=== PATIENT | female | born 1940 | race Caucasian/White ===

== ENCOUNTER 2016-08-08 21:51 | Inpatient (IN) | payer MEDICARE ==
[~2016-08-08] VITALS: Ht 149.9 cm; Wt 80.2 kg
[2016-08-08 23:40] VITALS: BP 158/70
[2016-08-08 23:55] VITALS: BP 158/70
[2016-08-09] MEDS ORDERED: ONDANSETRON 4MG/2ML VIAL (J2405) IV PRN
[2016-08-09 00:30] VITALS: BP 158/70
[2016-08-09] MEDS: NS 1,000 ML IV SCH ×4 (00:30→21:09)
--- NOTE | 2016-08-09 00:49 | HPEPDOC ---
General Date of Admission Aug 08, 2016 at 23:05 Other Providers PCP: Ahmet Alicia Attending Physician: OMAR VENEGAS MD Chief Complaint The patient is a 75-year-old female admitted with a reason for visit of Acute Kidney Failure. Source: Patient Exam Limitations: No limitations History of Present Illness 74-year-old female with past medical history of hypertension, diabetes mellitus , iron deficiency anemia, and anxiety/depression was transferred from the [facility] ER after she was found to be in acute renal failure. The patient states that she began to feel unwell on Tuesday. This started after she went to her son's home for dinner and subsequently started to feel nauseous after eating. The patient states that she started to have episodes of nonbloody emesis and intractable nausea with dry heaving over the subsequent few days. During this time, patient states that she was unable to eat or drink much aside from crackers and some evelina nicole. During this time, the patient states that she continued to take all of her medications which include lisinopril 5 mg daily and metformin 1000 mg twice a day. In addition, the patient did state that she also developed very dry lips and a sharp pain in her tongue from all the retching/vomiting. The patient denies taking any [id number] pain medications, antibiotics, or any other new medications during this time. She denies any fevers, chills, shortness of breath, chest pain, palpitations, abdominal pain, or any diarrhea. In the [facility] ER, the patient was noted to have a BUN of 57 and a serum creatinine of 5.2. According to previous records there, the patient had a serum creatinine within normal limits up to one year ago. The patient has been transferred here and will be admitted under the service of Dr. Venegas for further evaluation and management of acute renal failure. Allergies Coded Allergies: Penicillins (Unverified Allergy, Severe, THROAT SWELLING, 11/18/15) Past Medical History Medical History As noted in the HPI. Surgical History Bilateral cataract surgery Family History Significant Family History: No pertinent family hx Social History * Smoker: Denies Alcohol: Denies Drugs: denies Lives by herself in the [facility]. Is functionally independent, and is able to ambulate without any assistive devices. Review of Symptoms Other systems 10 point review of systems negative unless otherwise specified in HPI. Physical Examination General Exam: Positive: Alert, Cooperative, No Acute Distress ENT Exam: Positive: Atraumatic, Mucous membr. moist/pink Neck Exam: Negative: JVD Chest Exam: Positive: Clear to auscultation, Normal air movement Heart Exam: Positive: Normal S1, Normal S2, Rate Normal Telemetry: Positive: Sinus Abdomen Exam: Positive: Soft, Negative: Tenderness Extremity Exam: Negative: Swelling, Tenderness Psych Exam: Positive: Oriented x 3 Vital Signs Vital Signs Date Time Temp Pulse Resp B/P Pulse Ox O2 Delivery O2 Flow Rate FiO2 08/08/16 23:55 97.9 18 158/70 100 Room Air Plan / VTE VTE Prophylaxis Ordered?: Yes Plan Plan Acute renal failure Likely secondary to intractable vomiting, dehydration, decreased by mouth intake , and compounded by the continuation of lisinopril, metformin The patient's serum potassium is noted to be within normal limits, and her ABG is notable for mild metabolic acidosis with a pH of 7.3 No emergent indication for dialysis at this time Patient states that she is continuing to make urine at her normal rate Lactic acid level within normal limits IV fluid hydration ordered CT scan of the abdomen done in [facility] with no evidence of hydronephrosis or other structural defects Renal ultrasound ordered for further delineation Urinalysis, urine lites ordered Immunologic workup also ordered to rule out other potential causes of acute renal failure Avoid nephrotoxins If the patient's renal status does not improve in the a.m., consider nephrology consultation Diabetes mellitus Will hold metformin secondary to above Insulin sliding scale for additional coverage Hypertension, stable We will hold the patient's lisinopril now secondary to above Iron deficiency anemia The patient was previously on ferrous sulfate, however discontinued this medication as it made her stomach upset We will continue to monitor hemoglobin leve Anxiety/depression Patient stable with no suicidal or homicidal ideations Continue Ativan when necessary DVT prophylaxis-heparin subcutaneously The patient will be admitted under the service of Dr. Venegas, who will begin to follow the patient on 08/09/16 at 7 AM. JOHN OLIVEROS MD Aug 09, 2016 00:49
[2016-08-09] MEDS ORDERED: GLUCAGON FOR INJ 1 MG VIAL (J1610) SC PRN (01:00)
[2016-08-09] MEDS ORDERED: GLUCOSE 4 GM CHEW TABLET PO PRN (01:00)
[2016-08-09] MEDS ORDERED: DEXTROSE 50% 50 ML SYRINGE IV PRN (01:00)
[2016-08-09] MEDS ORDERED: ONGL1TAB9 PO (01:08)
[2016-08-09] MEDS ORDERED: LISI-542 PO (01:08)
[2016-08-09] MEDS ORDERED: PARO10TA84 PO (01:08)
[2016-08-09] MEDS ORDERED: METF1000 PO (01:08)
[2016-08-09] MEDS ORDERED: VITMTA PO (01:08)
[2016-08-09] MEDS ORDERED: OMEP40CA2 PO (01:08)
[2016-08-09] MEDS ORDERED: LORA-376 PO (01:08)
[2016-08-09 02:22] LABS: COMPLEMENT C3 142 MG/DL (90-180); COMPLEMENT C4 34.3 MG/DL (10-40)
[2016-08-09 04:45] VITALS: BP 148/65
[2016-08-09 05:31] LABS: ALBUMIN 2.3 GM/DL (3.2-5.2); CALCIUM LEVEL 6.9 MG/DL (8.8-10.2); CREATININE FOR GFR 4.73 MG/DL (0.55-1.02); GLOMERULAR FILTRATION RATE 9.6 (>39); PHOSPHORUS LEVEL 3.8 MG/DL (2.5-4.9); POTASSIUM SERUM 3.8 MEQ/L (3.5-5.1)
[2016-08-09 05:41] LABS: MEAN CORPUSCULAR HEMOGLOBIN 23.1 pg (27.0-33.0); MEAN CORPUSCULAR HGB CONC 31.3 g/dl (32.0-36.5); MEAN CORPUSCULAR VOLUME 73.9 fl (80.0-96.0); RED CELL DISTRIBUTION WIDTH 17.6 % (11.5-14.5); WHITE BLOOD COUNT 12.9 K/mm3 (4.0-10.0)
[2016-08-09 05:44] LABS: MAGNESIUM LEVEL 0.9 MG/DL (1.8-2.4)
[2016-08-09] MEDS: HEPARIN SOD (PORCINE) 5000 UNITS/ML VIAL SC SCH ×3 (06:27→21:09)
[2016-08-09] MEDS: MAG SULF 1GM/100ML (MAG RUN) 1 GM in APPROPRIATE DILUENT 1 EA IV SCH ×4 (06:28→10:10)
[2016-08-09] MEDS ORDERED: CALCIUM GLUCONATE 1,000 MG in D5W MINI-BAG PLUS 100 ML IV ONE (06:45)
[2016-08-09 07:20] LABS: FERRITIN 70 NG/ML (8-252); PERCENT SATURATION 2.9 % (13.2-37.4); TOTAL IRON BINDING CAPACITY 276 UG/DL (250-450)
[2016-08-09] MEDS: HumaLOG INSULIN (NovoLOG) PER UNIT SC SCH ×4 (07:30→21:00)
[2016-08-09 08:00] VITALS: BP 151/67
--- NOTE | 2016-08-09 08:31 | REP ---
Renal ultrasound: The kidneys are normal size. Right kidney measures 2.6 x 6.3 x 6.5 cm. Left kidney measures 12.4 5.2 x 5.6 cm. Renal cortical echogenicity is normal bilaterally. There is no hydronephrosis on the right on the left. There are no renal calculi, masses or cysts on the right on the left. With color Doppler assessment there are bilateral ureteral jets into the urinary bladder. The bladder wall is not optimally demonstrated for further evaluation. Impression: No hydronephrosis. There are bilateral ureteral jets into the urinary bladder. Otherwise, negative renal ultrasound. Signed by Sandeep Catalan MD 08/09/2016 08:22 A
[2016-08-09] MEDS ORDERED: CYANOCOBALAMIN 1,000 MCG/ML VIAL (J3420) IM SCH (09:00)
[2016-08-09] MEDS: MULTIVITAMINS/MINERALS THERAP 1 TAB PO SCH (09:26)
[2016-08-09] MEDS: OMEPRAZOLE 20 MG CAP PO SCH (09:26)
[2016-08-09 10:53] LABS: FOLATE > 24.0 NG/ML (>5.4); VITAMIN B12 LEVEL 216 PG/ML (247-911)
--- NOTE | 2016-08-09 11:59 | IPNPDOC ---
Subjective Date Seen The patient was seen on 08/09/16. Subjective Chief Complaint/HPI The patient is a 75-year-old female admitted with a reason for visit of Acute Kidney Failure. Events since last encounter feeling better, making good amounts of urine. No fever or chills, no chest pain or SOB , no abdominal pain, no nausea or vomiting. Objective Physical Examination General Exam: Positive: Alert, Cooperative, No Acute Distress ENT Exam: Positive: Atraumatic, Mucous membr. moist/pink Neck Exam: Negative: JVD Chest Exam: Positive: Clear to auscultation, Normal air movement Heart Exam: Positive: Normal S1, Normal S2, Rate Normal Telemetry: Positive: Sinus Abdomen Exam: Positive: Soft, Negative: Tenderness Extremity Exam: Negative: Swelling, Tenderness Psych Exam: Positive: Oriented x 3 Assessment /Plan Problems (1) Anemia Status: Acute (2) Vitamin B 12 deficiency Status: Acute (3) Acute renal failure Status: Acute (4) Diabetes Status: Acute (5) Hypertension Status: Chronic (6) Anxiety and depression Status: Chronic Plan/VTE VTE Prophylaxis Ordered?: Yes VS, I&O, 24H, [facility] Vital Signs/I&O Vital Signs Date Time Temp Pulse Resp B/P Pulse Ox O2 Delivery O2 Flow Rate FiO2 08/09/16 08:00 99.8 110 20 151/67 96 Room Air I&O- Last 24 Hours up to 6 AM 08/09/16 06:00 Intake Total 750 ml Output Total 325 ml Balance 425 ml Laboratory Data 24H LABS Laboratory Tests 2 08/09/16 00:49: C-Reactive Protein, Quantitative 8.29H, Complement C3 142, Complement C4 34.3 08/09/16 03:59: Urine Amorphous Sediment , Urine Appearance CLOUDYH, Urine Color YELLOW, Urine pH 5.0, Urine Specific [place] 1.005, Urine Protein NEGATIVE, Urine Glucose (UA ) NEGATIVE, Urine Ketones TRACEH, Urine Urobilinogen 0.2, Urine Bilirubin NEGATIVE, Urine Leukocyte Esterase 3+H, Urine Bacteria (Auto) 1+H, Urine Blood 1 +H, Urine Calcium Carbonate Cryst(Auto) , Urine Calcium Oxalate Cryst (Auto) , Urine Calcium Phosphate Tammy (Auto) , Urine Cellular Casts , Urine Cystine Crystals , Urine Granular Casts (Auto) , Urine Hyaline Casts (Auto) 0, Urine Leucine Crystals , Urine Mucus (Auto) SMALL, Urine Nitrite NEGATIVE, Urine Oval Fat Bodies (Auto) , Urine RBC (Auto) 16H, Urine Renal Epithelial Cells , Urine Sperm (Auto) , Urine Squamous Epithelial Cells 0, Urine Transitional Epithelial Cells , Urine Trichomonas (Auto) , Urine Triple Phosphate Cryst (Auto) , Urine Tyrosine Crystals , Urine Uric Acid Crystals (Auto) , Urine WBC (Auto) TNTCH, Urine Waxy Casts (Auto) , Urine Yeast-Like Cells (Auto) 08/09/16 04:48: Albumin 2.3L, Blood Urea Nitrogen 49H, Creatinine 4.73H, Sodium Level 144, Potassium Level 3.8, Chloride Level 116H, Carbon Dioxide Level 19L, Anion Gap 9 , Calcium Level 6.9L, Glomerular Filtration Rate 9.6L, Magnesium Level 0.9*L, Phosphorus Level 3.8 08/09/16 06:32: Ferritin 70, Folate > 24.0, Iron Level 8L, Total Iron Binding Capacity 276, Transferrin % Saturation 2.9L, Vitamin B12 Level 216L CBC/BMP Laboratory Tests 08/09/16 04:48 Anion Gap 9, Red Blood Count 2.92 L, Mean Corpuscular Volume 73.9 L, Mean Corpuscular Hemoglobin 23.1 L, Mean Corpuscular Hemoglobin Concent 31.3 L, Red Cell Distribution Width 17.6 H OMAR LLANES MD Aug 09, 2016 11:59
[2016-08-09 12:57] LABS: HEPATITIS B SURFACE ANTIBODY NEGATIVE (POSITIVE)
[2016-08-09] MEDS: LORazepam 0.5 MG TAB PO PRN (15:22)
[2016-08-09 16:00] VITALS: BP 130/58
[2016-08-09 18:14] LABS: MEAN CORPUSCULAR VOLUME 74.1 fl (80.0-96.0); WHITE BLOOD COUNT 13.1 K/mm3 (4.0-10.0)
[2016-08-09 18:33] LABS: CALCIUM LEVEL 7.3 MG/DL (8.8-10.2); CREATININE FOR GFR 4.37 MG/DL (0.55-1.02); GLOMERULAR FILTRATION RATE 10.5 (>39)
[2016-08-09 20:22] VITALS: BP 142/61
[2016-08-09 23:50] VITALS: BP 129/58
[2016-08-10] VITALS (10 sets, daily range): BP systolic 143–180; BP diastolic 64–87; PULSE 87
[2016-08-10] MEDS: NS 1,000 ML IV SCH (05:02)
[2016-08-10] MEDS: HEPARIN SOD (PORCINE) 5000 UNITS/ML VIAL SC SCH ×3 (05:02→21:05)
[2016-08-10 05:45] LABS: MEAN CORPUSCULAR HEMOGLOBIN 23.9 pg (27.0-33.0); MEAN CORPUSCULAR HGB CONC 32.3 g/dl (32.0-36.5); MEAN CORPUSCULAR VOLUME 74.2 fl (80.0-96.0); RED CELL DISTRIBUTION WIDTH 17.2 % (11.5-14.5); WHITE BLOOD COUNT 12.2 K/mm3 (4.0-10.0)
[2016-08-10 06:04] LABS: ALBUMIN 2.3 GM/DL (3.2-5.2); CALCIUM LEVEL 7.3 MG/DL (8.8-10.2); CREATININE FOR GFR 4.28 MG/DL (0.55-1.02); GLOMERULAR FILTRATION RATE 10.8 (>39); MAGNESIUM LEVEL 2.1 MG/DL (1.8-2.4); PHOSPHORUS LEVEL 3.7 MG/DL (2.5-4.9); POTASSIUM SERUM 3.6 MEQ/L (3.5-5.1)
[2016-08-10] MEDS: HumaLOG INSULIN (NovoLOG) PER UNIT SC SCH ×4 (07:30→21:00)
[2016-08-10] MEDS: FAMOTIDINE 20 MG TAB PO SCH ×2 (09:00→21:04)
[2016-08-10] MEDS: OMEPRAZOLE 20 MG CAP PO SCH (09:15)
[2016-08-10] MEDS: LORazepam 0.5 MG TAB PO PRN (09:15)
[2016-08-10] MEDS: MULTIVITAMINS/MINERALS THERAP 1 TAB PO SCH (09:15)
[2016-08-10] MEDS ORDERED: IRON SUCROSE 25 MG in NS 50 ML IV ONE (13:00)
--- NOTE | 2016-08-10 13:12 | CR ---
DATE OF CONSULTATION: 08/10/2016 REQUESTING PHYSICIAN: Jose Perales MD REASON FOR CONSULTATION: Acute renal failure. HISTORY OF PRESENT ILLNESS: Mrs. Lynn is a 74-year-old female with known history of hypertension, type 2 diabetes, anxiety, depression and iron deficiency anemia. She has been sick since Tuesday with nausea, vomiting and diarrhea. She presented to emergency room at [facility] where she was found to have a BUN of 57 and creatinine 5.2. She was transferred to [facility]. She was admitted here on August 08 and has been hydrated with IV fluids since then. Her kidney function has not improved, due to which a nephrology consultation was requested. Her GI symptoms have resolved and she is now very well hydrated. A renal ultrasound was negative for any evidence of obstruction. PAST MEDICAL AND SURGICAL HISTORY: Significant for: 1. Type 2 diabetes. 2. Hypertension. 3. Anemia. 4. Anxiety and depression. HOME MEDICATIONS: Her home medications included lisinopril, metformin, omeprazole, lorazepam as needed, paroxetine 10 mg daily and Onglyza 5 mg daily. ALLERGIES: 1. The patient has an allergy to PENICILLIN. PERSONAL AND SOCIAL HISTORY: The patient denies any alcohol, drug or tobacco use. FAMILY HISTORY: Negative for kidney problems. REVIEW OF SYSTEMS: She denies any fever or chills. She had recurrent nausea, vomiting and diarrhea which has completely resolved. She is tolerating oral intake well. Ears, nose and throat are unremarkable. Cardiovascular system negative for dyspnea or chest pain. Respiratory system negative for cough or hemoptysis. GI system is as per history of present illness. She did not have any rectal bleeding or black colored stools. system is negative for dysuria or hematuria. Renal ultrasound did not show any evidence of hydronephrosis or mass. Endocrine system is negative for thyroid problems. She does have type 2 diabetes. Psychosocial system is significant for depression and anxiety. Neurological system is negative for seizures. Musculoskeletal system is negative for any arthritis. She denies using NSAIDs. Skin is negative for rash or ulcers. PHYSICAL EXAMINATION: Temperature 98.4 degrees Fahrenheit, heart rate 88 per minute and respiratory rate 2o per minutes. Blood pressure 152/70 mmHg and oxygen saturation 97% on room air. Head is atraumatic. Ears, nose and throat are unremarkable. Neck is supple and JVD is elevated at about 6 cm above sternal angle. She has no thyroid enlargement and trachea is midline. Heart sounds are regular and lungs clear to auscultation bilaterally. Abdomen is soft and nontender. Bowel sounds are normal and there is no palpable organomegaly. Extremities have no cyanosis or clubbing. Skin has no rash or ulcers. Neurologically she has no focal deficit. LABORATORY DATA: Her initial labs showed a WBC count 12.9, hemoglobin 6.8 and hematocrit 21.6. Platelets were 512. She has received 2 units of packed RBCs since admission. Today her WBC count is 12.2, hemoglobin 8.9 and hematocrit 27.6. Platelets of 562. Urinalysis showed 1+ blood and 3+ leukocyte esterase with too numerous to count WBCs and 16 RBCs. Initial chemistry showed a sodium 144 and potassium 3.8. BUN was 49 and creatinine 4.7. Yesterday her BUN was 49 and creatinine 4.37. Today her BUN is down to 43 and creatinine 4.28. Sodium is 144 and potassium is 3.6. Her CO2 is 16. Renal ultrasound done on August 08 showed both kidneys about 12.5 cm in size without any hydronephrosis. PROBLEMS: 1. Acute renal failure. The patient is known to have almost normal kidney function at baseline about a year ago. Her most recent baseline kidney function is not known. She did have GI problems for several days and was probably dehydrated at the time of admission. However, she seems to be very well hydrated now with elevated neck veins and is at risk for hypervolemia. Her vomiting and diarrhea has already completely resolved. I will stop her IV fluids and monitor her renal function for the next 24 hours. She was on metformin which has already been stopped. I will also stop her omeprazole. At this point, we will keep her off YUE inhibitors until her kidney function improves. There is no emergent indication for dialysis and I will recheck her renal profile tomorrow morning. 2. Metabolic acidosis. She seems to have mild metabolic acidosis probably related to acute renal failure and diarrhea. In addition, she was also taking metformin. We will stop the IV fluid and monitor her for the next 24 hours without any intervention. 3. Anemia with severe iron deficiency. The patient does have severe iron deficiency and is likely to require iron supplementation. She has received 2 units of packed RBCs. I will give her one dose of InFeD 1000 mg. She will probably need GI workup for blood loss. 4. Hypertension. Her blood pressure is reasonable right now. Will stop the IV fluid and keep her off YUE inhibitor for now. In case we need an antihypertensive we can use a calcium channel ignacio. 5. Diabetes. Her diabetes has been reasonably well controlled. I suggest to keep her off metformin. I thank you for involving me in the care of Mrs. Lynn. I will follow her along with you.
[2016-08-10] MEDS ORDERED: IRON SUCROSE 375 MG in NS 250 ML IV ONE (14:00)
--- NOTE | 2016-08-10 20:18 | IPNPDOC ---
Subjective Date Seen The patient was seen on 08/10/16. Subjective Chief Complaint/HPI The patient is a 75-year-old female admitted with a reason for visit of Acute Kidney Failure. Objective Physical Examination General Exam: Positive: Alert, Cooperative, No Acute Distress ENT Exam: Positive: Atraumatic, Mucous membr. moist/pink Neck Exam: Negative: JVD Chest Exam: Positive: Clear to auscultation, Normal air movement Heart Exam: Positive: Normal S1, Normal S2, Rate Normal Telemetry: Positive: Sinus Abdomen Exam: Positive: Soft, Negative: Tenderness Extremity Exam: Negative: Swelling, Tenderness Psych Exam: Positive: Oriented x 3 Assessment /Plan Problems (1) Anemia Status: Acute (2) Vitamin B 12 deficiency Status: Acute (3) Acute renal failure Status: Acute (4) Diabetes Status: Acute (5) Hypertension Status: Chronic (6) Anxiety and depression Status: Chronic Plan/VTE VTE Prophylaxis Ordered?: Yes VS, I&O, 24H, [facility] Vital Signs/I&O Vital Signs Date Time Temp Pulse Resp B/P Pulse Ox O2 Delivery O2 Flow Rate FiO2 08/10/16 19:52 99.8 89 20 148/69 96 Room Air I&O- Last 24 Hours up to 6 AM 08/10/16 05:59 Intake Total 2680 ml Output Total 3525 ml Balance -845 ml Laboratory Data 24H LABS Laboratory Tests 2 08/10/16 05:13: Albumin 2.3L, Blood Urea Nitrogen 43H, Creatinine 4.28H, Sodium Level 144, Potassium Level 3.6, Chloride Level 116H, Carbon Dioxide Level 16L, Anion Gap 12 , Calcium Level 7.3L, Glomerular Filtration Rate 10.8L, Magnesium Level 2.1, Phosphorus Level 3.7 CBC/BMP Laboratory Tests 08/10/16 05:13 Anion Gap 12, Red Blood Count 3.71 L, Mean Corpuscular Volume 74.2 L, Mean Corpuscular Hemoglobin 23.9 L, Mean Corpuscular Hemoglobin Concent 32.3, Red Cell Distribution Width 17.2 H Microbiology Microbiology 08/10/16 Urine Culture, Received Pending TIMOTHY SIDHU DO Aug 10, 2016 20:18
[2016-08-11] VITALS (8 sets, daily range): BP systolic 131–182; BP diastolic 61–83; PULSE 81
[2016-08-11 05:53] LABS: MEAN CORPUSCULAR HEMOGLOBIN 23.2 pg (27.0-33.0); MEAN CORPUSCULAR HGB CONC 30.9 g/dl (32.0-36.5); MEAN CORPUSCULAR VOLUME 75.1 fl (80.0-96.0); RED CELL DISTRIBUTION WIDTH 17.9 % (11.5-14.5); WHITE BLOOD COUNT 12.2 K/mm3 (4.0-10.0)
[2016-08-11] MEDS: HEPARIN SOD (PORCINE) 5000 UNITS/ML VIAL SC SCH ×3 (05:58→21:13)
[2016-08-11 06:09] LABS: ALBUMIN 2.2 GM/DL (3.2-5.2); CALCIUM LEVEL 7.9 MG/DL (8.8-10.2); CREATININE FOR GFR 3.87 MG/DL (0.55-1.02); GLOMERULAR FILTRATION RATE 12.1 (>39); MAGNESIUM LEVEL 1.8 MG/DL (1.8-2.4); PHOSPHORUS LEVEL 4.3 MG/DL (2.5-4.9); POTASSIUM SERUM 3.7 MEQ/L (3.5-5.1)
[2016-08-11] MEDS: HumaLOG INSULIN (NovoLOG) PER UNIT SC SCH ×5 (07:30→21:00)
[2016-08-11] MEDS: MULTIVITAMINS/MINERALS THERAP 1 TAB PO SCH (08:40)
[2016-08-11] MEDS: DOCUSATE SODIUM 100 MG CAP PO SCH ×2 (08:40→21:13)
[2016-08-11] MEDS: FAMOTIDINE 20 MG TAB PO SCH ×2 (08:40→21:13)
[2016-08-11] MEDS: LORazepam 0.5 MG TAB PO PRN (08:45)
[2016-08-11] MEDS ORDERED: DARBEPOETIN 100 MCG/0.5 ML *NON-DIALYSIS* SYRINGE (J0881) SC SCH (09:00)
[2016-08-11] MEDS ORDERED: SLF 3 ML SYR IV PRN (10:15)
--- NOTE | 2016-08-11 11:46 | IPN ---
DATE OF SERVICE: 08/11/2016 Mrs. Lynn is seen this morning on her bedside. She is feeling better and denies any dyspnea, chest pain, nausea, or vomiting. Her intravenous (IV) fluid was stopped yesterday. She received a dose of intravenous iron due to severe iron deficiency with anemia and tolerated it well. On physical examination, temperature 98.4 degrees Fahrenheit, heart rate 85 per minute, and respiratory rate 20 per minute. Blood pressure 153/63 mmHg and oxygen saturation 98% on room air. Intake and output records from yesterday showed total intake 2900 and output 3200. Head is atraumatic. Neck is supple with mild jugular venous distention (JVD) and no thyroid enlargement. Trachea is midline. Heart sounds are regular. Lungs clear to auscultation. Abdomen: Soft, nontender, and without palpable organomegaly. Extremities: Have no cyanosis or clubbing. Skin has no rash or ulcers. Neurologically, she is awake, alert, and oriented times three. Today's laboratories show WBC count 12.2, hemoglobin 8.4, and hematocrit 27.1. Platelets 556. Sodium 146 and potassium 3.7. BUN 39 and creatinine 3.87. PROBLEMS: 1. Acute kidney injury superimposed on chronic kidney disease. Improvement in kidney function is noticed over the last 24 hours. She is currently not on any nephrotoxic medication. I will start I have started her on Pepcid and has stopped her proton pump inhibitor (PPI). 2. Recurrent anemia. The patient received transfusions initially due to severe anemia. She has slight drop in her hematocrit once again. She is going to have stool checked for occult blood. She has not had a colonoscopy at least in several years. I will recommend upper and lower endoscopy, which could be done as an outpatient if it could not be done during this hospitalization. 3. Hypernatremia. This is mild and likely to resolve by itself. The patient has good oral intake. Will keep her off IV fluid.
[2016-08-11] MEDS: SLF 3 ML SYR IV SCH ×2 (14:58→21:13)
[2016-08-11] MEDS: MIRALAX *UNIT DOSE* 17GM PACKET PO PRN (15:13)
[2016-08-11] MEDS ORDERED: **hydrALAZINE** 10 MG TAB PO ONE (18:00)
--- NOTE | 2016-08-11 21:34 | IPNPDOC ---
Subjective Date Seen The patient was seen on 08/11/16. Subjective Chief Complaint/HPI The patient is a 75-year-old female admitted with a reason for visit of Acute Kidney Failure. Constitutional: Denies: Chills, Fever, Malaise, Night Sweats, Weakness, Fatigue , Weight Loss, Lethargy, Other Eyes: Denies: Pain, Vision change Objective Physical Examination General Exam: Positive: Alert, Cooperative, No Acute Distress ENT Exam: Positive: Atraumatic, Mucous membr. moist/pink Neck Exam: Negative: JVD Chest Exam: Positive: Clear to auscultation, Normal air movement Heart Exam: Positive: Rate Normal, Normal S1, Normal S2 Telemetry: Positive: Sinus Abdomen Exam: Positive: Soft, Negative: Tenderness Extremity Exam: Negative: Tenderness, Swelling Psych Exam: Positive: Oriented x 3 Assessment /Plan Problems (1) Anemia Status: Acute Problem Text: * s/p transfusion * s/p iron through the IV * pt has iron def anemia * occult blood pending (2) Vitamin B 12 deficiency Status: Acute (3) Acute renal failure Status: Acute Response to Treatment: Improving (4) Diabetes Status: Chronic Response to Treatment: Stable (5) Hypertension Status: Chronic (6) Anxiety and depression Status: Chronic Plan/VTE VTE Prophylaxis Ordered?: Yes VS, I&O, 24H, [facility] Vital Signs/I&O Vital Signs Date Time Temp Pulse Resp B/P (MAP) Pulse Ox O2 Delivery O2 Flow Rate FiO2 08/11/16 19:00 174/70 (104) 08/11/16 16:45 98.4 92 18 99 Room Air I&O- Last 24 Hours up to 6 AM 08/11/16 06:00 Intake Total 1999.25 ml Output Total 2800 ml Balance -800.75 ml Laboratory Data 24H LABS Laboratory Tests 2 08/11/16 05:29: Blood Urea Nitrogen 39H, Creatinine 3.87H, Sodium Level 146H, Potassium Level 3.7, Chloride Level 117H, Carbon Dioxide Level 19L, Anion Gap 10, Glomerular Filtration Rate 12.1L, Calcium Level 7.9L, Phosphorus Level 4.3, Magnesium Level 1.8, Albumin 2.2L CBC/BMP Laboratory Tests 08/11/16 05:29 Red Blood Count 3.61 L, Mean Corpuscular Volume 75.1 L, Mean Corpuscular Hemoglobin 23.2 L, Mean Corpuscular Hemoglobin Concent 30.9 L, Red Cell Distribution Width 17.9 H, Anion Gap 10 Microbiology Microbiology 08/10/16 Urine Culture - Final, Complete TIMOTHY SIDHU DO Aug 11, 2016 21:34
[2016-08-12 00:07] LABS: COMPLEMENT TOTAL (CH50) > 62 U/mL (42-60); MYELOPEROXIDASE ANTIBODY <9.0 U/mL (0.0-9.0)
[2016-08-12 02:00] VITALS: BP 170/78
[2016-08-12] MEDS: HEPARIN SOD (PORCINE) 5000 UNITS/ML VIAL SC SCH ×3 (05:37→21:18)
[2016-08-12] MEDS: SLF 3 ML SYR IV SCH ×3 (05:38→21:20)
[2016-08-12] MEDS: MIRALAX *UNIT DOSE* 17GM PACKET PO PRN (05:42)
[2016-08-12 05:59] LABS: MEAN CORPUSCULAR HEMOGLOBIN 23.1 pg (27.0-33.0); MEAN CORPUSCULAR HGB CONC 31.2 g/dl (32.0-36.5); MEAN CORPUSCULAR VOLUME 74.1 fl (80.0-96.0); WHITE BLOOD COUNT 13.2 K/mm3 (4.0-10.0)
[2016-08-12 06:00] VITALS: BP 158/70
[2016-08-12 06:21] LABS: ALBUMIN 2.6 GM/DL (3.2-5.2); CALCIUM LEVEL 8.1 MG/DL (8.8-10.2); CREATININE FOR GFR 3.62 MG/DL (0.55-1.02); GLOMERULAR FILTRATION RATE 13.1 (>39); MAGNESIUM LEVEL 1.6 MG/DL (1.8-2.4); PHOSPHORUS LEVEL 3.8 MG/DL (2.5-4.9); POTASSIUM SERUM 3.3 MEQ/L (3.5-5.1)
[2016-08-12] MEDS ORDERED: POTASSIUM CHLORIDE 10 MEQ SR TABLET PO ONE ×2 (07:30→08:15)
[2016-08-12] MEDS: HumaLOG INSULIN (NovoLOG) PER UNIT SC SCH ×4 (07:43→21:00)
[2016-08-12] MEDS ORDERED: MAG SULF 1GM/100ML (MAG RUN) 1 GM in APPROPRIATE DILUENT 1 EA IV ONE (08:15)
[2016-08-12] MEDS: **hydrALAZINE** 10 MG TAB PO SCH ×3 (08:40→21:19)
[2016-08-12] MEDS: FAMOTIDINE 20 MG TAB PO SCH ×2 (08:41→21:18)
[2016-08-12] MEDS: MULTIVITAMINS/MINERALS THERAP 1 TAB PO SCH (08:41)
[2016-08-12] MEDS: SENOKOT S TAB PO SCH ×2 (08:41→21:19)
[2016-08-12] MEDS: LORazepam 0.5 MG TAB PO PRN (08:48)
[2016-08-12] MEDS ORDERED: amLODIPine 5 MG TAB PO ONE (09:30)
[2016-08-12 14:00] VITALS: BP 148/68
--- NOTE | 2016-08-12 20:17 | IPN ---
DATE: 08/12/2016 Mrs. Lynn is seen this morning at her bedside. She reports that she took all of her pills. She felt sick to her stomach and vomited once. She is not sure if she vomited any of her pills. She denies any abdominal pain or nausea now. She has no dyspnea or chest pain. She has been up and ambulated for one hour in the hallway at this morning. On physical examination, temperature 97.1 degrees Fahrenheit, heart rate 88 per minute and respiratory rate 18 per minute. Blood pressure 173/77 mmHg and oxygen saturation 93% on room air. Head is atraumatic. Ears, nose and throat are unremarkable. Pupils are equal and reactive to light and sclera is anicteric. Neck is supple and without jugular venous distention (JVD) or thyroid enlargement. Heart sounds are regular and lungs clear to auscultation. Abdomen soft and nontender. There is no palpable organomegaly and bowel sounds are normal. Extremities have no cyanosis or clubbing. Skin has no rash or ulcers. Neurologically she is awake, alert and oriented times three. Today's laboratories show WBC count 13.2, hemoglobin 8.8 and hematocrit 28.4. Platelets 580. Sodium 146 and potassium 3.3. BUN 38 and creatinine 3.62. PROBLEMS: 1. Acute renal failure superimposed on chronic kidney disease. The patient has gradual improvement in her kidney function. I do not feel that she has any uremic symptoms at this point and we will continue to monitor her kidney function closely. 2. Hypertension. Blood pressure is somewhat high today. She has been off her angiotensin receptor ignacio (ARB) since admission due to acute renal failure. I will start amlodipine 5 mg daily with first dose today. She is also receiving hydralazine 10 mg three times a day, which is appropriate. We will continue to hold off on any diuretics. 3. Hypokalemia. This is most likely related to recovering kidney function. The patient will be given one dose of potassium chloride 40 mEq and electrolytes will be checked tomorrow morning. 4. Leukocytosis. Her leukocytosis has been persistent and etiology is uncertain. She has no febrile illness at this point and no other symptoms to suggest infection. 5. Anemia. Patient was given intravenous iron dose due to severe iron deficiency. Her anemia has started to improve. She was initially transfused; however, at this point there is no need for further transfusion.
--- NOTE | 2016-08-12 20:56 | IPNPDOC ---
Subjective Date Seen The patient was seen on 08/12/16. Subjective Chief Complaint/HPI The patient is a 75-year-old female admitted with a reason for visit of Acute Kidney Failure. Objective Physical Examination General Exam: Positive: Alert, Cooperative, No Acute Distress ENT Exam: Positive: Atraumatic, Mucous membr. moist/pink Neck Exam: Negative: JVD Chest Exam: Positive: Clear to auscultation, Normal air movement Heart Exam: Positive: Rate Normal, Normal S1, Normal S2 Telemetry: Positive: Sinus Abdomen Exam: Positive: Soft, Negative: Tenderness Extremity Exam: Negative: Tenderness, Swelling Psych Exam: Positive: Oriented x 3 Assessment /Plan Problems (1) Anemia Status: Acute Problem Text: * s/p transfusion * s/p iron through the IV * pt has iron def anemia * occult blood pending (2) Vitamin B 12 deficiency Status: Acute (3) Acute renal failure Status: Acute Response to Treatment: Improving (4) Diabetes Status: Chronic Response to Treatment: Stable (5) Hypertension Status: Chronic (6) Anxiety and depression Status: Chronic Plan/VTE VTE Prophylaxis Ordered?: Yes VS, I&O, 24H, [facility] Vital Signs/I&O Vital Signs Date Time Temp Pulse Resp B/P (MAP) Pulse Ox O2 Delivery O2 Flow Rate FiO2 08/12/16 14:22 148/68 08/12/16 14:00 97.6 89 18 99 Room Air I&O- Last 24 Hours up to 6 AM 08/12/16 06:00 Intake Total 1240 ml Output Total 2600 ml Balance -1360 ml Laboratory Data 24H LABS Laboratory Tests 2 08/12/16 05:32: Blood Urea Nitrogen 38H, Creatinine 3.62H, Sodium Level 146H, Potassium Level 3.3L, Chloride Level 113H, Carbon Dioxide Level 21, Anion Gap 12, Glomerular Filtration Rate 13.1L, Calcium Level 8.1L, Phosphorus Level 3.8, Magnesium Level 1.6L, Albumin 2.6L 08/12/16 11:24: Bedside Glucose (Misc Panel) 137H 08/12/16 16:50: Bedside Glucose (Misc Panel) 121H CBC/BMP Laboratory Tests 08/12/16 05:31 Red Blood Count 3.83 L, Mean Corpuscular Volume 74.1 L, Mean Corpuscular Hemoglobin 23.1 L, Mean Corpuscular Hemoglobin Concent 31.2 L, Red Cell Distribution Width 18.0 H 08/12/16 05:32 Anion Gap 12 Microbiology Microbiology 08/10/16 Urine Culture - Final, Complete TIMOTHY SIDHU DO Aug 12, 2016 20:56
[2016-08-12 22:00] VITALS: BP 151/73
[2016-08-13] MEDS: HEPARIN SOD (PORCINE) 5000 UNITS/ML VIAL SC SCH (05:38)
[2016-08-13] MEDS: SLF 3 ML SYR IV SCH (05:38)
[2016-08-13] MEDS: **hydrALAZINE** 10 MG TAB PO SCH (05:38)
[2016-08-13 05:59] LABS: MEAN CORPUSCULAR HEMOGLOBIN 23.9 pg (27.0-33.0); MEAN CORPUSCULAR HGB CONC 31.7 g/dl (32.0-36.5); MEAN CORPUSCULAR VOLUME 75.5 fl (80.0-96.0); RED CELL DISTRIBUTION WIDTH 18.4 % (11.5-14.5); WHITE BLOOD COUNT 12.8 K/mm3 (4.0-10.0)
[2016-08-13 06:00] VITALS: BP 147/63
[2016-08-13 06:10] LABS: ALBUMIN 2.6 GM/DL (3.2-5.2); CALCIUM LEVEL 8.5 MG/DL (8.8-10.2); CREATININE FOR GFR 3.63 MG/DL (0.55-1.02); GLOMERULAR FILTRATION RATE 13.1 (>39); MAGNESIUM LEVEL 1.9 MG/DL (1.8-2.4); PHOSPHORUS LEVEL 3.6 MG/DL (2.5-4.9); POTASSIUM SERUM 3.8 MEQ/L (3.5-5.1)
[2016-08-13] MEDS: HumaLOG INSULIN (NovoLOG) PER UNIT SC SCH ×2 (07:30→12:15)
[2016-08-13] MEDS ORDERED: amLODIPine 5 MG TAB PO SCH (09:00)
[2016-08-13] MEDS: SENOKOT S TAB PO SCH (09:10)
[2016-08-13] MEDS: FAMOTIDINE 20 MG TAB PO SCH (09:10)
[2016-08-13] MEDS: MULTIVITAMINS/MINERALS THERAP 1 TAB PO SCH (09:10)
[2016-08-13 09:13] VITALS: BP 143/73
[2016-08-13] MEDS ORDERED: AMLO5TAB2 PO (11:00)
[2016-08-13] MEDS ORDERED: HYDR10TAB PO (11:00)
--- NOTE | 2016-08-20 06:25 | DSES ---
DATE OF ADMISSION: 08/08/2016 DATE OF DISCHARGE: 08/13/2016 REASON FOR ADMISSION: Acute kidney injury. DISCHARGE DIAGNOSES: 1. Anemia. 2. Acute renal failure. 3. Diabetes. 4. Hypertension. 5. Anxiety and depression. 6. B12 deficiency. PRIMARY CARE PROVIDER: Dr. Ahmet Alicia. CONSULTATION DURING ADMISSION: Dr. Costello. HISTORY OF PRESENT ILLNESS: The patient is a 75-year-old female with past medical history significant for type 2 diabetes, hypertension, anxiety, depression, and iron-deficiency anemia who presented to [facility] and found to be in acute renal failure. The patient stated she has been feeling unwell since Tuesday. She said she went to her son's for dinner and subsequently started feeling nauseated after etaing. She had multiple episodes of non-bloody emesis, nausea and dry heaving for a few days. The patient stated she had not had much to drink since then, only crackers and evelina nicole until she presented to the emergency room. Medications included lisinopril 5 mg and metformin 1000 mg twice a day. The patient was found to be in renal failure with creatinine of 5.2 and BUN of 57. She was sent to [facility] for nephrology. Prior to that, the patient had creatinine and BUN within normal limits in the past year. HOSPITAL COURSE: The patient was resuscitated with fluids. Her kidney function only improved slightly. Dr. Costello was then consulted. He started to treat the patient with IV iron since she has a reaction to oral iron. He discontinued all nephrotoxic drugs. Her creatinine improved, but very slowly until it reached 3.6 and she was discharged home to follow up with Dr. Costello outpatient. DISCHARGE CONDITION: The patient was stable. She was to follow up with her primary care provider Dr. Ahmet Alicia. DIET: Renal diet. ACTIVITIES: As tolerated.
== END 2016-08-13 14:02 | disposition home or self-care (01) | DRG 683 ==
LOC: M PCU 23:05 → M MSPAV 08-11 16:49
PROVIDERS: ADMIT Internal Medicine; ATTEND Internal Medicine
PROC: 30233N1 Transfusion of Nonautologous Red Blood Cells into Peripheral Vein, Percutaneous Approach (ICD-10-PCS; principal; 2016-08-09)
DX: N17.9 Acute kidney failure, unspecified (principal); E87.0 Hyperosmolality and hypernatremia; E87.2 Acidosis; D50.9 Iron deficiency anemia, unspecified; E11.9 Type 2 diabetes mellitus without complications; I10 Essential (primary) hypertension; F41.9 Anxiety disorder, unspecified; F32.9 Major depressive disorder, single episode, unspecified; E53.8 Deficiency of other specified B group vitamins; Z88.0 Allergy status to penicillin; I12.9 Hypertensive chronic kidney disease with stage 1 through stage 4 chronic kidney disease, or unspecified chronic kidney disease; N18.9 Chronic kidney disease, unspecified; E87.6 Hypokalemia; D72.829 Elevated white blood cell count, unspecified

== ENCOUNTER 2016-08-19 20:46 | Inpatient (IN) | payer MEDICARE ==
[~2016-08-19] VITALS: Ht 149.9 cm; Wt 70.9 kg
[~2016-08-19 20:46] MED LIST: AMLO5TAB2 PO; HYDR10TAB PO; LISI-542 PO; LORA-376 PO; METF1000 PO; OMEP40CA2 PO; ONGL1TAB9 PO; PARO10TA84 PO; VITMTA PO
[2016-08-19 22:10] VITALS: BP 159/68
[2016-08-19 22:58] LABS: BASO % 0.3 % (0.0-1.0); EOS # 0.4 K/mm3 (0.0-0.50); EOS % 2.8 % (0.0-3.0); LARGE UNSTAINED CELL # 0.2 K/mm3 (0.0-0.4); LARGE UNSTAINED CELL % 1.2 % (0.0-4.0); LYMPH # 2.4 K/mm3 (1.5-4.5); LYMPH % 13.5 % (24.0-44.0); MEAN CORPUSCULAR HEMOGLOBIN 22.8 pg (27.0-33.0); MEAN CORPUSCULAR HGB CONC 29.9 g/dl (32.0-36.5); MEAN CORPUSCULAR VOLUME 76.2 fl (80.0-96.0); MONO # 0.9 K/mm3 (0.0-0.8); MONO % 5.2 % (0.0-5.0); NEUTROPHILS # 12.5 K/mm3 (1.8-7.7); PLATELET COUNT, AUTOMATED 521 k/mm3 (150-450); RED CELL DISTRIBUTION WIDTH 19.7 % (11.5-14.5); WHITE BLOOD COUNT 16.2 K/mm3 (4.0-10.0)
[2016-08-19] MEDS ORDERED: HYDR10TAB PO (23:07)
[2016-08-19] MEDS ORDERED: AMLO5TAB2 PO (23:07)
[2016-08-19 23:21] LABS: ALBUMIN 3.1 GM/DL (3.2-5.2); ALBUMIN/GLOBULIN RATIO 0.62 (1.00-1.93); BILIRUBIN,TOTAL 0.2 MG/DL (0.2-1.0); CALCIUM LEVEL 8.6 MG/DL (8.8-10.2); CREATININE FOR GFR 6.25 MG/DL (0.55-1.02); MAGNESIUM LEVEL 1.9 MG/DL (1.8-2.4); POTASSIUM SERUM 3.6 MEQ/L (3.5-5.1); TOTAL PROTEIN 8.1 GM/DL (6.4-8.2)
[2016-08-20] MEDS ORDERED: SLF 3 ML SYR IV PRN (04:00)
[2016-08-20 04:45] VITALS: BP 128/62
[2016-08-20] MEDS: SLF 3 ML SYR IV SCH ×3 (05:12→21:44)
[2016-08-20] MEDS ORDERED: LORazepam 0.5 MG TAB PO PRN (05:45)
--- NOTE | 2016-08-20 06:13 | HPE ---
DATE OF ADMISSION: 08/19/2016 REASON FOR ADMISSION: Renal failure. HISTORY OF PRESENT ILLNESS: The patient is a 75-year-old female who was recently discharged from [facility] due to acute renal failure secondary to vomiting. She was discharged last week after her kidney function had improved slightly and her symptoms of vomiting had resolved. The patient was to follow up with her primary care provider Dr. Alicia today in the office. When she saw him, she had blood work done. She was later called and was told to go to the hospital. The patient went to [facility] where she was found to have an elevated creatinine of 6. On discharge from [facility], her creatinine was 3.63 and she was to followup with Dr. Costello next week. The patient denies any symptoms of fatigue or decreased urination. She states she has actually been urinating more than normal. She had an abnormal urinalysis over at [facility] and was given one dose of Cipro. The patient stated that she has not been taking any of her medications that were discontinued during the last admission. No fevers or chills. No other findings. REVIEW OF SYSTEMS: 12-point review of systems obtained, all of which was negative, except for those mentioned above. PAST MEDICAL HISTORY (significant for): 1. Diabetes. 2. Hypertension. 3. Iron deficiency anemia. 4. Anxiety. 5. Depression. PAST SURGICAL HISTORY (significant for): Bilateral cataract surgery. FAMILY HISTORY: Noncontributory. SOCIAL HISTORY: The patient denies tobacco or alcohol use. ALLERGIES: - PENICILLIN (reaction severe throat swelling) HOME MEDICATIONS (include): - amlodipine 5 mg daily - hydralazine 10 mg by mouth three times a day - lorazepam 0.5 mg by mouth as needed anxiety twice a day - multivitamin 1 tablet daily - omeprazole 40 mg daily - paroxetine 10 mg as needed anxiety - Onglyza PHYSICAL FINDINGS: Vitals: On admission, temperature 97.8, pulse 102, respiratory rate 20, blood pressure is 159/68, and pulse oximetry 99% on room air. HEENT: Pupils equal round and reactive to light and accommodation. Neck: Supple. No jugular venous distention. Lungs: Clear to auscultation bilaterally. Abdomen: Soft, nontender, nondistended. Extremities: No clubbing, cyanosis or edema. LABORATORY FINDINGS: WBC 16.2, hemoglobin 9.9, hematocrit 33, platelet count 521. Sodium 138, potassium 3.6, chloride 106, BUN 68, creatinine 6.25, magnesium 1.9. Urinalysis is pending. ASSESSMENT/PLAN: 1. Acute kidney failure, unknown etiology at this time. Dr. Street is consulted. The patient during the last admission was discontinued all of her nephrotoxic drugs. She was initially thought it may be secondary to dehydration and it was possibly thought to be due to drug reaction. At this time acute kidney injury unknown etiology. 2. History of diabetes. We will continue the patient's sliding scale and consistent carbohydrate diet. 3. History of anxiety. Continue the patient's home medications as needed. 4. History of hypertension. Continue amlodipine and hydralazine 10 mg every 8 hours. 5. Deep vein thrombosis (DVT) prophylaxis. Thromboembolic deterrent stockings (TEDS) and sequentials while in bed. The patient will be seen by Dr. Marlon Horan in the morning.
[2016-08-20 07:03] LABS: MEAN CORPUSCULAR HGB CONC 31.7 g/dl (32.0-36.5); MEAN CORPUSCULAR VOLUME 75.9 fl (80.0-96.0); RED CELL DISTRIBUTION WIDTH 19.7 % (11.5-14.5); WHITE BLOOD COUNT 14.4 K/mm3 (4.0-10.0)
[2016-08-20 07:37] LABS: ALBUMIN 2.8 GM/DL (3.2-5.2); ALBUMIN/GLOBULIN RATIO 0.61 (1.00-1.93); BILIRUBIN,TOTAL 0.3 MG/DL (0.2-1.0); CALCIUM LEVEL 8.7 MG/DL (8.8-10.2); CREATININE FOR GFR 6.27 MG/DL (0.55-1.02); POTASSIUM SERUM 3.6 MEQ/L (3.5-5.1); TOTAL PROTEIN 7.4 GM/DL (6.4-8.2)
[2016-08-20 08:00] VITALS: BP 138/70
[2016-08-20] MEDS ORDERED: OMEPRAZOLE 20 MG CAP PO SCH (09:00)
--- NOTE | 2016-08-20 09:42 | IPN ---
DATE: 08/20/2016 ATTENDING PHYSICIAN: Dr. Ahmet Alicia Carolina was admitted to the hospitalist service. She is a nephrology case with acute on chronic renal failure. She had just been admitted to the hospital recently for renal failure, was discharged with a creatinine around 3.6 on 08/13. She saw Dr. Alicia yesterday, labs were drawn and creatinine was 6.2. She was directed to the emergency room. She is quite frustrated over this, particularly because yesterday she said "I felt the best I have in several months." She went for a walk, was able to go out to lunch with her family, and she was not having any chest pain, shortness of breath, edema or nausea. She has a history of hypertension. She had some anemia from severe iron deficiency. PHYSICAL EXAMINATION: 138/70, pulse 91, respirations 18, 99% oxygen saturation. She is alert and conversant, smiling, in no distress. Lungs clear. Heart regular rhythm. Abdomen soft, nontender. Trace peripheral edema. Normal strength in the arms and legs. LABORATORIES: White count 14.4, hemoglobin 9.4, platelets 474, sodium 141, potassium 3.6, BUN 65, creatinine 6.2, glucose 140. IMPRESSION/PLAN: 1. Acute on chronic renal failure. Nephrology has been consulted. They will be essentially directing the workup for this. 2. Hypertension. Good control on current regimen. 3. Adjustment disorder secondary to change in physical condition. Nursing staff was concerned that she had expressed what they thought might be suicidal ideation. I discussed this at length with the patient. She is simply frustrated over being readmitted and has no intention to harm herself and I do not think she requires any kind of psychiatric intervention. Support was offered.
[2016-08-20] MEDS: **hydrALAZINE** 10 MG TAB PO SCH ×3 (09:46→21:42)
[2016-08-20] MEDS: amLODIPine 5 MG TAB PO SCH (09:46)
[2016-08-20] MEDS: MULTIVITAMINS/MINERALS THERAP 1 TAB PO SCH (09:46)
[2016-08-20] MEDS: CIPROFLOXACIN 200 MG in APPROPRIATE DILUENT 1 EA IV SCH (11:47)
[2016-08-20 12:00] VITALS: BP 128/73
[2016-08-20] MEDS ORDERED: LORazepam 0.5 MG TAB As Ordered ONE (13:17)
[2016-08-20] MEDS ORDERED: HEPARIN 1,000 UNITS/ML 10ML VIAL (FOR RADIOLOGY& DIALYSIS ONLY) As Ordered ONE (13:28)
[2016-08-20] MEDS ORDERED: LIDOCAINE W/EPINEPHRINE 1% 20ML VIAL As Ordered ONE (13:28)
[2016-08-20] MEDS ORDERED: SODIUM BICARBONATE 8.4% INJ 50MEQ 50 ML VIAL As Ordered ONE (13:28)
[2016-08-20] MEDS ORDERED: LIDOCAINE 2% MDV 20 ML VIAL As Ordered ONE (13:28)
[2016-08-20 16:00] VITALS: BP 139/65
[2016-08-20] MEDS: SODIUM BICARBONATE 75 MEQ in NS 0.45% 1,000 ML IV SCH (16:06)
--- NOTE | 2016-08-20 16:12 | REPKIM ---
CLINICAL HISTORY: Renal failure. The referring nephrology service has requested a tunneled dialysis catheter placement for hemodialysis. PROCEDURE PERFORMED: Right IJ Tunneled Hemodialysis Catheter Placement INTERVENTIONALIST: Jered Cordero MD CONSENT: The risks, benefits and alternatives to the procedure were explained to the patient and informed written consent was obtained. MEDICATIONS: Local Lidocaine, Ativan 0.5 mg PO EBL: 10 mL DEVICES USED: 14.5-Brazilian 19-cm tip to cuff EvenMore Catheter Lot#[id number], 14.5- Brazilian 19-cm tip to cuff Palindrome Catheter Lot#[id number] FLUORO TIME: 2.9 minutes PROCEDURE/FINDINGS: The patient was brought to the interventional radiology suite where a timeout procedure was performed. The patient was placed in the supine position. The right neck and upper chest were prepped and draped in the usual sterile fashion. Real time ultrasound was used and permanent image stored. Using ultrasound guidance the internal jugular vein was punctured with a micropunture needle, after infiltration of the skin and deep tissues with local anesthetic. A 19-cm tip to cuff length, 14.5-Brazilian dual lumen EvenMore hemodialysis catheter was inserted. The catheter was placed through a subcutaneous tunnel requiring a second incision. The catheter was found to be positional. Decision was then made to place a different type of the catheter. Catheter exchange was performed and a 19-cm tip to cuff length, 14.5-Brazilian dual lumen Palindrome hemodialysis catheter was inserted. Free aspiration of blood from all ports of the catheter noted. The incision at the base of the neck was closed with 4-0 Vicryl suture and covered with steristrips. The catheter was secured at the skin exit site with 2-0 Prolene suture. The ports of the catheter were locked with heparin (1000 units/mL). A sterile dressing was then applied. Post procedure chest fluoroscopy showed the tip of the catheter at the right atrium. The patient tolerated the procedure well with no immediate complications. This procedure was performed using ultrasound and fluoroscopy. Dr. Cordero was present. IMPRESSION: 1. Ultrasound of the neck demonstrates patent right IJ vein and compressible. 2. Successful right IJ tunneled hemodialysis catheter placement as discussed above. There is free aspiration of blood from all ports of the catheter. The catheter is ready for immediate use. cc: Macey Street MD [facility]
[2016-08-20 20:00] VITALS: BP 135/63
--- NOTE | 2016-08-20 21:01 | CR ---
DATE OF CONSULTATION: 08/20/2016 REQUESTING PHYSICIAN: Dr. Jose Perales. REASON FOR CONSULTATION: Management of acute renal failure. CHIEF COMPLAINT: The patient was transferred from [facility] for acute renal failure. HISTORY OF PRESENT ILLNESS: Mr. Carolina Lynn is a 75-year-old female who was recently admitted at [facility] for acute renal failure secondary to dehydration, volume depletion, and vomiting. She was hydrated. Her creatinine was down to around 3.6, and she was discharged from the hospital last week, and she was supposed to followup with Dr. Costello as outpatient in the clinic. The patient was asymptomatic. She followed up at her primary care provider, Dr. Alicia, yesterday in the office, who repeated the labs and on the lab work it was shown that her creatinine had bumped up to 6. She was sent to the emergency room (ER) of [facility], and the ER physician consulted the nephrology service, and nephrology service had the patient transferred back to [facility] for further management of acute renal failure. The patient denies any nausea, vomiting, chest pain, shortness of breath, pain abdomen, constipation, diarrhea. She does report that she is making good amount of urine as well. She was given a dose of ciprofloxacin in the [facility] yesterday for presumed urinary tract infection (UTI), and nephrology service was called today for further management of acute kidney injury. Her creatinine is 6.2 today with a glomerular filtration rate (GFR) of 7. PAST MEDICAL HISTORY: The patient has a past medical history of hypertension, recent admission at [facility] for acute renal failure after nausea and vomiting. She denies any history of renal disease in the past. She also reports a history anxiety and depression. PAST SURGICAL HISTORY: Status post bilateral cataract surgery. ALLERGIES: The patient is allergic to PENICILLINS. FAMILY HISTORY: No significant family history of end-stage renal disease requiring hemodialysis. SOCIAL HISTORY: The patient denies any smoking, drug above, or alcohol abuse. REVIEW OF SYSTEMS: CONSTITUTIONAL: The patient denies any fever, chills, rigors. EYES: She denies any blurry vision or double vision. ENT: She denies any dysphagia, odynophagia or ear discharge. CARDIOVASCULAR: She denies any chest pain or palpitations. RESPIRATORY: She denies any shortness of breath or cough. GASTROINTESTINAL (GI): She denies any pain abdomen, constipation or diarrhea. GENITOURINARY: She denies any dysuria or hematuria. MUSCULOSKELETAL: She denies any muscle aches and pains. CENTRAL NERVOUS SYSTEM (JIG BORER): She denies any history of seizures, strokes or weakness. SKIN: No rashes or ulcers. PSYCHIATRIC: The patient reports depressed mood because of the current situation. All other review of systems is negative. HOME MEDICATIONS: The patient's home medications include: - hydralazine 10 mg by mouth three times a day - amlodipine 5 mg by mouth daily - Ativan 0.5 mg as needed for anxiety - multivitamin - omeprazole 40 mg by mouth daily - paroxetine 10 mg as needed - Onglyza PHYSICAL EXAMINATION: VITAL SIGNS: Temperature is 98 degrees Fahrenheit, blood pressure is 139/65, pulse is 107, respiratory rate of 18, saturating 96% on room air. INTAKE AND OUTPUT: Urine output recorded as 150 mL yesterday, 1500 mL so far today. Weight in the bed scale is 74.5 kg. HEAD/NECK: Extraocular muscles intact. Pupils equal, round, and reactive to light. Mucous membranes are moist. Neck is supple. There is no jugular venous distention (JVD). CARDIOVASCULAR: S1, S2. Regular rate. No murmur, rub, or gallop. RESPIRATORY: Chest is clear to auscultation bilaterally. Bilateral equal air entry. No rales or rhonchi. ABDOMEN: Soft. Positive bowel sounds. Nontender. No ascites. No organomegaly. EXTREMITIES: No clubbing or cyanosis. Pulses are 2+. CENTRAL NERVOUS SYSTEM (JIG BORER): No focal neurological deficit. Power is 5/5 in all extremities. There is no asterixis. SKIN: No rashes or ulcers. LYMPH NODES: No cervical, axillary or inguinal lymphadenopathy. LABORATORY DATA: CBC showed a WBC of 14.4, hemoglobin 9.4, platelets are 474. Urinalysis showed it was cloudy, protein is 1+, 2+ blood, 3+ leukocyte esterase, too numerous to count WBC. There were 59 RBC. 1+ bacteria. BMP shows sodium 141, potassium 3.6, chloride 109, bicarbonate 18, BUN 65, creatinine 6.2, GFR 7, calcium is 8.7, albumin 2.8. MICROBIOLOGY: Urine culture is pending. CURRENT MEDICATIONS: - the patient was started on ciprofloxacin 200 mg IV daily for urinary tract infection (UTI) - she was started on sodium bicarbonate drip at 60 mL an hour, amlodipine 5 mg by mouth daily - amlodipine 5 mg by mouth daily - hydralazine 10 mg by mouth three times a day - Ativan 0.5 mg by mouth twice a day as needed for anxiety - multivitamin - omeprazole 40 mg by mouth daily which I am stopping right now for possibility of interstitial nephritis ASSESSMENT: 75-year-old female with recent history of acute renal failure after nausea, vomiting and dehydration, who was recently discharged from the hospital about a week ago. She was admitted back because of worsening renal failure. PLAN: 1. Acute renal failure, unknown etiology at this time. Initially it was attributed secondary to volume depletion and dehydration after nausea and vomiting. Her creatinine continues to climb. I do not see any other etiology for her to have worsening renal function. Onglyza is a possibility. I am going to hold her Onglyza and omeprazole as well. The patient's glomerular filtration rate (GFR) is less than 10 at this time. I am going to get a PermaCath placement at this time, but patient is totally asymptomatic. I am going to start the patient on IV fluid hydration, half normal saline plus 75 mEq of bicarbonate at 75 mL an hour. I will wait for patient's renal function to improve. If renal function does not show improvement over the next 24-48 hours, then patient will be started on hemodialysis. 2. Metabolic acidosis is secondary to renal failure. Serum bicarbonate is 18 at this time. The patient has been started on IV bicarbonate fluids. Metabolic acidosis is expected to improve if patient's renal function improves. 3. Diabetes mellitus. Continue insulin sliding scale. Hold Onglyza for now. Avoid metformin as well. 4. Hypertension. Okay to continue amlodipine and hydralazine at this time. Avoid angiotension-converting enzyme (YUE) inhibitors at this time. 5. Anemia in end-stage renal disease. The patient's hemoglobin is 9.4 at this time, which is acceptable at this time. However, I am going to check the iron levels at this time, and if needed, the patient will be given iron as well. 6. Anxiety disorder. Okay to continue Ativan as needed for anxiety. 7. Urinary tract infection (UTI). The patient has large leukocyte esterase on the urinalysis. Urine culture is pending. The patient has been started on ciprofloxacin 200 mg IV daily according to patient's GFR. Thank you for involving us in the care of this patient. We shall be happy to follow the patient along with you tomorrow morning.
[2016-08-21] VITALS (7 sets, daily range): BP systolic 113–164; BP diastolic 60–74
[2016-08-21 05:52] LABS: MEAN CORPUSCULAR HEMOGLOBIN 23.6 pg (27.0-33.0); MEAN CORPUSCULAR HGB CONC 30.3 g/dl (32.0-36.5); MEAN CORPUSCULAR VOLUME 77.9 fl (80.0-96.0); RED CELL DISTRIBUTION WIDTH 19.7 % (11.5-14.5)
[2016-08-21] MEDS: SLF 3 ML SYR IV SCH ×3 (06:00→20:39)
[2016-08-21 06:14] LABS: ALBUMIN 2.5 GM/DL (3.2-5.2); CALCIUM LEVEL 8.3 MG/DL (8.8-10.2); CREATININE FOR GFR 5.83 MG/DL (0.55-1.02); GLOMERULAR FILTRATION RATE 7.6 (>39); MAGNESIUM LEVEL 1.8 MG/DL (1.8-2.4); PHOSPHORUS LEVEL 6.6 MG/DL (2.5-4.9); POTASSIUM SERUM 3.4 MEQ/L (3.5-5.1)
[2016-08-21 06:24] LABS: CHOLESTEROL LEVEL 145 MG/DL (<200); TRIGLYCERIDES LEVEL 159 MG/DL (<150)
[2016-08-21] MEDS: MULTIVITAMINS/MINERALS THERAP 1 TAB PO SCH (08:00)
[2016-08-21] MEDS: SODIUM BICARBONATE 75 MEQ in NS 0.45% 1,000 ML IV SCH (08:00)
[2016-08-21] MEDS: amLODIPine 5 MG TAB PO SCH (08:03)
[2016-08-21] MEDS: **hydrALAZINE** 10 MG TAB PO SCH ×3 (08:03→20:39)
[2016-08-21] MEDS: CIPROFLOXACIN 200 MG in APPROPRIATE DILUENT 1 EA IV SCH (11:59)
--- NOTE | 2016-08-21 12:06 | IPN ---
DATE: 08/21/2016 Carolina is seen in the progressive care unit (PCU), feeling well. She is frustrated about the recent progressing renal problems. No chest pain, shortness of breath. PHYSICAL EXAMINATION: Blood pressure 164/74, pulse 97, respiratory rate 18, 96% oxygen saturation. Resting comfortably, in no distress. No jugular venous distention (JVD). Lungs: Clear. Heart: Regular rhythm. Abdomen: Soft, nontender. No peripheral edema. LABORATORY: Hemoglobin A1c is 7.1, potassium 3.4, creatinine 5.8. White count 12, hemoglobin 8.4, platelets 401. IMPRESSION: 1. Acute renal failure progressing to need for dialysis. At this point, the case is essentially being managed by nephrology. Dr. Costello was in to see her today. I did discuss the possibility of kidney biopsy with the patient today briefly and she was adamantly against this, but I told her to keep an open mind in case nephrology wants to proceed in that direction. 2. Metabolic acidosis. IV bicarbonate per nephrology. 3. Diabetes. She was on Onglyza; it has been discontinued. I will defer to nephrology, but Onglyza is indicated for use in patients on dialysis at a dose of 2.5 mg daily. It is unlikely to have caused her renal problems and, indeed, is one of few oral medications we can use in patients on dialysis. 4. Question of urinary tract infection (UTI). Waiting for urine culture. Currently on Cipro. She apparently had a urine culture done at [facility]. I will ask the staff to get this for us. I would like to stop the antibiotics if she does not need them. 5. Anemia secondary to end-stage renal disease. Iron levels have been ordered. 6. Hypertension. Blood pressure well controlled in general during this hospitalization, systolic pressure averaging in the 140s.
[2016-08-21] MEDS: POTASSIUM CHLORIDE 10 MEQ SR TABLET PO SCH ×2 (15:58→20:39)
--- NOTE | 2016-08-21 18:13 | IPN ---
DATE: 08/21/2016 Mrs. Lynn is seen this morning on her bedside. She was admitted with acute renal failure superimposed on chronic kidney disease. She also had a urinary tract infection recently. The patient denies using any nephrotoxic medications, including [id number]-iffqzin nonsteroidal. She denies any dyspnea or chest pain. She has been receiving IV sodium bicarbonate drip since yesterday. She did vomit once this morning. A hemodialysis catheter was placed yesterday in anticipation for dialysis over the weekend. PHYSICAL EXAMINATION Temperature 98.6 degrees Fahrenheit, heart rate 99 per minute and respiratory rate 18 per minute. Blood pressure 164/74 mmHg and oxygen saturation 96% on room air. Head is atraumatic. Ears, nose and throat are unremarkable. Neck is supple and without any significant jugular venous distention (JVD) or thyroid enlargement. Pupils are equal and reactive to light and sclera is anicteric. Heart sounds are tachycardiac. Lungs sound clear to auscultation. Abdomen is soft and nontender and without a palpable organomegaly. Bowel sounds are normal. Extremities have no cyanosis or clubbing. Skin has no rash or ulcers. Neurologically, she is awake, alert and oriented times three. Today's labs show WBC count 12.0, hemoglobin 8.4 and hematocrit 27.9. Platelets 401. Sodium 141 and potassium 3.4. CO2 19, BUN 59 and creatinine 5.83. Glucose 146, calcium 8.3 and phosphorus 6.6. PROBLEMS: 1. Acute renal failure superimposed on chronic kidney disease. The patient is non oliguric at present and there is slight improvement in her kidney function. We will hold off on dialysis today and recheck her kidney function tomorrow. 2. Metabolic acidosis is essentially unchanged. The patient remains on IV sodium bicarbonate drip, which will be continued. 3. Hypokalemia, most likely related to sodium bicarbonate drip and poor oral intake. The patient was given potassium supplement. Electrolytes will be checked again tomorrow. We will start her on potassium chloride 20 mEq three times a day. 4. Urinary tract infection (UTI). The patient remains on intravenous Cipro. 5. Hypertension. Blood pressure is well-controlled at present and she is not on nxwzibrxwwa-dskuipzfdc-erobdb (YUE) inhibitor or ARB.
[2016-08-22 04:00] VITALS: BP 131/65
[2016-08-22 05:54] LABS: MEAN CORPUSCULAR HEMOGLOBIN 24.1 pg (27.0-33.0); MEAN CORPUSCULAR HGB CONC 31.4 g/dl (32.0-36.5); MEAN CORPUSCULAR VOLUME 76.7 fl (80.0-96.0); RED CELL DISTRIBUTION WIDTH 19.4 % (11.5-14.5); WHITE BLOOD COUNT 13.5 K/mm3 (4.0-10.0)
[2016-08-22] MEDS: SLF 3 ML SYR IV SCH ×3 (06:00→20:04)
[2016-08-22 06:22] LABS: ALBUMIN 2.6 GM/DL (3.2-5.2); CALCIUM LEVEL 8.7 MG/DL (8.8-10.2); CREATININE FOR GFR 5.52 MG/DL (0.55-1.02); GLOMERULAR FILTRATION RATE 8.1 (>39); MAGNESIUM LEVEL 1.7 MG/DL (1.8-2.4); PHOSPHORUS LEVEL 4.6 MG/DL (2.5-4.9); POTASSIUM SERUM 3.7 MEQ/L (3.5-5.1)
[2016-08-22 08:00] VITALS: BP 151/67
[2016-08-22] MEDS: MULTIVITAMINS/MINERALS THERAP 1 TAB PO SCH (08:28)
[2016-08-22] MEDS: POTASSIUM CHLORIDE 10 MEQ SR TABLET PO SCH ×3 (08:29→20:05)
[2016-08-22] MEDS: amLODIPine 5 MG TAB PO SCH (08:30)
[2016-08-22] MEDS: **hydrALAZINE** 10 MG TAB PO SCH ×3 (08:30→20:05)
--- NOTE | 2016-08-22 10:08 | IPN ---
DATE: 08/22/2016 Carolina is seen in the progressive care unit (PCU). I do not really have much to add to her case right now. She has acute on chronic renal failure, is being managed by the rackman who have placed a hemodialysis catheter and are monitoring her to see when she needs to start dialysis. She is on a bicarbonate drip for metabolic acidosis. She was also on Cipro for presumed urinary tract infection (UTI). She only grew out some Corynebacterium, which is a contaminant, so we are stopping her IV today. She gets lightheaded and dizzy when she stands up. I think it is from deconditioning. PHYSICAL EXAMINATION: Blood pressure 151/67, pulse 99, respiratory rate 18, 95% oxygen saturation. Alert, conversant, in no distress. Lungs are clear. Heart: Regular rhythm. Abdomen: Soft, nontender. No masses. No peripheral edema. LABORATORY: White count 13.5, hemoglobin 8.9, platelets 380. Sodium 143, potassium 3.7, BUN 59, creatinine 5.5, glucose 177. Hemoglobin A1c was 7.1 yesterday. IMPRESSION: 1. Acute on chronic kidney disease. Per nephrology. 2. Corynebacterium in urine is a contaminant. Will stop the Cipro. 3. Mild dizziness. Encouraged not to make sudden position changes. I think it is probably coming from the hydralazine causing some orthostasis. 4. Hypokalemia. Supplemental potassium is continuing.
[2016-08-22 12:00] VITALS: BP 160/70
[2016-08-22 16:00] VITALS: BP 142/66
[2016-08-22 19:19] VITALS: BP 146/64
[2016-08-23 00:09] VITALS: BP 151/68
--- NOTE | 2016-08-23 03:30 | IPN ---
DATE OF SERVICE: 08/22/2016 Mrs. Lynn is seen this afternoon on her bedside. Her son is visiting her. She is feeling better and denies any vomiting or nausea today. She has no dyspnea or chest pain. She reports that she has been ambulating in the hallway without any problem, but does feel dizzy at times. PHYSICAL EXAMINATION: Temperature 98.6 degrees Fahrenheit, heart rate 108 per minute and respiratory rate 18 per minute. Blood pressure 160/70 mmHg and oxygen saturation 96% on room air. Intake and output records from yesterday showed total intake 3000, output 2250 mL. Head is atraumatic. Neck is supple and without jugular venous distention (JVD) or thyroid enlargement. Heart sounds are somewhat tachycardiac. Lungs clear to auscultation bilaterally. Abdomen: Soft and nontender. Bowel sounds are normal. Extremities: Without any cyanosis or clubbing. Today's labs show WBC count 13.5, hemoglobin 8.9 and hematocrit 28.3. Platelets 381. Sodium 143 and potassium 3.7. BUN is 59 and creatinine is down to 5.52. PROBLEMS: 1. Acute renal failure superimposed on chronic kidney disease. Slight improvement in the kidney function is noted again today. She has no uremic symptoms and there is no emergent need for dialysis today. We will continue to monitor her kidney function at this point without dialysis. She did have a dialysis catheter placed on Tuesday due to potential need for dialysis. However, since then we have been monitoring her kidney function as it is improving now. 2. Hypokalemia. Potassium level is slightly better and we will continue with potassium supplement. 3. Anemia. Her anemia is unchanged and no intervention is indicated at this point. 4. Leukocytosis. The patient has no obvious infections. Her Cipro has been stopped. She is currently afebrile. I will discuss with the primary care team about possibility of continuation of antibiotics due to urinalysis consistent with a urinary tract infection (UTI) in the setting of renal failure. 5. Disposition. From a renal standpoint, the patient can be transferred to a regular medical floor.
[2016-08-23 05:12] VITALS: BP 135/63
[2016-08-23 05:35] LABS: MEAN CORPUSCULAR HEMOGLOBIN 23.6 pg (27.0-33.0); MEAN CORPUSCULAR VOLUME 78.8 fl (80.0-96.0); RED CELL DISTRIBUTION WIDTH 19.3 % (11.5-14.5); WHITE BLOOD COUNT 12.6 K/mm3 (4.0-10.0)
[2016-08-23 05:57] LABS: ALBUMIN 2.6 GM/DL (3.2-5.2); CALCIUM LEVEL 8.7 MG/DL (8.8-10.2); CREATININE FOR GFR 5.06 MG/DL (0.55-1.02); GLOMERULAR FILTRATION RATE 8.9 (>39); MAGNESIUM LEVEL 1.8 MG/DL (1.8-2.4); PHOSPHORUS LEVEL 4.5 MG/DL (2.5-4.9); POTASSIUM SERUM 4.3 MEQ/L (3.5-5.1)
[2016-08-23] MEDS: SLF 3 ML SYR IV SCH ×3 (06:00→21:12)
[2016-08-23 08:00] VITALS: BP 136/66
[2016-08-23] MEDS: MULTIVITAMINS/MINERALS THERAP 1 TAB PO SCH (08:30)
[2016-08-23] MEDS: amLODIPine 5 MG TAB PO SCH (08:30)
[2016-08-23] MEDS: POTASSIUM CHLORIDE 10 MEQ SR TABLET PO SCH ×3 (08:30→21:12)
[2016-08-23] MEDS: **hydrALAZINE** 10 MG TAB PO SCH ×3 (08:31→21:12)
[2016-08-23] MEDS: CIPROFLOXACIN 250 MG TAB PO SCH (10:07)
--- NOTE | 2016-08-23 10:27 | IPN ---
DATE OF SERVICE: 08/23/2016 Carolina is on progressive care unit (PCU). Dizziness has improved. She is ambulating without difficulty. No nausea or vomiting. Has been seen by nephrology. They are advising restarting her antibiotic. She just grew out Corynebacterium from her urine, which I presume is a contaminant, but we will follow their advice and restart her antibiotic. PHYSICAL EXAMINATION: 136/66, pulse 100, 98% oxygen (O2) saturation on room air, respiratory rate 18. General appearance: Elderly, frail, resting comfortably. Lungs clear. Heart: Regular rate and rhythm. Abdomen: Soft, nontender. No peripheral edema. LABORATORIES: White count is 12.6, hemoglobin 9.1, platelets 426. Sodium 143, potassium 4.3, BUN 52, creatinine 5.0, glucose 153. IMPRESSION: 1. Acute on chronic kidney disease. Creatinine is slowly and steadily improving. She has a temporary dialysis catheter in but has not required dialysis. 2. Question of urinary tract infection (UTI). Restart Cipro 250 mg daily. Dose adjusted for renal disease. 3. Chronic anemia. It is mild, and she is asymptomatic. DISPOSITION: Is per nephrology.
[2016-08-23 10:58] LABS: HEPATITIS B SURFACE ANTIBODY NEGATIVE (POSITIVE)
[2016-08-23] MEDS: DOXYCYCLINE HYCLATE 100 MG TAB PO SCH ×2 (11:52→21:12)
[2016-08-23 12:00] VITALS: BP 136/64
[2016-08-23 16:00] VITALS: BP 147/61
[2016-08-23 20:37] VITALS: BP 147/68
--- NOTE | 2016-08-23 21:01 | IPN ---
DATE: 08/23/2016 Mrs. Lynn is seen this morning on her bedside. She is feeling well and denies any nausea, vomiting, dyspnea or chest pain. She is eating well and has been ambulating in the hallway without any problem. PHYSICAL EXAMINATION: Temperature 97.1 degrees Fahrenheit, heart rate 100 per minute and respiratory rate 18 per minute. Blood pressure 136/66 mmHg and oxygen saturation 98% on room air. Head is atraumatic. Ears, nose and throat are unremarkable. Neck is supple and without jugular venous distention (JVD) or thyroid enlargement. Pupils are equal and reactive to light and sclerae is anicteric. Heart sounds are tachycardiac and lungs clear to auscultation. Abdomen soft and nontender without palpable organomegaly. Bowel sounds are normal. Extremities have no cyanosis or clubbing. Skin has no rash or ulcers. Neurologically she is awake, alert and oriented times three. Today's labs show WBC count 12.6, hemoglobin 9.1 and hematocrit 30.4. Platelets 426. Sodium 143 and potassium 4.3. BUN 52 and creatinine 5.0. Calcium level is 8.7 and phosphorus 4.5. PROBLEMS: 1. Acute renal failure superimposed on chronic kidney disease. Kidney function continues to improve slowly but surely. She has not required dialysis so far. At this point we will continue to monitor her kidney function on a daily basis and not consider dialysis. Once her creatinine goes below 4.0, then we can remove her dialysis catheter. 2. Leukocytosis and urinary tract infection (UTI). Her repeat urinalysis did show 97 white blood cells (WBCs) and 10 red blood cells (RBCs). Her urine culture from admission came back positive for Corynebacterium. In view of recurrent acute renal failure and pyuria, I am going to start her on doxycycline 100 mg twice a day. The patient has allergy to PENICILLIN so we cannot use ampicillin which could have been number one choice for this kind of infection. 3. Hypertension. At present her blood pressure is reasonably well-controlled and we will keep her off YUE inhibitor or ARBs. DISPOSITION: From renal standpoint, the patient can be transferred out of progressive care unit to the medical-surgical floor.
[2016-08-24 02:00] VITALS: BP 135/66
[2016-08-24] MEDS: SLF 3 ML SYR IV SCH ×4 (05:32→21:29)
[2016-08-24] MEDS: CIPROFLOXACIN 250 MG TAB PO SCH (05:33)
[2016-08-24 06:00] VITALS: BP 157/64
[2016-08-24 06:51] LABS: MEAN CORPUSCULAR HGB CONC 30.1 g/dl (32.0-36.5); MEAN CORPUSCULAR VOLUME 79.7 fl (80.0-96.0); RED CELL DISTRIBUTION WIDTH 19.3 % (11.5-14.5); WHITE BLOOD COUNT 10.6 K/mm3 (4.0-10.0)
[2016-08-24 07:14] LABS: ALBUMIN 2.8 GM/DL (3.2-5.2); CALCIUM LEVEL 9.1 MG/DL (8.8-10.2); CREATININE FOR GFR 4.67 MG/DL (0.55-1.02); GLOMERULAR FILTRATION RATE 9.8 (>39); MAGNESIUM LEVEL 1.7 MG/DL (1.8-2.4); PHOSPHORUS LEVEL 3.4 MG/DL (2.5-4.9); POTASSIUM SERUM 4.9 MEQ/L (3.5-5.1)
[2016-08-24] MEDS: **hydrALAZINE** 10 MG TAB PO SCH ×3 (09:06→20:18)
[2016-08-24] MEDS: amLODIPine 5 MG TAB PO SCH (09:06)
[2016-08-24] MEDS: HEPARIN SOD (PORCINE) 5000 UNITS/ML VIAL SQ SCH ×2 (09:06→20:18)
[2016-08-24] MEDS: MULTIVITAMINS/MINERALS THERAP 1 TAB PO SCH (09:06)
[2016-08-24] MEDS: DOXYCYCLINE HYCLATE 100 MG TAB PO SCH ×2 (09:06→20:18)
[2016-08-24] MEDS: POTASSIUM CHLORIDE 10 MEQ SR TABLET PO SCH (09:06)
[2016-08-24 10:00] VITALS: BP 146/71
[2016-08-24 14:00] VITALS: BP 135/66
[2016-08-24 17:56] VITALS: BP 133/63
--- NOTE | 2016-08-24 18:07 | IPN ---
DATE: 08/24/2016 Patient is seen and examined. No acute events overnight. Denies any chest pain, pressure, or discomfort. Denies any shortness of breath. Patient making good urine. Patient reported episode of nausea and vomiting after potassium was taken. VITAL SIGNS: Temperature 99.8, pulse 98, respirations 18, blood pressure 135/66, pulse oximetry 95% on room air. LABORATORY DATA: WBC 10.6, hemoglobin and hematocrit 9.8/32.5, platelets 424. Chemistry: Sodium 141, potassium 4.9, chloride 113, bicarbonate 20, BUN 54, creatinine 4.67, magnesium 1.7. PHYSICAL EXAMINATION: GENERAL: Patient alert and oriented times three, in no acute distress, frail. PULMONARY: Bilaterally clear to auscultation. CARDIAC: Regular rate and rhythm, normal S1, S2. ABDOMEN: Soft, nontender, nondistended. Positive bowel sounds. EXTREMITIES: No edema bilateral lower extremities. ASSESSMENT AND PLAN: This is a 75-year-old female patient with underlying medical history of type 2 diabetes, hypertension, iron deficiency anemia, anxiety, depression, and chronic kidney disease (CKD), admitted for acute on chronic renal failure. 1. Acute on chronic renal failure. Patient has a temporarily dialysis catheter placed but has not required dialysis. Waste Oil Pumper consulted. Followup BUN and creatinine. Kidney function has improved. Will continue to follow. 2. Questionable urinary tract infection (UTI). Patient is started on Cipro. Leukocytosis has improved. 3. Chronic anemia, likely secondary to underlying kidney disease. Will continue to follow hemoglobin and hematocrit. 4. Hypertension. Continue hydralazine. 5. Deep venous thrombosis (DVT) prophylaxis. Heparin subcutaneous. DISPOSITION PLANNING: Pending physical therapy, clinical improvement, improvement of kidney function.
--- NOTE | 2016-08-24 21:00 | IPN ---
DATE: 08/24/2016 Mrs. Lynn is seen this morning on her bedside. She is sitting at the edge of her bed and reports that she just vomited a few minutes ago after taking her pills. She feels that potassium chloride makes her nauseated. She is also on antibiotic for possible UTI. PHYSICAL EXAMINATION: Temperature 97.5 degrees Fahrenheit, heart rate 102 per minute and respiratory rate 18 per minute. Blood pressure 146/70 mmHg and oxygen saturation 98% on room air. Head: Is atraumatic. Ears, nose and throat are unremarkable. Neck is supple and without JVD or thyroid enlargement. Heart: Sounds are regular and lungs clear to auscultation. Abdomen: Soft and nontender and without a palpable organomegaly. Bowel sounds are normal. Extremities have no cyanosis or clubbing. Skin has no rash or ulcers. Neurologically she is awake, alert and oriented times three. LABORATORY DATA: Today's labs show WBC count 10.6, hemoglobin 9.8 and hematocrit 32.5. Sodium 141 and potassium 4.9. BUN 54 and creatinine 4.67. Calcium is 9.1 and phosphorus 3.4. PROBLEMS: 1. Acute renal failure superimposed on chronic kidney disease. Probably related to infection and kidney function is gradually improving. She did vomit however, this is probably not due to uremia. We will hold off on dialysis and continue to monitor renal function on a daily basis. Once her creatinine goes below 4.0, then we will remove her dialysis catheter. 2. Vomiting probably related to medications. We will stop her potassium chloride as her potassium level is now high normal. 3. Urinary tract infection. The patient remains on doxycycline and Cipro which will be continued until her leukocytosis resolved and kidney function continues to improve. 4. Anemia. Her anemia is stable and does not need any intervention at this point. 5. Hypertension. Blood pressure is reasonably well-controlled on current medications which will be continued.
[2016-08-24 22:00] VITALS: BP 144/67
[2016-08-25 02:00] VITALS: BP 125/59
[2016-08-25] MEDS: CIPROFLOXACIN 250 MG TAB PO SCH (05:22)
[2016-08-25 06:00] VITALS: BP 138/62
[2016-08-25 06:24] LABS: MEAN CORPUSCULAR HEMOGLOBIN 23.7 pg (27.0-33.0); RED CELL DISTRIBUTION WIDTH 19.1 % (11.5-14.5); WHITE BLOOD COUNT 11.2 K/mm3 (4.0-10.0)
[2016-08-25 06:40] LABS: ALBUMIN 2.9 GM/DL (3.2-5.2); CALCIUM LEVEL 8.8 MG/DL (8.8-10.2); CREATININE FOR GFR 4.39 MG/DL (0.55-1.02); GLOMERULAR FILTRATION RATE 10.5 (>39); MAGNESIUM LEVEL 1.5 MG/DL (1.8-2.4); PHOSPHORUS LEVEL 3.9 MG/DL (2.5-4.9); POTASSIUM SERUM 4.5 MEQ/L (3.5-5.1)
[2016-08-25] MEDS ORDERED: MAG SULF 1GM/100ML (MAG RUN) 1 GM in APPROPRIATE DILUENT 1 EA IV ONE (08:15)
[2016-08-25] MEDS: amLODIPine 5 MG TAB PO SCH (09:23)
[2016-08-25] MEDS: HEPARIN SOD (PORCINE) 5000 UNITS/ML VIAL SQ SCH ×2 (09:23→21:13)
[2016-08-25] MEDS: MULTIVITAMINS/MINERALS THERAP 1 TAB PO SCH (09:23)
[2016-08-25] MEDS: **hydrALAZINE** 10 MG TAB PO SCH ×3 (09:23→21:13)
[2016-08-25] MEDS: DOXYCYCLINE HYCLATE 100 MG TAB PO SCH ×2 (09:23→21:12)
[2016-08-25 10:00] VITALS: BP 147/65
[2016-08-25] MEDS: MAGNESIUM OXIDE 400 MG TAB (MAG-OX) PO SCH ×2 (12:07→21:12)
[2016-08-25] MEDS: SLF 3 ML SYR IV SCH ×2 (12:53→21:13)
[2016-08-25 14:00] VITALS: BP 126/63
[2016-08-25 18:00] VITALS: BP 142/64
[2016-08-25] MEDS: ONDANSETRON 4 MG ORAL DISINTEGRATING TAB (S0181) PO PRN (20:30)
[2016-08-25 21:55] VITALS: BP 128/65
--- NOTE | 2016-08-25 23:34 | IPN ---
DATE: 08/25/2016 Patient seen and examined. No acute events overnight. Denies any fevers, chills, chest pain, pressure or discomfort. Patient does report nausea and vomiting with medication but is tolerating oral liquids and food. VITAL SIGNS: Temperature 98.4, pulse 99, respirations 18, blood pressure 148/68, pulse oximetry 95% on room air. LABORATORY DATA: WBC 11.2, hemoglobin and hematocrit 10/33.3, platelets 395. Chemistry: Sodium 141, potassium 4.5, chloride 113, bicarbonate 18, BUN 54, creatinine 4.39, magnesium 1.5. PHYSICAL EXAMINATION: GENERAL: Patient alert and oriented times three, in no acute distress, frail. PULMONARY: Bilaterally clear to auscultation. CARDIAC: Regular rate and rhythm, normal S1, S2. ABDOMEN: Soft, nontender, nondistended. Positive bowel sounds. EXTREMITIES: No edema bilateral lower extremities. ASSESSMENT AND PLAN: This is a 75-year-old female patient with underlying medical history of type 2 diabetes, hypertension, iron deficiency anemia, anxiety, depression, chronic kidney disease (CKD), admitted for acute on chronic renal failure. 1. Acute on chronic renal failure. Patient has a temporary hemodialysis catheter placement but does not require dialysis. Nephrology consulted. BUN and creatinine appreciated. Kidney function has improved. Encourage oral hydration. 2. Questionable urinary tract infection (UTI). Patient was treated with Cipro. Leukocytosis has been improved. Patient currently treated with Cipro and doxycycline. 3. Chronic anemia, likely secondary to underlying kidney disease. Will continue to follow hemoglobin and hematocrit. 4. Hypertension. Continue current medication, patient on hydralazine. 5. Deep venous thrombosis (DVT) prophylaxis. Heparin subcutaneous. DISPOSITION PLANNING: Pending clinical improvement, physical therapy.
[2016-08-26 02:00] VITALS: BP 128/59
[2016-08-26 05:33] VITALS: BP 125/72
[2016-08-26] MEDS: CALCIUM CARBONATE 500 MG CHEW U/D PO PRN ×3 (05:34→23:20)
[2016-08-26] MEDS: CIPROFLOXACIN 250 MG TAB PO SCH (06:36)
[2016-08-26 06:51] LABS: MEAN CORPUSCULAR HEMOGLOBIN 24.2 pg (27.0-33.0); MEAN CORPUSCULAR HGB CONC 30.4 g/dl (32.0-36.5); MEAN CORPUSCULAR VOLUME 79.9 fl (80.0-96.0); RED CELL DISTRIBUTION WIDTH 18.9 % (11.5-14.5); WHITE BLOOD COUNT 11.9 K/mm3 (4.0-10.0)
[2016-08-26 07:13] LABS: ALBUMIN 2.9 GM/DL (3.2-5.2); CALCIUM LEVEL 9.3 MG/DL (8.8-10.2); CREATININE FOR GFR 4.21 MG/DL (0.55-1.02); MAGNESIUM LEVEL 1.6 MG/DL (1.8-2.4); PHOSPHORUS LEVEL 4.4 MG/DL (2.5-4.9); POTASSIUM SERUM 4.7 MEQ/L (3.5-5.1)
[2016-08-26] MEDS: ONDANSETRON 4 MG ORAL DISINTEGRATING TAB (S0181) PO PRN ×2 (07:35→19:52)
[2016-08-26] MEDS: DOXYCYCLINE HYCLATE 100 MG TAB PO SCH ×2 (08:20→20:42)
[2016-08-26] MEDS: HEPARIN SOD (PORCINE) 5000 UNITS/ML VIAL SQ SCH ×2 (08:20→20:43)
[2016-08-26] MEDS: MAGNESIUM OXIDE 400 MG TAB (MAG-OX) PO SCH ×2 (08:21→20:42)
[2016-08-26] MEDS: MULTIVITAMINS/MINERALS THERAP 1 TAB PO SCH (08:21)
[2016-08-26] MEDS: amLODIPine 5 MG TAB PO SCH (08:21)
[2016-08-26] MEDS: **hydrALAZINE** 10 MG TAB PO SCH (08:21)
[2016-08-26 10:00] VITALS: BP 146/76
--- NOTE | 2016-08-26 11:07 | IPN ---
DATE: 08/25/2016 Mrs. Lynn is seen this morning on her bedside. She reports vomiting once again today. She denies any dyspnea or chest pain. She has no fever or chills. On physical examination, temperature 98.6 degrees Fahrenheit, heart rate 98 per minute and respiratory rate 18 per minute. Blood pressure 138/62 mmHg and oxygen saturation 97% on room air. Head is atraumatic. Ears, nose and throat are unremarkable. Heart sounds are regular and lungs clear to auscultation. Abdomen soft and nontender and bowel sounds are normal. Extremities have no cyanosis or clubbing. Skin has no rash or ulcers. Neurologically, she has no focal deficit. She is awake, alert and oriented times three. Today's labs show WBC count 11.2, hemoglobin 10.0, hematocrit 33.3. Platelets 395. Sodium 141 and potassium 4.5. CO2 is 18 and chloride 113. BUN 54 and creatinine 4.39. Calcium 8.8 and phosphorus 3.9. Magnesium level is 1.5. PROBLEMS: 1. Acute renal failure superimposed on chronic kidney disease. The patient continues to have slow but steady improvement in her kidney function. Her creatinine is gradually coming down, though her GFR is improving only minimally. At this point, we have held off on dialysis even though we have a dialysis catheter in place. I will watch her as long as her kidney function is improving. 2. Metabolic acidosis, mild and probably related to vomiting. We will not give her any sodium bicarbonate and monitor without intervention. She does not have any diarrhea or any other reason for metabolic acidosis but kidney disease. 3. Recurrent vomiting. The patient felt that her vomiting was related to potassium supplement; however, that has been stopped. She will be treated symptomatically. 4. Urinary tract infection (UTI). The patient has been on ciprofloxacin and doxycycline. At this point, she is afebrile; however, her mild leukocytosis persists. 5. Hypertension. Blood pressure is very well controlled on current antihypertensive medications.
[2016-08-26] MEDS: CARVedilol 3.125 MG TAB PO SCH ×2 (12:47→20:43)
[2016-08-26 14:00] VITALS: BP 141/65
[2016-08-26 18:00] VITALS: BP 141/60
--- NOTE | 2016-08-26 18:20 | IPN ---
DATE: 08/26/2016 Patient seen and examined. No acute events overnight. Denies any chest pain, pressure or discomfort. Reported nausea much improved with Zofran. Denies any fever or chills. VITAL SIGNS: Temperature 98.1, pulse 86, respirations 18, blood pressure 141/65, pulse oximetry 96% on room air. LABORATORY DATA: WBC 11.9, hemoglobin and hematocrit 10.6/34.8, platelets 431. Chemistry: Sodium 142, potassium 4.7, chloride 111, bicarbonate 20, BUN 58, creatinine 4.2, magnesium 1.6. PHYSICAL EXAMINATION: GENERAL: Patient alert and oriented times three, in no acute distress, frail. PULMONARY: Bilaterally clear to auscultation. CARDIAC: Regular rate and rhythm, normal S1, S2. ABDOMEN: Soft, nontender, nondistended. Positive bowel sounds. EXTREMITIES: No edema bilateral lower extremities. ASSESSMENT AND PLAN: This is a 75-year-old female patient with underlying medical history of type 2 diabetes, hypertension, iron deficiency anemia, anxiety, depression, chronic kidney disease (CKD), admitted for acute on chronic renal failure. 1. Acute on chronic renal failure. Patient has a temporary hemodialysis catheter but does not require dialysis at this point. Nephrology has been consulted. BUN and creatinine appreciated. Kidney function has improved. Encourage oral intake. 2. Questionable urinary tract infection (UTI). Patient has been treated with Cipro. Leukocytosis has been improved. Continue Cipro and doxycycline as per nephrology. Patient will complete a course. 3. Chronic anemia, likely secondary to underlying kidney disease. Will continue to monitor. 4. Hypertension. Continue current medication. 5. Nausea and vomiting. Zofran has been given. Patient is tolerating oral food and liquid but just nauseous and vomiting with pills. Zofran prior to oral medication has helped the patient. DISPOSITION PLANNING: Pending clinical improvement, nephrology. Patient has completed evaluation by physical therapy, is safe to return home at this point based on physical therapy recommendations.
--- NOTE | 2016-08-26 20:37 | IPN ---
DATE: 08/26/2016 Mrs. Lynn is seen this morning on her bedside. She is sitting in the chair at the time of my visit. She reports that she did throw up once this morning and did take some Zofran. She denies any fever, chills, dysuria, flank pain or abdominal pain. She has no dyspnea or chest pain. PHYSICAL EXAMINATION: Temperature 98.8 degrees Fahrenheit, heart rate 100 per minute and respiratory rate 18 per minute. Blood pressure 125/72 mmHg and oxygen saturation 94% on room air. Intake and output records from yesterday showed total intake 960 and output 1250. Head is atraumatic. Ears, nose and throat are unremarkable. Pupils equal and reactive to light and sclerae is anicteric. Neck is supple and without jugular venous distention (JVD) or thyroid enlargement. Heart sounds are tachycardiac but regular. Lungs clear to auscultation bilaterally. Abdomen soft and nontender and without a palpable organomegaly. Bowel sounds are normal. Extremities have no cyanosis or clubbing. Skin has no rash or ulcers. Neurologically she is awake, alert and oriented times three. Today's labs show WBC count 11.9, hemoglobin 10.6 and hematocrit 34.8. Platelets 431. Sodium 142 and potassium 4.7. CO2 20, chloride 111, BUN 58 and creatinine 4.21. Glucose 144, calcium 9.3 and phosphorus 4.4. Magnesium level is 1.6 and albumin 2.9. PROBLEMS: 1. Acute renal failure superimposed on chronic kidney disease. Gradually improving kidney function noticed. She did have acute renal failure even prior to this admission. It was felt that she may have interstitial nephritis related to medication. I have asked her again in detail today about her medications and she denies taking any metformin or Onglyza between these two admissions. All her other medications are still the same. As her kidney function is improving we will continue to monitor without dialysis. 2. Metabolic acidosis. She had very mild metabolic acidosis and at this point does not need any sodium bicarbonate infusion. We will continue to monitor. 3. Hypertension and tachycardia. I am going to stop her hydralazine due to relative tachycardia. Blood pressure is well-controlled. We will continue with amlodipine 5 mg daily and add Coreg 3.125 mg twice a day. 4. Anemia. Anemia is stable and does not need any intervention at this point. 5. Leukocytosis. This is a chronic issue without any fever or any source of infection. I will check a C-reactive protein today. She remains on doxycycline for urinary tract infection (UTI). She did not have any symptoms of UTI, however had a positive urine culture for Corynebacterium.
[2016-08-26 22:00] VITALS: BP 134/61
[2016-08-27 02:00] VITALS: BP 128/60
[2016-08-27 06:00] VITALS: BP 154/67
[2016-08-27 06:30] LABS: MEAN CORPUSCULAR HEMOGLOBIN 24.1 pg (27.0-33.0); MEAN CORPUSCULAR HGB CONC 30.9 g/dl (32.0-36.5); MEAN CORPUSCULAR VOLUME 77.9 fl (80.0-96.0); WHITE BLOOD COUNT 12.1 K/mm3 (4.0-10.0)
[2016-08-27 06:47] LABS: ALBUMIN 2.9 GM/DL (3.2-5.2); CALCIUM LEVEL 9.5 MG/DL (8.8-10.2); CREATININE FOR GFR 3.96 MG/DL (0.55-1.02); GLOMERULAR FILTRATION RATE 11.8 (>39); MAGNESIUM LEVEL 1.8 MG/DL (1.8-2.4); PHOSPHORUS LEVEL 4.2 MG/DL (2.5-4.9); POTASSIUM SERUM 4.5 MEQ/L (3.5-5.1)
[2016-08-27] MEDS: ONDANSETRON 4 MG ORAL DISINTEGRATING TAB (S0181) PO PRN (08:27)
[2016-08-27] MEDS: MULTIVITAMINS/MINERALS THERAP 1 TAB PO SCH (09:00)
[2016-08-27] MEDS: MAGNESIUM OXIDE 400 MG TAB (MAG-OX) PO SCH (09:08)
[2016-08-27] MEDS: DOXYCYCLINE HYCLATE 100 MG TAB PO SCH (09:08)
[2016-08-27 09:09] VITALS: BP 154/67
[2016-08-27] MEDS: amLODIPine 5 MG TAB PO SCH (09:09)
[2016-08-27] MEDS: CARVedilol 3.125 MG TAB PO SCH (09:09)
[2016-08-27] MEDS: HEPARIN SOD (PORCINE) 5000 UNITS/ML VIAL SQ SCH (09:10)
[2016-08-27 10:00] VITALS: BP 130/67
[2016-08-27] MEDS ORDERED: ONDA4TAB6 PO (12:49)
[2016-08-27 14:00] VITALS: BP 138/64
--- NOTE | 2016-08-28 00:50 | DSES ---
DATE OF ADMISSION: 08/19/2016 DATE OF DISCHARGE: 08/27/2016 RUBBER TRIMMER: Dr. Costello and Dr. Street. FINAL DIAGNOSES: 1. Acute on chronic renal failure. 2. Questionable urinary tract infection (UTI). 3. Chronic anemia. 4. Hypertension. 5. Nausea, vomiting. 6. Possible interstitial nephritis due to diabetic medication. HISTORY OF PRESENT ILLNESS: This is a 75-year-old female patient with underlying medical history of diabetes, hypertension, iron deficiency anemia, chronic kidney disease (CKD), anxiety, depression, who was recently discharged from [facility] due to acute on chronic renal failure secondary to vomiting. Patient was discharged the week before after kidney function has improved slightly and her symptom of vomiting has resolved. Patient was to followup with her primary care provider, Dr. Alicia, but in the office patient saw him and blood work was done. Patient was called later and told to come to the hospital. Patient went to [facility] where she was found to have elevated creatinine of 6. On discharge from [facility], patient's creatinine was 3.6, and she was supposed to followup with Dr. Costello in 1 week. Denies any symptoms of fatigue, increased urination. Patient stated that she has usually been urinating more than normal and she stated that she had an abnormal urinalysis (UA) over at [facility] and was given Cipro. She stated that she has not been taking any of her medications that were discontinued during the last visit. Denies any fevers or chills, chest pain, pressure or discomfort. HOSPITAL COURSE: Patient was admitted to the hospital. PermCath tunneled hemodialysis catheter was placed. Environmental Services Manager was consulted. Patient's kidney function was monitored. Intravenous (IV) hydration was given. Patient's diabetic medication was discontinued and antibiotic Cipro and doxycycline was started as per fire apparatus engineer to treat for presumed urinary tract infection (UTI). Zofran was also given. Patient's condition progressively improved and physical therapy was done. Patient demanded to be discharged from the hospital. As per fire apparatus engineer, patient will followup with fire apparatus engineer on the outside. Recommend stopping diabetic medication given it could be the source of her interstitial nephritis and worsening renal function. Currently, creatinine is 3.9. Environmental Services Manager recommended keeping the PermCath temporary hemodialysis catheter and to be followed up with fire apparatus engineer in 7 days to determine whether to remove the catheter or start dialysis. Case discussed with Dr. Street. VITAL SIGNS blood pressure 138/64, pulse oximetry 96% on room air. LABORATORY: WBC 12.1, hemoglobin and hematocrit 10.2/33.1, platelets 385. Chemistry: Sodium 141, potassium 4.5, chloride 110, bicarbonate 22, BUN 60, creatinine 3.96. DISCHARGE MEDICATIONS: - Zofran 4 mg by mouth every 6 hours as needed - Norvasc 5 mg by mouth daily - hydralazine 10 mg by mouth three times a day - Ativan 0.5 mg by mouth twice a day as needed - multivitamin one tablet by mouth daily - omeprazole 40 mg by mouth daily DISCHARGE INSTRUCTIONS: Patient is to followup with fire apparatus engineer in 5 days to followup with kidney function. Dialysis catheter care as per directed. Followup with primary care provider in 7 days. Return to the hospital if symptoms worsen. MTDD
--- NOTE | 2016-08-28 15:42 | IPN ---
DATE: 08/27/2016 SUBJECTIVE: The patient was seen and examined at the bedside today in the morning. Her renal function continues to get better slightly day by day. She does not have any active complaints today. She wants to go home. The patient did not require any hemodialysis session during this admission. She is otherwise hemodynamically stable. REVIEW OF SYSTEMS: The patient denies any fevers, chills, rigors, headaches, nausea, vomiting, chest pain, shortness of breath, pain abdomen, constipation, or diarrhea. Rest of review of systems is negative. OBJECTIVE: VITAL SIGNS: Temperature is 97.9 degrees Fahrenheit, blood pressure is 130/67, pulse 78, respiratory rate of 18, saturating 96% on room air. INTAKE AND OUTPUT: Urine output recorded as 1.1 liter yesterday, 650 mL so far today since overnight. Weight in the bed scale is 70.9 kg. PHYSICAL EXAMINATION: GENERAL: The patient is alert, awake, oriented times three. Sitting on the sofa in no apparent distress. HEAD/NECK: Extraocular muscles intact. Pupils equal, round, reactive to light and accommodation. Mucous membranes are moist. Neck is supple. There is no jugular venous distention (JVD). The patient has a tunneled hemodialysis catheter in the right internal jugular (IJ). CARDIOVASCULAR: S1, S2, regular rate. No murmur, rub, or gallop. RESPIRATORY: Chest is clear to auscultation bilaterally, bilateral equal air entry. No rales or rhonchi. ABDOMEN: Soft. Positive bowel sounds. Nontender, no ascites, no organomegaly. EXTREMITIES: No clubbing or cyanosis. Pulses are 2+. CENTRAL NERVOUS SYSTEM (DIGESTER HAND): No focal neurological deficit. Power is 5/5 in all extremities. LABORATORY DATA: CBC showed a WBC of 12.1, hemoglobin is 10.2, platelets are 385. BMP showed sodium 141, potassium 4.5, chloride 110, bicarbonate 22, BUN 60, creatinine 3.9, GFR is 11.8, calcium 9.5, phosphorus 4.2, magnesium 1.8, albumin 2.9. CURRENT MEDICATIONS: The patient's medications were all reviewed by me. There is no change in the medications today as compared with yesterday. ASSESSMENT: A 75-year-old female with past medical history of hypertension and diabetes mellitus type 2, admitted this time because of acute renal failure. PLAN: 1. Acute renal failure. The patient got the tunneled hemodialysis catheter placed; however, her renal function continues to improve day by day. Renal function was most likely caused by Onglyza. The patient mentioned to me today that she was taking Onglyza after she was discharged from the hospital, and she was not aware that she was not supposed to take it, and after she took Onglyza after the initial admission, she went into renal failure and she got admitted again. The patient was instructed again not to take any anti-diabetic medications at this time, and she is to supposed to followup in the clinic with Dr. Costello within one week after discharge from the hospital. No urgent need of hemodialysis at this time; however, I will continue the dialysis catheter. 2. Hypertension. Blood pressure is acceptable at this time. Continue current dose of amlodipine 5 mg by mouth daily and Coreg 3.125 mg by mouth twice a day. 3. Urinary tract infection. Continue current dose of doxycycline. 4. Metabolic acidosis. The patient's bicarbonate is slowly improving with improving renal function. Serum bicarbonate is 22. No need of oral bicarbonate administration at this time. 5. Diabetes mellitus type 2. The patient is in renal failure at this time. Blood glucose levels are in 130s to 140s. The patient was advised again not to take metformin or Onglyza at home, and the patient follows up as outpatient if she needs any oral diabetic agents she will be started on as outpatient. DISCHARGE PLANNING: It is okay to discharge the patient from nephrology standpoint. She will closely followup as outpatient with Dr. Costello. The patient should keep dialysis catheter for now. The patient's catheter will be removed once her renal function improves to at least a chronic kidney disease (CKD) of stage IV. Plan of care was discussed with the hospitalist team.
== END 2016-08-27 15:23 | disposition home or self-care (01) | DRG 683 ==
LOC: M PCU 22:11 → M MSPAV 08-23 20:37
PROVIDERS: ADMIT Internal Medicine; ATTEND Hospitalist
PROC: 05HM33Z Insertion of Infusion Device into Right Internal Jugular Vein, Percutaneous Approach (ICD-10-PCS; principal; 2016-08-20)
DX: N17.9 Acute kidney failure, unspecified (principal); E87.2 Acidosis; N39.0 Urinary tract infection, site not specified; N18.9 Chronic kidney disease, unspecified; D63.1 Anemia in chronic kidney disease; I12.9 Hypertensive chronic kidney disease with stage 1 through stage 4 chronic kidney disease, or unspecified chronic kidney disease; N12 Tubulo-interstitial nephritis, not specified as acute or chronic; E11.9 Type 2 diabetes mellitus without complications; F41.9 Anxiety disorder, unspecified; F32.9 Major depressive disorder, single episode, unspecified; Z79.899 Other long term (current) drug therapy; R11.2 Nausea with vomiting, unspecified

== ENCOUNTER → 2016-09-07 | Outpatient (REF) | payer MEDICARE ==
[~2016-09-07] MED LIST changes: +ONDA4TAB6 PO
[2016-09-08 11:38] LABS: HEPATITIS B SURFACE ANTIBODY NEGATIVE (POSITIVE)
== END ==
LOC: M LAB REF 17:04
PROVIDERS: ATTEND Internal Medicine Nephrology
DX: N18.6 End stage renal disease (principal)

== ENCOUNTER → 2016-10-21 | Day surgery (SDC) | payer MEDICARE ==
[~2016-10-21] VITALS: Ht 149.9 cm; Wt 72.1 kg
[~2016-10-21] MED LIST changes: +ATOR1TAB21 PO; +CARV6.25 PO; +D5W/0.2% SODIUM CHLORIDE 250 ML IV ONE; +LIDOCAINE 2% INJ 100 MG/5 ML SDV (FOR ANES.) As Ordered ONE; -LORA-376 PO; +LORA0.5T11 PO; +LR 1,000 ML IV SCH; -METF1000 PO; +METF10004 PO; +MIDAZOLAM INJ 2 MG/2 ML VIAL (J2250) As Ordered ONE; +PARO10TA3 PO; -PARO10TA84 PO; +PROPOFOL 500 MG/50 ML VIAL As Ordered ONE; +RENATAB5 PO; +SERT-138 PO; +SERT-155 PO; +VITA1CAP40 PO; +ePHEDrine SULFATE 25 MG/5 ML(5MG/ML) SYRINGE As Ordered ONE; +fentaNYL 100 MCG/2 ML INJECTION (J3010) As Ordered ONE
[2016-10-21] MEDS: D5W/0.2% SODIUM CHLORIDE 1,000 ML ONE (12:31)
[2016-10-21] MEDS: HEPARIN SOD (PORCINE) 5000 UNITS/ML VIAL As Ordered ONE (17:15)
[2016-10-21] MEDS: BUPIVACAINE HCL 0.5% 30 ML VIAL As Ordered ONE (17:15)
[2016-10-21] MEDS: LIDOCAINE 1% SDV INJ 30 ML VIAL As Ordered ONE (17:15)
[2016-10-21 18:15] VITALS: BP 160/70
--- NOTE | 2016-10-22 15:27 | RO ---
DATE OF PROCEDURE: 10/21/2016 PREOPERATIVE DIAGNOSIS: End-stage renal disease. POSTOPERATIVE DIAGNOSES: End-stage renal disease. PROCEDURE: Left radiocephalic arteriovenous fistula formation. ATTENDING SURGEON: Lyle Voss MD STRUCTURAL MILL SUPERVISOR: ANESTHESIA: Local Monitored anesthesia care (MAC). ESTIMATED BLOOD LOSS: 20 mL IV FLUID: 400 mL HEPARIN: None. COMPLICATIONS: None. DRAINS: None. SPECIMENS: None. IMPLANTS: None. INDICATION: Patient is a 75-year-old female with end-stage renal disease who currently dialyzes through a right internal jugular vein PermCath who requires permanent access for hemodialysis. Patient was evaluated and felt to be a good candidate for a left radiocephalic arteriovenous fistula. Risks, benefits, and alternative treatment options were discussed with the patient. Alternative treatment options included, but were not limited to, no intervention. Risks included, but were not limited to, infection, bleeding, failure of arteriovenous fistula to maintain patency with thrombosis, failure of arteriovenous fistula to mature requiring secondary intervention, steal syndrome, possible need for open surgical intervention, cerebrovascular accident, myocardial infarction, pulmonary embolus, deep venous thrombosis (DVT), loss of limb, loss of life, and poor outcome. Patient understands, accepts these risks, and consents to proceed. DESCRIPTION OF PROCEDURE: Patient was taken to the operating room, placed supine on the operating room table, and the left upper extremity was prepped and draped in a standard surgical fashion. A single incision was made between the cephalic vein and the radial artery, both of which were dissected sharply and then encircled with Vesseloops. The cephalic vein was transected as far distal as possible with the remnant ligated with a #0 silk suture. The cephalic vein was then dilated with heparinized saline. Afterwards, it was anastomosed to the radial artery in an end-to-side fashion using #6-0 Prolene suture. There was good flow in the fistula at the completion of the anastomosis and good hemostasis noted. The skin was closed using #3-0 Monocryl suture in running subcuticular fashion. Steri-Strips and dressings were applied. Patient tolerated the procedure well. All instrument, sponge, and needle counts were correct at the end of the case. There were no complications. Dr. Voss was present for and directed the entire case. Patient was transferred to the recovery room and subsequently discharged in stable condition.
== END | disposition home or self-care (01) ==
LOC: M SDC 11:23
PROVIDERS: ATTEND Surgery Vascular Surgery
DX: N18.6 End stage renal disease (principal); I12.0 Hypertensive chronic kidney disease with stage 5 chronic kidney disease or end stage renal disease; E11.39 Type 2 diabetes mellitus with other diabetic ophthalmic complication; E11.22 Type 2 diabetes mellitus with diabetic chronic kidney disease; F41.9 Anxiety disorder, unspecified; F32.9 Major depressive disorder, single episode, unspecified; Z88.0 Allergy status to penicillin; Z79.899 Other long term (current) drug therapy; Z96.1 Presence of intraocular lens; Z87.891 Personal history of nicotine dependence; Z78.0 Asymptomatic menopausal state
CPT/HCPCS: 36415; 36821; 84132; J2250; J3010

== ENCOUNTER → 2016-11-12 | Outpatient (CLI) | payer MEDICARE ==
[~2016-11-12] MED LIST changes: -D5W/0.2% SODIUM CHLORIDE 250 ML IV ONE; +HEPARIN 1,000 UNITS/ML 10ML VIAL (FOR RADIOLOGY& DIALYSIS ONLY) As Ordered ONE; +ISOVUE-300 61% 50ML VIAL (Q9967) As Ordered ONE; -LIDOCAINE 2% INJ 100 MG/5 ML SDV (FOR ANES.) As Ordered ONE; -LR 1,000 ML IV SCH; -PROPOFOL 500 MG/50 ML VIAL As Ordered ONE; -ePHEDrine SULFATE 25 MG/5 ML(5MG/ML) SYRINGE As Ordered ONE
--- NOTE | 2016-11-23 19:53 | RO ---
DATE OF PROCEDURE: 11/12/2016 PREOPERATIVE DIAGNOSIS: End-stage renal disease. Right internal jugular PermCath. Thrombosed left radiocephalic arteriovenous fistula. POSTOPERATIVE DIAGNOSES: End-stage renal disease. Right internal jugular PermCath. Thrombosed left radiocephalic arteriovenous fistula. PROCEDURE: ATTENDING SURGEON: Lyle Voss MD ORTHOPEDIC PHYSICIAN: INDICATION: Patient presented for a fistulogram with a newly created left radiocephalic arteriovenous fistula, but the fistula was evaluated with both physical exam and ultrasound and noted to be thrombosed and no procedure was performed.
--- NOTE | 2016-11-26 11:05 | REPKIM ---
DATE OF PROCEDURE: 11/12/2016 PREOPERATIVE DIAGNOSIS: End-stage renal disease. Right internal jugular PermCath. Thrombosed left radiocephalic arteriovenous fistula. POSTOPERATIVE DIAGNOSES: End-stage renal disease. Right internal jugular PermCath. Thrombosed left radiocephalic arteriovenous fistula. PROCEDURE: ATTENDING SURGEON: Lyle Voss MD AUTOMOBILES SALESPERSON: INDICATION: Patient presented for a fistulogram with a newly created left radiocephalic arteriovenous fistula, but the fistula was evaluated with both physical exam and ultrasound and noted to be thrombosed and no procedure was performed.
== END | disposition home or self-care (01) ==
LOC: M IRPRO 10:31 → M RADPRO 10:31
PROVIDERS: ATTEND Surgery Vascular Surgery
DX: T82.868A Thrombosis due to vascular prosthetic devices, implants and grafts, initial encounter (principal); N18.6 End stage renal disease; X58.XXXA Exposure to other specified factors, initial encounter; Y92.9 Unspecified place or not applicable; Z53.8 Procedure and treatment not carried out for other reasons
CPT/HCPCS: 93990; Q9967

== ENCOUNTER → 2016-12-17 | Outpatient (CLI) | payer MEDICARE ==
[~2016-12-17] MED LIST changes: -HEPARIN 1,000 UNITS/ML 10ML VIAL (FOR RADIOLOGY& DIALYSIS ONLY) As Ordered ONE; -ISOVUE-300 61% 50ML VIAL (Q9967) As Ordered ONE; -MIDAZOLAM INJ 2 MG/2 ML VIAL (J2250) As Ordered ONE; -fentaNYL 100 MCG/2 ML INJECTION (J3010) As Ordered ONE
--- NOTE | 2016-12-17 18:00 | REP ---
Bilateral upper extremity arterial and venous Doppler evaluation. History: Vein mapping evaluate vasculature free AV fistula. End-stage renal disease. Findings: The internal jugular, subclavian, axillary, brachial, cephalic and basilic veins are anechoic and compressible in both upper extremities. There is no evidence of upper extremity venous thrombosis. The basilic and cephalic veins are quite small and the forearms bilaterally. The right basilic may be vein measures 2.1 mm in diameter at the level of the upper humerus, 2.2 mm in diameter at the antecubital fossa, and 1.3 mm in diameter at the lower forearm. The left basilic vein measures 3.1 mm at the upper humerus, 1.7 mm in the antecubital fossa, and 0.7 mm at the lower forearm. The right cephalic vein measures 3.2 mm at the upper humerus, 3.3 mm at the antecubital fossa, and 0.7 mm at the lower forearm. The left cephalic vein measures 3.2 mm at the upper humerus, 3.1 mm at the antecubital fossa and 1.3 mm at the lower forearm. On the arterial side, normal triphasic waveforms and normal flows are seen in the axillary, brachial, radial and ulnar arteries bilaterally. Peak systolic flow velocity in the right axillary artery is 62 cm/sec, brachial artery 71, radial 67 and ulnar 48. The left axillary artery PSV is 44 cm per second brachial 73, radial 25 and ulnar 43. The axillary arteries measure 3.9 mm on the right and 3.7 mm on the left. Brachials are 3.1 and 2.6 mm on the right and left respectively. The right radial artery measures 2.2 and the right ulnar 1.6 mm. The left radial measures 1.5 and the left ulnar 2.1 mm. Impression: No evidence of DVT. Normal triphasic arterial wave forms throughout both upper extremities. No ultrasound evidence of stenosis or occlusion. Signed by Johny Gonzalez MD 12/21/2016 08:10 A
== END ==
LOC: M RAD 08:59
PROVIDERS: ATTEND Surgery Vascular Surgery
DX: N18.6 End stage renal disease (principal)

== ENCOUNTER 2017-01-14 05:45 | Day surgery (SDC) | payer MEDICARE ==
[~2017-01-14] VITALS: Ht 149.9 cm; Wt 68.5 kg
[2017-01-14] MEDS ORDERED: D5W/0.2% SODIUM CHLORIDE 1,000 ML IV SCH (06:00)
[2017-01-14] MEDS ORDERED: HEPARIN SOD (PORCINE) 5000 UNITS/ML VIAL As Ordered ONE (07:21)
[2017-01-14] MEDS ORDERED: LIDOCAINE 1% SDV INJ 30 ML VIAL As Ordered ONE (07:21)
[2017-01-14] MEDS ORDERED: BUPIVACAINE HCL 0.5% 30 ML VIAL As Ordered ONE (07:22)
[2017-01-14] MEDS ORDERED: LIDOCAINE 2% INJ 100 MG/5 ML SDV (FOR ANES.) As Ordered ONE (07:49)
[2017-01-14] MEDS ORDERED: MIDAZOLAM INJ 2 MG/2 ML VIAL (J2250) As Ordered ONE (07:49)
[2017-01-14] MEDS ORDERED: fentaNYL 100 MCG/2 ML INJECTION (J3010) As Ordered ONE (07:49)
[2017-01-14] MEDS ORDERED: PHENYLephrine HCL 500 MCG/5 ML (100MCG/ML) SYRINGE (J2370) As Ordered ONE (08:10)
[2017-01-14 08:47] VITALS: BP 119/57
--- NOTE | 2017-01-26 12:55 | RO ---
DATE OF PROCEDURE: 01/14/2017 PREOPERATIVE DIAGNOSIS: End stage renal disease, right internal jugular vein PermaCath status post left radiocephalic arteriovenous fistula. POSTOPERATIVE DIAGNOSIS: End stage renal disease, right internal jugular vein PermaCath status post left radiocephalic arteriovenous fistula. PROCEDURE: Left brachiocephalic arteriovenous fistula formation. ATTENDING SURGEON: Lyle Voss MD BREWING TECHNICIAN: None. ANESTHESIA: Local monitored anesthesia care (MAC) with 20 mL of 1% lidocaine mixed with 0.5% Marcaine. INDICATION: Patient is a 76-year-old female with end stage renal disease who currently dialyzes through a right internal jugular vein PermaCath who underwent creation of a left radiocephalic arteriovenous fistula which thrombosed and now requires access for hemodialysis. Patient was evaluated and felt to be a good candidate for a left brachiocephalic arteriovenous fistula. The risks, benefits and alternative treatment options were discussed with the patient. IV FLUIDS: 100 mL. ESTIMATED BLOOD LOSS: 20 mL. HEPARIN: None. COMPLICATIONS: None. DRAINS: None. SPECIMENS: None. PROCEDURE: Patient was taken to the operating room and placed supine on the operating room table and then prepped and draped in the standard surgical fashion. The incision was made transversely at the antecubital fossa after anesthetizing the overlying skin with 1% lidocaine mixed with 0.5% Marcaine. The cephalic vein and brachial artery were identified and sharply dissected free. The cephalic vein was transected as far distal as possible, dilated with heparinized saline and then anastomosed to the brachial artery in an end to side fashion using #6-0 Prolene suture. There was good flow through the fistula at the completion of the anastomosis as well as in the brachial artery distal to the arteriovenous anastomosis with Doppler ultrasound evaluation. Hemostasis was obtained after which the incision was closed using #2-0 Vicryl to approximate the deeper layers and #3-0 Monocryl to approximate the skin. Steri-Strips and dressings were applied. Patient tolerated the procedure well. All instrument, sponge and needle counts were correct at the end of the case. There were no complications. Dr. Voss was present for and directed the entire case. The patient was transferred to the recovery room and subsequently discharged in stable condition.
== END 2017-01-14 09:19 | disposition home or self-care (01) ==
LOC: M SDC 05:45
PROVIDERS: ATTEND Surgery Vascular Surgery
DX: N18.6 End stage renal disease (principal); Z99.2 Dependence on renal dialysis; T82.868D Thrombosis due to vascular prosthetic devices, implants and grafts, subsequent encounter
CPT/HCPCS: 36415; 36821; 84132; J2250; J2370; J3010

== ENCOUNTER → 2017-02-11 | Outpatient (CLI) | payer MEDICARE ==
[~2017-02-11] MED LIST changes: +ISOVUE-300 61% 50ML VIAL (Q9967) As Ordered ONE; +LIDOCAINE 2% MDV 20 ML VIAL As Ordered ONE
--- NOTE | 2017-02-25 13:00 | RO ---
DATE OF PROCEDURE: 02/11/2017 PREPROCEDURE DIAGNOSES: End stage renal disease, dysfunctional left brachiocephalic arterial venous fistula. POSTPROCEDURE DIAGNOSES: End stage renal disease, dysfunctional left brachiocephalic arterial venous fistula. ATTENDING SURGEON: Lyle Voss MD GUARD SERGEANT: Cleopatra Pelletier PROCEDURE: Left brachiocephalic arteriovenous fistulogram. ANESTHESIA: Anesthesia was local with 1 mL of 2% lidocaine. FLUOROSCOPIC TIME: 2.222 minutes. CONTRAST: 2 mL HEPARIN: None. COMPLICATION: None. DRAINS: None. SPECIMENS: None. IMPLANTS: None. INDICATION: The patient is a 76-year-old female with end stage renal disease who dialyzes through a PermaCath and underwent creation of a left brachiocephalic arteriovenous fistula, which has been non-maturing and unable to use for hemodialysis. The patient will undergo a fistulogram with possible angioplasty and/or stent. Risks, benefits and alternative treatment options were discussed with the patient. Alternative treatment options included but were not limited to no intervention. DESCRIPTION OF PROCEDURE: The patient was taken to the angiography suite and placed supine on the angiography room table and the left upper extremity was then prepped and draped and draped in the standard surgical fashion. A time out was completed, confirming the correct patient, procedure, and laterality, after which the left brachiocephalic arterial venous fistula was cannulated with a micropuncture needle after anesthetizing the overlying skin with 1% lidocaine. A micropuncture wire was then advanced through the micropuncture needle, which was upsized to a micropuncture sheath. A fistulogram was performed showing no intervention was required. The sheath was removed and manual compression applied to the puncture site for hemostasis. Dressings were then applied. The patient tolerated the procedure well. All instruments, sponge, and needle counts were correct at the end of the case. There were no complications. Dr. Voss was present for and directed the entire case. Patient was transferred to the holding area and subsequently discharged in stable condition. RADIOLOGIC SUPERVISION INTERPRETATION: The left brachiocephalic arterial venous fistulogram showed the cephalic vein to be widely patent from the puncture site to the cephalic arch and with no stenosis noted.
== END | disposition home or self-care (01) ==
LOC: M IRPRO 09:48
PROVIDERS: ATTEND Surgery Vascular Surgery
DX: T82.590A Other mechanical complication of surgically created arteriovenous fistula, initial encounter (principal); N18.6 End stage renal disease; Z99.2 Dependence on renal dialysis
CPT/HCPCS: 36901; C1894; Q9967

== ENCOUNTER 2017-03-12 10:38 | Emergency (ER) | payer MEDICARE ==
[~2017-03-12] VITALS: Ht 149.9 cm; Wt 67.7 kg
[~2017-03-12 10:38] MED LIST changes: -ISOVUE-300 61% 50ML VIAL (Q9967) As Ordered ONE; -LIDOCAINE 2% MDV 20 ML VIAL As Ordered ONE
[2017-03-12 11:31] LABS: BASO % 0.2 % (0.0-1.0); EOS # 0.1 10^3/uL (0.0-0.50); EOS % 0.9 % (0.0-3.0); IMMATURE GRANULOCYTE % 0.5 % (0-0); LYMPH # 1.9 10^3/uL (1.5-4.5); LYMPH % 13.4 % (24.0-44.0); MEAN CORPUSCULAR HEMOGLOBIN 29.9 pg (27.0-33.0); MEAN CORPUSCULAR HGB CONC 32.3 g/dl (32.0-36.5); MEAN CORPUSCULAR VOLUME 92.5 fl (80.0-96.0); MONO # 0.8 10^3/uL (0.0-0.8); MONO % 5.8 % (0.0-5.0); NEUTROPHILS # 10.9 10^3/uL (1.8-7.7); NEUTROPHILS % 79.2 % (36.0-66.0); PLATELET COUNT, AUTOMATED 270 10^3/uL (150-450); RED CELL DISTRIBUTION WIDTH 15.6 % (11.5-14.5); WHITE BLOOD COUNT 13.8 10^3/uL (4.0-10.0)
--- NOTE | 2017-03-12 11:41 | REP ---
Clinical: Syncope . Comparison: None . Findings: The mediastinum and cardiac silhouette are stable and within normal limits for portable technique. Double-lumen dialysis catheter with tip in the SVC. The lung salazar are clear without acute consolidation, effusion, or pneumothorax. Skeletal structures are intact. Impression: No acute cardiopulmonary process appreciated. Signed by Edilberto Talamantes MD 03/12/2017 11:32 A
[2017-03-12 11:53] LABS: INR 1.05
[2017-03-12 12:54] LABS: CALCIUM LEVEL 8.9 MG/DL (8.8-10.2); CREATININE FOR GFR 1.26 MG/DL (0.55-1.02); GLOMERULAR FILTRATION RATE 44.2 (>39); POTASSIUM SERUM 3.4 MEQ/L (3.5-5.1)
[2017-03-12 13:08] LABS: MAGNESIUM LEVEL 1.8 MG/DL (1.8-2.4)
--- NOTE | 2017-03-12 13:42 | REP ---
Clinical: Left upper extremity pain and bruising status post dialysis. Technique: Real time ribeiro scale and color Doppler evaluation using linear high frequency transducer. Findings: Ultrasound examination demonstrates patent visualized jugular, subclavian, axillary, dual brachial, basilic, and cephalic veins without evidence for thrombosis. There is evidence for a patent dialysis graft from the cephalic vein to radial artery which demonstrates normal Doppler characteristics. Peak systolic flow through the graft along the proximal radial aspect measures 423 cm/sec while flow through the distal aspect adjacent to the cephalic vein measures 413 cm/sec and there is no evidence for graft stenosis. At the site of maximal tenderness is a small 7.0 x 3.4 mm hematoma. Impression: 1. No evidence for thrombosis. 2. Small 7 mm hematoma. 3. Dialysis graft appears patent with normal flow characteristics. Signed by Edilberto Talamantes MD 03/12/2017 01:34 P
[2017-03-12 17:15] VITALS: BP 120/58
--- NOTE | 2017-03-14 08:28 | ECGEPIP ---
Stationary ECG Study [facility] - ED Test Date: 2017-03-12 Pat Name: SAILAJA MATA Department: Room: - Gender: F Video Games Storywriter: sin : [id number] Requested By: Thelma Lennon Order Number: [id number] Reading MD: Alexsander Amaya Measurements Intervals [place] Rate: 104 P: 46 MD: 140 QRS: -16 QRSD: 81 T: 23 QT: 294 QTc: 388 Interpretive Statements SINUS TACHYCARDIA NONSPECIFIC ST & T-WAVE ABNORMALITY NO PRIORS FOR COMPARISON Electronically Signed On 03-14-2017 8:28:00 EST by Alexsander Amaya
== END 2017-03-12 18:15 | disposition home or self-care (01) ==
LOC: M ED 10:38
DX: R55 Syncope and collapse (principal); R00.0 Tachycardia, unspecified; E11.9 Type 2 diabetes mellitus without complications; I10 Essential (primary) hypertension; F41.9 Anxiety disorder, unspecified; F32.9 Major depressive disorder, single episode, unspecified; Z87.891 Personal history of nicotine dependence; Z95.9 Presence of cardiac and vascular implant and graft, unspecified

== ENCOUNTER → 2017-06-06 | Outpatient (CLI) | payer MEDICARE ==
[~2017-06-06] MED LIST changes: -AMLO5TAB2 PO; -ATOR1TAB21 PO; -CARV6.25 PO; -HYDR10TAB PO; +ISOVUE-300 61% 50ML VIAL (Q9967) As Ordered; +LIDOCAINE 2% MDV 20 ML VIAL As Ordered; -LISI-542 PO; -LORA0.5T11 PO; -METF10004 PO; +MIDAZOLAM INJ 2 MG/2 ML VIAL (J2250) As Ordered; -OMEP40CA2 PO; -ONDA4TAB6 PO; -ONGL1TAB9 PO; -PARO10TA3 PO; -RENATAB5 PO; -SERT-138 PO; -SERT-155 PO; -VITA1CAP40 PO; -VITMTA PO; +fentaNYL 100 MCG/2 ML INJECTION (J3010) As Ordered
== END | disposition home or self-care (01) ==
LOC: M IRPRO 06:05
DX: T82.858A Stenosis of other vascular prosthetic devices, implants and grafts, initial encounter (principal); N18.6 End stage renal disease; Z99.2 Dependence on renal dialysis
CPT/HCPCS: 36902

== ENCOUNTER → 2018-02-01 | Outpatient (CLI) | payer MEDICARE | LOC: M IRPRO 10:31 | DX: T82.858A Stenosis of other vascular prosthetic devices, implants and grafts, initial encounter (principal); N18.6 End stage renal disease; Z99.2 Dependence on renal dialysis | CPT/HCPCS: 36902 ==

== ENCOUNTER → 2018-05-08 | Outpatient (CLI) | payer MEDICARE ==
[~2018-05-08] MED LIST changes: +AMLO5TAB6 PO; +ATOR1TAB21 PO; +CARV6.25 PO; +HYDR10TAB PO; -ISOVUE-300 61% 50ML VIAL (Q9967) As Ordered; +ISOVUE-300 61% 50ML VIAL (Q9967) As Ordered ONE; -LIDOCAINE 2% MDV 20 ML VIAL As Ordered; +LIDOCAINE 2% MDV 20 ML VIAL As Ordered ONE; +LISI-542 PO; +LORA0.5T11 PO; +METF10004 PO; -MIDAZOLAM INJ 2 MG/2 ML VIAL (J2250) As Ordered; +MIDAZOLAM INJ 2 MG/2 ML VIAL (J2250) As Ordered ONE; +OMEP40CA2 PO; +ONDA4TAB6 PO; +ONGL1TAB9 PO; +PARO10TA3 PO; +RENATAB5 PO; +SERT-138 PO; +SERT-155 PO; +VITA50005 PO; +VITMTA PO; -fentaNYL 100 MCG/2 ML INJECTION (J3010) As Ordered; +fentaNYL 100 MCG/2 ML INJECTION (J3010) As Ordered ONE
--- NOTE | 2018-05-10 07:05 | REPIR ---
DATE OF PROCEDURE: 05/08/2018 ATTENDING SURGEON: Dr. Lyle Voss TAX PREPARER: Cleopatra Joseph and Hazel Magaña PREOPERATIVE DIAGNOSIS: End-stage renal disease, dysfunctional left brachiocephalic arteriovenous fistula. POSTOPERATIVE DIAGNOSIS: End-stage renal disease, dysfunctional left brachiocephalic arteriovenous fistula. PROCEDURE: Left brachiocephalic arteriovenous fistulogram. Retrograde left brachial artery angiogram. Left subclavian vein angioplasty with 6 x 200 and 8 x 200 mm balloons. Left cephalic vein angioplasty with 6 x 200 and 8 x 200 mm balloons. INDICATION: The patient is a 77-year-old female with end-stage renal disease who dialyzes through a left brachiocephalic arteriovenous fistula. The patient has had difficulty with cannulation and poor flow rates through the hemodialysis access and has a large collateral branch draining into the forearm through retrograde filling of the cephalic vein. The fistula is also pulsatile in the upper arm with compression of the collateral going into the forearm. The patient will undergo a fistulogram with possible angioplasty, stent and/or atherectomy. Risks, benefits and alternative options were discussed with the patient. The procedure was described and placed the patient in detail including drawing of pictures describing and explaining, and the pertinent anatomy. Alternative treatment options included but were not limited to no intervention. Risks included but were not limited to infection, bleeding, loss of arteriovenous access, Steal syndrome, possible need for open surgical intervention, cerebrovascular accident, myocardial infarction, pulmonary embolus, venous thrombosis, reaction to the prepping and draping materials, reaction to the contrast material, reaction to the sedation medication, loss of limb, loss of life, poor outcome and/or poor results. The patient's questions were answered. The patient accepts these risks, benefits and alternative treatment options and agrees to proceed. There were no guarantees made regarding the procedure or the outcome of the procedure to the patient. ANESTHESIA: Local with sedation with 2 mg Versed, 100 mcg of fentanyl, 2 mL of 2% lidocaine. FLUORO TIME: 2.0 minutes. CONTRAST: 5 mL. Sedation time was 9:23 a.m. to 9:59 a.m. for a total of 36 minutes. The sedation was administered by myself through the access in the arteriovenous fistula. The cardiopulmonary monitoring was performed by the registered nurse attending the case. The sedation and cardiopulmonary monitoring were performed under my direct supervision and I was present for and directed the entire case. The patient was returned to pre-sedation status with no complications secondary to administration of sedation. COMPLICATIONS: None. DRAINS: None. SPECIMENS: None. IMPLANTS: None. PROCEDURE: Patient was taken to the angiography suite, placed supine on the angiography room table and then prepped and draped in a standard surgical fashion. The left brachiocephalic arteriovenous fistula was cannulated with a micropuncture needle after anesthetizing the overlying skin with 2% lidocaine. The micropuncture wire was advanced through the micropuncture needle which was upsized to a micropuncture sheath. A fistulogram was performed through the micropuncture sheath showing the cephalic vein into the upper arm to be severely diseased and highly stenotic with areas along the entire length of the cephalic vein up to and including the junction of the subclavian vein on the order of 90-95%. The majority of the flow from the fistula was through the cephalic vein retrograde into the forearm which then coursed into the deeper venous system in the forearm and upper arm. A [employer] wire was then advanced through the micropuncture sheath which was upsized to a 6-Lao sheath. A 6 x 200 mm balloon was used to angioplasty the left cephalic subclavian vein and cephalic vein. A completion fistulogram showed residual stenosis in the cephalic vein and cephalic vein subclavian vein junction and an 8 x 200 mm balloon was used to angioplasty the subclavian vein. The 8 x 200 mm balloon was used to angioplasty the left cephalic vein. A retrograde left brachial artery angiogram was performed showing the remainder of cephalic vein to the brachial artery to be widely patent with good flow in the brachial artery proximal and distal to the arteriovenous anastomosis and no stenosis noted at the arteriovenous anastomosis. A completion fistulogram was performed after angioplasty of the cephalic vein and subclavian vein with the 8 x 200 mm balloon showing the cephalic vein to be widely patent with excellent flow through the cephalic vein into the upper arm and centrally with no central venous stenosis or occlusion noted. There was less filling of the collateral into the forearm and deeper venous system. Catheters and wires were removed. The sheath was removed and #2-0 Prolene suture was placed at the punch site for hemostasis. Dressings were then applied. The patient tolerated procedure well. All instrument, sponge and needle counts were correct at the end of the case. There were no complications. Dr. Voss was present for and directed the entire case. The patient was transferred to holding are and subsequently discharged in stable condition. The procedure was explained and described to the patient in the postoperative holding area and all of her questions were answered. RADIOLOGIC SUPERVISION INTERPRETATION: The initial fistulogram showed severe stenosis in the cephalic vein along its length in the upper arm into the subclavian vein. The central venous system was widely patent. There was retrograde filling of the cephalic vein into the forearm which coursed into the deeper venous system of the forearm and through the forearm into the upper arm deep venous system and centrally. The cephalic vein was then cannulated through the high-grade stenoses which were on the order of 90-95% along its course and the wire was advanced to the central venous system. The cephalic vein and subclavian vein were then angioplastied first with a 6 x 200 and then with an 8 x 200 mm balloon with a final fistulogram showing resolution of the stenosis and excellent flow through the cephalic vein into the upper arm and centrally with no residual stenosis remaining. The retrograde brachial artery angiogram showed no residual stenosis in the cephalic vein as well as the cephalic vein from the puncture site to the brachial artery to be widely patent with good filling of brachial artery proximally to distally and no stenosis at the arteriovenous anastomosis or in the brachial artery. The collateral filling into the forearm showed continued flow, but was less prominent than prior to angioplasty of the cephalic vein and subclavian veins. CONCLUSION: The patient underwent successful angioplasty of the cephalic vein and subclavian vein with jew of flow through the cephalic vein into the upper arm and decreased flow through the collateral into the forearm. The fistula is stable for use for continued use for hemodialysis. MTDD
== END | disposition home or self-care (01) ==
LOC: M IRPRO 07:52
PROVIDERS: ATTEND Surgery Vascular Surgery
DX: T82.858A Stenosis of other vascular prosthetic devices, implants and grafts, initial encounter (principal); N18.6 End stage renal disease; Z99.2 Dependence on renal dialysis
CPT/HCPCS: 36215; 36902; 36907; 75710; 99152; 99153; C1725; C1769; C1887; C1894; J2250; J3010; Q9967

== ENCOUNTER → 2018-07-24 | Outpatient (CLI) | payer MEDICARE ==
[~2018-07-24] MED LIST changes: +BUPIVACAINE HCL 0.5% 10 ML VIAL As Ordered ONE; +ISOVUE-300 61% 100ML VIAL (Q9967) As Ordered ONE; -ISOVUE-300 61% 50ML VIAL (Q9967) As Ordered ONE
--- NOTE | 2018-08-23 07:45 | REPIR ---
DATE OF SERVICE: 07/24/2018 PREOPERATIVE DIAGNOSES: End-stage renal disease, dysfunctional left brachiocephalic arteriovenous fistula, hypertension, diabetes mellitus, history of tobacco use. POSTOPERATIVE DIAGNOSES: End-stage renal disease, dysfunctional left brachiocephalic arteriovenous fistula, hypertension, diabetes mellitus, history of tobacco use. PROCEDURE: Left brachiocephalic arteriovenous fistulogram, retrograde left brachial artery angiogram, left cephalic vein angioplasty with 8 x 200 balloon. SURGEON: Dr. Lyle Voss UNDER PRESSER: Hazel Magaña and Cleopatra Joseph. INDICATION: The patient is a 77-year-old female who underwent creation of a left brachiocephalic arteriovenous fistula and now has difficulty using the fistula during dialysis. The patient will undergo a cystogram with possible angioplasty, stent and/or atherectomy. Risks, benefits and alternative options have been discussed with the patient. ANESTHESIA: Local with sedation with 2 mg Versed, 100 mcg of fentanyl and 2 mL of 2% lidocaine mixed and 0.5% Marcaine. FLUORO TIME: 1.8 minutes. CONTRAST: 3 mL of Isovue 300. SEDATION TIME: From 9:35 a.m. to 10:01 a.m. for a total of 26 minutes. COMPLICATIONS: None. DRAINS: None. SPECIMENS: None. IMPLANTS: None. PROCEDURE: The patient was taken to the angiography suite, placed supine on the angiography table and prepped and draped in a standard surgical fashion. The left brachiocephalic arteriovenous fistula was cannulated with a micropuncture needle after anesthetizing the overlying skin and subcutaneous tissue. A micropuncture wire was advanced to the micropuncture needle which was upsized to a micropuncture sheath. A fistulogram was performed showing occlusion of the cephalic vein in the upper arm. This was recannulized using a Bentson wire after which the cephalic vein with angioplastied with an 8 x 200 mm balloon with followup fistulogram showing good flow through the cephalic vein into the central venous system with no stenosis centrally noted. Catheters and wires removed. The sheath removed and a #2-0 Prolene suture placed at the puncture site for hemostasis. Dressings were then applied. The patient tolerated the procedure well. All instrument, sponge, and needle counts were correct at the end of the case. There were no complications. Dr. Voss was present for and directed the entire case. The patient was transferred to the [facility] and subsequently discharged in stable condition. The fistula is stable for use for access.
== END | disposition home or self-care (01) ==
LOC: M IRPRO 07:41
PROVIDERS: ATTEND Surgery Vascular Surgery
DX: T82.898A Other specified complication of vascular prosthetic devices, implants and grafts, initial encounter (principal); I12.0 Hypertensive chronic kidney disease with stage 5 chronic kidney disease or end stage renal disease; N18.6 End stage renal disease; E11.22 Type 2 diabetes mellitus with diabetic chronic kidney disease; Z99.2 Dependence on renal dialysis; Z87.891 Personal history of nicotine dependence
CPT/HCPCS: 36902; C1725; C1769; C1894; J2250; J3010; Q9967

== ENCOUNTER → 2018-08-01 | Outpatient (CLI) | payer MEDICARE ==
[~2018-08-01] MED LIST changes: -BUPIVACAINE HCL 0.5% 10 ML VIAL As Ordered ONE; -ISOVUE-300 61% 100ML VIAL (Q9967) As Ordered ONE; -LIDOCAINE 2% MDV 20 ML VIAL As Ordered ONE; -MIDAZOLAM INJ 2 MG/2 ML VIAL (J2250) As Ordered ONE; -fentaNYL 100 MCG/2 ML INJECTION (J3010) As Ordered ONE
--- NOTE | 2018-08-01 12:08 | REP ---
Chest two views HISTORY: Pneumonia Comparison: None The lungs are clear. The heart is normal in size. The pulmonary vasculature is normal in appearance. The bony structure is intact. IMPRESSION: No acute disease. Electronically Signed by Ashish Yen MD 08/01/2018 12:00 P
== END ==
LOC: M SMT 09:51
PROVIDERS: ATTEND Internal Medicine Nephrology
DX: J18.9 Pneumonia, unspecified organism (principal)

== ENCOUNTER → 2018-08-02 | Outpatient (CLI) | payer MEDICARE | LOC: M IRPRO 09:12 | PROVIDERS: ATTEND Surgery Vascular Surgery | DX: N18.6 End stage renal disease (principal); Z53.29 Procedure and treatment not carried out because of patient's decision for other reasons ==

== ENCOUNTER 2018-12-21 07:49 | Day surgery (SDC) | payer MEDICARE ==
[~2018-12-21] VITALS: Ht 149.9 cm; Wt 60.7 kg
[~2018-12-21 07:49] MED LIST changes: +NS 1,000 ML IV ONE
[2018-12-21] MEDS ORDERED: PROPOFOL 200 MG/20 ML VIAL As Ordered ONE (09:15)
[2018-12-21] MEDS ORDERED: LIDOCAINE 2% INJ 100 MG/5 ML SDV (FOR ANES.) As Ordered ONE (09:15)
--- NOTE | 2018-12-21 09:21 | ROOR ---
Patient Name: Carolina Lynn Procedure Date: 12/21/2018 9:04 AM Date of : 1940 Age: 78 Room: [facility] Gender: Female Note Status: Finalized Procedure: Upper GI endoscopy Indications: Generalized abdominal pain Providers: Linwood Amanda Jr, MD Referring MD: GABRIELLA HOOVER MD Requesting Provider: Medicines: Propofol per Anesthesia Complications: No immediate complications. Procedure: Pre-Anesthesia Assessment: - Prior to the procedure, a History and Physical was performed, and patient medications and allergies were reviewed. The patient is competent. The risks and benefits of the procedure and the sedation options and risks were discussed with the patient. All questions were answered and informed consent was obtained. Patient identification and proposed procedure were verified by the physician and the nurse in the pre-procedure area and in the procedure room. Mental Status Examination: alert and oriented. Airway Examination: normal oropharyngeal airway and neck mobility. Respiratory Examination: clear to auscultation. CV Examination: normal. ASA Grade Assessment: III - A patient with severe systemic disease. After reviewing the risks and benefits, the patient was deemed in satisfactory condition to undergo the procedure. The anesthesia plan was to use moderate sedation / analgesia (conscious sedation). Immediately prior to administration of medications, the patient was re-assessed for adequacy to receive sedatives. The heart rate, respiratory rate, oxygen saturations, blood pressure, adequacy of pulmonary ventilation, and response to care were monitored throughout the procedure. The physical status of the patient was re-assessed after the procedure. The Endoscope was introduced through the mouth, and advanced to the second part of duodenum. The upper GI endoscopy was accomplished without difficulty. The patient tolerated the procedure well. Findings: The upper third of the esophagus, middle third of the esophagus and lower third of the esophagus were normal. A small hiatal hernia was present. Non-severe esophagitis was found at the gastroesophageal junction. Biopsies were taken with a cold forceps for histology. Diffuse moderately congested mucosa was found in the cardia, in the gastric body, in the gastric antrum and in the prepyloric region of the stomach. Diffuse moderately erythematous mucosa without active bleeding and with no stigmata of bleeding was found in the duodenal bulb and in the first portion of the duodenum. The second portion of the duodenum was normal. Impression: - Normal upper third of esophagus, middle third of esophagus and lower third of esophagus. - Small hiatal hernia. - Non-severe reflux esophagitis. Biopsied. - Congestive gastropathy. - Erythematous duodenopathy. - Normal second portion of the duodenum. Recommendation: - Discharge patient to home (ambulatory). - Return to my office as previously scheduled. Linwood Amanda MD Linwood Amanda Jr, MD 12/21/2018 9:21:13 AM Electronically signed by Linwood Amanda Jr, MD Number of Addenda: 0 Note Initiated On: 12/21/2018 9:04 AM Estimated Blood Loss: Estimated blood loss: none.
[2018-12-21] MEDS ORDERED: PHENYLephrine HCL 500 MCG/5 ML (100MCG/ML) SYRINGE (J2370) As Ordered ONE (09:30)
[2018-12-21] MEDS ORDERED: ePHEDrine SULFATE 25 MG/5 ML(5MG/ML) SYRINGE As Ordered ONE (09:30)
--- NOTE | 2018-12-21 09:47 | ROOR ---
Patient Name: Carolina Lynn Procedure Date: 12/21/2018 9:06 AM Date of : 1940 Age: 78 Room: [facility] Gender: Female Note Status: Finalized Procedure: Colonoscopy Indications: Generalized abdominal pain, Abnormal CT of the GI tract Providers: Linwood Amanda Jr, MD Referring MD: GABRIELLA HOOVER MD Requesting Provider: Medicines: Propofol per Anesthesia Complications: No immediate complications. Procedure: Pre-Anesthesia Assessment: - Prior to the procedure, a History and Physical was performed, and patient medications and allergies were reviewed. The patient is competent. The risks and benefits of the procedure and the sedation options and risks were discussed with the patient. All questions were answered and informed consent was obtained. Patient identification and proposed procedure were verified by the physician and the nurse in the pre-procedure area and in the procedure room. Mental Status Examination: alert and oriented. Airway Examination: normal oropharyngeal airway and neck mobility. Respiratory Examination: clear to auscultation. CV Examination: normal. ASA Grade Assessment: III - A patient with severe systemic disease. After reviewing the risks and benefits, the patient was deemed in satisfactory condition to undergo the procedure. The anesthesia plan was to use moderate sedation / analgesia (conscious sedation). Immediately prior to administration of medications, the patient was re-assessed for adequacy to receive sedatives. The heart rate, respiratory rate, oxygen saturations, blood pressure, adequacy of pulmonary ventilation, and response to care were monitored throughout the procedure. The physical status of the patient was re-assessed after the procedure. The Colonoscope was introduced through the anus and advanced to the transverse colon.The colonoscopy was performed with moderate difficulty due to a partially obstructing mass. The patient tolerated the procedure well. The quality of the bowel preparation was fair. Findings: The rectum and recto-sigmoid colon appeared normal. Multiple small and large-mouthed diverticula were found in the sigmoid colon. Two polyps were found in the sigmoid colon. The polyps were medium in size. These polyps were removed with a hot snare. Resection was complete, but the polyp tissue was not retrieved. A fungating partially obstructing large mass was found in the transverse colon. The mass was partially circumferential. Oozing was present. Biopsies were taken with a cold forceps for histology. Area was tattooed with an injection of 2 mL of Spot (carbon black). Impression: - Preparation of the colon was fair. - The rectum and recto-sigmoid colon are normal. - Diverticulosis in the sigmoid colon. - Two medium polyps in the sigmoid colon, removed with a hot snare. Complete resection. Polyp tissue not retrieved. 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 Biopsied. Tattooed. Recommendation: - Discharge patient to home (ambulatory). - Return to my office in 1 week. Linwood Amanda MD Linwood Amanda Jr, MD 12/21/2018 9:47:16 AM Electronically signed by Linwood Amanda Jr, MD Number of Addenda: 0 Note Initiated On: 12/21/2018 9:06 AM Estimated Blood Loss: Estimated blood loss: none.
[2018-12-21 10:40] VITALS: BP 106/52
== END 2018-12-21 10:45 | disposition home or self-care (01) ==
LOC: M OPP 07:49
PROVIDERS: ATTEND Surgery
DX: R93.3 Abnormal findings on diagnostic imaging of other parts of digestive tract (principal); K57.30 Diverticulosis of large intestine without perforation or abscess without bleeding; D12.5 Benign neoplasm of sigmoid colon; D49.0 Neoplasm of unspecified behavior of digestive system; K56.690 Other partial intestinal obstruction; R10.84 Generalized abdominal pain; K44.9 Diaphragmatic hernia without obstruction or gangrene; K21.0 Gastro-esophageal reflux disease with esophagitis; K31.89 Other diseases of stomach and duodenum; Z79.899 Other long term (current) drug therapy; Z88.0 Allergy status to penicillin
CPT/HCPCS: 36415; 45380; 45381; 45385; 84132; 88305; J2370

== ENCOUNTER 2018-12-29 10:41 | Inpatient (IN) | payer MEDICARE ==
[~2018-12-29] VITALS: Ht 149.9 cm; Wt 60.5 kg
[~2018-12-29 10:41] MED LIST changes: -NS 1,000 ML IV ONE
[2018-12-29 12:20] LABS: BASO % 0.1 % (0.0-1.0); EOS # 0.1 10^3/uL (0.0-0.5); EOS % 0.3 % (0.0-3.0); HEMATOCRIT 37.5 % (36.0-47.0); HEMOGLOBIN 10.8 g/dl (12.0-15.5); LYMPH # 0.9 10^3/uL (1.5-5.0); LYMPH % 5.4 % (24.0-44.0); MEAN CORPUSCULAR HEMOGLOBIN 23.6 pg (27.0-33.0); MEAN CORPUSCULAR HGB CONC 28.8 g/dl (32.0-36.5); MEAN CORPUSCULAR VOLUME 82.1 fl (80.0-96.0); MONO # 0.7 10^3/uL (0.0-0.8); MONO % 4.4 % (0.0-5.0); NEUTROPHILS # 14.2 10^3/uL (1.5-8.5); NEUTROPHILS % 89.2 % (36.0-66.0); PLATELET COUNT, AUTOMATED 309 10^3/uL (150-450); RED BLOOD COUNT 4.57 10^6/uL (4.00-5.40); WHITE BLOOD COUNT 15.9 10^3/uL (4.0-10.0)
--- NOTE | 2018-12-29 12:22 | REP ---
ABDOMINAL SERIES: Three views. HISTORY: Abdomen pain. Comparison chest x-ray is from August 01, 2018. FINDINGS: AP chest radiograph is unremarkable. There is no evidence of infiltrate or free subdiaphragmatic air. Supine and cross-table lateral views of the abdomen show no evidence of free air. An IUD is noted in the central pelvis. There are three loops of air-filled mildly prominent small bowel in the central abdomen, which display air fluid levels on the cross-table lateral view. There is air and stool in a nondistended ascending colon and there is air in the rectosigmoid colon segments. IMPRESSION: Nonspecific mildly dilated central abdominal small bowel loops with air-fluid levels. Ileus versus obstruction. There is a metallic device consistent with an intrauterine device centrally located in the pelvis. Electronically Signed by Johny Gonzalez MD 12/29/2018 02:40 P
[2018-12-29 12:47] LABS: BILIRUBIN,DIRECT 0.2 MG/DL (0.0-0.2); BILIRUBIN,TOTAL 0.5 MG/DL (0.2-1.0); CALCIUM LEVEL 8.5 MG/DL (8.8-10.2); CREATININE FOR GFR 2.27 MG/DL (0.55-1.30); GLOMERULAR FILTRATION RATE 22.3 (>39); TOTAL PROTEIN 5.2 GM/DL (6.4-8.2)
[2018-12-29] MEDS ORDERED: POTASSIUM CHLORIDE 10 MEQ SR TABLET PO ONE (13:15)
[2018-12-29] MEDS ORDERED: ONDANSETRON 4MG/2ML VIAL (J2405) IV ONE (13:45)
[2018-12-29] MEDS ORDERED: LIDO2.5C15 TOP (14:08)
[2018-12-29] MEDS: GASTROGRAFIN SOLUTION 30ML PO SCH ×3 (14:20→14:33)
[2018-12-29] MEDS ORDERED: ACETAMINOPHEN TAB 650MG DOSE (2X325MG) PO ONE (15:45)
[2018-12-29] MEDS ORDERED: CEFEPIME HCL 2 GM in D5W MINI-BAG PLUS 50 ML IV ONE (16:00)
[2018-12-29] MEDS ORDERED: metroNIDAZOLE 500 MG in IV 1 EA IV ONE (16:00)
--- NOTE | 2018-12-29 16:15 | REP ---
CT abdomen and pelvis without IV but with oral contrast: History: Increased pain. Known transverse colon mass. No comparison CT studies. Comparison is made with today's radiographs. CT findings: Preliminary digital golf shoe spike assembler radiograph shows small bowel loops which are somewhat dilated in the right mid abdomen, question ileus. An IUD is noted. The lung bases are essentially clear. There is some mild upper abdominal ascites. No focal hepatic lesion is seen. There is mild to moderate splenomegaly with the spleen measuring up to 16.4 cm. No focal splenic lesion is seen. The pancreas shows no mass or cyst. There is a tiny pancreatic head calcification. The gallbladder is unremarkable. No adrenal lesion is seen. There is a large mass in the gastrocolic ligament extending upward from the transverse colon. There is air in the mass between the greater curvature of the stomach and the superior wall of the transverse colon. This suggests the possibility of a gastrocolic fistula. There are multiple bubbles of uncontained gas and inflammation or induration of the anterior abdominal wall along the anterior aspect of the mass and the anterior wall of the gastric antrum consistent with localized mass perforation. There are multiple small nodular pericolonic densities consistent with regional lymph nodes. No other intraperitoneal gas is seen. There is a small quantity of ascitic fluid in the pelvic reflections and between loops of small bowel in the lower abdomen. Pelvic CT images confirm the presence of an intrauterine metallic device consistent with a Lippes Loop IUD. No adnexal pathology is appreciated. Urinary bladder is unremarkable. 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 The transverse colon mass spans at least 9.3 cm of length along the transverse colon and possibly as much as 13.7 cm. The study also shows splenomegaly. There is mild ascites. An IUD is noted. Electronically Signed by Johny Gonzalez MD 12/29/2018 04:29 P
[2018-12-29] MEDS ORDERED: PROPOFOL 200 MG/20 ML VIAL As Ordered ONE (19:43)
[2018-12-29] MEDS ORDERED: fentaNYL 250 MCG/5 ML INJECTION (J3010) As Ordered ONE (19:43)
[2018-12-29] MEDS ORDERED: LIDOCAINE 2% INJ 100 MG/5 ML SDV (FOR ANES.) As Ordered ONE (19:43)
[2018-12-29] MEDS ORDERED: MIDAZOLAM INJ 2 MG/2 ML VIAL (J2250) As Ordered ONE (19:44)
--- NOTE | 2018-12-29 20:01 | HPEPDOC ---
General Surgery H&P Date of Admission Dec 29, 2018 Attending Physician: STANISLAW CAMPOS MD History and Physical CHIEF COMPLAINT: abdominal pain HISTORY OF PRESENT ILLNESS: Patient is a 78-year-old female with end-stage renal disease on dialysis who presents to the emergency room today with worsening of her abdominal pain. She has history of transverse colon malignancy was found roughly about 3 weeks ago when she presented to [facility] with abdominal pain. She had a CT scan of abdomen and pelvis done there showing a mass at the transverse colon. She was subsequently seen by Dr. Amanda in the clinic had an upper GI endoscopy and colonoscopy done on 12/19/2018 and is scheduled to undergo open right colectomy next Tuesday. According to the patient she has some baseline ache on her abdomen. She is able to tolerate foods. She has been having loose stools and were from 2-3 loose bowel movements a day. She denies any nausea. She woke up this morning with worsening of her pain centered at the midepigastric area which hurts when she moves. She denies any associated nausea, vomiting, fever, bloody diarrhea. She also reports some mild weight loss. Since the diagnosis of colon cancer. In the ER she was evaluated and was noted to have a leukocytosis of 16,000. She had a CT scan of the abdomen and pelvis that was performed showing presence of extraluminal air around the transverse colon mass suggestive of perforation. ALLERGIES: Please see below. HOME MEDICATIONS: Please see below. PAST MEDICAL HISTORY: 1. End-stage renal disease on dialysis. (Tuesday) last dialysis this past . 2. Diabetes though at this time not on any medications 3. Hypertension . PAST SURGICAL HISTORY: 1. AV fistula on the left arm. 2. Bilateral cataract surgery 3. Upper endoscopy and colonoscopy 12/19/2018. PERSONAL/SOCIAL HISTORY: Denies smoking or alcohol use REVIEW OF SYSTEMS: GENERAL: Patient reports ongoing weight loss and so she reports fair appetite. Denies nausea or vomiting. Abrupt onset of worsening of her normal epigastric discomfort HEENT: Patient has history of cataract surgery denies hoarseness of her voice or hearing problems.. CARDIOVASCULAR: Denies chest pain and palpitations. MUSCULOSKELETAL: Reports arthritis on her fingers, prior shoulder fracture SKIN: Denies rash. NEUROLOGIC: Denies headache, stroke and transient ischemic attack.. ENDOCRINE: Patient reports history of diabetes was previously on oral hypoglycemics with now no longer in any medications. HEMATOLOGY/ONCOLOGY: Denies any bleeding or clotting disorder. PULMONARY: Denies chronic cough, dyspnea and wheezing. GASTROINTESTINAL: See HPI. GENITOURINARY: Patient has end-stage renal disease on dialysis. Still reports making some urine. ENDOCRINE: Denies polydipsia, polyphagia, polyuria, heat or cold intolerance. INFECTIOUS: Denies any recent upper respiratory tract infection, UTI, need for use of antibiotics. NUTRITION: Reports fair appetite, acute weight loss. PHYSICAL EXAMINATION: VITAL SIGNS: Please see below. GENERAL APPEARANCE: Patient laying still in the bed, relatively comfortable when not moving but clearly having discomfort during examination and when moving. Awake, alert, oriented. HEENT: Mild pale palpebral conjunctiva, anicteric sclerae. Lips are dry. CHEST: With a 3 cm soft tissue nodularity at the anterior upper chest located subcutaneously. NECK: Supple. No thyromegaly. No lymphadenopathies. LUNGS: Lung sounds are clear to auscultation bilaterally. No wheezing appreciated. HEART: Heart rate and rhythm are regular with no murmurs. ABDOMEN: Patient appears moderately distended most prominent on the upper abdomen. She is tender in the epigastric area and sensation of a mass at the epigastric area. She has some rebound tenderness over the upper abdomen nontender in the lower abdomen bilaterally.. SKIN: Warm and dry. EXTREMITIES: Bilateral lower extremity edema with some erythema that is scattered on the anterior portion of both lower legs. NEUROLOGICAL: Awake, alert, oriented. ANCILLARIES: . LABORATORY DATA: Please see below. MICROBIOLOGY: Please see below. 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 The transverse colon mass spans at least 9.3 cm of length along the transverse colon and possibly as much as 13.7 cm. The study also shows splenomegaly. There is mild ascites. An IUD is noted. 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 There is reported some erythema at the distal body of the stomach which I suspect is related to the malignancy. She reports increased pain and tenderness and does have some localized peritonitis over the area. Have a copy of the previous CT that was done at [facility] so cannot compare the 2 imaging studies but this seems to be by her description of her symptoms on a daily occurrence to just happened today. I advised her need for surgery and made clear that the fullness at the surgery is to deal with the perforation and the ongoing infection to prevent overwhelming sepsis. I think this would require resection of the involved portion: Though I don't know if it is feasible to do a formal right colectomy with anastomosis given her acute presentation. There is also question of involvement of the posterior wall of the stomach which needs to be evaluated and certainly would not be a good prognostic factor if this is intimately adhered to the colon malignancy and not sure if he could deal with that eventuality during the surgery. Patient voices understanding of this. She has received cefepime and metronidazole in the emergency room. We are making plans to emergently bring her to the operating room as soon as the operating room is available. I'll give her some IV fluids to continue to hydrate her. I would think she'll need some dialysis whenever she could tolerate tomorrow depending on her general medical condition and I'll give a call to the corn chip maker on-call with regards to her admission and condition. Vital Signs Vital Signs Date Time Temp Pulse Resp B/P (MAP) Pulse Ox O2 Delivery O2 Flow Rate FiO2 12/29/18 19:02 98.1 91 17 117/79 (92) 96 Room Air Laboratory Data Labs 24H Laboratory Tests 2 12/29/18 12:04: Immature Granulocyte % (Auto) 0.6, White Blood Count 15.9H, Red Blood Count 4.57, Hemoglobin 10.8L, Hematocrit 37.5, Mean Corpuscular Volume 82.1, Mean Corpuscular Hemoglobin 23.6L, Mean Corpuscular Hemoglobin Concent 28.8L, Red Cell Distribution Width 21.2H, Platelet Count 309, Neutrophils (%) (Auto) 89.2H, Lymphocytes (%) (Auto) 5.4L, Monocytes (%) (Auto) 4.4, Eosinophils (%) (Auto) 0.3, Basophils (%) (Auto) 0.1, Neutrophils # (Auto) 14.2H, Lymphocytes # (Auto) 0.9L, Monocytes # (Auto) 0.7, Eosinophils # (Auto) 0.1, Basophils # (Auto) 0.0, Nucleated Red Blood Cells % (auto) 0.0, Anion Gap 9, Glomerular Filtration Rate 22.3L, Lactic Acid Level 1.3, Calcium Level 8.5L, Aspartate Amino Transf (AST/SGOT) 11, Alanine Aminotransferase (ALT/SGPT) 14, Alkaline Phosphatase 135H, Total Bilirubin 0.5, Direct Bilirubin 0.2, Total Protein 5.2L, Albumin 2.0L, Albumin/Globulin Ratio 0.63L, Lipase 53L CBC/BMP Laboratory Tests 12/29/18 12:04 Red Blood Count 4.57, Mean Corpuscular Volume 82.1, Mean Corpuscular Hemoglobin 23.6 L, Mean Corpuscular Hemoglobin Concent 28.8 L, Red Cell Distribution Width 21.2 H, Neutrophils (%) (Auto) 89.2 H, Lymphocytes (%) (Auto) 5.4 L, Monocytes (%) (Auto) 4.4, Eosinophils (%) (Auto) 0.3, Basophils (%) (Auto) 0.1, Neutrophils # (Auto) 14.2 H, Lymphocytes # (Auto) 0.9 L, Monocytes # (Auto) 0.7, Eosinophils # (Auto) 0.1, Basophils # (Auto) 0.0 Microbiology Microbiology 12/29/18 Blood Culture, Received Pending 12/29/18 Blood Culture, Received Pending Home Medications Scheduled Atorvastatin Calcium (Atorvastatin Calcium) 20 Mg Tab, 20 MG PO DAILY, (Reported) Carvedilol (Carvedilol) 6.25 Mg Tab, 6.25 MG PO BID, (Reported) DIALYSIS ON , THRS, SAT. HAD DIALYSIS 12/28 Ergocalciferol (Vitamin D2) (Vitamin D2) 50,000 Unit Cap, 50,000 UNIT PO 1XWK, (Reported) ON TUESDAY Folic Acid/Vit B Complex and C (Kellee-Leeanne Tablet) 1 Tab Tab, 1 TAB PO DAILY, (Reported) Lidocaine/Prilocaine (Lidocaine-Prilocaine Cream) 2.5%/2.5% Cream..g., 1 APLCT TOP ASDIRECTED, (Reported) APPLY TO PORT 30 MINUTES BEFORE DIALYSIS Lorazepam (Lorazepam) 0.5 Mg Tab, 0.5 MG PO DAILY, (Reported) Sertraline HCl (Sertraline HCl) 100 Mg Tab, 100 MG PO DAILY, (Reported) Allergies Coded Allergies: Penicillins (Verified Allergy, Severe, throat swelling , hives, 12/12/18) A-FIB/CHADSVASC A-FIB History Current/History of A-Fib/PAF?: No Current PO Anticoag Therapy: No STANISLAW CAMPOS MD Dec 29, 2018 20:01
[2018-12-29] MEDS ORDERED: METOCLOPRAMIDE INJ 10MG/2ML VIAL (J2765) As Ordered ONE (20:37)
[2018-12-29] MEDS ORDERED: ROCURONIUM BROMIDE 50 MG/5 ML VIAL As Ordered ONE (20:53)
[2018-12-29] MEDS ORDERED: ONDANSETRON 4MG/2ML VIAL (J2405) As Ordered ONE (20:56)
[2018-12-29] MEDS ORDERED: HYDROmorphone HCL 2 MG/ML 1ML VIAL (J1170) As Ordered ONE (20:57)
[2018-12-29] MEDS ORDERED: PHENYLephrine HCL 500 MCG/5 ML (100MCG/ML) SYRINGE (J2370) As Ordered ONE (21:10)
[2018-12-29] MEDS ORDERED: NEOSTIGMINE 10 MG/10 ML VIAL (J2710) As Ordered ONE (23:43)
[2018-12-29] MEDS ORDERED: GLYCOPYRROLATE INJ 0.2 MG/ML 2 ML VIAL As Ordered ONE (23:44)
[2018-12-29] MEDS ORDERED: ACETAMINOPHEN 1000MG 100ML IV BTL (OFIRMEV) (J0131 PER 10MG) As Ordered ONE (23:47)
[2018-12-29] MEDS ORDERED: BUPIVACAINE HCL 0.25% 30 ML VIAL As Ordered ONE (23:59)
[2018-12-29] MEDS ORDERED: BUPIVACAINE LIPOSOME/PF 1.3% 20ML VIAL (13.3MG/ML)(EXPAREL)(C9290 PER1MG) As Ordered ONE (23:59)
[2018-12-30] VITALS (56 sets, daily range): BP systolic 78–126; BP diastolic 24–58
[2018-12-30] MEDS ORDERED: LR 1,000 ML IV SCH (00:31)
[2018-12-30] MEDS ORDERED: KETOROLAC 30 MG/ML VIAL (J1885) IV PRN (00:45)
[2018-12-30] MEDS ORDERED: fentaNYL 100 MCG/2 ML INJECTION (J3010) IV PRN (01:00)
[2018-12-30] MEDS ORDERED: NS 1,000 ML IV SCH ×2 (01:00→14:45)
[2018-12-30] MEDS ORDERED: METOCLOPRAMIDE INJ 10MG/2ML VIAL (J2765) IV PRN (01:00)
[2018-12-30] MEDS ORDERED: PERCOCET 5MG/325MG TAB PO PRN (01:00)
[2018-12-30] MEDS ORDERED: ONDANSETRON 4MG/2ML VIAL (J2405) IV PRN (01:00)
[2018-12-30] MEDS: CARVedilol 6.25 MG TAB PO SCH ×2 (02:06→09:00)
[2018-12-30] MEDS: ONDANSETRON 4MG/2ML VIAL (J2405) IV PRN ×2 (02:07→15:10)
[2018-12-30] MEDS: ACETAMINOPHEN TAB 650MG DOSE (2X325MG) PO PRN ×2 (04:49→12:19)
[2018-12-30] MEDS: NS MINI IV SCH (07:04)
[2018-12-30] MEDS: ERTAPENEM SODIUM IV SCH (07:04)
[2018-12-30] MEDS ORDERED: ATORVASTATIN 20 MG TAB PO SCH (09:00)
[2018-12-30 10:14] LABS: HEMATOCRIT 36.5 % (36.0-47.0); HEMOGLOBIN 10.5 g/dl (12.0-15.5); MEAN CORPUSCULAR HGB CONC 28.8 g/dl (32.0-36.5); MEAN CORPUSCULAR VOLUME 83.5 fl (80.0-96.0); RED BLOOD COUNT 4.37 10^6/uL (4.00-5.40)
[2018-12-30 10:16] LABS: PLATELET COUNT, AUTOMATED 436 10^3/uL (150-450); WHITE BLOOD COUNT 35.3 10^3/uL (4.0-10.0)
[2018-12-30] MEDS: ENOXAPARIN 30 MG/0.3 ML SYR (J1650) SC SCH (10:22)
[2018-12-30] MEDS: PANTOPRAZOLE 40MG INJ (PROTONIX) (C9113) IV SCH (10:22)
[2018-12-30 10:40] LABS: BASO # 0.1 10^3/uL (0.0-0.2); BASO % 0.3 % (0.0-1.0); EOS % 0.1 % (0.0-3.0); LYMPH # 2.4 10^3/uL (1.5-5.0); MONO # 1.3 10^3/uL (0.0-0.8); MONO % 3.7 % (0.0-5.0); NEUTROPHILS % 87.5 % (36.0-66.0)
[2018-12-30] MEDS ORDERED: NS 1,000 ML IV ONE ×2 (10:45→16:00)
[2018-12-30 10:52] LABS: ALBUMIN 1.5 GM/DL (3.2-5.2); BILIRUBIN,TOTAL 0.4 MG/DL (0.2-1.0); CALCIUM LEVEL 7.6 MG/DL (8.8-10.2); CREATININE FOR GFR 2.87 MG/DL (0.55-1.30); MAGNESIUM LEVEL 1.6 MG/DL (1.8-2.4); POTASSIUM SERUM 4.1 MEQ/L (3.5-5.1); TOTAL PROTEIN 4.4 GM/DL (6.4-8.2)
[2018-12-30 11:03] LABS: NEUTROPHILS # 30.5 10^3/uL (1.5-8.5)
--- NOTE | 2018-12-30 11:06 | CR.PDOC ---
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 Splenomegaly and mild ascites also noted. She reported mild weight loss and was found to have leukocytosis 16,000. Pt underwent exploratory laparotomy, right colectomy, and en block gastroectomy. It was noted this morning around 5AM, pt started to have hypotension with MAP 63. Medical team as well as nephrology team was consulted. It was noted that the AV fistula site was difficult to access. Pt reported abdominal pain, but denies any fever, chills, nausea, vomiting, dyspnea, cough, or BM post-op. Her transverse colon malignancy [facility]. ALLERGIES: Please see below. HOME MEDICATIONS: Please see below. PAST MEDICAL HISTORY: 1. HTN 2. DM 3. ESRD PAST SURGICAL HISTORY: 1. AV fistula on the left arm. 2. Bilateral cataract surgery 3. Upper endoscopy and colonoscopy 12/19/2018. 4. Likely IUD insertion as IUD shown on CT abd/pelvis FAMILY HISTORY: Pt denies any pertinent family hx. SOCIAL HISTORY: Denies ETOH or tobacco use REVIEW OF SYSTEMS: CONSTITUTIONAL: Denies fever, chills, lightheadedness, or dizziness CARDIOVASCULAR: Denies chest pain or palpitation RESPIRATORY: Denies dyspnea or cough. GASTROINTESTINAL: Denies abd pain. No BM post-up SKIN: Mild erythema noted in left ankle region, noted to be present for a few days prior to admission. Lower extremity edema also present since admission NEUROLOGICAL:A&OX3 at baseline PHYSICAL EXAMINATION: VITAL SIGNS: Please see below. GENERAL APPEARANCE: pale looking, not in acute distress HEENT: NG tube in place, EOMI, Head normocephalic, atraumatic RESPIRATORY: CTA b/l, no rales, wheezing, or rhonchi CARDIOVASCULAR: RRR, no murmur, normal S1 and S2 ABDOMEN:Dressings noted in abdomen, 1 CHARLOTTE drain and [address] No guarding or distention. EXTREMITIES:B/l LE pitting edema 2 to 3+ noted, mild erythema noted in left ankle region w/o signs of infection NEUROLOGICAL: A&O to name and place. Pt thought it's 2017 PSYCHIATRIC: mood stable, no anxiety noted LABORATORY DATA: Please see below. ASSESSMENT/PLAN: 1. Hypotension -possibly 2/2 sepsis - 2/2 intra-abdominal source, possibly 2/2 hypovolemia - Dehydration may be a contributing factor as Hg only mildly decreased from pre- op -albumin 2.0. Albumin transfusion will be ordered -S/p 1L LR bolus; cont 100ml/hr LR. Central line access ordered. -Pt may require pressors -Nephro also on board. AV fistula site cannot be accessed at this time -no lactic acidosis. Leukocytosis has been noted post-operatively -Blood cx and abscess cx pending -Holding parameter placed for home med Coreg -Will get central lien for possible pressor support and CVP measurement - Pt currently on IV Ertapenem and Vancomycin for broad-spectrum coverage 2. 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 OCTAVIA on top of ESRD on hemodialysis Tues, Thur, and Sat -Hemodialysis attempted today but AV fistula site could not be accessed -Nephrology on board -Creat 2.87 compared to 2.27 yesterday 4. DM, not on DM med at home -Blood glucose roughly stable. Most recent POC 136 -at this time will do POC glucose Q6H with SS Q6h 5. Hypomagnesemia -Mg 800mg repleted. F/u with Mg level 6. PMH of hypertension -Pt currently hypotensive -Holding parameter for home med Coreg ordered DVT prophylaxis lovenox and SCD Diet NPO Vital Signs/I&O Vital Signs Date Time Temp Pulse Resp B/P (MAP) Pulse Ox O2 Delivery O2 Flow Rate FiO2 12/30/18 07:00 80 88/50 (63) 100 3.0 12/30/18 04:03 97.5 16 12/29/18 19:02 Room Air I&O- Last 24 Hours up to 6 AM 12/30/18 06:00 Intake Total 1710 ml Output Total 535 ml Balance 1175 ml Laboratory Data Labs 24H Laboratory Tests 2 12/29/18 12:04: Immature Granulocyte % (Auto) 0.6, White Blood Count 15.9H, Red Blood Count 4.57, Hemoglobin 10.8L, Hematocrit 37.5, Mean Corpuscular Volume 82.1, Mean Corpuscular Hemoglobin 23.6L, Mean Corpuscular Hemoglobin Concent 28.8L, Red Cell Distribution Width 21.2H, Platelet Count 309, Neutrophils (%) (Auto) 89.2H, Lymphocytes (%) (Auto) 5.4L, Monocytes (%) (Auto) 4.4, Eosinophils (%) (Auto) 0.3, Basophils (%) (Auto) 0.1, Neutrophils # (Auto) 14.2H, Lymphocytes # (Auto) 0.9L, Monocytes # (Auto) 0.7, Eosinophils # (Auto) 0.1, Basophils # (Auto) 0.0, Nucleated Red Blood Cells % (auto) 0.0, Anion Gap 9, Glomerular Filtration Rate 22.3L, Lactic Acid Level 1.3, Calcium Level 8.5L, Aspartate Amino Transf (AST/SGOT) 11, Alanine Aminotransferase (ALT/SGPT) 14, Alkaline Phosphatase 135H, Total Bilirubin 0.5, Direct Bilirubin 0.2, Total Protein 5.2L, Albumin 2.0L, Albumin/Globulin Ratio 0.63L, Lipase 53L 12/30/18 08:00: Bedside Glucose (Misc Panel) 136H 12/30/18 10:02: Nucleated Red Blood Cells % (auto) 0.0, Anion Gap 10, Glomerular Filtration Rate 17.0L, Calcium Level 7.6L, Aspartate Amino Transf (AST/SGOT) 82H, Alanine Aminotransferase (ALT/SGPT) 33, Alkaline Phosphatase 103, Total Bilirubin 0.4, Total Protein 4.4L, Albumin 1.5#L, Albumin/Globulin Ratio 0.52L, Blood Urea Nitrogen 28H, Creatinine 2.87H, Sodium Level 139, Potassium Level 4.1#, Chloride Level 107, Carbon Dioxide Level 22, Magnesium Level 1.6L CBC/BMP Laboratory Tests 12/29/18 12:04 Red Blood Count 4.57, Mean Corpuscular Volume 82.1, Mean Corpuscular Hemoglobin 23.6 L, Mean Corpuscular Hemoglobin Concent 28.8 L, Red Cell Distribution Width 21.2 H, Neutrophils (%) (Auto) 89.2 H, Lymphocytes (%) (Auto) 5.4 L, Monocytes ( %) (Auto) 4.4, Eosinophils (%) (Auto) 0.3, Basophils (%) (Auto) 0.1, Neutrophils # (Auto) 14.2 H, Lymphocytes # (Auto) 0.9 L, Monocytes # (Auto) 0.7, Eosinophils # (Auto) 0.1, Basophils # (Auto) 0.0 12/30/18 10:02 Red Blood Count 4.37, Mean Corpuscular Volume 83.5, Mean Corpuscular Hemoglobin 24.0 L, Mean Corpuscular Hemoglobin Concent 28.8 L, Red Cell Distribution Width 21.4 H, Calcium Level 7.6 L, Aspartate Amino Transf (AST/SGOT) 82 H, Alanine Aminotransferase (ALT/SGPT) 33, Alkaline Phosphatase 103, Total Bilirubin 0.4, Total Protein 4.4 L, Albumin 1.5 #L Microbiology Microbiology 12/29/18 Blood Culture, Received Pending 12/29/18 Blood Culture, Received Pending 12/29/18 Gram Stain, Received Pending 12/29/18 Body Fluid Culture, Received Pending 12/29/18 Anaerobic Culture, Received Pending 12/29/18 Gram Stain, Received Pending 12/29/18 Abscess Culture, Received Pending 12/29/18 Anaerobic Culture, Received Pending Allergies Coded Allergies: Penicillins (Verified Allergy, Severe, throat swelling , hives, 12/12/18) Home Medications Scheduled Atorvastatin Calcium (Atorvastatin Calcium) 20 Mg Tab, 20 MG PO DAILY, (Reported) Carvedilol (Carvedilol) 6.25 Mg Tab, 6.25 MG PO BID, (Reported) DIALYSIS ON , THRS, SAT. HAD DIALYSIS 12/28 Ergocalciferol (Vitamin D2) (Vitamin D2) 50,000 Unit Cap, 50,000 UNIT PO 1XWK, (Reported) ON TUESDAY Folic Acid/Vit B Complex and C (Kellee-Leeanne Tablet) 1 Tab Tab, 1 TAB PO DAILY, (Reported) Lidocaine/Prilocaine (Lidocaine-Prilocaine Cream) 2.5%/2.5% Cream..g., 1 APLCT TOP ASDIRECTED, (Reported) APPLY TO PORT 30 MINUTES BEFORE DIALYSIS Lorazepam (Lorazepam) 0.5 Mg Tab, 0.5 MG PO DAILY, (Reported) Sertraline HCl (Sertraline HCl) 100 Mg Tab, 100 MG PO DAILY, (Reported) GME ATTESTATION GME ATTESTATION My faculty preceptor for this patient encounter was physically present during the encounter and was fully available. All aspects of the patient interview, examination, medical decision making process, and medical care plan development were reviewed and approved by the faculty preceptor. The faculty preceptor is aware and concurs with the plan as stated in the body of this note and will attest to such by his/her cosignature. ATTENDING NOTE I, Marly Juarez, have independently examined this patient and performed my own physical exam, as well as reviewed the documentation and edited where necessary. I have discussed in detail with the resident / student the findings and plan of treatment as documented by the resident / student and edited their note. I agree with their findings and treatment plan and have edited their documentation. I will continue to follow the patient during this hospital stay. CLAUDIA DOWNEY DO Dec 30, 2018 11:06 MARLY JUAREZ MD Dec 30, 2018 14:39
[2018-12-30] MEDS ORDERED: MAGNESIUM OXIDE 400 MG TAB (MAG-OX) PO ONE (11:30)
[2018-12-30] MEDS ORDERED: VANCOMYCIN HCL 1,000 MG, VIAL MATE ADAPTER 1 EACH in D5W 250 ML IV SCH (11:30)
[2018-12-30] MEDS ORDERED: VANCOMYCIN HCL 1,000 MG, VIAL MATE ADAPTER 1 EACH in D5W 250 ML IV ONE (12:00)
[2018-12-30] MEDS ORDERED: fentaNYL 100 MCG/2 ML INJECTION (J3010) As Ordered ONE (13:29)
[2018-12-30] MEDS ORDERED: fentaNYL 100 MCG/2 ML INJECTION (J3010) IV ONE (13:45)
[2018-12-30] MEDS ORDERED: VANCOMYCIN INTERMITTENT/PULSE DOSING BY CLINICAL PHARMACIST PER DOSING PROTOCOL XX SCH (14:15)
--- NOTE | 2018-12-30 14:19 | REP ---
REASON: Status post central line placement. COMPARISON: Frontal view obtained as part of an abdominal series, 12/29/2018. The cardiomediastinal silhouette and lung salazar are unchanged and again seen to be within normal limits. The technique utilized in obtaining the radiograph has magnified the cardiac silhouette and accentuated the interstitial markings. Since the last examination, a left-sided subclavian central venous catheter has been placed, the tip of which is in the superior vena cava. Since the last examination, a nasogastric tube has been placed. Proximal port is at the level of the gastroesophageal junction or possibly just distal to it. IMPRESSION: No acute cardiopulmonary disease. NG tube and central venous catheter, as described above. Electronically Signed by Travis Gaspar DO 12/30/2018 03:20 P
[2018-12-30] MEDS: NS 1,000 ML IV SCH ×2 (14:58→22:33)
[2018-12-30] MEDS: LORazepam 2 MG/ML VIAL (J2060) IV PRN (15:10)
[2018-12-30] MEDS ORDERED: **VANCO AFTER HD** MISC XX SCH (16:00)
--- NOTE | 2018-12-30 17:23 | IPNPDOC ---
Subjective General Date/Time Seen The patient was seen on 12/30/18 at 17:17. 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 Patient underwent emergency abdominal exploration last night for suspicion of malignant perforation of her transverse colon malignancy. This turned out to involve the mid body of the stomach. She underwent right colectomy and hemigastrectomy. She is not requiring any pressors though her PEEP is soft. They try to have occurred to dialysis but her vein collapses. She is awake and fairly well comfortable. She seems to be with it. Current Medications Current Medications Current Medications Medications (Trade) Dose Ordered Sig/Mg Route PRN Reason Start Time Stop Time Status Last Admin Dose Admin Acetaminophen (Tylenol Tab) 650 mg Q4HP PRN PO MILD PAIN or TEMP > 101 12/30/18 00:45 12/30/18 12:19 Atorvastatin Calcium (Lipitor) 20 mg DAILY PO 12/30/18 09:00 12/30/18 13:29 DC Carvedilol (COReg) 6.25 mg BID PO 12/29/18 21:00 12/30/18 13:29 DC 12/30/18 02:06 Diatrizoate Meglum/ Diatrizoate Sod (Gastrografin) 10 ml Q30M PO 12/29/18 14:00 12/29/18 14:31 DC 12/29/18 14:33 Enoxaparin Sodium (Lovenox) 30 mg DAILY SC 12/30/18 09:00 12/30/18 10:22 Ertapenem 0.5 gm/ Sodium Chloride 50 ml @ 100 mls/hr Q24H IV 12/30/18 06:00 12/30/18 07:04 Fentanyl Citrate (Sublimaze) 25 mcg Q5MP PRN IV MODERATE PAIN (PS 4-7) 12/30/18 01:00 12/30/18 01:59 DC Home Med (Med Rec Complete!) ASDIRECTED XX 12/29/18 14:00 12/29/18 16:01 DC Ketorolac Tromethamine (ToRADol) 15 mg Q6HP PRN IV MILD/MODERATE PAIN (PS 1-7) 12/30/18 00:45 01/04/19 00:44 Lactated Ringer's 1,000 ml @ 100 mls/hr Q10H IV 12/30/18 00:31 12/30/18 13:59 DC 12/30/18 01:40 Lorazepam (Ativan) 0.5 mg Q6HP PRN IV ANXIETY 12/30/18 11:15 12/30/18 15:10 Metoclopramide HCl (REGLAN INJection) 10 mg Q6HP PRN IV NAUSEA OR VOMITING 12/30/18 01:00 12/30/18 01:59 DC Morphine Sulfate (Morphine Sulfate Inj) 4 mg Q2HP PRN IV SEVERE PAIN (PS 8-10) 12/30/18 00:45 Non-Formulary Medication ( See Comment Field Below ) CHECK TO SEE IF THE PATIENT... DAILY@1600 XX 12/30/18 16:00 12/30/18 16:00 DC Non-Formulary Medication ( See Comment Field Below ) VANCO INTERMIT. DOSING ASDIRECTED XX 12/30/18 14:15 Ondansetron HCl (ZOFRAN INJection) 4 mg Q4HP PRN IV NAUSEA OR VOMITING 12/30/18 01:00 12/30/18 01:59 DC Ondansetron HCl (ZOFRAN INJection) 4 mg Q6HP PRN IV NAUSEA OR VOMITING 12/30/18 00:45 12/30/18 15:10 Oxycodone/ Acetaminophen (Percocet 5mg/ 325mg Tablet) 1 tab ASDIRECTED PRN PO MILD/MODERATE PAIN (PS 1-7) 12/30/18 01:00 12/30/18 01:59 DC Pantoprazole Sodium (Protonix) 40 mg DAILY IV 12/30/18 09:00 12/30/18 10:22 Sodium Chloride 1,000 ml @ 75 mls/hr [id number] IV 12/30/18 01:00 12/30/18 01:59 DC Sodium Chloride 1,000 ml @ 100 mls/hr Q10H IV 12/30/18 14:00 12/30/18 14:58 Sodium Chloride 1,000 ml @ 100 mls/hr Q10H IV 12/30/18 14:45 UNV Vancomycin HCl 1000 mg/IV Miscellaneous Supplies 1 each/ Dextrose 270 ml @ 270 mls/hr HD IV 12/30/18 11:30 12/30/18 14:00 DC Allergies Coded Allergies: Penicillins (Verified Allergy, Severe, throat swelling , hives, 12/12/18) morphine (Verified Adverse Reaction, Mild, Confusion, 01/01/19) Objective Physical Examination Examination GENERAL APPEARANCE: Awake, falls asleep easily though seems to be oriented at least to circumstance of her admission, to place. SKIN: Warm and dry. HEENT: Mild pale palpebral conjunctiva. Lips and mucosa are dry. NG tube in place. NECK: No fistula and venous distention. LUNGS: Clear to auscultation bilaterally. No wheezing appreciated. HEART: No chest wall abnormalities. Regular rate and rhythm with no murmurs appreciated. ABDOMEN: Abdomen is mildly distended, soft, quiet. Post surgical dressings are clean, dry and intact. Chuy drain has thin serosanguineous fluid drainage.. EXTREMITIES: Moderate lower extremity edema that is present even before the surgery. Vital Signs Vital Signs Date Time Temp Pulse Resp B/P (MAP) Pulse Ox O2 Delivery O2 Flow Rate FiO2 12/30/18 12:31 87 86/42 (57) 98 12/30/18 12:00 98.4 15 1.0 12/29/18 19:02 Room Air I&Os I&O- Last 24 Hours up to 6 AM 12/30/18 06:00 Intake Total 1710 ml Output Total 535 ml Balance 1175 ml Laboratory Data Labs 24H Laboratory Tests 2 12/30/18 08:00: Bedside Glucose (Misc Panel) 136H 12/30/18 10:02: Immature Granulocyte % (Auto) 1.4, Neutrophils (%) (Auto) 87.5H, Lymphocytes (%) (Auto) 7.0L, Monocytes (%) (Auto) 3.7, Eosinophils (%) (Auto) 0.1, Basophils (%) (Auto) 0.3, Immature Granulocyte # (Auto) 0.5H, Neutrophils # (Auto) 30.5H, Lymphocytes # (Auto) 2.4, Monocytes # (Auto) 1.3H, Eosinophils # (Auto) 0.0, Basophils # (Auto) 0.1, Nucleated Red Blood Cells % (auto) 0.0, Platelet Estimate , Anion Gap 10, Glomerular Filtration Rate 17.0L, Blood Urea Nitrogen 28H, Creatinine 2.87H, Sodium Level 139, Potassium Level 4.1#, Chloride Level 107, Carbon Dioxide Level 22, Calcium Level 7.6L, Aspartate Amino Transf (AST/SGOT) 82H, Alanine Aminotransferase (ALT/SGPT) 33, Alkaline Phosphatase 10 3, Total Bilirubin 0.4, Total Protein 4.4L, Albumin 1.5#L, Magnesium Level 1.6L, Albumin/Globulin Ratio 0.52L 12/30/18 16:11: Lactic Acid Level 0.8 CBC/BMP Laboratory Tests 12/30/18 10:02 Red Blood Count 4.37, Mean Corpuscular Volume 83.5, Mean Corpuscular Hemoglobin 24.0 L, Mean Corpuscular Hemoglobin Concent 28.8 L, Red Cell Distribution Width 21.4 H, Calcium Level 7.6 L, Aspartate Amino Transf (AST/SGOT) 82 H, Alanine Aminotransferase (ALT/SGPT) 33, Alkaline Phosphatase 103, Total Bilirubin 0.4, Total Protein 4.4 L, Albumin 1.5 #L Microbiology Microbiology 12/29/18 Blood Culture - Preliminary, Resulted No growth after 24 hours . All specim... 12/29/18 Blood Culture - Preliminary, Resulted No growth after 24 hours . All specim... 12/29/18 Gram Stain - Final, Resulted 12/29/18 Body Fluid Culture, Resulted Pending 12/29/18 Anaerobic Culture, Resulted Pending 12/29/18 Gram Stain - Final, Resulted 12/29/18 Abscess Culture, Resulted Pending 12/29/18 Anaerobic Culture, Resulted Pending Impression POD1 extended right colectomy en block melody gastrectomy RNY gastrojejunostomy, ileo-transverse colon anastomosis, feeding jejunostomy Patient BP soft probably from sepsis, also probably deydration I placed a triple lumen catheter for central venous access also for critical care monitoring. will base hydration from CVP. So far she has gotten 1L NS, 5% albumin and placed on 100 mL/hr NS. She is on ertapenem, vancomycin has been added by Dr. Street. continue all support for now. Plan / VTE VTE Prophylaxis Ordered?: Yes STANISLAW CAMPOS MD Dec 30, 2018 17:23
--- NOTE | 2018-12-30 17:27 | ROOPDOC ---
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 PROCEDURE: Exploratory Laparotomy, extended right colectomy with en bloc hemigastrectomy, RNY gastrojejunostomy, ileo-transverse anastomosis, feeding jejunostomy. SURGEON: Douglas Gutierrez MD [employer] ANESTHESIA: General Anesthesia. ESTIMATED BLOOD LOSS: Approximately 400 mL. COMPLICATIONS: none, patient extubated. 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 PROCEDURE NOTE: bulky transverse colon malignancy that has grown through the wall of the colon with abscess contained by omentum in between the transverse colon and abdominal wall, broadly adhered to the midbody of the stomach with probably growth into the stomach wall.. DESCRIPTION OF PROCEDURE: Patient received a dose of Invanz 1 g IV preoperatively for suspicion of a perforated viscus. She was brought to the operating room, placed supine on the table. Monitoring these were placed. Compression boots were placed on both lower extremities for DVT prophylaxis. Gen. endotracheal anesthesia was started. A Michel catheter was placed for urine output monitoring. Her abdomen was widely prepped and draped in usual sterile fashion.We paused for a surgical timeout using both pre-incision safety checklist to verify correct patient, procedure site and additional clinical information prior to beginning the procedure An sloane the landmarks on the abdomen and possible placement of the colostomy/urostomy and both sides. A generous midline incision was started on the upper abdomen extending from just below the xiphisternum to just below the umbilicus. Later on this was extended further to allow for better exposure.. This was deepened through to the subcutaneous tissue to expose the external fascia. This was opened up under direct vision and the abdomen was entered. The omentum was stuck on the left side of the incision which was covering a hardened area of what I presume this to be the transverse colon malignancy. There was moderate amount of whitish non-foul smelling thin fluid which could be purulence or just reactive. No gross appearance of stool or enteric contents were visualized. The fascial incision was opened up through the whole off the skin incision. The edges of the fascia was grasped to elevate the left-sided fascia and worked on freeing up the adhered omentum from the abdominal wall. While dissecting this to her was some pocket of abscess that was liberated and drained. Cultures were obtained both from the peritoneal drainage as well as from the pocket of abscess. I was able to get my hand around the omental adhesion to the abdominal wall and this was broken apart and freed up. The remaining omental attachments were divided with cautery and LigaSure device. The Bookwalter retractor was set up. Abdominal exploration was then performed. I palpated around the liver and did not see any gross nodularities. The peritoneum likewise had no metastatic implants that I could palpate or see. Most of the omentum was adhered or free floating to the hard mass that was quite bulky at the mid transverse colon. This portion of colon was grossly adhered through to the mid body of the stomach which is also hardened. The stomach and transverse colon appears movable and not tethered to the underlying retroperitoneum. The rest of the small bowel appears free floating. The right colon is mildly distended but thin walled. The left colon appears normal in size and thin walled. I did not see any distinct perforation but the tumor appears to have grown through to the wall of the colon and this was an followed by the omentum probably containing the growth and the resulting perforation by the tumor growth. At this point, I started dissecting the right colon away from the abdominal wall starting at the hepatic flexure going down towards the cecum in the lateral to medial dissection. The cecum as well as the distal small bowel attachments to the lateral abdominal wall and retroperitoneum was freed up to deliver this at the midline. The right colon itself appears floppy and the lateral and posterior attachments to the retroperitoneum, Gerota's fascia was easily broken down with blunt finger dissection and cautery and LigaSure device. I then turned my attention to the distal portion of the transverse colon. The transverse colon was dissected with most of the omentum divided towards the diseased portion of the colon. The remaining attachments to the splenic flexure and lateral abdominal wall was freed up. Likewise the distal attachments of the gastrocolic ligament was freed up to allow me to enter the lesser sac distally and palpate behind the colon and stomach. This confirmed my earlier observation that the transverse colon and stomach were free from the retroperitoneal structures. At this point I determined that this to be a resectable but would require resection of both the stomach and the colon. I proceeded with the right colectomy. The ileocolic branch was further freed up towards its attachments to the superior mesenteric artery. A window was created above and below this and this was divided by placing large clips at the ileocolic artery and dividing this with the LigaSure device. Similarly the right colon was divided with the LigaSure. A full mesocolic dissection was performed to the base of the transverse mesocolon. The middle colic artery was circumferentially dissected and again divided with LigaSure device in between hemoclips. There was a lot of bulkiness within the mesentery above the mesocolon. I then proceeded dissecting the transverse colon to an area about 10 cm beyond the bulky mass in the transverse colon. There were tattoo garland at the area of the distal portion of the transverse colon. The transverse colon was divided with an echelon 60 mm stapler with a green load. Then proceeded by dissecting the stomach both at the lesser curvature and greater curvature high up when necessary the area of the involvement of the mid body of the stomach. This was then divided with a green load of echelon stapler. Distally I went just at the area of the pyloric antrum. This seems to be free enough and away from the involvement distally. Again the gastrocolic ligament was opened up and dissection made circumferentially around the lesser and greater curvature to previous portions, This was divided with the green load of the echelon stapler. The remaining attachments behind the stomach was divided with LigaSure freeing up the whole specimen that includes en bloc resection of the stomach and an extended right colectomy. The specimen was then passed off. The abdomen was then irrigated with about 5 L of warm saline. Hemostasis was ensured. Another aspiration was performed to look for other obvious sites of involvement. The small bowel was ran from the terminal ileum to the ligament of Treitz. The remaining colon was inspected. The rest of the stomach was likewise inspected. I then examined the remaining ends of the stomach and bowel to determine how to reconstruct the different ends of the stomach and colon and small bowel. I decided on performing a Sedrick-en-Y gastrojejunostomy. I chose an area 30 cm from the ligament of Treitz and the small bowel was divided. The distal end was brought up to the stomach. Stay sutures were placed at the stomach and side-to- side anastomosis was performed using a green load of the 75 mm stapler. The gastrojejunostomy was then closed with a running suture of 3-0 PDS. To protect the anastomosis a Lembert sutures were placed around the anastomotic closure. The jejunojejunostomy was then performed with a [id number] anastomosis echelon stapler. The enterotomy was closed with a TA stapler with a blue load. The distal bowel was further freed up to reach the left upper quadrant area. An isoperistaltic [id number] anastomosis was then performed. I used a second 5 mm stapler with a blue load with closure of the anastomosis using another load of the 75 mm stapler. A jejunostomy feeding tube was then placed distal to the jejunojejunostomy. A Chuy drain was then left through the right upper quadrant towards the stump of the distal stomach/antrum. I reinforced the suture over this area with a running stitch of 3-0 PDS. The abdomen was then closed with a running double loop 1 PDS. T subcutaneous thinks tissue was irrigated and the skin closed with hreson. Patient remained hemodynamically stable throughout the procedure. She was simply awakened And brought to recovery room in stable condition. DOUGLAS GUTIERREZ MD Dec 30, 2018 17:27
[2018-12-30] MEDS ORDERED: NS 500 ML IV ONE (20:15)
[2018-12-30] MEDS: MAALOX 30 ML SUSP *UDC PO PRN (20:31)
[2018-12-31] VITALS (50 sets, daily range): BP systolic 89–111; BP diastolic 43–56
[2018-12-31] MEDS: MORPHINE 4 MG/ML 1ML VIAL/SYRINGE (J2270) IV PRN ×2 (00:34→20:20)
[2018-12-31] MEDS: ACETAMINOPHEN TAB 650MG DOSE (2X325MG) PO PRN (02:42)
[2018-12-31] MEDS: NS MINI IV SCH (05:51)
[2018-12-31] MEDS: ERTAPENEM SODIUM IV SCH (05:51)
[2018-12-31 05:59] LABS: BASO # 0.1 10^3/uL (0.0-0.2); BASO % 0.2 % (0.0-1.0); EOS # 0.1 10^3/uL (0.0-0.5); EOS % 0.2 % (0.0-3.0); HEMATOCRIT 29.8 % (36.0-47.0); HEMOGLOBIN 8.6 g/dl (12.0-15.5); LYMPH # 2.7 10^3/uL (1.5-5.0); LYMPH % 9.6 % (24.0-44.0); MEAN CORPUSCULAR HEMOGLOBIN 24.4 pg (27.0-33.0); MEAN CORPUSCULAR HGB CONC 28.9 g/dl (32.0-36.5); MEAN CORPUSCULAR VOLUME 84.4 fl (80.0-96.0); MONO # 1.2 10^3/uL (0.0-0.8); MONO % 4.2 % (0.0-5.0); NEUTROPHILS # 23.7 10^3/uL (1.5-8.5); NEUTROPHILS % 84.4 % (36.0-66.0); PLATELET COUNT, AUTOMATED 402 10^3/uL (150-450); RED BLOOD COUNT 3.53 10^6/uL (4.00-5.40)
[2018-12-31 06:54] LABS: ALBUMIN 1.9 GM/DL (3.2-5.2); BILIRUBIN,TOTAL 0.3 MG/DL (0.2-1.0); CALCIUM LEVEL 6.4 MG/DL (8.8-10.2); CREATININE FOR GFR 2.95 MG/DL (0.55-1.30); GLOMERULAR FILTRATION RATE 16.5 (>39); POTASSIUM SERUM 3.9 MEQ/L (3.5-5.1); TOTAL PROTEIN 4.2 GM/DL (6.4-8.2)
[2018-12-31] MEDS: NS 1,000 ML IV SCH (07:25)
[2018-12-31] MEDS: ONDANSETRON 4MG/2ML VIAL (J2405) IV PRN (07:25)
[2018-12-31] MEDS: PANTOPRAZOLE 40MG INJ (PROTONIX) (C9113) IV SCH (09:23)
[2018-12-31] MEDS: ENOXAPARIN 30 MG/0.3 ML SYR (J1650) SC SCH (09:23)
[2018-12-31] MEDS: VANCOMYCIN HCL 1,000 MG, VIAL MATE ADAPTER 1 EACH in D5W 250 ML IV ONE ×2 (09:24→15:05)
[2018-12-31] MEDS: D10W/0.45% SODIUM CHLORIDE 1,000 ML IV SCH (09:25)
[2018-12-31] MEDS ORDERED: DARBEPOETIN 100 MCG/0.5 ML *DIALYSIS* SYRINGE (J0882) IV SCH (09:45)
--- NOTE | 2018-12-31 09:55 | IPNPDOC ---
Text Note Date of Service The patient was seen on 12/31/18. NOTE Subjective: 78-year-old female with past medical history of transverse colon malignancy found approximately 3 weeks prior, DM2, HTN, ESRD on HD (TTS), who presents to [facility] on 12/29/2018 because of abdominal pain. Patient was found to have perforation and was admitted to surgical service for emergent surgery. . Hospitalist services consultation for medical management. Patient was seen and examined at the bedside. Currently patient reports that she's feeling relatively better. She denies any chest pain, shortness of breath or palpitations. She does report some abdominal pain. Patient does have a Michel catheter placed. Objective: Vitals (See below) General: Lying in bed, no acute distress, comfortable, AAOx3 HEENT: NC, AT CVS: +S1S2 Lungs: Fair air entry b/l, no appreciable wheezing, rhonchi or rales Abdomen: Soft, diffuse tenderness, dressing in place, drains noted Extremities: 2+ pitting edema at bilateral feet, - Calf tenderness Assessment and plan: Hypotension - possibly 2/2 sepsis - 2/2 intra-abdominal source, possibly 2/2 hypovolemia - Patient's blood pressure appears to be improving - Leukocytosis is improving, no lactic acidosis - CVP noted to have improved over the last 24 hours - c/w Albumin as required - c/w Broad spectrum antibiotics; Vancomycin and Ertapenem Transverse colon malignancy with invasion into lesser curvature of stomach - s/p right colectomy and en bloc gastric resection 12/29/2018 - Surgery managing ESRD on HD (TTS) - Patient had missed hemodialysis on 12/30/2018 because of low blood pressure - Patient will be dialyzed today in ICU - Nephrology on consultation Normocytic anemia - Hemoglobin appears to trend down - likely 2/2 dilutional etiology - Will continue to follow / transfuse as needed - however not indicated at this time DM2 - Currently does not take any medications at home - Blood sugar livers appears to be normal range s/p Hypomagnesemia - Will repeat lab work this morning HTN - Patient with pressure appears to be lower limits of normal - c/w Carvedilol with holding parameters GI prophylaxis - c/w Protonix DVT prophylaxis - c/w Lovenox Code status: - DNR / DNI VS,Fishbone, I+O VS, Fishbone, I+O Laboratory Tests 12/30/18 10:02 Red Blood Count 4.37, Mean Corpuscular Volume 83.5, Mean Corpuscular Hemoglobin 24.0 L, Mean Corpuscular Hemoglobin Concent 28.8 L, Red Cell Distribution Width 21.4 H, Calcium Level 7.6 L, Aspartate Amino Transf (AST/SGOT) 82 H, Alanine Aminotransferase (ALT/SGPT) 33, Alkaline Phosphatase 103, Total Bilirubin 0.4, Total Protein 4.4 L, Albumin 1.5 #L 12/31/18 05:43 Red Blood Count 3.53 L, Mean Corpuscular Volume 84.4, Mean Corpuscular Hemoglobin 24.4 L, Mean Corpuscular Hemoglobin Concent 28.9 L, Red Cell Distribution Width 21.3 H, Calcium Level 6.4 #L, Aspartate Amino Transf (AST/SGOT) 107 H, Alanine Aminotransferase (ALT/SGPT) 53, Alkaline Phosphatase 88, Total Bilirubin 0.3, Total Protein 4.2 L, Albumin 1.9 #L, Neutrophils (%) (Auto) 84.4 H, Lymphocytes (%) (Auto) 9.6 L, Monocytes (%) (Auto) 4.2, Eosinophils (%) (Auto) 0.2, Basophils (%) (Auto) 0.2, Neutrophils # (Auto) 23.7 H, Lymphocytes # (Auto) 2.7, Monocytes # (Auto) 1.2 H, Eosinophils # (Auto) 0.1, Basophils # (Auto) 0.1 Vital Signs Date Time Temp Pulse Resp B/P (MAP) Pulse Ox O2 Delivery O2 Flow Rate FiO2 12/31/18 06:01 100 97/48 (64) 1.0 12/31/18 04:31 95 12/31/18 04:01 98.0 16 12/29/18 19:02 Room Air I&O- Last 24 Hours up to 6 AM 12/31/18 06:00 Intake Total 5298 ml Output Total 820 ml Balance 4478 ml MAMIE JAUREZ MD Dec 31, 2018 09:55
--- NOTE | 2018-12-31 09:59 | IPNPDOC ---
Subjective General Date/Time Seen The patient was seen on 12/31/18 at 09:52. 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 BP has improved with couple of fluid boluses and 5% albumin. Her CVP is gone up to 8. She is not needing any vasopressor support. They're starting to try dialysis early this morning and so far has been tolerating this. Current Medications Current Medications Current Medications Medications (Trade) Dose Ordered Sig/Mg Route PRN Reason Start Time Stop Time Status Last Admin Dose Admin Acetaminophen (Tylenol Tab) 650 mg Q4HP PRN PO MILD PAIN or TEMP > 101 12/30/18 00:45 12/31/18 02:42 Al Hydrox/Mg Hydrox/Simethicone (Mylanta) 30 ml Q6HP PRN PO HEARTBURN 12/30/18 20:15 12/30/18 20:31 Atorvastatin Calcium (Lipitor) 20 mg DAILY PO 12/30/18 09:00 12/30/18 13:29 DC Carvedilol (COReg) 6.25 mg BID PO 12/29/18 21:00 12/30/18 13:29 DC 12/30/18 02:06 Darbepoetin Mp (Aranesp (Dialysis Use)) 200 mcg HD IV 12/31/18 09:45 Dextrose/Sodium Chloride 1,000 ml @ 50 mls/hr Q20H IV 12/31/18 10:00 12/31/18 09:25 Diatrizoate Meglum/ Diatrizoate Sod (Gastrografin) 10 ml Q30M PO 12/29/18 14:00 12/29/18 14:31 DC 12/29/18 14:33 Enoxaparin Sodium (Lovenox) 30 mg DAILY SC 12/30/18 09:00 12/31/18 09:23 Ertapenem 0.5 gm/ Sodium Chloride 50 ml @ 100 mls/hr Q24H IV 12/30/18 06:00 12/31/18 05:51 Fentanyl Citrate (Sublimaze) 25 mcg Q5MP PRN IV MODERATE PAIN (PS 4-7) 12/30/18 01:00 12/30/18 01:59 DC Home Med (Med Rec Complete!) ASDIRECTED XX 12/29/18 14:00 12/29/18 16:01 DC Ketorolac Tromethamine (ToRADol) 15 mg Q6HP PRN IV MILD/MODERATE PAIN (PS 1-7) 12/30/18 00:45 01/04/19 00:44 Lactated Ringer's 1,000 ml @ 100 mls/hr Q10H IV 12/30/18 00:31 12/30/18 13:59 DC 12/30/18 01:40 Lorazepam (Ativan) 0.5 mg Q6HP PRN IV ANXIETY 12/30/18 11:15 12/30/18 15:10 Metoclopramide HCl (REGLAN INJection) 10 mg Q6HP PRN IV NAUSEA OR VOMITING 12/30/18 01:00 12/30/18 01:59 DC Morphine Sulfate (Morphine Sulfate Inj) 4 mg Q2HP PRN IV SEVERE PAIN (PS 8-10) 12/30/18 00:45 12/31/18 00:34 Non-Formulary Medication ( See Comment Field Below ) CHECK TO SEE IF THE PATIENT... DAILY@1600 XX 12/30/18 16:00 12/30/18 16:00 DC Non-Formulary Medication ( See Comment Field Below ) CHECK TO SEE IF THE PATIENT... DAILY@1600 XX 01/01/19 16:00 Non-Formulary Medication ( See Comment Field Below ) [facility]. DOSING ASDIRECTED XX 12/30/18 14:15 12/31/18 09:38 DC Ondansetron HCl (ZOFRAN INJection) 4 mg Q4HP PRN IV NAUSEA OR VOMITING 12/30/18 01:00 12/30/18 01:59 DC Ondansetron HCl (ZOFRAN INJection) 4 mg Q6HP PRN IV NAUSEA OR VOMITING 12/30/18 00:45 12/31/18 07:25 Oxycodone/ Acetaminophen (Percocet 5mg/ 325mg Tablet) 1 tab ASDIRECTED PRN PO MILD/MODERATE PAIN (PS 1-7) 12/30/18 01:00 12/30/18 01:59 DC Pantoprazole Sodium (Protonix) 40 mg DAILY IV 12/30/18 09:00 12/31/18 09:23 Sodium Chloride 1,000 ml @ 75 mls/hr [id number] IV 12/30/18 01:00 12/30/18 01:59 DC Sodium Chloride 1,000 ml @ 100 mls/hr Q10H IV 12/30/18 14:45 UNV Sodium Chloride 1,000 ml @ 125 mls/hr Q8H IV 12/30/18 14:00 12/31/18 08:23 DC 12/31/18 07:25 Vancomycin HCl 1000 mg/IV Miscellaneous Supplies 1 each/ Dextrose 270 ml @ 270 mls/hr HD IV 12/30/18 11:30 12/30/18 14:00 DC Vancomycin HCl 1000 mg/IV Miscellaneous Supplies 1 each/ Dextrose 270 ml @ 270 mls/hr HD IV 01/01/19 09:45 Allergies Coded Allergies: Penicillins (Verified Allergy, Severe, throat swelling , hives, 12/12/18) morphine (Verified Adverse Reaction, Mild, Confusion, 01/01/19) Objective Physical Examination Examination GENERAL APPEARANCE:Patient seen, laying in bed, awake, alert, and oriented. Relatively Comfortable. SKIN: Warm and dry. HEENT: Mild pale palpebral conjunctiva. NG tube remains in place and working. NECK: Supple, no thyromegaly. No obvious jugular venous distention. LUNGS: Clear to auscultation bilaterally. No wheezing appreciated. HEART: No chest wall abnormalities. Regular rate and rhythm with no murmurs appreciated. ABDOMEN: Abdomen is mildly distended, soft, quite abdomen. Postoperative dressings are clean, dry and intact. Chuy drain is light pink serosanguineous fluid. EXTREMITIES: Moderate lower extremity edema and beginning upper extremity anasarca. Vital Signs Vital Signs Date Time Temp Pulse Resp B/P (MAP) Pulse Ox O2 Delivery O2 Flow Rate FiO2 12/31/18 06:01 100 97/48 (64) 1.0 12/31/18 04:31 95 12/31/18 04:01 98.0 16 12/29/18 19:02 Room Air I&Os I&O- Last 24 Hours up to 6 AM 12/31/18 06:00 Intake Total 5298 ml Output Total 820 ml Balance 4478 ml Laboratory Data Labs 24H Laboratory Tests 2 12/30/18 10:02: Immature Granulocyte % (Auto) 1.4, Neutrophils (%) (Auto) 87.5H, Lymphocytes (%) (Auto) 7.0L, Monocytes (%) (Auto) 3.7, Eosinophils (%) (Auto) 0.1, Basophils (%) (Auto) 0.3, Immature Granulocyte # (Auto) 0.5H, Neutrophils # (Auto) 30.5H, Lymphocytes # (Auto) 2.4, Monocytes # (Auto) 1.3H, Eosinophils # (Auto) 0.0, Basophils # (Auto) 0.1, Nucleated Red Blood Cells % (auto) 0.0, Platelet Estimate , Anion Gap 10, Glomerular Filtration Rate 17.0L, Blood Urea Nitrogen 28H, Creatinine 2.87H, Sodium Level 139, Potassium Level 4.1#, Chloride Level 107, Carbon Dioxide Level 22, Calcium Level 7.6L, Aspartate Amino Transf (AST/SGOT) 82H, Alanine Aminotransferase (ALT/SGPT) 33, Alkaline Phosphatase 103, Total Bilirubin 0.4, Total Protein 4.4L, Albumin 1.5#L, Magnesium Level 1.6L, Albumin/Globulin Ratio 0.52L 12/30/18 16:11: Lactic Acid Level 0.8 12/31/18 05:43: Immature Granulocyte % (Auto) 1.4, Neutrophils (%) (Auto) 84.4H, Lymphocytes (%) (Auto) 9.6L, Monocytes (%) (Auto) 4.2, Eosinophils (%) (Auto) 0.2, Basophils (%) (Auto) 0.2, Neutrophils # (Auto) 23.7H, Lymphocytes # (Auto) 2.7, Monocytes # (Auto) 1.2H, Eosinophils # (Auto) 0.1, Basophils # (Auto) 0.1, Nucleated Red Blood Cells % (auto) 0.0, Anion Gap 13, Glomerular Filtration Rate 16.5L, Blood Urea Nitrogen 31H, Creatinine 2.95H, Sodium Level 143, Potassium Level 3.9, Chloride Level 112H, Carbon Dioxide Level 18L, Calcium Level 6.4#L, Aspartate Amino Transf (AST/SGOT) 107H, Alanine Aminotransferase (ALT/SGPT) 53, Alkaline Phosphatase 88, Total Bilirubin 0.3, Total Protein 4.2L, Albumin 1.9#L, Albumin/Globulin Ratio 0.83L, White Blood Count 28.0H, Red Blood Count 3.53L, Hemoglobin 8.6L, Hematocrit 29.8L, Mean Corpuscular Volume 84.4, Mean Corpuscular Hemoglobin 24.4L, Mean Corpuscular Hemoglobin Concent 28.9L, Red Cell Distribution Width 21.3H, Platelet Count 402, Random Vancomycin Level 12.0 CBC/BMP Laboratory Tests 12/30/18 10:02 Red Blood Count 4.37, Mean Corpuscular Volume 83.5, Mean Corpuscular Hemoglobin 24.0 L, Mean Corpuscular Hemoglobin Concent 28.8 L, Red Cell Distribution Width 21.4 H, Calcium Level 7.6 L, Aspartate Amino Transf (AST/SGOT) 82 H, Alanine Aminotransferase (ALT/SGPT) 33, Alkaline Phosphatase 103, Total Bilirubin 0.4, Total Protein 4.4 L, Albumin 1.5 #L 12/31/18 05:43 Red Blood Count 3.53 L, Mean Corpuscular Volume 84.4, Mean Corpuscular Hemoglobin 24.4 L, Mean Corpuscular Hemoglobin Concent 28.9 L, Red Cell Distribution Width 21.3 H, Calcium Level 6.4 #L, Aspartate Amino Transf (AST/SGOT) 107 H, Alanine Aminotransferase (ALT/SGPT) 53, Alkaline Phosphatase 88, Total Bilirubin 0.3, Total Protein 4.2 L, Albumin 1.9 #L, Neutrophils (%) (Auto) 84.4 H, Lymphocytes (%) (Auto) 9.6 L, Monocytes (%) (Auto) 4.2, Eosinophils (%) (Auto) 0.2, Basophils (%) (Auto) 0.2, Neutrophils # (Auto) 23.7 H, Lymphocytes # (Auto) 2.7, Monocytes # (Auto) 1.2 H, Eosinophils # (Auto) 0.1, Basophils # (Auto) 0.1 Microbiology Microbiology 12/29/18 Blood Culture - Preliminary, Resulted No growth after 24 hours . All specim... 12/29/18 Blood Culture - Preliminary, Resulted No growth after 24 hours . All specim... 12/29/18 Gram Stain - Final, Resulted 12/29/18 Body Fluid Culture, Resulted Pending 12/29/18 Anaerobic Culture, Resulted Pending 12/29/18 Gram Stain - Final, Resulted 12/29/18 Abscess Culture, Resulted Pending 12/29/18 Anaerobic Culture, Resulted Pending Impression Impression POD2 extended right colectomy en block melody gastrectomy RNY gastrojejunostomy, ileo-transverse colon anastomosis, feeding jejunostomy sepsis ESRD on dialysis Over all midly improved from yesterday, BP slightly better, not needing pressor support but soft. CVP up to 8 now. She is being readied for dialysis this morning and is being given 25% albumin for added oncotic support. I will start some trickle feeds on her via the jejunostomy feeding tube with half strength jevity. continue with IV abx (ertapenem, vancomycin) DVT prophylaxis - heparin subQ continue entereg pain control - morphine IV, reduced dose toradol IV, percocets PO protonix Plan / VTE VTE Prophylaxis Ordered?: Yes STANISLAW CAMPOS MD Dec 31, 2018 09:59
[2018-12-31] MEDS ORDERED: PERCOCET 5MG/325MG TAB PO PRN ×2 (10:00)
[2018-12-31 10:04] LABS: MAGNESIUM LEVEL 1.6 MG/DL (1.8-2.4)
[2018-12-31] MEDS ORDERED: MAG SULF 1GM/100ML (MAG RUN) 1 GM in IV 1 EA IV ONE (11:15)
--- NOTE | 2018-12-31 11:16 | CR ---
DATE OF CONSULTATION: 12/30/2018 REQUESTING PHYSICIAN: Dr. Douglas Gutierrez CONSULTING PHYSICIAN: Dr. Street REASON FOR CONSULTATION: Management of end-stage renal disease, hemodialysis, and fluid status. CHIEF COMPLAINT: The patient presented to the hospital yesterday with acute abdominal pain. 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 She was getting workup done as outpatient and medical clearance for colectomy; however, the patient presented to the emergency room yesterday with acute abdominal pain. Further workup done in the emergency room showed that the patient had a perforation, and she had a 9.3 cm transverse colon mass with perforation and invasion into the lesser curvature of the stomach. She underwent exploratory laparotomy last night and had an extensive surgery which included right colectomy, en bloc gastrectomy, and placement of a percutaneous endoscopic gastrostomy (PEG) tube. She was brought to the ICU. Nephrology service was called for further help in the management of end-stage renal disease because today is patient's regular day of dialysis. The patient needed my emergent attention. I saw and evaluated the patient today morning in the ICU. The patient is awake. She is not intubated at this time. However, she was hypotensive. She was getting the intravenous (IV) fluid bolus today morning. I had already arranged hemodialysis to be done today, but after the needle placement, there was no blood return, and because of the hypotension, the decision was made not to try dialysis today. PAST MEDICAL HISTORY: Past medical history of end-stage renal disease on hemodialysis every Tuesday, , Tuesday, hypertension, diabetes mellitus type 2, recently diagnosed CA colon. PAST SURGICAL HISTORY: History of arteriovenous (AV) fistula placement in the left upper arm, cataract surgeries, recent colonoscopy done this month, and the patient is status post right colectomy, partial gastrectomy and PEG tube placement last night. ALLERGIES: The patient is ALLERGIC to PENICILLIN. FAMILY HISTORY: No significant family history of end-stage renal disease requiring hemodialysis. SOCIAL HISTORY: She lives at home. Denies any illicit drug abuse or alcohol abuse. REVIEW OF SYSTEMS: Constitutional: She denies any fevers or chills. Eyes: She denies any blurry vision, double vision. Ears, nose, and throat (ENT): She denies any dysphagia, odynophagia. She is actually nothing by mouth at this time. Cardiovascular: She denies any chest pain or palpitation. Respiratory: She denies any shortness of breath. Gastrointestinal (GI): She reports abdominal pain at the surgical site. Musculoskeletal: She denies any muscle aches and pains. Skin: She denies any rashes or ulcers. Endocrine: She reports history of diabetes mellitus type 2. Psych: She denies any depression or anxiety. Hematological/oncological: She denies any recent easy bleeding or bruising. All other review of systems is negative. PHYSICAL EXAMINATION: General: The patient is awake, alert, oriented times three; however, she appears weak and feeble, laying in bed, no apparent distress. Vital signs: Temperature is 98.4 degrees Fahrenheit. Blood pressure today morning was 81/45, pulse was 89, respiratory rate of 15, saturating 100% on 1 liter nasal cannula. Intake and output: Urine output recorded is only 105 mL. Drainage from the abdominal wound is 175. Head and neck exam: Extraocular muscles intact. Pupils equally round and reactive to light. She has an nasogastric tube (NGT) which is a test to suctioning. Mucous membranes are moist. Neck is supple. There is no jugular venous distention (JVD). Cardiovascular: S1, S2, regular rate. 2+ edema of the bilateral lower extremities. Respiratory: Chest is clear to auscultation bilaterally. Bilateral equal air entry. No rales or rhonchi. Abdomen: Soft. She has a large midline abdominal dressing. There is a PEG tube in the epigastrium as well, and she has a Demetris-Preston (CHARLOTTE) drain in the right side. Genitourinary: She has an indwelling Michel catheter with a small amount of urine in the bag. Musculoskeletal: Chronic significant edema on the bilateral lower extremities. LAND DEVELOPER: No focal deficit. Power is 5/5 in bilateral upper extremities. Skin: No rashes or ulcers. Chronic venous stasis changes of the bilateral lower extremities. LAB REVIEW: CBC showed WBC of 35.3, hemoglobin 10.5, platelets of 436. BMP showed sodium 139, potassium 4.1, chloride 107, bicarbonate 22, BUN 28, creatinine is 2.8. Lactic acid was 1.3 last night. Magnesium is 1.6. Calcium 7.6, albumin is 1.5. MICROBIOLOGY: Blood cultures prelim sent from yesterday are negative so far. 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 CURRENT INPATIENT MEDICATIONS: The patient's medications include cefepime 2 grams IV, one dose was given yesterday. She is on Invanz 0.5 grams IV every 24. She is getting Ringer's lactate at 100 mL per hour. She was also given normal saline 1 liter bolus. I also ordered one dose of vancomycin 1 gram IV. She is on Lipitor 20 mg by mouth daily. I am going to hold it at this time. She is also on Coreg 6.25 mg by mouth twice a day. I am going to hold it for now. Lovenox 30 mg subcu daily, Ativan as needed for anxiety, Zofran as needed for nausea, and Protonix 40 mg IV daily. ASSESSMENT: 78-year-old female with end-stage renal disease on hemodialysis every Tuesday, , Tuesday, history of hypertension, diabetes mellitus type 2, admitted at this time with perforation of her large colonic mass, status post right colectomy, partial gastric resection, and J tube placement, currently hypotensive. PLAN: 1. End-stage renal disease on hemodialysis. The patient's regular dialysis days are Tuesday, , Tuesday; however, she is hypotensive and we actually attempted the cannulation. Dialysis was unsuccessful. Given her unstable clinical status today, dialysis would not be done. She will get the dialysis tomorrow morning, if needed, otherwise on Tuesday. 2. Hypotension, most likely secondary to volume depletion, use of Coreg last night, and blood loss with the surgery. The patient got IV 1 liter normal saline bolus and she responded to that and blood pressures have come up to low 90s. She is also going to get the central line placement. I would check the central venous pressure (CVP), and if needed, she would get more fluid. She is also on Ringer's lactate at 100 mL an hour. Rate can be decreased once her blood pressures get better. Blood cultures are pending, and she is empirically covered with vancomycin and ertapenem. 3. Acute blood loss anemia. The patient has end-stage renal disease as well. She got 2 units of packed red blood cell (PRBC) ordered; however, her hemoglobin is 10.5, which is optimal. No need of blood transfusion at this time. 3. Hypomagnesemia. No need of oral magnesium replacement. If needed, the patient will be given IV magnesium. 4. Postop day #1 status post right colectomy, partial gastric resection, and J tube placement. The patient is nothing by mouth. She has nasogastric tube (NGT) attached to suctioning. She is getting Ringer's lactate. If feeding is started, she will need Nepro tube feeds. Total critical care time spent in the management of this patient today morning in the ICU is 1 hour, that does not include any procedures. Thank you for involving me in the care of this patient. I shall be happy to follow the patient along with you tomorrow morning.
[2018-12-31] MEDS ORDERED: guaiFENesin DM LIQ 10ML UD PO PRN (17:45)
[2018-12-31] MEDS: CHLORASEPTIC SPRAY MT PRN (18:45)
[2019-01-01] VITALS (16 sets, daily range): BP systolic 89–135; BP diastolic 51–94
[2019-01-01] MEDS: LORazepam 2 MG/ML VIAL (J2060) IV PRN ×2 (02:17→11:02)
[2019-01-01] MEDS: D10W/0.45% SODIUM CHLORIDE 1,000 ML IV SCH (05:00)
[2019-01-01 05:08] LABS: ALBUMIN 1.9 GM/DL (3.2-5.2); BILIRUBIN,TOTAL 0.3 MG/DL (0.2-1.0); CALCIUM LEVEL 7.6 MG/DL (8.8-10.2); CREATININE FOR GFR 2.29 MG/DL (0.55-1.30); GLOMERULAR FILTRATION RATE 22.1 (>39); POTASSIUM SERUM 3.5 MEQ/L (3.5-5.1); TOTAL PROTEIN 4.5 GM/DL (6.4-8.2)
[2019-01-01] MEDS: ERTAPENEM SODIUM IV SCH (05:09)
[2019-01-01] MEDS: NS MINI IV SCH (05:09)
[2019-01-01 05:15] LABS: BASO % 0.2 % (0.0-1.0); EOS # 0.2 10^3/uL (0.0-0.5); EOS % 0.9 % (0.0-3.0); HEMATOCRIT 27.7 % (36.0-47.0); HEMOGLOBIN 8.1 g/dl (12.0-15.5); LYMPH # 1.8 10^3/uL (1.5-5.0); MEAN CORPUSCULAR HEMOGLOBIN 23.5 pg (27.0-33.0); MEAN CORPUSCULAR HGB CONC 29.2 g/dl (32.0-36.5); MEAN CORPUSCULAR VOLUME 80.5 fl (80.0-96.0); MONO # 0.9 10^3/uL (0.0-0.8); MONO % 4.9 % (0.0-5.0); NEUTROPHILS # 14.9 10^3/uL (1.5-8.5); NEUTROPHILS % 82.9 % (36.0-66.0); PLATELET COUNT, AUTOMATED 352 10^3/uL (150-450); RED BLOOD COUNT 3.44 10^6/uL (4.00-5.40)
--- NOTE | 2019-01-01 07:10 | IPNPDOC ---
Text Note Date of Service The patient was seen on 01/01/19. NOTE HPI: Patient is examined at bedside. She reported no abdominal pain or any other complaints. She initially thought she is at [place] but after re-orientation she is able to answer the name, place, year correctly. She denies any chest pain, dyspnea, fever, chills, lightheadedness, dizziness, nausea, vomiting, or diarrhea. Pt reported having 1 small BM ROS: General: Denies fever, chills, lightheadedness, dizziness Heart: denies chest pain, palpitation Lung: Denies dyspnea GI: Denies nausea, vomiting, diarrhea, or hematochezia Objective: General: Lying in bed, no acute distress, comfortable, A&Ox3 HEENT: head normocephalic, atraumatic, no scleral icterus noted CVS: Tachycardia, regular rhythm, normal S1 and S2. Lungs: Good air entry. CTA b/l, no wheezing, rhonchi or rales Abdomen: Soft, diffuse tenderness, dressing in place, drains noted, GJ tube Extremities: 2+ pitting edema at bilateral feet. Denies calf tenderness b/l Assessment and plan: 1.Hypotension -possibly 2/2 hypovolemia with low intravascular volume vs infection - Patient's blood pressure roughly stable; CVP 8 this morning - Cont IVF at 50ml/hr - Leukocytosis is improving, no lactic acidosis -blood cx neg X2; peritoneal fluid gram stain no organism seen. Abscess cx pending. - Cont with Albumin as required - cont with Broad spectrum antibiotics; Vancomycin and Ertapenem 2. 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 ESRD on HD (TTS) - Patient had missed hemodialysis on 12/30/2018 because of low blood pressure - Pt received dialysis 01/01/19 inpt - Creatinine improving - Nephrology on consultation 4. Normocytic anemia - Hemoglobin appears to trend down - likely 2/2 dilutional etiology - Hg 8.1; f/u with CBC this afternoon -Will continue to follow/transfuse as needed. Blood product consent form on file 5. DM2 -Blood glucose roughly stable; ranging 136-158 POC -POC glucose Q6H with SS Q6h 6. Hypomagnesemia, resolved -Mg this morning wnl 7. HTN - Patient with pressure appears to be lower limits of normal -cont with Carvedilol with holding parameters GI prophylaxis - Cont Protonix DVT prophylaxis - Cont Lovenox Code status: - DNR / DNI VS,Fishbone, I+O VS, Fishbone, I+O Laboratory Tests 01/01/19 04:33 Calcium Level 7.6 #L, Aspartate Amino Transf (AST/SGOT) 37, Alanine Aminotransferase (ALT/SGPT) 43, Alkaline Phosphatase 98, Total Bilirubin 0.3, Total Protein 4.5 L, Albumin 1.9 L 01/01/19 04:59 Red Blood Count 3.44 L, Mean Corpuscular Volume 80.5, Mean Corpuscular Hemoglobin 23.5 L, Mean Corpuscular Hemoglobin Concent 29.2 L, Red Cell Distr ibution Width 21.2 H, Neutrophils (%) (Auto) 82.9 H, Lymphocytes (%) (Auto) 10.0 L, Monocytes (%) (Auto) 4.9, Eosinophils (%) (Auto) 0.9, Basophils (%) (Auto) 0.2, Neutrophils # (Auto) 14.9 H, Lymphocytes # (Auto) 1.8, Monocytes # (Auto) 0.9 H, Eosinophils # (Auto) 0.2, Basophils # (Auto) 0.0 Vital Signs Date Time Temp Pulse Resp B/P (MAP) Pulse Ox O2 Delivery O2 Flow Rate FiO2 01/01/19 06:00 108 118/54 (75) 95 01/01/19 04:00 98.9 16 12/31/18 09:31 1.0 12/29/18 19:02 Room Air I&O- Last 24 Hours up to 6 AM 01/01/19 06:00 Intake Total 2247 ml Output Total 740 ml Balance 1507 ml GME ATTESTATION GME ATTESTATION My faculty preceptor for this patient encounter was physically present during the encounter and was fully available. All aspects of the patient interview, examination, medical decision making process, and medical care plan development were reviewed and approved by the faculty preceptor. The faculty preceptor is aware and concurs with the plan as stated in the body of this note and will attest to such by his/her cosignature. ATTENDING NOTE I, Marly Juarez, have independently examined this patient and performed my own physical exam, as well as reviewed the documentation and edited where necessary. I have discussed in detail with the resident / student the findings and plan of treatment as documented by the resident / student and edited their note. I agree with their findings and treatment plan and have edited their documentation. I will continue to follow the patient during this hospital stay. Patient has been more confused / agitated this afternoon - c/w Ativan and Haldol CLAUDIA JOE DO Jan 01, 2019 07:10 MARLY JUAREZ MD Jan 01, 2019 15:18
[2019-01-01 07:46] LABS: MAGNESIUM LEVEL 1.8 MG/DL (1.8-2.4)
[2019-01-01 08:47] LABS: VANCOMYCIN RANDOM 21.8 UG/ML
[2019-01-01] MEDS: PANTOPRAZOLE 40MG INJ (PROTONIX) (C9113) IV SCH (08:49)
[2019-01-01] MEDS: ENOXAPARIN 30 MG/0.3 ML SYR (J1650) SC SCH (08:49)
--- NOTE | 2019-01-01 09:15 | IPNPDOC ---
Subjective General Date/Time Seen The patient was seen on 01/01/19 at 09:13. 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 Patient remains hemodynamically stable. There were able to do hemodialysis yesterday. Her CVP ranges from 4-8. She seems to be tolerating the trickle feedings. Current Medications Current Medications Current Medications Medications (Trade) Dose Ordered Sig/Mg Route PRN Reason Start Time Stop Time Status Last Admin Dose Admin Acetaminophen (Tylenol Tab) 650 mg Q4HP PRN PO MILD PAIN or TEMP > 101 12/30/18 00:45 12/31/18 02:42 Al Hydrox/Mg Hydrox/Simethicone (Mylanta) 30 ml Q6HP PRN PO HEARTBURN 12/30/18 20:15 12/30/18 20:31 Atorvastatin Calcium (Lipitor) 20 mg DAILY PO 12/30/18 09:00 12/30/18 13:29 DC Carvedilol (COReg) 6.25 mg BID PO 12/29/18 21:00 12/30/18 13:29 DC 12/30/18 02:06 Darbepoetin Mp (Aranesp (Dialysis Use)) 200 mcg HD IV 12/31/18 09:45 Dextrose/Sodium Chloride 1,000 ml @ 50 mls/hr Q20H IV 12/31/18 10:00 01/01/19 05:00 Diatrizoate Meglum/ Diatrizoate Sod (Gastrografin) 10 ml Q30M PO 12/29/18 14:00 12/29/18 14:31 DC 12/29/18 14:33 Enoxaparin Sodium (Lovenox) 30 mg DAILY SC 12/30/18 09:00 01/01/19 08:49 Ertapenem 0.5 gm/ Sodium Chloride 50 ml @ 100 mls/hr Q24H IV 12/30/18 06:00 01/01/19 05:09 Fentanyl Citrate (Sublimaze) 25 mcg Q5MP PRN IV MODERATE PAIN (PS 4-7) 12/30/18 01:00 12/30/18 01:59 DC Guaifenesin/ Dextromethorphan (Robitussin Dm) 10 ml Q6HP PRN PO sore throat 12/31/18 17:45 12/31/18 17:55 DC Home Med (Med Rec Complete!) ASDIRECTED XX 12/29/18 14:00 12/29/18 16:01 DC Ketorolac Tromethamine (ToRADol) 15 mg Q6HP PRN IV MILD/MODERATE PAIN (PS 1-7) 12/30/18 00:45 01/04/19 00:44 Lactated Ringer's 1,000 ml @ 100 mls/hr Q10H IV 12/30/18 00:31 12/30/18 13:59 DC 12/30/18 01:40 Lorazepam (Ativan) 0.5 mg Q6HP PRN IV ANXIETY 12/30/18 11:15 01/01/19 02:17 Metoclopramide HCl (REGLAN INJection) 10 mg Q6HP PRN IV NAUSEA OR VOMITING 12/30/18 01:00 12/30/18 01:59 DC Morphine Sulfate (Morphine Sulfate Inj) 4 mg Q2HP PRN IV SEVERE PAIN (PS 8-10) 12/30/18 00:45 12/31/18 20:20 Non-Formulary Medication ( See Comment Field Below ) CHECK TO SEE IF THE PATIENT... DAILY@1600 XX 12/30/18 16:00 12/30/18 16:00 DC Non-Formulary Medication ( See Comment Field Below ) CHECK TO SEE IF THE PATIENT... DAILY@1600 XX 01/01/19 16:00 Non-Formulary Medication ( See Comment Field Below ) VANCO INTERMIT. DOSING ASDIRECTED XX 12/30/18 14:15 12/31/18 09:38 DC Ondansetron HCl (ZOFRAN INJection) 4 mg Q4HP PRN IV NAUSEA OR VOMITING 12/30/18 01:00 12/30/18 01:59 DC Ondansetron HCl (ZOFRAN INJection) 4 mg Q6HP PRN IV NAUSEA OR VOMITING 12/30/18 00:45 12/31/18 07:25 Oxycodone/ Acetaminophen (Percocet 5mg/ 325mg Tablet) 1 tab ASDIRECTED PRN PO MILD/MODERATE PAIN (PS 1-7) 12/30/18 01:00 12/30/18 01:59 DC Oxycodone/ Acetaminophen (Percocet 5mg/ 325mg Tablet) 1 tab Q4HP PRN PO MILD/MODERATE PAIN (PS 1-7) 12/31/18 10:00 Oxycodone/ Acetaminophen (Percocet 5mg/ 325mg Tablet) 2 tab Q4HP PRN PO SEVERE PAIN (PS 8-10) 12/31/18 10:00 Pantoprazole Sodium (Protonix) 40 mg DAILY IV 12/30/18 09:00 01/01/19 08:49 Phenol (Chloraseptic [place]) 5 spray Q2HP PRN MT SORE THROAT 12/31/18 18:00 12/31/18 18:45 Sodium Chloride 1,000 ml @ 75 mls/hr [id number] IV 12/30/18 01:00 12/30/18 01:59 DC Sodium Chloride 1,000 ml @ 100 mls/hr Q10H IV 12/30/18 14:45 UNV Sodium Chloride 1,000 ml @ 125 mls/hr Q8H IV 12/30/18 14:00 12/31/18 08:23 DC 12/31/18 07:25 Vancomycin HCl 1000 mg/IV Miscellaneous Supplies 1 each/ Dextrose 270 ml @ 270 mls/hr HD IV 12/30/18 11:30 12/30/18 14:00 DC Vancomycin HCl 1000 mg/IV Miscellaneous Supplies 1 each/ Dextrose 270 ml @ 270 mls/hr HD IV 01/01/19 09:45 Allergies Coded Allergies: Penicillins (Verified Allergy, Severe, throat swelling , hives, 12/12/18) morphine (Verified Adverse Reaction, Mild, Confusion, 01/01/19) Objective Physical Examination Examination GENERAL APPEARANCE: Slightly confused today. Otherwise relatively comfortable in appearance SKIN: Warm and dry. HEENT: Mild pale palpebral conjunctiva. The NG tube remains in place. NECK: Supple, no thyromegaly. No obvious jugular venous distention. LUNGS: Clear to auscultation bilaterally. No wheezing appreciated. HEART: No chest wall abnormalities. Regular rate and rhythm with no murmurs appreciated. ABDOMEN: Abdomen is mildly distended, soft, hypoactive bowel sounds. Postoperative dressings were removed. Incisions are clean dry and intact. The Telfa thu were removed. Chuy drain is light pink serosanguineous fluid. Jejunostomy tube working. EXTREMITIES: Moderate lower extremity edema, mild upper extremity edema. Vital Signs Vital Signs Date Time Temp Pulse Resp B/P (MAP) Pulse Ox O2 Delivery O2 Flow Rate FiO2 01/01/19 06:00 108 118/54 (75) 95 01/01/19 04:00 98.9 16 12/31/18 09:31 1.0 12/29/18 19:02 Room Air I&Os I&O- Last 24 Hours up to 6 AM 01/01/19 05:59 Intake Total 1927 ml Output Total 770 ml Balance 1157 ml Laboratory Data Labs 24H Laboratory Tests 2 12/31/18 18:02: Bedside Glucose (Misc Panel) 158H 01/01/19 00:46: Bedside Glucose (Misc Panel) 152H 01/01/19 04:33: Anion Gap 8, Glomerular Filtration Rate 22.1L, Blood Urea Nitrogen 21H, Creatinine 2.29H, Sodium Level 141, Potassium Level 3.5, Chloride Level 108H, Carbon Dioxide Level 25, Calcium Level 7.6#L, Aspartate Amino Transf (AST/SGOT) 37, Alanine Aminotransferase (ALT/SGPT) 43, Alkaline Phosphatase 98, Total Bilirubin 0.3, Total Protein 4.5L, Albumin 1.9L, Magnesium Level 1.8, Albumin/Globulin Ratio 0.73L, Random Vancomycin Level 21.8 01/01/19 04:59: Immature Granulocyte % (Auto) 1.1, White Blood Count 18.0H, Red Blood Count 3.44L, Hemoglobin 8.1L, Hematocrit 27.7L, Mean Corpuscular Volume 80.5, Mean Corpuscular Hemoglobin 23.5L, Mean Corpuscular Hemoglobin Concent 29.2L, Red Cell Distribution Width 21.2H, Platelet Count 352, Neutrophils (%) (Auto) 82.9H, Lymphocytes (%) (Auto) 10.0L, Monocytes (%) (Auto) 4.9, Eosinophils (%) (Auto) 0.9, Basophils (%) (Auto) 0.2, Neutrophils # (Auto) 14.9H, Lymphocytes # (Auto) 1.8, Monocytes # (Auto) 0.9H, Eosinophils # (Auto) 0.2, Basophils # (Auto) 0.0, Nucleated Red Blood Cells % (auto) 0.0 CBC/BMP Laboratory Tests 01/01/19 04:33 Calcium Level 7.6 #L, Aspartate Amino Transf (AST/SGOT) 37, Alanine Aminotransferase (ALT/SGPT) 43, Alkaline Phosphatase 98, Total Bilirubin 0.3, Total Protein 4.5 L, Albumin 1.9 L 01/01/19 04:59 Red Blood Count 3.44 L, Mean Corpuscular Volume 80.5, Mean Corpuscular H emoglobin 23.5 L, Mean Corpuscular Hemoglobin Concent 29.2 L, Red Cell Distribution Width 21.2 H, Neutrophils (%) (Auto) 82.9 H, Lymphocytes (%) (Auto) 10.0 L, Monocytes (%) (Auto) 4.9, Eosinophils (%) (Auto) 0.9, Basophils (%) (Auto) 0.2, Neutrophils # (Auto) 14.9 H, Lymphocytes # (Auto) 1.8, Monocytes # (Auto) 0.9 H, Eosinophils # (Auto) 0.2, Basophils # (Auto) 0.0 Microbiology Microbiology 12/29/18 Blood Culture - Preliminary, Resulted No Growth after 48 hours. All Specime... 12/29/18 Blood Culture - Preliminary, Resulted No Growth after 48 hours. All Specime... 12/29/18 Gram Stain - Final, Resulted 12/29/18 Body Fluid Culture, Resulted Pending 12/29/18 Anaerobic Culture, Resulted Pending 12/29/18 Gram Stain - Final, Resulted 12/29/18 Abscess Culture, Resulted Pending 12/29/18 Anaerobic Culture, Resulted Pending Impression POD3 extended right colectomy en block melody gastrectomy RNY gastrojejunostomy, ileo-transverse colon anastomosis, feeding jejunostomy sepsis ESRD on dialysis will switch tube feedings to nepro at full strength physical therapy continue abx (ertapenem, vancomycin) at some point, maybe tuesday will get ugis before removing ngt and start oral feeding. dvt prophylaxis protonix Plan / VTE VTE Prophylaxis Ordered?: Yes Plan / Urinary Catheter Urinary Catheter: D/C STANISLAW Nowak MD Jan 01, 2019 09:15
[2019-01-01] MEDS ORDERED: VANCOMYCIN HCL 1,000 MG, VIAL MATE ADAPTER 1 EACH in D5W 250 ML IV SCH (09:45)
--- NOTE | 2019-01-01 11:05 | IPN ---
DATE OF SERVICE: 12/31/2018 SUBJECTIVE: Patient was seen and examined at the bedside today morning in the ICU. Patient is awake and alert. She is able to follow commands. She continues to be on IV fluid. She is getting normal saline at 125 mL an hour. Dialysis was not done yesterday because of hypotension. Her leukocytosis is getting better today as compared with yesterday. The patient still has NGT attached to suctioning. She is not being fed at this time the patient got the left-sided triple lumen catheter placed. Her CVP is running around 5-6. She was also given of 5% albumin since yesterday. OBJECTIVE: VITAL SIGNS: Temperature is 98 degrees Fahrenheit. Blood pressure 97/48, pulse is 100, respiratory rate of 16, saturating 97% on 1 liter via nasal cannula. INTAKE AND OUTPUT: Urine output recorded is only 40 mL. Gastric drainage since overnight is about 100 mL. Weight on the bed scale is 65 kg. PHYSICAL EXAMINATION: GENERAL: Patient is awake, alert, oriented times three, laying in bed in no apparent distress. HEAD AND NECK EXAM: Extraocular muscles intact. Pupils equally round and reactive to light. Mucous membranes are moist. Neck is supple. She has a triple lumen catheter in the left IJ. CARDIOVASCULAR: S1, S2. 3+ edema of the bilateral lower extremities. RESPIRATORY: Chest is clear to auscultation bilaterally. Bilateral equal air entry. No rales or rhonchi. ABDOMEN: Has a large midline dressing and a CHARLOTTE drain on the right side and a jejunostomy tube in the epigastrium. Decreased bowel sounds. GENITOURINARY: She has an indwelling Michel catheter. MUSCULOSKELETAL: Normal range of movement of bilateral lower extremities but she has 3+ edema of the lower extremities which is chronic. ECHO TECHNICIAN: No focal deficit. She is moving bilateral upper extremities. AV ACCESS: The patient has a left upper arm AV fistula with thrill and bruit. LABORATORY REVIEW: CBC showed a WBC of 28, hemoglobin 8.6, platelets are 402. BMP showed sodium 143, potassium 3.9, chloride 112, bicarb 18, BUN 31, creatinine 2.9, calcium 6.4, albumin is 1.9. Random vancomycin was 12 today morning. Microbiology: Blood cultures and wound cultures are pending. CURRENT INPATIENT MEDICATIONS: The patient's medications were all reviewed by me. I see the patient was given 5% albumin yesterday. She is getting normal saline at 125 mL an hour, which I have stopped. I have started the patient on D10 half-normal saline at 50 mL an hour. Coreg and Lipitor were stopped yesterday. No other change in the medications today as compared with yesterday. ASSESSMENT/PLAN: 1. End-stage renal disease on hemodialysis. The patient's hemodialysis could not be done yesterday because of low blood pressures. I will try to do the dialysis at the bedside today for about 3 hours without any fluid removal and I will give her a dose of albumin at 12.5 grams 25% one dose. 2. Metabolic acidosis. It is secondary to renal failure. The patient will be dialyzed today and acidosis is expected to improve after that. 3. Acute blood loss anemia. Hemoglobin has dropped to 8.6. Some of that is dilutional however, there is no urgent need of blood transfusion. The patient will be given a dose of Aranesp 200 mcg with dialysis today. 4. Hypocalcemia. Some of that is because of the low albumin. However, calcium level will correct during dialysis. No need of IV calcium administration. 5. Sepsis. The patient's leukocytosis is improving. Cultures are still pending. Most likely source is intra-abdominal. He is adequately covered for abdominal pathogen with IV vancomycin and IV ertapenem, dose is adequate for renal failure. 6. Nutrition. The patient is n.p.o. and she is getting NGT suctioning. For now, I have started her on D10 half-normal saline at 50 mL an hour and decision to start the TPN is as per general surgery and I can help with the TPN administration if he decides to start the parenteral nutrition. 7. History of CA colon status post right colectomy, partial gastrectomy, and J tube placement. The patient is postop day 2. She is still getting NGT suctioning. Pain is optimized. Rest of them management is as per surgical team. 8. Diabetes mellitus type 2. The patient's glucose levels are within the acceptable range. I am actually starting on D10 because she is n.p.o. at this time. If needed we can start her on insulin sliding scale, but I would allow her glucose to go even up to 200 without any coverage The patient was seen and examined again while she was getting her hemodialysis and she was tolerating the hemodialysis procedure well. Total critical care time spent in the management of this patient today morning in the ICU was 1 hour excluding all the procedures.
[2019-01-01] MEDS ORDERED: EMLA CREAM 5GM (LIDOCAINE/PRILOCAINE) TOP SCH (11:30)
[2019-01-01] MEDS ORDERED: LORazepam 2 MG/ML VIAL (J2060) IV ONE (12:00)
[2019-01-01] MEDS: HALOPERIDOL 5 MG/ML VIAL (J1630) IV PRN ×2 (14:13→20:54)
[2019-01-01] MEDS ORDERED: LORazepam 2 MG/ML VIAL (J2060) IV PRN (15:00)
[2019-01-01] MEDS ORDERED: **VANCO AFTER HD** MISC XX SCH (16:00)
[2019-01-01 16:12] LABS: HEMATOCRIT 33.1 % (36.0-47.0); MEAN CORPUSCULAR HEMOGLOBIN 25.2 pg (27.0-33.0); MEAN CORPUSCULAR HGB CONC 30.5 g/dl (32.0-36.5); MEAN CORPUSCULAR VOLUME 82.5 fl (80.0-96.0); PLATELET COUNT, AUTOMATED 312 10^3/uL (150-450); RED BLOOD COUNT 4.01 10^6/uL (4.00-5.40); WHITE BLOOD COUNT 18.8 10^3/uL (4.0-10.0)
[2019-01-01 16:18] LABS: HEMOGLOBIN 10.1 g/dl (12.0-15.5)
--- NOTE | 2019-01-01 21:53 | IPN ---
DATE: 01/01/2019 SUBJECTIVE: The patient was seen and examined at the bedside today morning. The patient is awake, slightly groggy because of the pain medications. Blood pressures are better. All the antihypertensives are on hold. She continues to be on gentle IV fluid hydration. I see that she has been started on tube feeds as well. She is getting Jevity at 10 mL an hour through the J-tube. She continues to be on intermittent suctioning of the NG tube. Leukocytosis is gradually improving now. However, hemoglobin level was also dropping. She was dialyzed yesterday. She tolerated the hemodialysis procedure well. 500 mL of fluid was removed. OBJECTIVE: Vital signs: Temperature is 98.5 degrees Fahrenheit, blood pressure 116/58, pulse is 107, respiratory rate of 20, saturating 96% on room air. Intake and output: Gastric drainage is only 100 mL since overnight. CHARLOTTE drain is around 150 mL. Ultrafiltration with hemodialysis was 500 mL yesterday. Weight in the bed scale is 63.6 kg. PHYSICAL EXAMINATION: General: The patient is awake, alert, oriented times x2, laying in bed, in no apparent distress. Head and neck exam: Extraocular muscles intact. Pupils equally round and reactive to light. She has an nasogastric tube (NGT), which is attached to suctioning and bilious fluid is coming out. mucous membranes are dry. Neck is supple. She has a left IJ triple-lumen catheter. Cardiovascular: S1, S2. Chronic 3+ pitting edema of the bilateral lower extremities. Respiratory: Chest is clear to auscultation bilaterally. Bilateral equal air entry. No rales or rhonchi. Abdomen has a large the midline incision with herson. She has a CHARLOTTE drain on the right side and she has an J tube which is attached to Jevity tube feeds. Genitourinary: She has an indwelling Michel catheter. Musculoskeletal: 3+ edema of the bilateral lower extremities. Otherwise no clubbing or cyanosis. FEATURES EDITOR: The patient follows commands and moves extremities. LABORATORY REVIEW: Complete blood count (CBC) showed a WBC of 18, hemoglobin is 8.1, platelets are 352. Basic metabolic panel (BMP) showed sodium 141, potassium 3.5, chloride 108, bicarbonate 25, BUN 21, creatinine is 2.2, calcium 7.6, magnesium 1.8, albumin is 1.9. Random vancomycin level is 21.8 today. Microbiology: Peritoneal abscess cultures are growing Escherichia coli, Proteus and Streptococcus agalactiae group B. CURRENT INPATIENT MEDICATIONS: The patient's medications were all reviewed by me. She continues to be on D10-W half-normal saline. She was getting it at 50 mL an hour; but since the tube feeds have started, I have decreased the fluid to 40 mL an hour. She continues to be on ertapenem and intermittent dose of vancomycin. No other change in the medications today as compared with yesterday. ASSESSMENT/PLAN: 1. End-stage renal disease on hemodialysis. The patient was dialyzed yesterday at the bedside in the ICU 500 mL of fluid was removed. Next hemodialysis session will be done tomorrow morning at the bedside. 2. Anemia secondary to end-stage renal disease and recent blood loss. The patient's hemoglobin is 8.1. I have ordered one unit of packed red blood cells transfusion to be given during dialysis. She was also started on Aranesp with dialysis yesterday. 3. Metabolic acidosis. It was secondary to renal failure. She was dialyzed yesterday, Bicarb level is improved to 25 today. 4. Sepsis secondary to intra-abdominal infection and perforation of the viscus. The patient is status post laparotomy and right colectomy with partial gastric resection. She is growing multiple bacteria including Escherichia coli, Proteus and Streptococcus agalactiae. She is currently adequately covered with vancomycin and ertapenem. Leukocytosis is improving. 5. Nutrition. The patient was getting Jevity tube feeds through the J-tube; however, it is being change to Nepro because of renal failure. Once she is able to tolerate the feeds, the IV fluids will be stopped. 6. Status post emergent laparotomy with right colectomy, partial gastrectomy and J tube placement. The patient is postop day three. Nasogastric tube (NGT) is still attached to suctioning; however, tube feeds have been started. Tube feeds will be advanced as per surgical service recommendations. 7. Diabetes mellitus type 2. The patient's glucose levels are optimal. No need of insulin coverage at this time. She is getting D10 IV and she is being switched to Nepro tube feeds through the J-tube. Total critical care time spent in the management of this patient today morning in the ICU is 45 minutes that does not include any procedures
[2019-01-01] MEDS ORDERED: FUROSEMIDE 100 MG/10 ML VIAL (J1940) IV ONE (22:30)
[2019-01-02] VITALS (48 sets, daily range): BP systolic 71–125; BP diastolic 32–62
--- NOTE | 2019-01-02 00:30 | REPVR ---
EXAM: XR Chest, 1 View EXAM DATE/TIME: 01/01/2019 10:42 PM CLINICAL HISTORY: 78 years old, female; Other: Check fluid status TECHNIQUE: Imaging protocol: XR of the chest Views: 1 view. COMPARISON: CR PORTABLE CHEST X-RAY 12/30/2018 1:54 PM FINDINGS: Tubes, catheters and devices: Skin herson are noted in the abdomen and there is right upper quadrant drain or tube. NG tube is unchanged and a left subclavian central line is unchanged. Lungs: Low inflation of the lungs persist. The lungs are unchanged. No interval infiltrates. Pleural space: Unremarkable. No pleural effusion. No pneumothorax. Heart/Mediastinum: The heart and mediastinum are unchanged. Bones/joints: Unremarkable. IMPRESSION: Stable chest since 12/30/2018. No interval infiltrates or effusions. Electronically signed by: Herbert Alicia On 01/02/2019 00:29:59 AM
[2019-01-02] MEDS: HALOPERIDOL 5 MG/ML VIAL (J1630) IV PRN (02:53)
[2019-01-02] MEDS: ERTAPENEM SODIUM IV SCH (05:26)
[2019-01-02] MEDS: NS MINI IV SCH (05:26)
[2019-01-02 05:41] LABS: BASO # 0.1 10^3/uL (0.0-0.2); BASO % 0.3 % (0.0-1.0); EOS # 0.2 10^3/uL (0.0-0.5); EOS % 0.5 % (0.0-3.0); HEMATOCRIT 32.6 % (36.0-47.0); LYMPH # 1.6 10^3/uL (1.5-5.0); MEAN CORPUSCULAR HEMOGLOBIN 24.6 pg (27.0-33.0); MEAN CORPUSCULAR HGB CONC 30.7 g/dl (32.0-36.5); MEAN CORPUSCULAR VOLUME 80.3 fl (80.0-96.0); MONO # 0.9 10^3/uL (0.0-0.8); MONO % 2.7 % (0.0-5.0); NEUTROPHILS % 90.4 % (36.0-66.0); PLATELET COUNT, AUTOMATED 389 10^3/uL (150-450); RED BLOOD COUNT 4.06 10^6/uL (4.00-5.40)
[2019-01-02 05:57] LABS: NEUTROPHILS # 29.7 10^3/uL (1.5-8.5)
[2019-01-02 05:59] LABS: WHITE BLOOD COUNT 32.8 10^3/uL (4.0-10.0)
[2019-01-02 06:09] LABS: CALCIUM LEVEL 7.4 MG/DL (8.8-10.2); CREATININE FOR GFR 2.58 MG/DL (0.55-1.30); GLOMERULAR FILTRATION RATE 19.2 (>39); POTASSIUM SERUM 3.4 MEQ/L (3.5-5.1)
[2019-01-02 06:15] LABS: BILIRUBIN,TOTAL 0.5 MG/DL (0.2-1.0); CALCIUM LEVEL 7.4 MG/DL (8.8-10.2); CREATININE FOR GFR 2.52 MG/DL (0.55-1.30); GLOMERULAR FILTRATION RATE 19.8 (>39); POTASSIUM SERUM 3.5 MEQ/L (3.5-5.1); TOTAL PROTEIN 4.4 GM/DL (6.4-8.2); VANCOMYCIN RANDOM 17.2 UG/ML
[2019-01-02] MEDS ORDERED: POTASSIUM CHLORIDE 10 MEQ SR TABLET PO ONE (07:15)
[2019-01-02 07:44] LABS: BILIRUBIN,DIRECT 0.2 MG/DL (0.0-0.2); BILIRUBIN,TOTAL 0.5 MG/DL (0.2-1.0); TOTAL PROTEIN 4.4 GM/DL (6.4-8.2)
--- NOTE | 2019-01-02 08:31 | ECGEPIP ---
[facility] Test Date: 2018-12-29 Pat Name: SAILAJA MATA Department: Room: [place] [address] Gender: Female Lawn Maintenance Worker: JOELLE : 1940 Requested By: Edwin Keller Order Number: [id number] Reading MD: Jesus Hankins Measurements Intervals Mico Rate: 89 P: 56 DE: 130 QRS: -11 QRSD: 86 T: 28 QT: 378 QTc: 462 Interpretive Statements SINUS RHYTHM Low QRS complex voltage in the limb leads Nonspecific ST-T wave abnormalities Electronically Signed on 01-02-2019 8:30:41 EDT by Jesus Hankins
[2019-01-02] MEDS: PANTOPRAZOLE 40MG INJ (PROTONIX) (C9113) IV SCH (08:54)
[2019-01-02] MEDS: ENOXAPARIN 30 MG/0.3 ML SYR (J1650) SC SCH (08:54)
--- NOTE | 2019-01-02 09:31 | IPNPDOC ---
Text Note Date of Service The patient was seen on 01/02/19. NOTE HPI: Patient is examined at bedside. She appears lethargic but was able to answer questions. is oriented to name and place but thought it is 1989. It is noted she was confused yesterday evening, and that Ativan and haloperidol was ordered. She reported there's no pain upon asking and noted no complaint upon asking. Upon revisit later in the morning patient's mental status improved ROS: Limited ROS was able to be obtained due to pt's mental status. Objective: General: Lying in bed, A&O to name and place; lethargic/obtunded but answers questions upon asking. Upon re-visit A&OX3. HEENT: head normocephalic, atraumatic, no scleral icterus noted. NG tube in place. Mucous membrane appears to be dry CVS: Tachycardia, regular rhythm, normal S1 and S2. Lungs: Good air entry. CTA b/l, no wheezing, rhonchi or rales Abdomen: Soft, diffuse tenderness, dressing in place, drains noted, GJ tube Extremities: 1-2+ pitting edema at bilateral feet. Erythema in left anterior leg noted. Assessment and plan: 1. Sepsis-possibly 2/2 intra-abdominal infection and perforation of the viscus; hypovolemia with low intravascular volume likely contributed - Patient's blood pressure roughly stable; CVP 8 last night -Confusion/agitation noted yesterday evening and overnight; mental status imp roved upon re-visit: A&OX3. - IVF d/c. Pt received a dose of Lasix yesterday evening. -blood cx neg X2; peritoneal fluid gram stain no organism seen. Re-ordered lactic acid pending -Abscess cx pos for Escherichia coli, Proteus, and Streptococcus agalactiae; currently adequately covered with vancomycin and ertapenem -Cont with Albumin as required - S/p laparotomy and right colectomy with partial gastric resection 2. Metabolic acidosis - 2/2 renal failure -bicarb level improved after dialysis -Nephrology following 3. 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 3. ESRD on HD (TTS) - Patient had missed hemodialysis on 12/30/2018 because of low blood pressure. - Pt received dialysis 01/01/19 inpt, and ICU 500 mL of fluid was removed. Pt receiving hemodialysis at bedside this morning. - Creatinine improving and stabilized - Nephrology on consultation 4. Normocytic anemia; improving - Hg 8.1 improving to 10.1 - s/p 1 unit PRBC transfused during dialysis; also received on Aranesp with dialysis. Blood product consent form on file 5. DM2 -Blood glucose roughly stable -Cont to f/u glucose level 6. Hyopkalemia -K 3.2; 40meq KCl ordered -Mg level pending 7. HTN - Patient with pressure appears to be lower limits of normal -cont with Carvedilol with holding parameters GI prophylaxis - Cont Protonix DVT prophylaxis - Cont Lovenox Code status: - DNR / DNI I saw and evaluated the patient. I agree with the findings and plan of care as documented in the above note VS,Fishbone, I+O VS, Fishbone, I+O Laboratory Tests 01/01/19 15:50 Red Blood Count 4.01, Mean Corpuscular Volume 82.5, Mean Corpuscular Hemoglobin 25.2 L, Mean Corpuscular Hemoglobin Concent 30.5 L, Red Cell Distribution Width 19.8 H 01/02/19 05:23 Red Blood Count 4.06, Mean Corpuscular Volume 80.3, Mean Corpuscular Hemoglobin 24.6 L, Mean Corpuscular Hemoglobin Concent 30.7 L, Red Cell Distribution Width 20.0 H, Neutrophils (%) (Auto) 90.4 H, Lymphocytes (%) (Auto) 5.0 L, Monocytes (%) (Auto) 2.7, Eosinophils (%) (Auto) 0.5, Basophils (%) (Auto) 0.3, Neutrophils # (Auto) 29.7 H, Lymphocytes # (Auto) 1.6, Monocytes # (Auto) 0.9 H, Eosinophils # (Auto) 0.2, Basophils # (Auto) 0.1, Calcium Level 7.4 L, Aspartate Amino Transf (AST/SGOT) 21, Alanine Aminotransferase (ALT/SGPT) 31, Alkaline Phosphatase 111, Total Bilirubin 0.5 #, Total Protein 4.4 L, Albumin 2.0 L Vital Signs Date Time Temp Pulse Resp B/P (MAP) Pulse Ox O2 Delivery O2 Flow Rate FiO2 9/17/19 08:15 96 98/54 (69) 100 01/02/19 08:00 98.4 16 2.0 12/29/18 19:02 Room Air I&O- Last 24 Hours up to 6 AM 01/02/19 05:59 Intake Total 1598 ml Output Total 680 ml Balance 918 ml CLAUDIA DOWNEY DO Jan 02, 2019 09:31 BENTON ALTAMIRANO MD Jan 02, 2019 12:13
[2019-01-02] MEDS ORDERED: SODIUM CHLORIDE 0.9% 1000ML IV ONE (11:45)
[2019-01-02] MEDS ORDERED: MAGNESIUM OXIDE 400 MG TAB (MAG-OX) PO ONE (12:00)
[2019-01-02 12:07] LABS: HEMOGLOBIN 9.3 g/dl (12.0-15.5); MEAN CORPUSCULAR HEMOGLOBIN 25.5 pg (27.0-33.0); MEAN CORPUSCULAR VOLUME 82.2 fl (80.0-96.0); PLATELET COUNT, AUTOMATED 283 10^3/uL (150-450); RED BLOOD COUNT 3.65 10^6/uL (4.00-5.40)
[2019-01-02 12:49] LABS: ALBUMIN 1.8 GM/DL (3.2-5.2); BILIRUBIN,TOTAL 0.5 MG/DL (0.2-1.0); CREATININE FOR GFR 1.53 MG/DL (0.55-1.30); GLOMERULAR FILTRATION RATE 35.1 (>39); POTASSIUM SERUM 3.5 MEQ/L (3.5-5.1)
--- NOTE | 2019-01-02 13:15 | IPNPDOC ---
Subjective General Date/Time Seen The patient was seen on 01/02/19 at 09:06. 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 Patient was apparently having delirium yesterday afternoon through the night, received Haldol and Ativan. This morning she looks to be slightly lethargic, seems slightly labored breathing but denies any overt chest pain, shortness of breath, abdominal discomfort. She is getting her hemodialysis and seems to be tolerating it. She's been afebrile. Nurse reports small mucoid stools that are nonbloody. She remains and nasogastric tube suction splaying of bilious fluid. Drains are putting out serosanguineous fluid. Current Medications Current Medications Current Medications Medications (Trade) Dose Ordered Sig/Mg Route PRN Reason Start Time Stop Time Status Last Admin Dose Admin Acetaminophen (Tylenol Tab) 650 mg Q4HP PRN PO MILD PAIN or TEMP > 101 12/30/18 00:45 12/31/18 02:42 Al Hydrox/Mg Hydrox/Simethicone (Mylanta) 30 ml Q6HP PRN PO HEARTBURN 12/30/18 20:15 12/30/18 20:31 Atorvastatin Calcium (Lipitor) 20 mg DAILY PO 12/30/18 09:00 12/30/18 13:29 DC Carvedilol (COReg) 6.25 mg BID PO 12/29/18 21:00 12/30/18 13:29 DC 12/30/18 02:06 Darbepoetin Mp (Aranesp (Dialysis Use)) 200 mcg HD IV 12/31/18 09:45 Dextrose/Sodium Chloride 1,000 ml @ 40 mls/hr Q24H IV 12/31/18 10:00 01/01/19 22:24 DC 01/01/19 05:00 Diatrizoate Meglum/ Diatrizoate Sod (Gastrografin) 10 ml Q30M PO 12/29/18 14:00 12/29/18 14:31 DC 12/29/18 14:33 Enoxaparin Sodium (Lovenox) 30 mg DAILY SC 12/30/18 09:00 01/02/19 08:54 Ertapenem 0.5 gm/ Sodium Chloride 50 ml @ 100 mls/hr Q24H IV 12/30/18 06:00 01/02/19 05:26 Fentanyl Citrate (Sublimaze) 25 mcg Q5MP PRN IV MODERATE PAIN (PS 4-7) 12/30/18 01:00 12/30/18 01:59 DC Guaifenesin/ Dextromethorphan (Robitussin Dm) 10 ml Q6HP PRN PO sore throat 12/31/18 17:45 12/31/18 17:55 DC Haloperidol (Haldol) 0.5 mg Q6HP PRN IV AGITATION 01/01/19 14:00 01/02/19 02:53 Home Med (Med Rec Complete!) ASDIRECTED XX 12/29/18 14:00 12/29/18 16:01 DC Ketorolac Tromethamine (ToRADol) 15 mg Q6HP PRN IV MILD/MODERATE PAIN (PS 1-7) 12/30/18 00:45 01/04/19 00:44 01/01/19 11:02 Lactated Ringer's 1,000 ml @ 100 mls/hr Q10H IV 12/30/18 00:31 12/30/18 13:59 DC 12/30/18 01:40 Lidocaine/ Prilocaine (Emla) 1 dose ASDIRECTED TOP 01/01/19 11:30 01/02/19 06:36 Lorazepam (Ativan) 0.5 mg Q6HP PRN IV ANXIETY 12/30/18 11:15 01/01/19 11:44 DC 01/01/19 11:02 Lorazepam (Ativan) 1 mg Q4HP PRN IV ANXIETY 01/01/19 15:00 01/01/19 22:24 DC 01/01/19 19:09 Metoclopramide HCl (REGLAN INJection) 10 mg Q6HP PRN IV NAUSEA OR VOMITING 12/30/18 01:00 12/30/18 01:59 DC Morphine Sulfate (Morphine Sulfate Inj) 4 mg Q2HP PRN IV SEVERE PAIN (PS 8-10) 12/30/18 00:45 01/01/19 13:19 DC 12/31/18 20:20 Non-Formulary Medication ( See Comment Field Below ) CHECK TO SEE IF THE PATIENT... DAILY@1600 XX 12/30/18 16:00 12/30/18 16:00 DC Non-Formulary Medication ( See Comment Field Below ) CHECK TO SEE IF THE PATIENT... DAILY@1600 XX 01/01/19 16:00 Non-Formulary Medication ( See Comment Field Below ) MEGHAN DICKERSON. DOSING ASDIRECTED XX 12/30/18 14:15 12/31/18 09:38 DC Ondansetron HCl (ZOFRAN INJection) 4 mg Q4HP PRN IV NAUSEA OR VOMITING 12/30/18 01:00 12/30/18 01:59 DC Ondansetron HCl (ZOFRAN INJection) 4 mg Q6HP PRN IV NAUSEA OR VOMITING 12/30/18 00:45 01/01/19 13:59 DC 12/31/18 07:25 Oxycodone/ Acetaminophen (Percocet 5mg/ 325mg Tablet) 1 tab ASDIRECTED PRN PO MILD/MODERATE PAIN (PS 1-7) 12/30/18 01:00 12/30/18 01:59 DC Oxycodone/ Acetaminophen (Percocet 5mg/ 325mg Tablet) 1 tab Q4HP PRN PO MILD/MODERATE PAIN (PS 1-7) 12/31/18 10:00 Oxycodone/ Acetaminophen (Percocet 5mg/ 325mg Tablet) 2 tab Q4HP PRN PO SEVERE PAIN (PS 8-10) 12/31/18 10:00 Pantoprazole Sodium (Protonix) 40 mg DAILY IV 12/30/18 09:00 01/02/19 08:54 Phenol (Chloraseptic Haslett) 5 spray Q2HP PRN MT SORE THROAT 12/31/18 18:00 12/31/18 18:45 Sodium Chloride 1,000 ml @ 75 mls/hr [id number] IV 12/30/18 01:00 12/30/18 01:59 DC Sodium Chloride 1,000 ml @ 100 mls/hr Q10H IV 12/30/18 14:45 UNV Sodium Chloride 1,000 ml @ 125 mls/hr Q8H IV 12/30/18 14:00 12/31/18 08:23 DC 12/31/18 07:25 Vancomycin HCl 1000 mg/IV Miscellaneous Supplies 1 each/ Dextrose 270 ml @ 270 mls/hr HD IV 12/30/18 11:30 12/30/18 14:00 DC Vancomycin HCl 1000 mg/IV Miscellaneous Supplies 1 each/ Dextrose 270 ml @ 270 mls/hr HD IV 01/01/19 09:45 Allergies Coded Allergies: Penicillins (Verified Allergy, Severe, throat swelling , hives, 12/12/18) morphine (Verified Adverse Reaction, Mild, Confusion, 01/01/19) Objective Physical Examination Examination GENERAL APPEARANCE: Patient is awake. Answers questions appropriately. Patient could recognize me as the surgeon. Appears slightly more ill than she was yesterday. SKIN: Warm and dry. HEENT: Mild pale palpebral conjunctiva, anicteric sclerae. NECK: Supple, no thyromegaly. No obvious jugular venous distention. LUNGS: Slight posterior basal crackles, diminished breath sounds mostly from decreased effort. Seems to be using extra resp, muscles for her breathing. HEART: Regular heart rate and rhythm. Slightly tachycardic earlier but while on dialysis as gone back to 90s. ABDOMEN: Abdomen is minimally distended, soft, hypoactive bowel sounds. Midline incision with herson intact no gross drainage. Chuy drain looks serosa nguineous with no signs of bilious staining. She has a jejunostomy feeding tube is being used. Nasogastric tube is putting out roughly about 300 and pulse of bilious fluid. EXTREMITIES: Moderate bilateral lower extremity edema that is present preoperatively. Vital Signs Vital Signs Date Time Temp Pulse Resp B/P (MAP) Pulse Ox O2 Delivery O2 Flow Rate FiO2 01/02/19 08:15 96 98/54 (69) 100 01/02/19 08:00 98.4 16 2.0 12/29/18 19:02 Room Air I&Os I&O- Last 24 Hours up to 6 AM 01/02/19 06:00 Intake Total 1368 ml Output Total 620 ml Balance 748 ml Laboratory Data Labs 24H Laboratory Tests 2 01/01/19 13:40: Bedside Glucose (Misc Panel) 120H 01/01/19 15:50: Nucleated Red Blood Cells % (auto) 0.0 01/01/19 18:03: Bedside Glucose (Misc Panel) 115H 01/01/19 23:20: Bedside Glucose (Misc Panel) 113H 01/02/19 05:23: Immature Granulocyte % (Auto) 1.1, White Blood Count 32.8*H, Red Blood Count 4.06, Hemoglobin 10.0L, Hematocrit 32.6L, Mean Corpuscular Volume 80.3, Mean Corpuscular Hemoglobin 24.6L, Mean Corpuscular Hemoglobin Concent 30.7L, Red Cell Distribution Width 20.0H, Platelet Count 389, Neutrophils (%) (Auto) 90.4H, Lymphocytes (%) (Auto) 5.0L, Monocytes (%) (Auto) 2.7, Eosinophils (%) (Auto) 0.5, Basophils (%) (Auto) 0.3, Neutrophils # (Auto) 29.7H, Lymphocytes # (Auto) 1.6, Monocytes # (Auto) 0.9H, Eosinophils # (Auto) 0.2, Basophils # (Auto) 0.1, Nucleated Red Blood Cells % (auto) 0.0, Anion Gap 9, Glomerular Filtration Rate 19.2L, Blood Urea Nitrogen 24H, Creatinine 2.52H, Sodium Level 141, Potassium Level 3.5, Chloride Level 109H, Carbon Dioxide Level 22, Calcium Level 7.4L, Aspartate Amino Transf (AST/SGOT) 21, Alanine Aminotransferase (ALT/SGPT) 31, Alkaline Phosphatase 111, Total Bilirubin 0.5#, Total Protein 4.4L, Albumin 2.0L, Direct Bilirubin 0.2, Albumin/Globulin Ratio 0.83L, Random Vancomycin Level 17.2 CBC/BMP Laboratory Tests 01/01/19 15:50 Red Blood Count 4.01, Mean Corpuscular Volume 82.5, Mean Corpuscular Hemoglobin 25.2 L, Mean Corpuscular Hemoglobin Concent 30.5 L, Red Cell Distribution Width 19.8 H 01/02/19 05:23 Red Blood Count 4.06, Mean Corpuscular Volume 80.3, Mean Corpuscular Hemoglobin 24.6 L, Mean Corpuscular Hemoglobin Concent 30.7 L, Red Cell Distribution Width 20.0 H, Neutrophils (%) (Auto) 90.4 H, Lymphocytes (%) (Auto) 5.0 L, Monocytes (%) (Auto) 2.7, Eosinophils (%) (Auto) 0.5, Basophils (%) (Auto) 0.3, Neutrophils # (Auto) 29.7 H, Lymphocytes # (Auto) 1.6, Monocytes # (Auto) 0.9 H, Eosinophils # (Auto) 0.2, Basophils # (Auto) 0.1, Calcium Level 7.4 L, Aspartate Amino Transf (AST/SGOT) 21, Alanine Aminotransferase (ALT/SGPT) 31, Alkaline Phosphatase 111, Total Bilirubin 0.5 #, Total Protein 4.4 L, Albumin 2.0 L Microbiology Microbiology 12/29/18 Blood Culture - Preliminary, Resulted No Growth after 72 hours. All specime... 12/29/18 Blood Culture - Preliminary, Resulted No Growth after 72 hours. All specime... 12/29/18 Gram Stain - Final, Complete 12/29/18 Body Fluid Culture - Final, Complete 12/29/18 Anaerobic Culture - Final, Complete 12/29/18 Gram Stain - Final, Resulted 12/29/18 Abscess Culture - Final, Resulted Escherichia Coli Proteus Mirabilis Strep Agalactiae Group B 12/29/18 Anaerobic Culture, Resulted Pending Impression POD4 extended right colectomy en block melody gastrectomy RNY gastrojejunostomy, ileo-transverse colon anastomosis, feeding jejunostomy sepsis ESRD on dialysis She has a recent delirium episode not clear on the etiology. Concerns this morning includes increasing her leukocytosis. No evidence of leakage via the int ra-abdominal drains. She does have 3 anastomosis it needs to be watched. I will continue the tube feedings at the same rate for now. The cord bowel movements probably related to the tube feedings. Dr. yarbrough has removed his IV fluids and she's getting dialyzed today. Her so signs of acidosis on her labs and electrolytes are within acceptable limits. I was planning to do an upper GI series to check on the gastrojejunostomy and even the jejunojejunostomy of her Sedrick-en-Y reconstruction. If stable enough we'll do today or tomorrow. I'll recheck her labs drawn today. will switch tube feedings to nepro at full strength physical therapy continue abx (ertapenem, vancomycin). Her cultures from the surgery shows growth of Escherichia coli, Proteus and Streptococcus. He should be adequately covered by the her tapping them. at some point, maybe tuesday will get ugis before removing ngt and start oral feeding. dvt prophylaxis protonix Plan / VTE VTE Prophylaxis Ordered?: Yes Plan / Urinary Catheter Urinary Catheter: D/C STANISLAW Nowak MD Jan 02, 2019 09:08
[2019-01-02] MEDS ORDERED: GASTROGRAFIN SOLUTION 30ML (Q9963) As Ordered ONE (15:11)
--- NOTE | 2019-01-02 16:53 | REP ---
Limited upper gastrointestinal series through NG tube with gastrographin in a patient with recent Sedrick-en-Y anastomosis as well as other abdominal surgery: The studies performed to evaluate for anastomotic leak at the gastrojejunostomy. Gastrographin is infused through the nasogastric tube and can be seen filling the gastric remnant. The gastric remnant is completely distended after installation of approximate 150 ml gastrographin. No reflux is observed during gastric remnant filling. There is flow across the anastomosis into the small bowel loop. The flow across the anastomosis is somewhat slow which may be secondary to edema at the anastomosis. There is no leak at the gastrojejunostomy anastomosis. There is no distension of the small bowel loop. The mucosal folds of a small bowel loop are normal. The tip of the jejunostomy tube is visualized, however, the small bowel gastrographin never reaches the jejunostomy tube tip. Further installation gastrographin into the distended gastric stump and is not performed because of the risk of aspiration. At the completion of the procedure gastrographin is removed from the gastric stump through the nasogastric tube via syringe suction is a precaution against reflux and aspiration. A small volume of gastrographin remains in the gastric stump at the completion of the procedure. Impression: No evidence of anastomotic leak at the gastrojejunostomy. Fluoroscopic exposure time is 5.0 minutes. Electronically Signed by Sandeep Catalan MD 01/02/2019 04:43 P
--- NOTE | 2019-01-02 18:26 | IPN ---
DATE: 01/02/2019 SUBJECTIVE: The patient was seen and examined at the bedside today morning in the intensive care unit (ICU). I was also called about the patient last night because of her metabolic encephalopathy and tachycardia. Intravenous (IV) fluids were stopped yesterday. Chest x-ray was done, which did not show any pleural effusion. The patient is still slightly obtunded. She is unable to provide any reliable review of systems. Her leukocytosis is worse today as compared with yesterday. She continues to be on tube feeds. She is getting Nepro at 20 mL an hour. She is otherwise hemodynamically stable and not requiring any pressors. OBJECTIVE: Vital signs: Temperature is 98.4 degrees Fahrenheit, blood pressure is 102/58, pulse is 95, respiratory rate of 16, saturating 100% on 2 liters via nasal cannula. Intake and output: Urine output is not recorded. Total gastric drainage so far is 100 mL. Weight in the bed scale is 67.8 kg. PHYSICAL EXAMINATION: GENERAL: The patient is sleepy, obtunded, arousable with loud commands. Answers few questions. Lying in bed. HEAD AND NECK: Pupils are equally round and reactive to light. Mucous membranes are dry. Neck is supple. She has a left internal jugular (IJ) triple-lumen catheter. CARDIOVASCULAR: S1, S2, regular rate. Chronic 2+ lower extremity edema. RESPIRATORY: Chest is clear to auscultation bilaterally. Bilateral equal air entry. No rales or rhonchi. ABDOMEN: Soft, mildly tender due to recent surgery. He has midline herson. Demetris-Preston (CHARLOTTE) drain on the right side and a jejunostomy (J) tube in the epigastrium. MUSCULOSKELETAL: She has chronic lower extremity edema. Otherwise no clubbing or cyanosis. CENTRAL NERVOUS SYSTEM: Patient is obtunded. Wakes up on loud commands. Follows few instructions but unable to communicate and speak in full sentences. LABORATORY REVIEW: CBC showed WBC of 32.8, hemoglobin is 10, platelets are 389. BMP showed sodium 139, potassium 3.4, chloride 107, bicarbonate 23, BUN 26, creatinine is 2.5. Lactic acid is 0.8. Magnesium 1.6. Albumin is 2. Random vancomycin level is 17.2 today. Microbiology: Peritoneal culture: Anaerobic culture is still pending. Aerobic culture is still Escherichia (E) coli, Proteus, and Streptococcus agalactiae. CURRENT INPATIENT MEDICATIONS: The patient's medications were all reviewed by me. She continues to be on IV ertapenem. IV vancomycin has been stopped now. She was given a dose of Lasix 60 mg IV last night. Ativan was stopped yesterday. Morphine is also stopped. She continues to be on as-needed oxycodone. ASSESSMENT AND PLAN: 1. End-stage renal disease, on hemodialysis. The patient is being dialyzed right now at the bedside. She is tolerating the hemodialysis procedure. Ultrafiltration goal will be up to a maximum of 1 liter as tolerated by her blood pressure. I do not see any signs of fluid overload in the patient. She actually clinically looks dry to me, because of dry mucous membranes. 2. Anemia secondary to end-stage renal disease. Hemoglobin is 10, which is optimal. She has already been started on Aranesp with dialysis, and she got 1 unit of PRBC transfusion yesterday. 3. Hypokalemia. It is secondary to potassium-free fluids. The patient will be dialyzed with a 4K bath, which will help improve the potassium levels. No need of oral potassium or IV potassium administration. 4. Sepsis secondary to intra-abdominal infection and recent perforation of the viscus, requiring emergent laparotomy. The patient continues to be on meropenem according to the cultures. Vancomycin level has been stopped. Central venous pressure (CVP) was checked last night. It was around 8. Minimal fluid removal during dialysis. Lactic acid level today morning was negative. Anaerobic cultures are pending. 5. Status post right colectomy, partial gastrectomy, and J tube placement. The patient is getting tube feeds, Nepro at 20 mL an hour. Her rate will be increased as per surgical recommendations. IV fluids have been stopped. Further management is as per surgical service. 6. Metabolic encephalopathy, most likely secondary to a combination of sepsis. Polypharmacy, including Ativan, Haldol, and morphine. Ativan and morphine were stopped yesterday. Haldol to be used only as needed for agitation. Most of the medications have active metabolites, and they tend to stay longer in the system because of renal failure. The patient was seen and examined during dialysis, and she was tolerating the hemodialysis procedure well with minimal ultrafiltration Total critical care time spent in the management of this patient today morning in the ICU was 50 minutes, excluding all the procedures.
[2019-01-02 18:45] LABS: VENOUS HCO3 27.1 MEQ/L (23.0-27.0); VENOUS O2 SATURATION 82.6 % (60.0-80.0); VENOUS PARTIAL PRESSURE CO2 39.1 mmHg (38.0-50.0); VENOUS PARTIAL PRESSURE O2 44.5 mmHg (30.0-50.0); VENOUS PH 7.458 UNITS (7.330-7.430); VENOUS STANDARD HCO3 26.9 MEQ/L; VENOUS TOTAL CO2 28.3 MEQ/L (24.0-28.0)
[2019-01-03] VITALS (13 sets, daily range): BP systolic 81–115; BP diastolic 45–58
[2019-01-03] MEDS: VANCOMYCIN ORAL SOL 250MG/5ML ORAL SYRINGE NG SCH ×4 (00:35→17:35)
[2019-01-03] MEDS: CHLORASEPTIC SPRAY MT PRN (00:39)
[2019-01-03] MEDS: ERTAPENEM SODIUM IV SCH (04:57)
[2019-01-03] MEDS: NS MINI IV SCH (04:57)
[2019-01-03 05:19] LABS: HEMATOCRIT 29.6 % (36.0-47.0); HEMOGLOBIN 8.9 g/dl (12.0-15.5); MEAN CORPUSCULAR HEMOGLOBIN 25.1 pg (27.0-33.0); MEAN CORPUSCULAR HGB CONC 30.1 g/dl (32.0-36.5); MEAN CORPUSCULAR VOLUME 83.6 fl (80.0-96.0); PLATELET COUNT, AUTOMATED 296 10^3/uL (150-450); RED BLOOD COUNT 3.54 10^6/uL (4.00-5.40); WHITE BLOOD COUNT 25.5 10^3/uL (4.0-10.0)
[2019-01-03 05:34] LABS: CALCIUM LEVEL 7.3 MG/DL (8.8-10.2); CREATININE FOR GFR 1.96 MG/DL (0.55-1.30); GLOMERULAR FILTRATION RATE 26.4 (>39); POTASSIUM SERUM 3.3 MEQ/L (3.5-5.1)
--- NOTE | 2019-01-03 07:02 | IPNPDOC ---
Text Note Date of Service The patient was seen on 01/03/19. NOTE HPI: Patient is examined at bedside. It was noted that she had 5 bowel movements during day time yesterday with 2 additional BM in the evening. It was noted that pt's son reported yesterday that she has been having frequent diarrhea prior to hospital admission without being on recent any antibiotics. GI panel was ordered pos for C.diff and Vanco was switched to from feeding tube. Pt reported no complaints including any abdominal pain, N/V, fever, or chills. ROS: General:Denies fever, chills Heart: Denies any chest pain or palpitation Lung: Denies any dyspnea GI: Denies any N/V or abd pain Objective: General: A&OX3. HEENT: head normocephalic, atraumatic, no scleral icterus noted. NG tube in place. Mucous membrane appears to be dry CVS: Tachycardia, regular rhythm, normal S1 and S2. Lungs: Good air entry. CTA b/l, no wheezing, rhonchi or rales Abdomen: Soft, dressing in place, drains noted, GJ tube Extremities: 1+ pitting edema at bilateral feet. Erythema in left anterior leg noted improving compared to yesterday. Assessment and plan: 1. Sepsis-possibly 2/2 intra-abdominal infection and perforation of the viscus; hypovolemia with low intravascular volume likely contributed - Patient's blood pressure roughly stable; CVP 8 last night - A&OX3. - 1L NS bolus given yesterday. On IVF -blood cx neg X2; peritoneal fluid gram stain no organism seen. No lactic acido sis noted -Abscess cx pos for Escherichia coli, Proteus, and Streptococcus agalactiae; Ertapenem had been switched to Levofloxacin due to sensitivity; Vanco switched to through NG tube as pt's GI panel showed C. diff -Cont with Albumin as required - S/p laparotomy and right colectomy with partial gastric resection 2. Metabolic acidosis - 2/2 renal failure -bicarb level improved after dialysis -Nephrology following 3. 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 3. ESRD on HD (TTS) - Patient had missed hemodialysis on 12/30/2018 because of low blood pressure. - Pt received dialysis 01/01/19 inpt, and ICU 500 mL of fluid was removed. Pt receiving hemodialysis at bedside 01/03/19. - Creatinine improving and stabilized - Nephrology on consultation 4. Normocytic anemia - 8.9 down from 9.3 yesterday; may be 2/2 hemodilution vs blood loss vs anemia of CKD - s/p 1 unit PRBC transfused during dialysis; also received on Aranesp with dialysis. Blood product consent form on file - F/u with H&H this afternoon; pt receives Arsenap with dialysis 5. C. diff colitis -diarrhea prior to hospital admission reported. Malignancy, colectomy, and bile suctioning may contribute to the diarrhea as well -GI panel PCR pos for C. diff. IV Vanco was switched to Vanco through feeding tube 5. DM2 -Blood glucose roughly stable -Cont to f/u glucose level 6. Hyopkalemia -K 3.3 with hemodialysis with 4K bed and nephrology recommended to K repletion needed. We appreciate nephrology team Dr. Street's input. -Mg level ordered -Pt also on IV 1/2NS with 20meq K 7. HTN - Patient with pressure appears to be lower limits of normal -cont with Carvedilol with holding parameters GI prophylaxis - Cont Protonix DVT prophylaxis - Cont Lovenox Code status: - DNR / DNI I saw and evaluated the patient. I agree with the findings and plan of care as documented in the above note VS,Russ, I+O VS, Russ, I+O Laboratory Tests 01/02/19 11:46 Red Blood Count 3.65 L, Mean Corpuscular Volume 82.2, Mean Corpuscular Hemoglobin 25.5 L, Mean Corpuscular Hemoglobin Concent 31.0 L, Red Cell Distribution Width 19.7 H, Calcium Level 8.0 L, Aspartate Amino Transf (AST/SGOT) 13, Alanine Aminotransferase (ALT/SGPT) 25, Alkaline Phosphatase 96, Total Bilirubin 0.5, Total Protein 4.0 L, Albumin 1.8 L 01/03/19 04:55 Red Blood Count 3.54 L, Mean Corpuscular Volume 83.6, Mean Corpuscular Hemoglobin 25.1 L, Mean Corpuscular Hemoglobin Concent 30.1 L, Red Cell Distribution Width 20.0 H, Calcium Level 7.3 L Vital Signs Date Time Temp Pulse Resp B/P (MAP) Pulse Ox O2 Delivery O2 Flow Rate FiO2 01/03/19 06:00 95 18 95/51 (66) 94 1.0 01/03/19 04:00 98.0 12/29/18 19:02 Room Air I&O- Last 24 Hours up to 6 AM 01/03/19 06:00 Intake Total 1830 ml Output Total 2020 ml Balance -190 ml CLAUDIA DOWNEY DO Jan 03, 2019 07:02 BENTON ALTMAIRANO MD Jan 04, 2019 11:31
--- NOTE | 2019-01-03 08:05 | IPNPDOC ---
Subjective General Date/Time Seen The patient was seen on 01/03/19 at 07:55. 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 Current Medications Current Medications Current Medications Medications (Trade) Dose Ordered Sig/Mg Route PRN Reason Start Time Stop Time Status Last Admin Dose Admin Acetaminophen (Tylenol Tab) 650 mg Q4HP PRN PO MILD PAIN or TEMP > 101 12/30/18 00:45 12/31/18 02:42 Al Hydrox/Mg Hydrox/Simethicone (Mylanta) 30 ml Q6HP PRN PO HEARTBURN 12/30/18 20:15 12/30/18 20:31 Atorvastatin Calcium (Lipitor) 20 mg DAILY PO 12/30/18 09:00 12/30/18 13:29 DC Carvedilol (COReg) 6.25 mg BID PO 12/29/18 21:00 12/30/18 13:29 DC 12/30/18 02:06 Darbepoetin Mp (Aranesp (Dialysis Use)) 200 mcg HD IV 12/31/18 09:45 Dextrose/Sodium Chloride 1,000 ml @ 40 mls/hr Q24H IV 12/31/18 10:00 01/01/19 22:24 DC 01/01/19 05:00 Diatrizoate Meglum/ Diatrizoate Sod (Gastrografin) 10 ml Q30M PO 12/29/18 14:00 12/29/18 14:31 DC 12/29/18 14:33 Enoxaparin Sodium (Lovenox) 30 mg DAILY SC 12/30/18 09:00 01/02/19 08:54 Ertapenem 0.5 gm/ Sodium Chloride 50 ml @ 100 mls/hr Q24H IV 12/30/18 06:00 01/03/19 04:57 Fentanyl Citrate (Sublimaze) 25 mcg Q5MP PRN IV MODERATE PAIN (PS 4-7) 12/30/18 01:00 12/30/18 01:59 DC Guaifenesin/ Dextromethorphan (Robitussin Dm) 10 ml Q6HP PRN PO sore throat 12/31/18 17:45 12/31/18 17:55 DC Haloperidol (Haldol) 0.5 mg Q6HP PRN IV AGITATION 01/01/19 14:00 01/02/19 02:53 Home Med (Med Rec Complete!) ASDIRECTED XX 12/29/18 14:00 12/29/18 16:01 DC Ketorolac Tromethamine (ToRADol) 15 mg Q6HP PRN IV MILD/MODERATE PAIN (PS 1-7) 12/30/18 00:45 01/04/19 00:44 01/01/19 11:02 Lactated Ringer's 1,000 ml @ 100 mls/hr Q10H IV 12/30/18 00:31 12/30/18 13:59 DC 12/30/18 01:40 Lactobacillus Acidophilus (Bacid) 1 ea DAILY PO 01/03/19 09:00 Lidocaine/ Prilocaine (Emla) 1 dose ASDIRECTED TOP 01/01/19 11:30 01/02/19 06:36 Lorazepam (Ativan) 0.5 mg Q6HP PRN IV ANXIETY 12/30/18 11:15 01/01/19 11:44 DC 01/01/19 11:02 Lorazepam (Ativan) 1 mg Q4HP PRN IV ANXIETY 01/01/19 15:00 01/01/19 22:24 DC 01/01/19 19:09 Metoclopramide HCl (REGLAN INJection) 10 mg Q6HP PRN IV NAUSEA OR VOMITING 12/30/18 01:00 12/30/18 01:59 DC Morphine Sulfate (Morphine Sulfate Inj) 4 mg Q2HP PRN IV SEVERE PAIN (PS 8-10) 12/30/18 00:45 01/01/19 13:19 DC 12/31/18 20:20 Non-Formulary Medication ( See Comment Field Below ) CHECK TO SEE IF THE PATIENT... DAILY@1600 XX 12/30/18 16:00 12/30/18 16:00 DC Non-Formulary Medication ( See Comment Field Below ) CHECK TO SEE IF THE PATIENT... DAILY@1600 XX 01/01/19 16:00 01/02/19 10:37 DC Non-Formulary Medication ( See Comment Field Below ) VANCO INTERMIT. DOSING ASDIRECTED XX 12/30/18 14:15 12/31/18 09:38 DC Ondansetron HCl (ZOFRAN INJection) 4 mg Q4HP PRN IV NAUSEA OR VOMITING 12/30/18 01:00 12/30/18 01:59 DC Ondansetron HCl (ZOFRAN INJection) 4 mg Q6HP PRN IV NAUSEA OR VOMITING 12/30/18 00:45 01/01/19 13:59 DC 12/31/18 07:25 Oxycodone/ Acetaminophen (Percocet 5mg/ 325mg Tablet) 1 tab ASDIRECTED PRN PO MILD/MODERATE PAIN (PS 1-7) 12/30/18 01:00 12/30/18 01:59 DC Oxycodone/ Acetaminophen (Percocet 5mg/ 325mg Tablet) 1 tab Q4HP PRN PO MILD/MODERATE PAIN (PS 1-7) 12/31/18 10:00 Oxycodone/ Acetaminophen (Percocet 5mg/ 325mg Tablet) 2 tab Q4HP PRN PO SEVERE PAIN (PS 8-10) 12/31/18 10:00 Pantoprazole Sodium (Protonix) 40 mg DAILY IV 12/30/18 09:00 01/02/19 08:54 Phenol (Chloraseptic [place]) 5 spray Q2HP PRN MT SORE THROAT 12/31/18 18:00 01/03/19 00:39 Sodium Chloride 1,000 ml @ 75 mls/hr [id number] IV 12/30/18 01:00 12/30/18 01:59 DC Sodium Chloride 1,000 ml @ 100 mls/hr Q10H IV 12/30/18 14:45 UNV Sodium Chloride 1,000 ml @ 125 mls/hr Q8H IV 12/30/18 14:00 12/31/18 08:23 DC 12/31/18 07:25 Vancomycin HCl (First-Vancomycin 50(Firvanq)- 250mg/5ml) 125 mg Q6H NG 01/03/19 00:00 01/03/19 04:58 Vancomycin HCl 1000 mg/IV Miscellaneous Supplies 1 each/ Dextrose 270 ml @ 270 mls/hr HD IV 12/30/18 11:30 12/30/18 14:00 DC Vancomycin HCl 1000 mg/IV Miscellaneous Supplies 1 each/ Dextrose 270 ml @ 270 mls/hr HD IV 01/01/19 09:45 01/02/19 10:37 DC Allergies Coded Allergies: Penicillins (Verified Allergy, Severe, throat swelling , hives, 12/12/18) morphine (Verified Adverse Reaction, Mild, Confusion, 01/01/19) Objective Physical Examination Examination GENERAL APPEARANCE:[Patient seen, laying in bed, awake, alert, and oriented. Comfortable, in no acute distress]. SKIN: [Warm and moist]. HEENT: [Normocephalic, atraumatic. [place] palpebral conjunctiva, anicteric scler ae. Lips and mucosa appear moist]. NECK: [Supple, no thyromegaly. No obvious jugular venous distention]. LUNGS: [Clear to auscultation bilaterally. No wheezing appreciated]. HEART: [No chest wall abnormalities. Regular rate and rhythm with no murmurs appreciated]. ABDOMEN: Abdomen is , soft, . [No hepatosplenomegaly. No umbilical or groin herniations, nondistended. No noticeable rebound or guarding. No grimacing with palpation. No rebound tenderness. No masses appreciated]. EXTREMITIES: [Extremities have no deformities. No edema identified]. Vital Signs Vital Signs Date Time Temp Pulse Resp B/P (MAP) Pulse Ox O2 Delivery O2 Flow Rate FiO2 01/03/19 06:00 95 18 95/51 (66) 94 1.0 01/03/19 04:00 98.0 12/29/18 19:02 Room Air I&Os I&O- Last 24 Hours up to 6 AM 01/03/19 06:00 Intake Total 1830 ml Output Total 2020 ml Balance -190 ml Laboratory Data Labs 24H Laboratory Tests 2 01/02/19 09:21: Lactic Acid Level 0.8, Magnesium Level 1.6L 01/02/19 11:46: Nucleated Red Blood Cells % (auto) 0.0, Anion Gap 7L, Glomerular Filtration Rate 35.1L, Blood Urea Nitrogen 13, Creatinine 1.53H, Sodium Level 142, Potassium Level 3.5, Chloride Level 107, Carbon Dioxide Level 28, Calcium Level 8.0L, Aspartate Amino Transf (AST/SGOT) 13, Alanine Aminotransferase (ALT/SGPT) 25, Alkaline Phosphatase 96, Total Bilirubin 0.5, Total Protein 4.0L, Albumin 1.8L, Albumin/Globulin Ratio 0.82L 01/02/19 18:14: Bedside Glucose (Misc Panel) 116H 9/17/19 18:30: Blood Gas Bicarbonate Standard 26.9, Venous Blood pH 7.458H, Venous Blood Partial Pressure CO2 39.1, Venous Blood Partial Pressure O2 44.5, Venous Blood Total Carbon Dioxide 28.3H, Venous Blood HCO3 27.1H, Venous Blood Oxygen Saturation 82.6H, Venous Blood Base Excess 3.0H 01/03/19 00:27: Bedside Glucose (Misc Panel) 127H 01/03/19 04:55: Nucleated Red Blood Cells % (auto) 0.0, Anion Gap 8, Glomerular Filtration Rate 26.4L, Blood Urea Nitrogen 17, Creatinine 1.96H, Sodium Level 144, Potassium Level 3.3L, Chloride Level 110H, Carbon Dioxide Level 26, Calcium Level 7.3L CBC/BMP Laboratory Tests 01/02/19 11:46 Red Blood Count 3.65 L, Mean Corpuscular Volume 82.2, Mean Corpuscular Hemoglobin 25.5 L, Mean Corpuscular Hemoglobin Concent 31.0 L, Red Cell Distribution Width 19.7 H, Calcium Level 8.0 L, Aspartate Amino Transf (AST/SGOT) 13, Alanine Aminotransferase (ALT/SGPT) 25, Alkaline Phosphatase 96, Total Bilirubin 0.5, Total Protein 4.0 L, Albumin 1.8 L 01/03/19 04:55 Red Blood Count 3.54 L, Mean Corpuscular Volume 83.6, Mean Corpuscular Hemoglobin 25.1 L, Mean Corpuscular Hemoglobin Concent 30.1 L, Red Cell Distribution Width 20.0 H, Calcium Level 7.3 L Microbiology Microbiology 01/02/19 Blood Culture, Received Pending 12/29/18 Blood Culture - Preliminary, Resulted No Growth after 72 hours. All specime... 12/29/18 Blood Culture - Preliminary, Resulted No Growth after 72 hours. All specime... 12/29/18 Gram Stain - Final, Complete 12/29/18 Body Fluid Culture - Final, Complete 12/29/18 Anaerobic Culture - Final, Complete 01/02/19 Gastrointestinal Tract Panel (PCR) - Final, Complete Clostridium Difficile A/B 12/29/18 Gram Stain - Final, Resulted 12/29/18 Abscess Culture - Final, Resulted Escherichia Coli Proteus Mirabilis Strep Agalactiae Group B 12/29/18 Anaerobic Culture, Resulted Pending Impression POD5 extended right colectomy en block melody gastrectomy RNY gastrojejunostomy, ileo-transverse colon anastomosis, feeding jejunostomy sepsis ESRD on dialysis C. difficile colitis? I checked the g-j anastomosis yesterday for leak and none showed radiographically. I felt that if any of the 3 anastomoses will fail and exhibit significant systemic inflammatory reaction, that the g-j anastomoses will be the cause. This did not show any leak. She is tolerating the nepro tube feeds at 20 mL/hr. I am not sure if the diarrhea is mainly from C. diff or the tube feeds is contributing to it. Will go up slightly today and see how this affects the bms. I would like to d/c the ngt but for the past two days I am getting more from the ngt which could be a function of the edema at the j-j anastomosis or just the suctioning from the ng. I will have them clamp the tube and observe if there is any significant gastric distention/pooling. During the ugis yesterday the radiologist notes that the anastomosis is swollen and there is distending of the gastric remnant. So the worsening leukocytosis maybe from the Cdifficile infection. Her abdomen does not look overly distended. Her pj drain is light serosanguenous without bile tinge. I will hold off on the CT today. I dont think there is any clear utility for it now if we believe the leukocytosis if from the C. difficile infection and not from any surgical problem. continue to monitor closely. Will switch ertapenem to levaquin (covers all 3 organisms in the abscess culture). Continue PO vancomycin. PT/OT DVT Prophylaxis\ Plan / VTE VTE Prophylaxis Ordered?: Yes Plan / Urinary Catheter Urinary Catheter: D/C STANISLAW Nowak MD Jan 03, 2019 08:05
[2019-01-03] MEDS ORDERED: LevoFLOXacin IV 250 MG in IV 1 EA IV SCH (08:15)
[2019-01-03] MEDS: ENOXAPARIN 30 MG/0.3 ML SYR (J1650) SC SCH (09:13)
[2019-01-03] MEDS: PANTOPRAZOLE 40MG INJ (PROTONIX) (C9113) IV SCH (09:13)
[2019-01-03] MEDS: LACTOBACILLUS ACIDOPHILUS CAP (BACID) PO SCH (09:13)
[2019-01-03] MEDS: ACETAMINOPHEN TAB 650MG DOSE (2X325MG) PO PRN ×2 (11:34→20:14)
[2019-01-03] MEDS ORDERED: KCL 20MEQ IN 100ML SWI (KRUN) 20 MEQ in IV 1 EA IV ONE ×2 (12:45)
[2019-01-03] MEDS: KCL 20MEQ IN 0.45NS 1000ML 1,000 ML IV SCH (13:09)
[2019-01-03 14:02] LABS: MAGNESIUM LEVEL 1.8 MG/DL (1.8-2.4)
[2019-01-03] MEDS ORDERED: LevoFLOXacin IV 750 MG in IV 1 EA IV ONE (16:00)
--- NOTE | 2019-01-03 18:33 | IPN ---
DATE: 01/03/2019 SUBJECTIVE: The patient was seen and examined at the bedside today morning in the intensive care unit (ICU). The patient was dialyzed yesterday. Last 24-hour events were noted. The patient was hypotensive after dialysis. She needed to be given one liter of normal saline bolus. Blood pressures are optimal now. She is not requiring any pressors. The patient is more awake and alert today as compared with yesterday. She was also found to have Clostridium (C) difficile colitis yesterday and she was started on oral vancomycin. She got the barium study to make sure there was no anastomosis leak which ruled out the possibility of anastomosis leak. She continues to be on tube feeds at 20 mL an hour only. She is not getting any IV fluid hydration. Nasogastric (NG) tube suctioning has been stopped now but she still has an NG tube at this time. The patient is complaining of her diarrhea. She denies any other active complaints. IV antibiotics were changed to Levaquin. OBJECTIVE: VITAL SIGNS: Temperature is 98.4 degrees Fahrenheit, blood pressure 115/54, pulse is 90, respiratory rate of 16, saturating 94% on room air. INTAKE AND OUTPUT: Gastric drainage is only mL. She has had 10 bowel movements yesterday and four bowel movements so far today since overnight. One liter of fluid was removed with hemodialysis but it had to be given back because of hypotension. Weight in the bed scale is 66.4 kg. PHYSICAL EXAMINATION: GENERAL: The patient is awake, alert, oriented times two, laying in the bed, in no apparent distress. HEAD AND NECK: The patient has an nasogastric (NG) tube in place. Mucous membranes are very dry. Neck is supple. She has a left subclavian triple-lumen catheter. CARDIOVASCULAR: S1, S2, 2+ edema of the bilateral lower extremities. RESPIRATORY: Chest is clear to auscultation bilaterally. No active rales or rhonchi. ABDOMEN: She has a large midline surgical incision site with a lot of herson, right-sided Demetris-Preston ([place]) drain and she has a jejunostomy (J) tube in the epigastrium which is being used for tube feeds right now. MUSCULOSKELETAL: No clubbing or cyanosis. She has 2+ chronic lower extremity edema. CENTRAL NERVOUS SYSTEM (CLINICAL RESEARCH NURSE): No focal deficit. She is able to move extremities and she follows commands. LABORATORY REVIEW: CBC showed a WBC 25.5, hemoglobin 8.9, platelets are 296. BMP showed sodium 144, potassium 3.3, chloride 110, bicarbonate 26, BUN 17, creatinine is 1.9, it was 1.5 yesterday, calcium is 7.3. MICROBIOLOGY: GI panel was done yesterday which is positive for C. difficile. IMAGING STUDIES: Upper GI barium swallow was done yesterday which showed no evidence of anastomotic leak at the gastrojejunostomy. CURRENT INPATIENT MEDICATIONS: The patient's medications were all reviewed by me. Her IV ertapenem was stopped yesterday. She was started on Levaquin 250 mg IV daily. She was also started on oral vancomycin 125 mg via the jejunostomy (J) tube every six hours. I have started the patient on KCl 20 mEq and half-normal saline at 40 mL an hour. ASSESSMENT AND PLAN: 1. End-stage renal disease, on hemodialysis. The patient was dialyzed yesterday and one liter of fluid was removed. However, she could not tolerate it and she was hypotensive and she had to get one liter of normal saline bolus after dialysis. Next hemodialysis will be done tomorrow at the bedside. 2. Hypokalemia. Potassium level is 3.3 today. I have started the patient on potassium-containing fluids. I am also going to give her a dose of potassium chloride through the jejunostomy (J) tube. 3. Sepsis secondary to intra-abdominal infection and Clostridium (C) difficile colitis. The patient's IV antibiotic have been changed to IV Levaquin which adequately covers infection with Escherichia (C) coli, Proteus and Streptococcus agalactiae. White cell count is improving. 4. C. difficile colitis diarrhea. The patient does need to continue the antibiotics because of intra-abdominal infection and for C. difficile, oral vancomycin has been started. 5. Metabolic encephalopathy. The patient is significantly better today after dialysis. 6. Protein-calorie malnutrition. The patient is currently getting Nepro tube feeds at 20 mL an hour only. Feeds to be advanced as per recommendations from surgical service. While she is on low-dose of the tube feeds, I have restarted the patient on IV fluid KCl 20 mEq and half-normal saline at 40 mL an hour. 7. Anemia and end-stage renal disease. The patient's hemoglobin is 8.9 which is suboptimal. She continues to get Aranesp with dialysis. If needed, I would give her another unit of packed red blood cells (PRBC) transfusion tomorrow morning with dialysis. 8. Postoperative day number five, status post right colectomy, partial gastrectomy, gastrojejunostomy and feeding jejunostomy tube placement. The patient is tolerating the diet so far. She is having diarrhea because of C. difficile. Abdominal wound is healing. Rest of the management is as per surgical service. Total critical care time spent in the management of this patient today morning in the intensive care unit (ICU) is 45 minutes and that does not include any procedures.
[2019-01-03] MEDS ORDERED: ONDANSETRON 4MG/2ML VIAL (J2405) As Ordered ONE (20:09)
[2019-01-03] MEDS: ONDANSETRON 4MG/2ML VIAL (J2405) IV PRN (21:05)
[2019-01-04] VITALS (16 sets, daily range): BP systolic 104–126; BP diastolic 52–66
[2019-01-04] MEDS: VANCOMYCIN ORAL SOL 250MG/5ML ORAL SYRINGE NG SCH ×4 (00:21→19:29)
[2019-01-04 05:50] LABS: HEMATOCRIT 29.7 % (36.0-47.0); MEAN CORPUSCULAR HEMOGLOBIN 25.2 pg (27.0-33.0); MEAN CORPUSCULAR HGB CONC 30.3 g/dl (32.0-36.5); MEAN CORPUSCULAR VOLUME 83.2 fl (80.0-96.0); PLATELET COUNT, AUTOMATED 299 10^3/uL (150-450); RED BLOOD COUNT 3.57 10^6/uL (4.00-5.40); WHITE BLOOD COUNT 20.1 10^3/uL (4.0-10.0)
[2019-01-04 06:05] LABS: CALCIUM LEVEL 7.5 MG/DL (8.8-10.2); CREATININE FOR GFR 2.11 MG/DL (0.55-1.30); GLOMERULAR FILTRATION RATE 24.2 (>39); POTASSIUM SERUM 3.3 MEQ/L (3.5-5.1)
[2019-01-04] MEDS: ONDANSETRON 4MG/2ML VIAL (J2405) IV PRN ×3 (06:09→21:55)
[2019-01-04] MEDS: ENOXAPARIN 30 MG/0.3 ML SYR (J1650) SC SCH (07:52)
[2019-01-04] MEDS: LACTOBACILLUS ACIDOPHILUS CAP (BACID) PO SCH (07:52)
[2019-01-04] MEDS: PANTOPRAZOLE 40MG INJ (PROTONIX) (C9113) IV SCH (07:52)
[2019-01-04] MEDS: ACETAMINOPHEN TAB 650MG DOSE (2X325MG) PO PRN (07:53)
--- NOTE | 2019-01-04 11:52 | IPNPDOC ---
Subjective Date Seen The patient was seen on 01/04/19. Subjective Chief Complaint/HPI Pt examined at bedside today. She reported no symptoms except for several loose stools throughout the day yesterday; denies any other symptoms including lightheadedness, dizziness, fever, chills, abdominal pain, chest pain, palpitation, or dyspnea General: Denies: Chills Constitutional: Denies: Chills, Fever Pulmonary: Denies: Dyspnea Cardiovascular: Denies: Chest Pain, Palpitations Gastrointestinal: Reports: Diarrhea; Denies: Nausea, Vomiting, Abdominal Pain, Constipation, Hematochezia Objective Physical Examination General Exam: Positive: Alert, Cooperative, No Acute Distress Eye Exam: Negative: Sclera icteric ENT Exam: Positive: Atraumatic, Mucous membr. moist/pink, Other ENT (NG tube in place) Chest Exam: Positive: Normal air movement; Negative: Clear to auscultation, Rales, Rhonchi, Wheezing Heart Exam: Positive: Tachycardic, Regular Rhythm, Normal S1, Normal S2; Negative: Murmurs Abdomen Exam: Positive: Normal bowel sounds, Soft, Other (Soft, dressing in place, drains noted, GJ tube ); Negative: Tenderness Extremity Exam: Positive: Edema (no to minimal edema); Negative: Swelling Psych Exam: Positive: Mood NL, Memory Intact Assessment /Plan Assessment 1. Sepsis-possibly 2/2 intra-abdominal infection and perforation of the viscus; hypovolemia with low intravascular volume likely contributed - Patient's blood pressure roughly stable; CVP 4 this morning. - A&OX3. - On IVF. CVP value discussed with nephrology and no bolus required in addition as pt's MAP roughly stable - blood cx neg X2; peritoneal fluid gram stain no organism seen. No lactic acidosis noted -Abscess cx pos for Escherichia coli, Proteus, and Streptococcus agalactiae; Ertapenem had been switched to Levofloxacin due to sensitivity; Vanco switched to through NG tube as pt's GI panel showed C. diff -Cont with Albumin as required - S/p laparotomy and right colectomy with partial gastric resection 2. Metabolic acidosis - 2/2 renal failure -bicarb level improved after dialysis -Nephrology following 3. 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 3. ESRD on HD (TTS) - Patient had missed hemodialysis on 12/30/2018 because of low blood pressure. - Pt received dialysis 01/01/19 inpt, and ICU 500 mL of fluid was removed. Pt receiving hemodialysis at bedside 01/03/19. Plan for dialysis today - Creatinine improving and stabilized - Nephrology on consultation 4. Normocytic anemia -Hg roughly stablized. may be 2/2 hemodilution vs blood loss vs anemia of CKD - s/p 1 unit PRBC transfused during dialysis; also received on Aranesp with dialysis. Blood product consent form on file - pt receives Arsenap with dialysis 5. C. diff colitis -diarrhea prior to hospital admission reported. Malignancy, colectomy, and bile suctioning may contribute to the diarrhea as well -GI panel PCR pos for C. diff. IV Vanco was switched to Vanco through feeding tube 5. DM2 -Blood glucose roughly stable -Cont to f/u glucose level 6. Hyopkalemia -K 3.3 with hemodialysis with 4K bed and nephrology recommended to K repletion needed. We appreciate nephrology team Dr. Street's input. -Mg leve wnl -Pt also on IV 1/2NS with 20meq K 7. HTN - Patient with pressure appears to be lower limits of normal -cont with Carvedilol with holding parameters I saw and evaluated the patient. I agree with the findings and plan of care as documented in the above note Plan/VTE VTE Prophylaxis Ordered?: Yes Plan/Urinary Catheter Urinary Catheter: D/C Michel VS, I&O, 24H, Fishbone Vital Signs/I&O Vital Signs Date Time Temp Pulse Resp B/P (MAP) Pulse Ox O2 Delivery O2 Flow Rate FiO2 01/04/19 08:00 98.4 97 17 113/65 (81) 96 01/03/19 06:00 1.0 12/29/18 19:02 Room Air I&O- Last 24 Hours up to 6 AM 01/04/19 06:00 Intake Total 1080 ml Output Total 620 ml Balance 460 ml Laboratory Data 24H LABS Laboratory Tests 2 01/03/19 13:30: Bedside Glucose (Misc Panel) 117H 01/03/19 17:37: Bedside Glucose (Misc Panel) 113H 01/04/19 00:24: Bedside Glucose (Misc Panel) 105 01/04/19 05:25: Nucleated Red Blood Cells % (auto) 0.0, Anion Gap 7L, Glomerular Filtration Rate 24.2L, Blood Urea Nitrogen 22H, Creatinine 2.11H, Sodium Level 143, Potassium Level 3.3L, Chloride Level 110H, Carbon Dioxide Level 26, Calcium Level 7.5L CBC/BMP Laboratory Tests 01/04/19 05:25 Red Blood Count 3.57 L, Mean Corpuscular Volume 83.2, Mean Corpuscular Hemoglobin 25.2 L, Mean Corpuscular Hemoglobin Concent 30.3 L, Red Cell Distribution Width 20.5 H, Calcium Level 7.5 L Microbiology Microbiology 01/02/19 Blood Culture - Preliminary, Resulted No growth after 24 hours . All specim... 12/29/18 Blood Culture - Final, Complete NO GROWTH AFTER 5 DAYS 12/29/18 Blood Culture - Final, Complete NO GROWTH AFTER 5 DAYS 12/29/18 Gram Stain - Final, Complete 12/29/18 Body Fluid Culture - Final, Complete 12/29/18 Anaerobic Culture - Final, Complete 01/02/19 Gastrointestinal Tract Panel (PCR) - Final, Complete Clostridium Difficile A/B 12/29/18 Gram Stain - Final, Resulted 12/29/18 Abscess Culture - Final, Resulted Escherichia Coli Proteus Mirabilis Strep Agalactiae Group B 12/29/18 Anaerobic Culture, Resulted Pending CLAUDIA DOWNEY DO Jan 04, 2019 11:52 BENTON ALTAMIRANO MD Jan 05, 2019 09:47
[2019-01-04] MEDS: KCL 20MEQ IN 0.45NS 1000ML 1,000 ML IV SCH (16:02)
[2019-01-04] MEDS: MAALOX 30 ML SUSP *UDC PO PRN (21:50)
[2019-01-04] MEDS ORDERED: PROMETHAZINE INJ 25 MG/ML VIAL (J2550) IM ONE (23:30)
[2019-01-05] VITALS: BP 100/61
--- NOTE | 2019-01-05 00:08 | IPN ---
DATE: 01/04/2019 SUBJECTIVE: Patient was seen and examined at the bedside today morning in the intensive care unit (ICU). Patient is awake and alert today. Today is the patient's regular day of dialysis. While I was examining her, her nasogastric tube (NGT) was removed by the nurse. She is no longer requiring NGT suctioning now. Her white cell count is improving with the addition of oral vancomycin for Clostridium (C) difficile. She is hemodynamically stable. Central venous pressure (CVP) as reported by nurse is still around 4. She continues to be on tube feeds and currently at 30 mL an hour and continues on gentle IV fluid hydration as well. OBJECTIVE: Vital signs: Temperature is 98.4 degrees Fahrenheit. Blood pressure 113/65, pulse is 97, respiratory rate of 17, saturating 96% on room air. Intake and output: The gastric drainage is 395 mL so far. There is no urine output recorded. Weight in the bed scale is 67 kg. PHYSICAL EXAMINATION: General: Patient is awake, alert, oriented times three, laying in bed, in no apparent distress. NGT has been removed. Mucous membranes are moist today. Neck is supple. She has a left subclavian triple-lumen catheter. Cardiovascular: S1, S2, regular rate. Chronic 2+ lower extremity edema. Respiratory: Chest is clear to auscultation bilaterally. Bilateral equal air entry. No rales or rhonchi. Abdomen: Soft. Midline surgical herson are noted. J-tube in the epigastrium, which is being used for tube feeds, and she has a Demetris-Preston (CHARLOTTE) drain in the right lower quadrant. Musculoskeletal: Chronic lower extremity edema. Otherwise, no clubbing or cyanosis. CENTRAL NERVOUS SYSTEM (BIOCHEMISTRY TEACHER): No focal deficit. Power is 5/5 in bilateral upper extremities. LAB REVIEW: CBC showed WBC of 20.1, hemoglobin is 9, platelets are 299. BMP showed sodium 143, potassium 3.3, chloride 110, bicarbonate 26, BUN 22, creatinine is 2.1, calcium is 7.5. CURRENT INPATIENT MEDICATIONS: Patient's medications were all reviewed by me. She continues to be on KCl 20 mEq and half normal saline at 40 mL an hour. She continues to be on tube feeds. Levaquin dose was changed to 500 mg IV every 48 hourly. She continues to be on vancomycin 125 mg by the J-tube every 6 hourly. No other change in the medications today. ASSESSMENT/PLAN: 1. End-stage renal disease. Today is the patient's regular day of dialysis. She will be dialyzed at the bedside. Ultrafiltration will be maximum 500 mL as tolerated by the blood pressure. 2. Hypokalemia. Patient is getting potassium chloride (KCl) in the IV fluids as well, and she will be dialyzed with a 4K bath that will help improve the hypokalemia. 3. Sepsis secondary to intra-abdominal infection and C. difficile colitis. Patient is on IV Levaquin for intra-abdominal abscess and oral vancomycin for C. difficile colitis. White cell count is improving. Her CVP was low. However, patient has renal failure and she third spaces most of the fluid. Blood pressures are optimal. No need of IV fluid apart from the gentle fluid hydration that she is receiving. 4. Protein-calorie malnutrition. Patient continues to be on Nepro tube feeds. Tube feed rate has been increased to 30 mL an hour by the surgical team. 5. Anemia and end-stage renal disease. Hemoglobin level is 9, which is optimal. Transfuse as needed (p.r.n.) for hemoglobin below 8. Continue Aranesp 200 mcg with dialysis. 6. Postoperative day #6 status post right colectomy, partial gastrectomy, and gastrojejunostomy with feeding jejunostomy tube placement. Patient is tolerating the Nepro tube feeds. NG tube has been removed today. Patient is clinically improving. 7. Disposition. Patient is okay to be downgraded to progressive care unit if okay by medical team and surgical team.
--- NOTE | 2019-01-05 01:06 | REPVR ---
PROCEDURE INFORMATION: Exam: XR Abdomen, 1 View Exam date and time: 01/04/2019 12:14 AM Clinical history: 78 years old, female; Abdominal pain; Other: Persistent nausea; Additional info: Persistent nausea S/P abd surgery TECHNIQUE: Imaging protocol: XR of the abdomen. Views: Frontal supine view of the abdomen. 1 View. COMPARISON: CR Abdomen,Flat Upright,PA CHEST 12/29/2018 11:36 AM FINDINGS: Tubes, catheters and devices: Subhepatic drain in position. Left internal tube entering the abdomen which may reflect an enterostomy or possibly drain. Gastrointestinal tract: Minimal bowel gas without abnormal dilatation. Intraperitoneal space: Multiple radiopaque sutures are noted about the abdomen. Organs: There is a Lippes Loop IUD in the central pelvis. Bones/joints: Unremarkable for age. Soft tissues: Vertical skin herson in the lower abdomen which are new since the prior study. IMPRESSION: 1. Interval surgery since 12/29/2018 with multiple tubes, drains and suture lines and skin herson. 2. Minimal bowel gas which is within normal limits and the decreased slightly since the prior study. 3. Lippes Loop IUD in the central pelvis. Electronically signed by: Herbert Alicia On 01/05/2019 01:05:40 AM
[2019-01-05 04:00] VITALS: BP 103/51
[2019-01-05] MEDS: VANCOMYCIN ORAL SOL 250MG/5ML ORAL SYRINGE NG SCH ×5 (05:44→23:17)
[2019-01-05] MEDS: KCL 20MEQ IN 0.45NS 1000ML 1,000 ML IV SCH (05:46)
[2019-01-05 06:08] LABS: HEMATOCRIT 33.9 % (36.0-47.0); HEMOGLOBIN 10.2 g/dl (12.0-15.5); MEAN CORPUSCULAR HEMOGLOBIN 25.1 pg (27.0-33.0); MEAN CORPUSCULAR HGB CONC 30.1 g/dl (32.0-36.5); MEAN CORPUSCULAR VOLUME 83.5 fl (80.0-96.0); PLATELET COUNT, AUTOMATED 362 10^3/uL (150-450); RED BLOOD COUNT 4.06 10^6/uL (4.00-5.40); WHITE BLOOD COUNT 18.6 10^3/uL (4.0-10.0)
[2019-01-05 06:33] LABS: CALCIUM LEVEL 7.7 MG/DL (8.8-10.2); CREATININE FOR GFR 1.56 MG/DL (0.55-1.30); GLOMERULAR FILTRATION RATE 34.4 (>39); MAGNESIUM LEVEL 1.7 MG/DL (1.8-2.4); POTASSIUM SERUM 3.5 MEQ/L (3.5-5.1)
--- NOTE | 2019-01-05 07:28 | IPNPDOC ---
Subjective Date Seen The patient was seen on 01/05/19. Subjective Chief Complaint/HPI It was noted that pt had nausea and vomiting overnight; Pt reported improvement of symptoms after the promethazine was given. She had multiple bowel movements recorded with a rectal tube in place; she reported rectal region pain which she had prior due to hemorroids but reported it is worse than it has been prior. It was noted there was some twisting of the rectal tube, and after adjustment pt reported improvement of the rectal pain. Otherwise pt denies any chest pain, palpitation, dyspnea, or abdominal pain General: Denies: Chills Constitutional: Denies: Chills, Fever Pulmonary: Denies: Dyspnea Cardiovascular: Denies: Chest Pain, Palpitations Gastrointestinal: Reports: Nausea, Vomiting, Other Symptoms (rectal pain; hemorrhoid); Denies: Abdominal Pain Objective Physical Examination General Exam: Positive: Alert, Cooperative, No Acute Distress Eye Exam: Negative: Sclera icteric ENT Exam: Positive: Atraumatic, Mucous membr. moist/pink Chest Exam: Positive: Normal air movement; Negative: Clear to auscultation, Rales, Rhonchi, Wheezing Heart Exam: Positive: Tachycardic, Regular Rhythm, Normal S1, Normal S2; Negative: Murmurs Abdomen Exam: Positive: Normal bowel sounds, Soft, Other (Soft, dressing in place, drains noted, GJ tube ); Negative: Tenderness Extremity Exam: Negative: Edema, Swelling Psych Exam: Positive: Mood NL, Memory Intact Assessment /Plan Assessment 1. Sepsis-resolved; possibly 2/2 intra-abdominal infection and perforation of the viscus; hypovolemia with low intravascular volume likely contributed - Patient's blood pressure roughly stable. - A&OX3. - On IVF. - blood cx neg X2; peritoneal fluid gram stain no organism seen. No lactic acidosis noted -Abscess cx pos for Escherichia coli, Proteus, and Streptococcus agalactiae; Ertapenem had been switched to Levofloxacin due to sensitivity; Vanco switched to through NG tube as pt's GI panel showed C. diff -Cont with Albumin as required - S/p laparotomy and right colectomy with partial gastric resection 3. 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 3. ESRD on HD (TTS) - Patient had missed hemodialysis on 12/30/2018 because of low blood pressure. - Pt received dialysis 01/01/19 inpt, and ICU 500 mL of fluid was removed. Pt re ceiving hemodialysis at bedside 01/03/19 and 01/05 - Creatinine improving and stabilized - Nephrology on consultation 4. Normocytic anemia -Hg roughly stablized. may be 2/2 hemodilution vs blood loss vs anemia of CKD - s/p 1 unit PRBC transfused during dialysis; also received on Aranesp with dialysis. Blood product consent form on file - pt receives Arsenap with dialysis 5. C. diff colitis -diarrhea prior to hospital admission reported. Malignancy, colectomy, and bile suctioning may contribute to the diarrhea as well -GI panel PCR pos for C. diff. IV Vanco was switched to Vanco through feeding tube -rectal tube in place 5. DM2 -Blood glucose roughly stable -Cont to f/u glucose level 6. Hyopkalemia -K 3.3 with hemodialysis with 4K bed and nephrology recommended to K repletion needed. We appreciate nephrology team Dr. Street's input. -Mg low 1.7; repleted -Pt also on IV 1/2NS with 20meq K 7. HTN - Patient with pressure appears to be lower limits of normal -cont with Carvedilol with holding parameters DISPO: pending clinical improvement and PT/OT clearance. Transfer to med/surg I saw and evaluated the patient. I agree with the findings and plan of care as documented in the above note Plan/VTE VTE Prophylaxis Ordered?: Yes VS, I&O, 24H, Fishbone Vital Signs/I&O Vital Signs Date Time Temp Pulse Resp B/P (MAP) Pulse Ox O2 Delivery O2 Flow Rate FiO2 01/05/19 04:00 98.0 90 18 103/51 (68) 97 01/03/19 06:00 1.0 I&O- Last 24 Hours up to 6 AM 01/05/19 06:00 Intake Total 1390 ml Output Total 1725 ml Balance -335 ml Laboratory Data 24H LABS Laboratory Tests 2 01/04/19 18:44: Bedside Glucose (Misc Panel) 101 01/05/19 00:37: Bedside Glucose (Misc Panel) 124H 01/05/19 05:45: Nucleated Red Blood Cells % (auto) 0.0, Anion Gap 6L, Glomerular Filtration Rate 34.4L, Blood Urea Nitrogen 14, Creatinine 1.56H, Sodium Level 141, Potassium Level 3.5, Chloride Level 108H, Carbon Dioxide Level 27, Calcium Level 7.7L, Magnesium Level 1.7L CBC/BMP Laboratory Tests 01/05/19 05:45 Red Blood Count 4.06, Mean Corpuscular Volume 83.5, Mean Corpuscular Hemoglobin 25.1 L, Mean Corpuscular Hemoglobin Concent 30.1 L, Red Cell Distribution Width 21.0 H, Calcium Level 7.7 L Microbiology Microbiology 01/02/19 Blood Culture - Preliminary, Resulted No Growth after 48 hours. All Specime... 12/29/18 Blood Culture - Final, Complete NO GROWTH AFTER 5 DAYS 12/29/18 Blood Culture - Final, Complete NO GROWTH AFTER 5 DAYS 12/29/18 Gram Stain - Final, Complete 12/29/18 Body Fluid Culture - Final, Complete 12/29/18 Anaerobic Culture - Final, Complete 01/02/19 Gastrointestinal Tract Panel (PCR) - Final, Complete Clostridium Difficile A/B 12/29/18 Gram Stain - Final, Resulted 12/29/18 Abscess Culture - Final, Resulted Escherichia Coli Proteus Mirabilis Strep Agalactiae Group B 12/29/18 Anaerobic Culture, Resulted Pending CLAUDIA DOWNEY DO Jan 05, 2019 07:28 BENTON ALTAMIRANO MD Jan 06, 2019 13:05
[2019-01-05 08:00] VITALS: BP 133/63
[2019-01-05] MEDS ORDERED: MAGNESIUM OXIDE 400 MG TAB (MAG-OX) PO ONE (08:00)
[2019-01-05] MEDS: LACTOBACILLUS ACIDOPHILUS CAP (BACID) PO SCH (08:25)
[2019-01-05] MEDS: PANTOPRAZOLE 40MG INJ (PROTONIX) (C9113) IV SCH (08:25)
[2019-01-05] MEDS: ENOXAPARIN 30 MG/0.3 ML SYR (J1650) SC SCH (08:26)
[2019-01-05] MEDS ORDERED: PREPARATION H OINTMENT (HEMORRHOID) PR PRN (09:30)
--- NOTE | 2019-01-05 10:12 | IPNPDOC ---
Text Note Date of Service The patient was seen on 01/05/19. NOTE She is now POD7 from her surgery. She remains hemodynamically stable and has tolerated her dialysis well. Main issue at this point is the amount of her diarrhea, C. diff colitis, deconditioning as well as the occasional nausea. she threw up a small amount of bilious fluid last night. She reports no abdominal pain, chest pain or shortness of breath this morning. On exam she looks comfortable at the bedside. she is awake, very much alert and oriented now. Breath sounds are faily clear though respiratory efforts slightly shallow. Regular heart rate and rhythm Abdomen is soft, minimally distended. Her midline incision is clean with intact herson. Her CHARLOTTE drain is mostly serous now, no bile tinge. Mild tenderness at the upper abdomen. She has anasarca but looks better marifer the lower extremities. POD7 extended right colectomy en block melody gastrectomy RNY gastrojejunostomy, ileo-transverse colon anastomosis, feeding jejunostomy sepsis ESRD on dialysis C. difficile colitis She now has a rectal tube and nurse is reporting that she filled up her bag overnight. I feel this may impact us getting her out of bed and increasing her activity. I suspect the diarrhea is multifactorial, from C. diff, her tube feeds, as well as recently losing a good amount of her colon including the terminal ileum. We cant put her on lomotil d/t the c.diff. I will try some questran to see if this will slow down some. transfer to pcu There is a question by ID people on the levaquin as it is reported to predispose to cdiff infection. Her abscess has been drained, the source of it has bee removed and the drain just shows serous stuff. I will opt to stop any other antibiotics for now and just keep her on the vancomycin for the cdiff and monitor her. PT/OT DVT Prophylaxis\ VS,Fishbone, I+O VS, Fishbone, I+O Laboratory Tests 01/05/19 05:45 Red Blood Count 4.06, Mean Corpuscular Volume 83.5, Mean Corpuscular Hemoglobin 25.1 L, Mean Corpuscular Hemoglobin Concent 30.1 L, Red Cell Distribution Width 21.0 H, Calcium Level 7.7 L Vital Signs Date Time Temp Pulse Resp B/P (MAP) Pulse Ox O2 Delivery O2 Flow Rate FiO2 01/05/19 04:00 98.0 90 18 103/51 (68) 97 01/03/19 06:00 1.0 I&O- Last 24 Hours up to 6 AM 01/05/19 06:00 Intake Total 1390 ml Output Total 1725 ml Balance -335 ml STANISLAW CAMPOS MD Jan 05, 2019 10:12
[2019-01-05] MEDS: CHOLESTYRAMINE 4 GM PWD PKT PO SCH ×2 (11:16→20:29)
[2019-01-05] MEDS: METOCLOPRAMIDE HCL LIQUID 10 MG/10 ML UDC PEG SCH ×3 (13:44→23:17)
[2019-01-05] MEDS ORDERED: LevoFLOXacin IV 500 MG in IV 1 EA IV SCH (16:00)
[2019-01-05 16:16] VITALS: BP 129/61
[2019-01-05] MEDS ORDERED: NS 500 ML IV ONE (20:15)
[2019-01-05 20:25] VITALS: BP 131/63
[2019-01-05] MEDS: ONDANSETRON 4MG/2ML VIAL (J2405) IV PRN (20:28)
[2019-01-06] MEDS: KCL 20MEQ IN 0.45NS 1000ML 1,000 ML IV SCH ×2 (03:58→15:04)
[2019-01-06 04:03] VITALS: BP 133/67
[2019-01-06] MEDS: VANCOMYCIN ORAL SOL 250MG/5ML ORAL SYRINGE NG SCH ×3 (05:15→18:06)
[2019-01-06] MEDS: METOCLOPRAMIDE HCL LIQUID 10 MG/10 ML UDC PEG SCH ×3 (05:15→18:06)
[2019-01-06 05:34] LABS: HEMOGLOBIN 9.4 g/dl (12.0-15.5); MEAN CORPUSCULAR HEMOGLOBIN 25.3 pg (27.0-33.0); MEAN CORPUSCULAR HGB CONC 29.4 g/dl (32.0-36.5); MEAN CORPUSCULAR VOLUME 86.3 fl (80.0-96.0); PLATELET COUNT, AUTOMATED 320 10^3/uL (150-450); RED BLOOD COUNT 3.71 10^6/uL (4.00-5.40); WHITE BLOOD COUNT 12.3 10^3/uL (4.0-10.0)
[2019-01-06 05:59] LABS: CALCIUM LEVEL 7.6 MG/DL (8.8-10.2); CREATININE FOR GFR 1.95 MG/DL (0.55-1.30); GLOMERULAR FILTRATION RATE 26.6 (>39); POTASSIUM SERUM 3.6 MEQ/L (3.5-5.1)
[2019-01-06 06:06] VITALS: BP 136/67
[2019-01-06] MEDS: LACTOBACILLUS ACIDOPHILUS CAP (BACID) PO SCH (06:17)
[2019-01-06] MEDS: CHOLESTYRAMINE 4 GM PWD PKT PO SCH ×5 (06:17→21:06)
[2019-01-06] MEDS: ENOXAPARIN 30 MG/0.3 ML SYR (J1650) SC SCH (06:17)
[2019-01-06] MEDS: PANTOPRAZOLE 40MG INJ (PROTONIX) (C9113) IV SCH (06:21)
--- NOTE | 2019-01-06 11:55 | IPNPDOC ---
Subjective Date Seen The patient was seen on 01/06/19. Subjective Chief Complaint/HPI Pt examined at bedside. She reported no symptoms including nausea, vomiting, lightheadedness, dizziness, abdominal pain, leg pain. She reported no diarrhea however she still had about 1500ml outpt stool output from rectal tube yesterday. She reported she thinks the mylanta made her nauseous but no actual vomiting. General: Denies: Chills Constitutional: Denies: Chills, Fever Pulmonary: Denies: Dyspnea Cardiovascular: Denies: Chest Pain, Palpitations Gastrointestinal: Denies: Nausea, Vomiting, Abdominal Pain Objective Physical Examination General Exam: Positive: Alert, Cooperative, No Acute Distress Eye Exam: Negative: Sclera icteric ENT Exam: Positive: Atraumatic, Mucous membr. moist/pink Chest Exam: Positive: Normal air movement; Negative: Clear to auscultation, Rales, Rhonchi, Wheezing Heart Exam: Positive: Tachycardic, Regular Rhythm, Normal S1, Normal S2; Negative: Murmurs Abdomen Exam: Positive: Normal bowel sounds, Soft, Other (Soft, dressing in place, drains noted, GJ tube ); Negative: Tenderness Extremity Exam: Positive: Edema (mild in b/l lower extremity), Tenderness (in b/l calves), Other Psych Exam: Positive: Mental status NL, Anxiety, Memory Intact Assessment /Plan Assessment 1. Sepsis-resolved; possibly 2/2 intra-abdominal infection and perforation of the viscus; hypovolemia with low intravascular volume likely contributed - On IVF. BP stable - blood cx neg X2; peritoneal fluid gram stain no organism seen. No lactic acidosis noted -Abscess cx pos for Escherichia coli, Proteus, and Streptococcus agalactiae; s/p Ertapenem and Levofloxacin; Vanco switched to through NG tube as pt's GI panel showed C. diff -Cont with Albumin as required - S/p laparotomy and right colectomy with partial gastric resection 3. 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 - mylanta d/c due to reported adverse reaction as nausea 3. ESRD on HD (TTS) - Patient had missed hemodialysis on 12/30/2018 because of low blood pressure. - Pt received dialysis 01/01/19 inpt, and ICU 500 mL of fluid was removed. Pt receiving hemodialysis at bedside 01/03/19, 01/05, and 01/06 - Creatinine improving and stabilized - Nephrology on consultation 4. Normocytic anemia -Hg roughly stablized. may be 2/2 hemodilution vs blood loss vs anemia of CKD - s/p 1 unit PRBC transfused during dialysis; Blood product consent form on file - pt receives Arsenap with dialysis 5. C. diff colitis -diarrhea prior to hospital admission reported. Malignancy, colectomy, and bile suctioning may contribute to the diarrhea as well -GI panel PCR pos for C. diff. IV Vanco was switched to Vanco through feeding tube -rectal tube in place; rectal tube output >1000ml yesterday -Increase Bacid to 2 tab daily 5. DM2 -Blood glucose roughly stable -Cont to f/u glucose level 6. Hyopkalemia -On hemodialysis with 4K bath and nephrology recommended to K repletion needed. We appreciate nephrology team Dr. Street's input. -F/u Mg level tmrw -Pt also on IV 1/2NS with 20meq K 7. HTN - Patient with pressure appears to be lower limits of normal -cont with Carvedilol with holding parameters DISPO: Pt in med/surg. C. diff pending clinical improvement; rectal tube in place cont to monitor. Hemodynamically stable I saw and evaluated the patient. I agree with the findings and plan of care as documented in the above note Plan/VTE VTE Prophylaxis Ordered?: Yes VS, I&O, [facility] Vital Signs/I&O Vital Signs Date Time Temp Pulse Resp B/P (MAP) Pulse Ox O2 Delivery O2 Flow Rate FiO2 01/06/19 06:06 97.7 102 20 136/67 (90) 96 01/03/19 06:00 1.0 I&O- Last 24 Hours up to 6 AM 01/06/19 06:00 Intake Total 1700 ml Output Total 2840 ml Balance -1140 ml Laboratory Data 24H LABS Laboratory Tests 2 01/05/19 18:51: Bedside Glucose (Misc Panel) 123H 01/06/19 01:01: Bedside Glucose (Misc Panel) 150H 01/06/19 05:21: Nucleated Red Blood Cells % (auto) 0.0, Anion Gap 6L, Glomerular Filtration Rate 26.6L, Blood Urea Nitrogen 18, Creatinine 1.95H, Sodium Level 142, Potassium Level 3.6, Chloride Level 111H, Carbon Dioxide Level 25, Calcium Level 7.6L CBC/BMP Laboratory Tests 01/06/19 05:21 Red Blood Count 3.71 L, Mean Corpuscular Volume 86.3, Mean Corpuscular Hemoglobin 25.3 L, Mean Corpuscular Hemoglobin Concent 29.4 L, Red Cell Distribution Width 21.0 H, Calcium Level 7.6 L Microbiology Microbiology 01/02/19 Blood Culture - Preliminary, Resulted No Growth after 72 hours. All specime... 12/29/18 Blood Culture - Final, Complete NO GROWTH AFTER 5 DAYS 12/29/18 Blood Culture - Final, Complete NO GROWTH AFTER 5 DAYS 12/29/18 Gram Stain - Final, Complete 12/29/18 Body Fluid Culture - Final, Complete 12/29/18 Anaerobic Culture - Final, Complete 01/02/19 Gastrointestinal Tract Panel (PCR) - Final, Complete Clostridium Difficile A/B 12/29/18 Gram Stain - Final, Complete 12/29/18 Abscess Culture - Final, Complete Escherichia Coli Proteus Mirabilis Strep Agalactiae Group B 12/29/18 Anaerobic Culture - Final, Complete Bacteroides Fragilis Eubacterium CLAUDIA Gurrola DO Jan 06, 2019 11:55 BENTON ALTAMIRANO MD Jan 06, 2019 13:06
[2019-01-06 12:00] VITALS: BP 136/64
[2019-01-06] MEDS ORDERED: PERCOCET 5MG/325MG TAB PO PRN ×2 (12:45)
[2019-01-06] MEDS ORDERED: LIDOCAINE 1% SDV 5 ML VIAL SQ ONE ×2 (13:00→18:30)
--- NOTE | 2019-01-06 13:01 | IPN ---
DATE OF SERVICE: 01/05/2019 SUBJECTIVE: The patient was seen and examined at the bedside today morning. At the bedside in the intensive care unit (ICU), she is afebrile, hemodynamically stable. She was dialyzed yesterday; 500 mL of fluid was removed. She has tolerated the hemodialysis procedure well. Nasogastric (NG) tube was also removed yesterday. She is getting the tube feeds through the jejunostomy (J) tube. She is also on gentle intravenous (IV) fluid hydration. OBJECTIVE: Vital signs: Temperature is 98.5 degrees Fahrenheit, blood pressure is 133/63, pulse is 101, respiratory rate of 80, saturating 97% on room air. Intake and output: Stool output so far is 1000 mL. Demetris-Preston (J-P) drain output is about 620 mL. Weight in the bed scale is 65.2 kg. PHYSICAL EXAMINATION: General: The patient is awake, alert, oriented times three, laying in bed, in no apparent distress. Head and neck exam: Extraocular muscles intact. Pupils equally round and reactive to light. Mucous membranes are moist. Neck is supple. There is no jugular venous distention (JVD). Cardiovascular: S1, S2, regular rate. Only 1+ edema of the bilateral lower extremities. Respiratory: Chest is clear to auscultation bilaterally. Bilateral equal air entry. No rales or rhonchi. Abdomen: Soft. Midline surgical herson. J-tube in the epigastrium and J-P drain in the right lower quadrant. The patient has a rectal tube as well. Musculoskeletal: 1+ edema of the bilateral lower extremities. Central nervous system (INSTALLATION SPECIALIST): No focal deficit. Power is 5/5 in bilateral upper extremities. LAB REVIEW: CBC showed WBC 18.6, hemoglobin 10.2, platelets of 362. BMP showed sodium 141, potassium 3.5, chloride 108, bicarbonate 27, BUN 14, creatinine is 1.5, calcium 7.7, magnesium 1.7. CURRENT INPATIENT MEDICATIONS: The patient's medications were all reviewed by me. IV Levaquin has been stopped. The patient continues to be on IV fluid at 40 mL/h. ASSESSMENT/PLAN: 1. End-stage renal disease. The patient was dialyzed yesterday; 500 mL of fluid was removed. However, the patient is having a lot of diarrhea and more J-P drainage, so no further fluid removal will be done with next hemodialysis. 2. Hypokalemia. The patient is getting potassium in the IV fluids. Potassium level today is acceptable. 3. Sepsis secondary to Clostridium (C) difficile colitis and recent intra-abdominal infection, because of the C diff colitis and diarrhea, IV Levaquin has been stopped by the surgical service. She continues to be on oral vancomycin. 4. Protein calorie malnutrition. Continue current tube feeds with Nepro at 30 mL/h. 5. Anemia in end-stage renal disease. Hemoglobin level is optimal at 10.2. 6. Postop day #7 status post right colectomy, partial gastrectomy, gastrojejunostomy and feeding jejunostomy placement. The patient is tolerating the Nepro feeds. NG tube has been removed. She is having a lot of diarrhea, which is secondary to C diff. Management is per surgical service.
[2019-01-06 14:00] VITALS: BP 135/62
[2019-01-06 22:00] VITALS: BP 133/61
[2019-01-07] MEDS: METOCLOPRAMIDE HCL LIQUID 10 MG/10 ML UDC PEG SCH ×4 (00:18→17:01)
[2019-01-07] MEDS: VANCOMYCIN ORAL SOL 250MG/5ML ORAL SYRINGE NG SCH ×4 (00:18→17:01)
[2019-01-07 06:00] VITALS: BP 126/53
[2019-01-07 07:14] LABS: HEMATOCRIT 34.2 % (36.0-47.0); HEMOGLOBIN 9.6 g/dl (12.0-15.5); MEAN CORPUSCULAR HEMOGLOBIN 25.3 pg (27.0-33.0); MEAN CORPUSCULAR HGB CONC 28.1 g/dl (32.0-36.5); PLATELET COUNT, AUTOMATED 287 10^3/uL (150-450); WHITE BLOOD COUNT 11.3 10^3/uL (4.0-10.0)
[2019-01-07 07:17] LABS: CALCIUM LEVEL 7.9 MG/DL (8.8-10.2); CREATININE FOR GFR 1.55 MG/DL (0.55-1.30); GLOMERULAR FILTRATION RATE 34.6 (>39); POTASSIUM SERUM 3.7 MEQ/L (3.5-5.1)
--- NOTE | 2019-01-07 07:22 | IPN ---
DATE OF VISIT: 01/06/2019 Mrs. Lynn is seen this morning during hemodialysis. She is feeling better now and denies any complaints. She had colon resection and partial gastric resection due to adenocarcinoma. She is currently receiving tube feeding through a gastrostomy (G) tube and also receiving IV fluid and 75 mL/h. Patient denies any dyspnea or chest pain. She has a rectal tube in place. On physical exam, temperature 97.7 degrees Fahrenheit, heart rate 100 per minute and respiratory rate 20 per minute. Blood pressure 136/67 mmHg and oxygen saturation 96% on room air. Head is atraumatic. Neck is supple and jugular venous distention (JVD) is mildly elevated. There is no oral thrush or ulcers and mucous membranes are somewhat dry. Heart sounds are tachycardiac and lungs sound clear to auscultation. Abdomen is soft and surgical herson are intact with a clean incision sites. G-tube is in place and also a drain is in place in right lower abdomen. Extremities have no cyanosis or clubbing. Neurologically she is awake, alert and oriented. Today's labs show WBC count 12.3, hemoglobin 9.4 and hematocrit 32.0. Platelets 320. Sodium 142, potassium 3.6, CO2 25, BUN 18 and creatinine 1.95. Glucose 152 and calcium 7.6. PROBLEMS: 1. End-stage renal disease. Patient is being dialyzed and she is tolerating her dialysis treatment well. 2. Hypokalemia. Potassium level is still borderline and we are dialyzing her with 4.0 mEq potassium bath. She is receiving tube feeding at 30 mL/h, which is likely to help with her electrolytes. 3. Anemia. Her anemia is stable at this point and we will continue to monitor and also give her Aranesp once a week during dialysis. 4. Leukocytosis and fever. She is currently afebrile and remains on oral vancomycin 125 mg every 6 hours for Clostridium (C) difficile colitis. Her levofloxacin has been stopped. 5. Nutrition. The patient is receiving tube feeding at 30 mL/h. I am going to cut down her IV fluid to 40 mL/h due to some hypervolemia.
[2019-01-07] MEDS: LACTOBACILLUS ACIDOPHILUS CAP (BACID) PO SCH (08:34)
[2019-01-07] MEDS: PANTOPRAZOLE 40MG INJ (PROTONIX) (C9113) IV SCH (08:34)
[2019-01-07] MEDS: ENOXAPARIN 30 MG/0.3 ML SYR (J1650) SC SCH (08:34)
[2019-01-07] MEDS: CHOLESTYRAMINE 4 GM PWD PKT PO SCH ×4 (08:36→21:48)
[2019-01-07] MEDS: KCL 20MEQ IN 0.45NS 1000ML 1,000 ML IV SCH (13:14)
--- NOTE | 2019-01-07 13:54 | IPNPDOC ---
Date Seen The patient was seen on 01/07/19. Progress Note SUBJECTIVE: Patient reports that she is feeling better she tells me she only had a little bit of diarrhea that she is aware of tells me that she is developing somewhat of an appetite and that her herson are itchy. Otherwise she denies chest pressure shortness of breath fevers chills lightheadedness dizziness nausea or vomiting OBJECTIVE PHYSICAL EXAMINATION: VITAL SIGNS: Please see below. GENERAL: Very frail elderly female sitting up in bed awake alert oriented 3 conversant no acute distress HEENT: Cranial nerves II through XII appear grossly intact CARDIOVASCULAR: Is 1 S2 she is not tachycardic at the time of my exam. RESPIRATORY: Clear to auscultation bilaterally. ABDOMINAL: Incision is clean dry and intact herson in place, draining in place J-tube with ongoing tube feeds present. She has a rectal tube as well EXTREMITIES: No clubbing cyanosis or edema NEUROLOGICAL: Nonfocal PSYCHOLOGICAL: Appropriate LABORATORY DATA, IMAGING STUDIES, MICROBIOLOGY: Please see below. DVT prophylaxis ordered?: Dwight ASSESSMENT AND PLAN: This is a 78-year-old lady postop perforation of viscus Hospital course complicated by C. difficile. 1. Sepsis-resolved; possibly 2/2 intra-abdominal infection and perforation of the viscus; hemoglobin and crit stable at this time she has completed a course of antibiotics . Leukocytosis continues to down trend general surgical greatly appreciated. I will consider this date to be effective treatment for C. difficile I'm optimistic that her diarrhea will improve in the coming days if related to C. difficile, it certainly could be related to her recent intestinal resection and the tube feeds. We'll see if we are able to discontinue her rectal tube with the next 24-48 hours. Patient has been started on cholestyramine as well as Reglan. 2. 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 General surgery is also greatly appreciated her NG tube was removed she is on feeding tubes will defer to Gen. surgery when she would be able to tolerate a diet appears to be improving every day 3. ESRD on HD (TTS): Nephrology of greatly appreciated she is on her regular hemodialysis schedule 4. Normocytic anemia: Related to end-stage renal disease continue with [facility] nephrology greatly appreciated 5. C. diff colitis: As outlined above she's had recent antibiotic courses continues to have significant rectal tube output now that her antibiotics were discontinued otherwise we'll monitor closely to see if this reduces the point that he could be removed, continue with Bacid. She is continued on by mouth van comycin 6. DM2:Blood glucose stable 7. Hyopkalemia: Resolved with hemodialysis with 4K bath a 8. HTN : Controlled cont with Carvedilol with holding parameters DISPO: Pending clinical improvement in diarrhea and functional status, PTOT ordered VS, I&O, 24H, Fishbone Vital Signs/I&O Vital Signs Date Time Temp Pulse Resp B/P (MAP) Pulse Ox O2 Delivery O2 Flow Rate FiO2 01/07/19 06:00 97.7 96 18 126/53 (77) 95 01/03/19 06:00 1.0 I&O- Last 24 Hours up to 6 AM 01/07/19 06:00 Intake Total 840 ml Output Total 3347 ml Balance -2507 ml Laboratory Data 24H LABS Laboratory Tests 2 01/06/19 17:17: Bedside Glucose (Misc Panel) 134H 01/07/19 00:06: Bedside Glucose (Misc Panel) 141H 01/07/19 06:28: Bedside Glucose (Misc Panel) 136H 01/07/19 06:36: Nucleated Red Blood Cells % (auto) 0.0, Anion Gap 7L, Glomerular Filtration Rate 34.6L, Blood Urea Nitrogen 12, Creatinine 1.55H, Sodium Level 142, Potassium Level 3.7, Chloride Level 111H, Carbon Dioxide Level 24, Calcium Level 7.9L 01/07/19 11:54: Bedside Glucose (Misc Panel) 149H CBC/BMP Laboratory Tests 01/07/19 06:36 Red Blood Count 3.80 L, Mean Corpuscular Volume 90.0, Mean Corpuscular Hemoglobin 25.3 L, Mean Corpuscular Hemoglobin Concent 28.1 L, Red Cell Distribution Width 21.4 H, Calcium Level 7.9 L Microbiology Microbiology 01/02/19 Blood Culture - Preliminary, Resulted No Growth after 72 hours. All specime... 12/29/18 Blood Culture - Final, Complete NO GROWTH AFTER 5 DAYS 12/29/18 Blood Culture - Final, Complete NO GROWTH AFTER 5 DAYS 12/29/18 Gram Stain - Final, Complete 12/29/18 Body Fluid Culture - Final, Complete 12/29/18 Anaerobic Culture - Final, Complete 01/02/19 Gastrointestinal Tract Panel (PCR) - Final, Complete Clostridium Difficile A/B 12/29/18 Gram Stain - Final, Complete 12/29/18 Abscess Culture - Final, Complete Escherichia Coli Proteus Mirabilis Strep Agalactiae Group B 12/29/18 Anaerobic Culture - Final, Complete Bacteroides Fragilis Eubacterium BENTON Saravia MD Jan 07, 2019 13:54
[2019-01-07 14:00] VITALS: BP 117/86
--- NOTE | 2019-01-07 21:34 | IPN ---
DATE: 01/07/2019 The patient's white count did drop last night and overall still seems to have a significant amount of diarrheal stool with tube feeds in it. Otherwise she seems to be doing well. She is hungry at this time. She has had no fevers or chills. Unfortunately, when we look at her input and output, she has had 1500 mL of stool yesterday and still having ongoing drainage today. Will up her Lomotil and we will see how she does over the next 24 hours. Continue with her current medications as is and possibly will need to decrease her tube feeds or decrease the osmotic load if she is having ongoing diarrhea as well.
--- NOTE | 2019-01-07 21:57 | IPN ---
DATE: 01/07/2019 The patient is status post partial gastrectomy with Sedrick-en-Y anastomosis and has been tolerating some clear liquids <<0:16>> at that time. Her stool output is significant. The amount of stool recorded was quite and; but when I look at her rectal tube at this time, it is much less than it was previously. Overall, she is doing well and not having any other complaints at this time. She is feeling hungry, that is her whole issue. On her physical exam, abdomen is soft, nontender, nondistended, no guarding, no rebound. No peritoneal signs are appreciated. IMPRESSION AND PLAN: The patient is this status post partial gastrectomy, transverse colectomy and GI function seems to be working well. My recommendation at this time is to have her progress her diet as tolerated and will get her on nephrology diet/renal diet; and in addition, her stool output has drop, her white count is decreasing, thus I think that her C difficile infection has gotten well under control. Will continue with supportive care at this time.
[2019-01-07 22:00] VITALS: BP 136/67
[2019-01-08] MEDS: VANCOMYCIN ORAL SOL 250MG/5ML ORAL SYRINGE NG SCH ×4 (00:50→17:19)
[2019-01-08] MEDS: ACETAMINOPHEN TAB 650MG DOSE (2X325MG) PO PRN (00:50)
[2019-01-08] MEDS: METOCLOPRAMIDE HCL LIQUID 10 MG/10 ML UDC PEG SCH ×4 (00:50→17:19)
[2019-01-08 06:17] LABS: HEMATOCRIT 33.6 % (36.0-47.0); HEMOGLOBIN 10.1 g/dl (12.0-15.5); MEAN CORPUSCULAR HEMOGLOBIN 26.1 pg (27.0-33.0); MEAN CORPUSCULAR HGB CONC 30.1 g/dl (32.0-36.5); MEAN CORPUSCULAR VOLUME 86.8 fl (80.0-96.0); PLATELET COUNT, AUTOMATED 286 10^3/uL (150-450); RED BLOOD COUNT 3.87 10^6/uL (4.00-5.40); WHITE BLOOD COUNT 14.6 10^3/uL (4.0-10.0)
[2019-01-08 06:38] LABS: CALCIUM LEVEL 7.7 MG/DL (8.8-10.2); CREATININE FOR GFR 1.96 MG/DL (0.55-1.30); GLOMERULAR FILTRATION RATE 26.4 (>39); POTASSIUM SERUM 3.7 MEQ/L (3.5-5.1)
--- NOTE | 2019-01-08 09:05 | IPNPDOC ---
Subjective General Date/Time Seen The patient was seen on 01/08/19 at 09:04. 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 She looks to have made some headway over the weekend. She reports she is comfortable. She denies any abdominal discomfort. She has tried some solid foods. She reports early fullness but denies any severe bloating, nausea nor any further vomiting. She still has mostly liquid stools and she still has the rectal tube. The output from this is still quite watery but this has slowed down. She's been afebrile. Current Medications Current Medications Current Medications Medications (Trade) Dose Ordered Sig/Mg Route PRN Reason Start Time Stop Time Status Last Admin Dose Admin Acetaminophen (Tylenol Tab) 650 mg Q4HP PRN PO MILD PAIN or TEMP > 101 12/30/18 00:45 01/08/19 00:50 Al Hydrox/Mg Hydrox/Simethicone (Mylanta) 30 ml Q6HP PRN PO HEARTBURN 12/30/18 20:15 01/06/19 11:43 DC 01/04/19 21:50 Atorvastatin Calcium (Lipitor) 20 mg DAILY PO 12/30/18 09:00 12/30/18 13:29 DC Carvedilol (COReg) 6.25 mg BID PO 12/29/18 21:00 12/30/18 13:29 DC 12/30/18 02:06 Cholestyramine Resin (Questran) 2 gm BID@1000,2000 PO 01/05/19 10:00 01/06/19 10:37 DC 01/06/19 06:17 Cholestyramine Resin (Questran) 2 gm QID PO 01/06/19 13:00 01/07/19 21:48 Darbepoetin Mp (Aranesp (Dialysis Use)) 200 mcg HD IV 12/31/18 09:45 Dextrose/Sodium Chloride 1,000 ml @ 40 mls/hr Q24H IV 12/31/18 10:00 01/01/19 22:24 DC 01/01/19 05:00 Diatrizoate Meglum/ Diatrizoate Sod (Gastrografin) 10 ml Q30M PO 12/29/18 14:00 12/29/18 14:31 DC 12/29/18 14:33 Enoxaparin Sodium (Lovenox) 30 mg DAILY SC 12/30/18 09:00 01/07/19 08:34 Ertapenem 0.5 gm/ Sodium Chloride 50 ml @ 100 mls/hr Q24H IV 12/30/18 06:00 01/03/19 08:05 DC 01/03/19 04:57 Fentanyl Citrate (Sublimaze) 25 mcg Q5MP PRN IV MODERATE PAIN (PS 4-7) 12/30/18 01:00 12/30/18 01:59 DC Guaifenesin/ Dextromethorphan (Robitussin Dm) 10 ml Q6HP PRN PO sore throat 12/31/18 17:45 12/31/18 17:55 DC Haloperidol (Haldol) 0.5 mg Q6HP PRN IV AGITATION 01/01/19 14:00 01/05/19 10:05 DC 01/02/19 02:53 Home Med (Med Rec Complete!) ASDIRECTED XX 12/29/18 14:00 12/29/18 16:01 DC Ketorolac Tromethamine (ToRADol) 15 mg Q6HP PRN IV MILD/MODERATE PAIN (PS 1-7) 12/30/18 00:45 01/04/19 00:44 DC 01/01/19 11:02 Lactated Ringer's 1,000 ml @ 100 mls/hr Q10H IV 12/30/18 00:31 12/30/18 13:59 DC 12/30/18 01:40 Lactobacillus Acidophilus (Bacid) 1 ea DAILY PO 01/03/19 09:00 01/06/19 12:16 DC 01/06/19 06:17 Lactobacillus Acidophilus (Bacid) 2 ea DAILY PO 01/07/19 09:00 01/07/19 08:34 Levofloxacin 250 mg/IV Miscellaneous Supplies 50 ml @ 50 mls/hr Q24H IV 01/03/19 08:15 UNV Levofloxacin 500 mg/IV Miscellaneous Supplies 100 ml @ 100 mls/hr Q48H IV 01/05/19 16:00 01/05/19 16:00 DC Lidocaine/ Prilocaine (Emla) 1 dose ASDIRECTED TOP 01/01/19 11:30 01/02/19 06:36 Lorazepam (Ativan) 0.5 mg Q6HP PRN IV ANXIETY 12/30/18 11:15 01/01/19 11:44 DC 01/01/19 11:02 Lorazepam (Ativan) 1 mg Q4HP PRN IV ANXIETY 01/01/19 15:00 01/01/19 22:24 DC 01/01/19 19:09 Metoclopramide HCl (REGLAN INJection) 10 mg Q6HP PRN IV NAUSEA OR VOMITING 12/30/18 01:00 12/30/18 01:59 DC Metoclopramide HCl (Reglan Liquid) 10 mg Q6H PEG 01/05/19 12:00 01/08/19 05:39 Miscellaneous (Unresolved Clarification Entry) SEE LABEL COMMENTS DAILY XX 01/03/19 09:00 01/03/19 14:05 DC Miscellaneous (Unresolved Clarification Entry) SEE LABEL COMMENTS DAILY XX 01/05/19 09:00 01/05/19 10:05 DC Miscellaneous (Unresolved Clarification Entry) SEE LABEL COMMENTS DAILY XX 01/06/19 09:00 01/06/19 12:31 DC 01/06/19 12:13 Morphine Sulfate (Morphine Sulfate Inj) 4 mg Q2HP PRN IV SEVERE PAIN (PS 8-10) 12/30/18 00:45 01/01/19 13:19 DC 12/31/18 20:20 Non-Formulary Medication ( See Comment Field Below ) CHECK TO SEE IF THE PATIENT... DAILY@1600 XX 12/30/18 16:00 12/30/18 16:00 DC Non-Formulary Medication ( See Comment Field Below ) CHECK TO SEE IF THE PATIENT... DAILY@1600 XX 01/01/19 16:00 01/02/19 10:37 DC Non-Formulary Medication ( See Comment Field Below ) [facility] ASD[facility] XX 12/30/18 14:15 12/31/18 09:38 DC Ondansetron HCl (ZOFRAN INJection) 4 mg Q4HP PRN IV NAUSEA OR VOMITING 12/30/18 01:00 12/30/18 01:59 DC Ondansetron HCl (ZOFRAN INJection) 4 mg Q4HP PRN IV NAUSEA OR VOMITING 01/03/19 20:15 01/05/19 20:28 Ondansetron HCl (ZOFRAN INJection) 4 mg Q6HP PRN IV NAUSEA OR VOMITING 12/30/18 00:45 01/01/19 13:59 DC 12/31/18 07:25 Oxycodone/ Acetaminophen (Percocet 5mg/ 325mg Tablet) 1 tab ASDIRECTED PRN PO MILD/MODERATE PAIN (PS 1-7) 12/30/18 01:00 12/30/18 01:59 DC Oxycodone/ Acetaminophen (Percocet 5mg/ 325mg Tablet) 1 tab Q4HP PRN PO MILD/MODERATE PAIN (PS 1-7) 12/31/18 10:00 01/06/19 11:41 DC Oxycodone/ Acetaminophen (Percocet 5mg/ 325mg Tablet) 1 tab Q4HP PRN PO MILD/MODERATE PAIN (PS 1-7) 01/06/19 12:45 Oxycodone/ Acetaminophen (Percocet 5mg/ 325mg Tablet) 2 tab Q4HP PRN PO SEVERE PAIN (PS 8-10) 12/31/18 10:00 01/06/19 11:41 DC Oxycodone/ Acetaminophen (Percocet 5mg/ 325mg Tablet) 2 tab Q4HP PRN PO SEVERE PAIN (PS 8-10) 01/06/19 12:45 Pantoprazole Sodium (Protonix) 40 mg DAILY IV 12/30/18 09:00 01/07/19 08:34 Phenol (Chloraseptic Chauvin) 5 spray Q2HP PRN MT SORE THROAT 12/31/18 18:00 01/05/19 10:05 DC 01/03/19 00:39 Phenyleph/Shark Oil/Min Oil/Petrol (Preparation H Ointment) apply to hemorroids QIDP PRN SD ITCHING 01/05/19 09:30 Potassium Chloride/Sodium Chloride 1,000 ml @ 40 mls/hr Q24H IV 01/03/19 12:00 01/07/19 13:14 Sodium Chloride 1,000 ml @ 75 mls/hr [id number] IV 12/30/18 01:00 12/30/18 01:59 DC Sodium Chloride 1,000 ml @ 100 mls/hr Q10H IV 12/30/18 14:45 UNV Sodium Chloride 1,000 ml @ 125 mls/hr Q8H IV 12/30/18 14:00 12/31/18 08:23 DC 12/31/18 07:25 Vancomycin HCl (First-Vancomycin 50(Firvanq)- 250mg/5ml) 125 mg Q6H NG 01/03/19 00:00 01/08/19 05:39 Vancomycin HCl 1000 mg/IV Miscellaneous Supplies 1 each/ Dextrose 270 ml @ 270 mls/hr HD IV 12/30/18 11:30 12/30/18 14:00 DC Vancomycin HCl 1000 mg/IV Miscellaneous Supplies 1 each/ Dextrose 270 ml @ 270 mls/hr HD IV 01/01/19 09:45 01/02/19 10:37 DC Allergies Coded Allergies: Penicillins (Verified Allergy, Severe, throat swelling , hives, 12/12/18) morphine (Verified Adverse Reaction, Mild, Confusion, 01/01/19) Objective Physical Examination Examination GENERAL APPEARANCE: Awake, alert, oriented, very comfortable in appearance. SKIN: Warm and moist. HEENT: Mild pale palpebral conjunctiva.. NECK: Supple, no thyromegaly. No obvious jugular venous distention. LUNGS: Clear to auscultation bilaterally. No wheezing appreciated. HEART: No chest wall abnormalities. Regular rate and rhythm with no murmurs appreciated. ABDOMEN: Abdomen is nondistended, soft, midline incision with herson intact, no erythema, no drainage. CHARLOTTE drained with mostly serous fluid feeding jejunostomy and the underside. EXTREMITIES: Mild for extremity anasarca that appears improved. Vital Signs Vital Signs Date Time Temp Pulse Resp B/P (MAP) Pulse Ox O2 Delivery O2 Flow Rate FiO2 01/07/19 22:00 97.5 96 18 136/67 (90) 96 01/03/19 06:00 1.0 I&Os I&O- Last 24 Hours up to 6 AM 01/08/19 06:00 Intake Total 970 ml Output Total 355 ml Balance 615 ml Laboratory Data Labs 24H Laboratory Tests 2 01/07/19 11:54: Bedside Glucose (Misc Panel) 149H 01/07/19 17:37: Bedside Glucose (Misc Panel) 158H 01/08/19 00:50: Bedside Glucose (Misc Panel) 135H 01/08/19 06:03: Nucleated Red Blood Cells % (auto) 0.0, Anion Gap 8, Glomerular Filtration Rate 26.4L, Blood Urea Nitrogen 17, Creatinine 1.96H, Sodium Level 140, Potassium Level 3.7, Chloride Level 111H, Carbon Dioxide Level 21, Calcium Level 7.7L CBC/BMP Laboratory Tests 01/08/19 06:03 Red Blood Count 3.87 L, Mean Corpuscular Volume 86.8, Mean Corpuscular Hemoglobin 26.1 L, Mean Corpuscular Hemoglobin Concent 30.1 L, Red Cell Distribution Width 21.4 H, Calcium Level 7.7 L Microbiology Microbiology 01/02/19 Blood Culture - Final, Complete NO GROWTH AFTER 5 DAYS 12/29/18 Blood Culture - Final, Complete NO GROWTH AFTER 5 DAYS 12/29/18 Blood Culture - Final, Complete NO GROWTH AFTER 5 DAYS 12/29/18 Gram Stain - Final, Complete 12/29/18 Body Fluid Culture - Final, Complete 12/29/18 Anaerobic Culture - Final, Complete 01/02/19 Gastrointestinal Tract Panel (PCR) - Final, Complete Clostridium Difficile A/B 12/29/18 Gram Stain - Final, Complete 12/29/18 Abscess Culture - Final, Complete Escherichia Coli Proteus Mirabilis Strep Agalactiae Group B 12/29/18 Anaerobic Culture - Final, Complete Bacteroides Fragilis Eubacterium Lentum Impression POD10 extended right colectomy en block melody gastrectomy RNY gastrojejunostomy, ileo-transverse colon anastomosis, feeding jejunostomy sepsis ESRD on dialysis C. difficile colitis Clinically improved over the weekend. Decreased diarrhea. We are trying to attempt oral feeding and see how she does. If she does okay, would probably got to just bolus fever for supplementation for the meantime go down to 20 mL's and our on the tube feedings. I'll add some Metamucil to congealed the stool output. I will convert the Protonix to by mouth. Maybe we can stop the IV fluids and supplement her potassium orally. Then we can remove the central line. She does have some mild elevation of her WBC today. Clinically she continues to look better. She still putting out a lot from the Demetris-Preston drain which is serous and mostly aching from third spacing. I think we can discontinue this at this point. The main issue at this point is trying to decrease her stool output and increase her level of activity tolerance. PT/OT DVT Prophylaxis\ Plan / VTE VTE Prophylaxis Ordered?: Yes STANISLAW CAMPOS MD Jan 08, 2019 09:05
[2019-01-08] MEDS: LACTOBACILLUS ACIDOPHILUS CAP (BACID) PO SCH (09:09)
[2019-01-08] MEDS: CHOLESTYRAMINE 4 GM PWD PKT PO SCH ×4 (09:09→20:14)
[2019-01-08] MEDS: PANTOPRAZOLE 40MG INJ (PROTONIX) (C9113) IV SCH (09:10)
[2019-01-08] MEDS: ENOXAPARIN 30 MG/0.3 ML SYR (J1650) SC SCH (09:10)
--- NOTE | 2019-01-08 12:33 | IPNPDOC ---
Text Note Date of Service The patient was seen on 01/08/19. NOTE HPI: Ms. Lynn was seen at bedside today and reported no new changes to her condition. She denies any current nausea, vomiting, abdominal pain. She states she no longer eats as much as she used to prior to her surgeries. She still has her rectal tube in place and denies any current discomfort at the insertion site. Per nursing, patient had large volume output through her rectal tube. ROS: Constitutional: Negative for fever, chills, weight loss Pulmonary: Negative for SOB, cough Cardiovascular: Negative for chest pain, palpitations. Abdomen: Eats less than she used to or will become nauseous. Denies abdominal pain. MSK: Denies new onset muscle weakness Neurological: Denies paresthesia or muscle weakness Most Current Vitals: See below Physical exam: Pt is a pleasant, thin female who is cooperative to exam. Pt was using pillows inbetween her legs and behind her back for support and asked me to remove them to change her position. Pulmonary: Clear to auscultation B/L Cardiovascular: Regular rhythm, no murmurs, knocks, rubs noted GI: Normal bowel sounds in all 4 quadrants. Demetris-Preston drain, and J tube in place with no drainage or inflammation noted. Extremities: B/L non-pitting edema noted in her LE. No pain on palpation or asymmetrical calves noted. Psych: Well mannered and cooperative to exam. Alert and aware X3 Assessment and Plan: #Leukocytosis: WBC count increased from 11.3 to 14.6 overnight. Due to patients history of viscus perforation with subsequent C. Diff infection and sepsis will need to monitor closely for signs of growing infection. Patient is already receiving vancomycin 125 mg and had previously received both Ertapenem and Levofloxacin as well. #Transverse Colon malignancy with invasion into lesser curvature of stomach; s/p emergent laparotomy with right colectomy, partial gastrectomy and J tube placement: Pt continues to have large volume output through her rectal tube. Per surgery recommendation will decrease tube feedings and monitor for stool thickening with potential removal of her rectal tube following improvement in stool consistency. Pt is beginning to eat solid foods already and admits to early satiety but no N/V. PT consult tomorrow morning to evaluate patient for ambulatory capacity. Continue with Cholestyramine, lactobacillus acidophilus, and metamucil. #ESRD: Continue hemodialysis on regular schedule (Tuesdays, , and Saturdays). Pt states her most current dialysis treatment reduced the edema in her legs. Both legs were noted to have non-pitting edema currently. Na and K have been stable and within normal ranges since 01/05 with only a slight hypokalemia of 3.3 on 01/04/2019. #Normocytic anemia: Pts Hb has stabilized in the 9-10 range. Continue to monitor and replace RBCs as needed during dialysis. Patient received 1 unit of pRBCs and Arsenap during dialysis. #C. Diff colitis: Continue vancomycin 125 mg Q 6H through her NG tube. #DM type 2: Blood glucose stable around 150 without medications. Continue to monitor QD. #DVT prophylaxis: Continue with enoxaparin sodium 30 mg QD Disposition: Discharge pending stabilization of WBC count, food intake and defecation, and continued stabilization of Hb. I saw and evaluated the patient. I agree with the findings and plan of care as documented in the above note VS,Russ, I+O VS, Russ, I+O Laboratory Tests 01/08/19 06:03 Red Blood Count 3.87 L, Mean Corpuscular Volume 86.8, Mean Corpuscular Hemoglobin 26.1 L, Mean Corpuscular Hemoglobin Concent 30.1 L, Red Cell Distribution Width 21.4 H, Calcium Level 7.7 L Vital Signs Date Time Temp Pulse Resp B/P (MAP) Pulse Ox O2 Delivery O2 Flow Rate FiO2 01/07/19 22:00 97.5 96 18 136/67 (90) 96 01/03/19 06:00 1.0 I&O- Last 24 Hours up to 6 AM 01/08/19 06:00 Intake Total 970 ml Output Total 355 ml Balance 615 ml JUSTIN ESPINOZA OMS-3 Jan 08, 2019 12:33 BENTON ALTAMIRANO MD Jan 16, 2019 14:28
[2019-01-08 14:00] VITALS: BP 136/62
--- NOTE | 2019-01-08 18:54 | IPN ---
DATE: 01/07/2019 Mrs. Lynn is seen this morning on her bedside. She is feeling well and denies any fever, chills, abdominal pain, dyspnea or chest pain. She does have loose stools and still has a rectal tube in place. She is being treated for Clostridium (C) difficile colitis. She continues to receive tube feeding through her gastrostomy (G) tube but has also started clear liquids by mouth. She was dialyzed yesterday and she tolerated her dialysis treatment well. PHYSICAL EXAMINATION: Temperature 97.7 degrees Fahrenheit, heart rate 96 per minute and respiratory rate 18 per minute. Blood pressure 126/54 mmHg and oxygen saturation 95% on room air. Head is atraumatic. Neck is supple and without jugular venous distention (JVD) or thyroid enlargement. Heart sounds are somewhat tachycardiac. Lungs sound clear to auscultation. Abdomen is soft and surgical incision is clean with herson intact. She had a Demetris-Preston (CHARLOTTE) drain in right lower quadrant and a G-tube in place. She is currently receiving tube feeding. Extremities have no cyanosis or clubbing. Lower extremity edema is only mild. Neurologically she is awake, alert and oriented times three. Today's labs show WBC count 11.3, hemoglobin 9.6 and hematocrit 34.2. Platelets 287. Sodium 142, potassium 3.7, CO2 24, BUN 12 and creatinine 1.55. Glucose 146 and calcium 7.9. PROBLEMS: 1. End-stage renal disease. Patient was dialyzed yesterday and her next dialysis will be scheduled for Tuesday. Her electrolytes are within normal range and volume status is reasonably well-compensated. 2. Clostridium (C) difficile colitis. Patient continues to have loose stools. She remains on oral vancomycin. In addition, she is also receiving cholestyramine for diarrhea. 3. Anemia. Anemia is stable at present and she will continue to receive Aranesp once a week with dialysis. 4. Nutrition. Patient is currently receiving tube feeding at 30 mL per hour. She is also receiving intravenous (IV) fluid at 40 mL per hour. She did have some leg edema due to which her IV fluid has been cut down. We will continue it in view of her diarrhea. Surgery will determine about oral diet.
[2019-01-08 22:00] VITALS: BP 129/59
[2019-01-09] MEDS: VANCOMYCIN ORAL SOL 250MG/5ML ORAL SYRINGE NG SCH ×3 (00:14→13:45)
[2019-01-09] MEDS: METOCLOPRAMIDE HCL LIQUID 10 MG/10 ML UDC PEG SCH ×3 (00:14→13:46)
[2019-01-09] MEDS: ENOXAPARIN 30 MG/0.3 ML SYR (J1650) SC SCH (05:26)
[2019-01-09] MEDS: LACTOBACILLUS ACIDOPHILUS CAP (BACID) PO SCH (05:27)
[2019-01-09 06:00] VITALS: BP 143/68
[2019-01-09 06:56] LABS: HEMATOCRIT 35.4 % (36.0-47.0); HEMOGLOBIN 10.7 g/dl (12.0-15.5); MEAN CORPUSCULAR HEMOGLOBIN 25.6 pg (27.0-33.0); MEAN CORPUSCULAR HGB CONC 30.2 g/dl (32.0-36.5); MEAN CORPUSCULAR VOLUME 84.7 fl (80.0-96.0); PLATELET COUNT, AUTOMATED 334 10^3/uL (150-450); RED BLOOD COUNT 4.18 10^6/uL (4.00-5.40); WHITE BLOOD COUNT 15.3 10^3/uL (4.0-10.0)
[2019-01-09 07:26] LABS: CALCIUM LEVEL 7.8 MG/DL (8.8-10.2); CREATININE FOR GFR 1.97 MG/DL (0.55-1.30); GLOMERULAR FILTRATION RATE 26.2 (>39); POTASSIUM SERUM 3.7 MEQ/L (3.5-5.1)
[2019-01-09] MEDS: CHOLESTYRAMINE 4 GM PWD PKT PO SCH ×4 (09:00→21:51)
[2019-01-09] MEDS: KCL 20MEQ IN 0.45NS 1000ML 1,000 ML IV SCH (09:00)
[2019-01-09] MEDS: METAMUCIL (PSYLLIUM) PACKET PO SCH (09:00)
--- NOTE | 2019-01-09 09:09 | IPN ---
DATE OF VISIT: 01/08/2019 Ms. Lynn is seen this afternoon on her bedside. She is feeling better and has started to eat solid food by mouth. She is also receiving her G tube feeding at present. She continues to have loose stools and still has a rectal tube in place. She denies any nausea, vomiting, dyspnea, chest pain, fever or chills. On physical examination, temperature 97.5 degrees Fahrenheit, heart rate 90 per minute and respiratory rate 18 per minute. Blood pressure 136/62 mmHg and oxygen saturation 96% on room air. Her head is atraumatic. Neck is supple and jugular venous distention (JVD) is not abnormally elevated. Heart sounds are regular and somewhat tachycardiac. Lungs: Sound clear to auscultation. Abdomen: Soft. G-tube is in place. Surgical herson are intact. Extremities have no cyanosis or clubbing. Today's labs show WBC count 14.6, hemoglobin 10.1 and hematocrit 33.6. Platelets 286. Sodium 140, potassium 3.7, CO2 of 21, BUN 17 and creatinine 1.96. PROBLEMS: 1. End-stage renal disease. The patient is dialyzed on Tuesday, and Tuesday schedule. She was dialyzed Tuesday and will be scheduled for next dialysis tomorrow. At present, there is no emergent indication for dialysis today. 2. Clostridium difficile colitis with diarrhea. She continues to have liquid stool via her rectal tube. She remains on vancomycin by mouth. 3. Nutritional. She is now receiving G-tube feeding and in addition has also started to take some by mouth. She has tolerated it well. 4. Anemia. At present, her anemia is stable and does not need any intervention.
--- NOTE | 2019-01-09 12:34 | IPNPDOC ---
Text Note Date of Service The patient was seen on 01/09/19. NOTE Ms. Lynn was seen at bedside today . She denies any current nausea, vomiting, abdominal pain. He states that her diarrhea is also improving and she feels more hungry. Most Current Vitals: See below Physical exam: Pt is a pleasant, thin female who is cooperative to exam. Pt was using pillows inbetween her legs and behind her back for support and asked me to remove them to change her position. Pulmonary: Clear to auscultation B/L Cardiovascular: Regular rhythm, no murmurs, knocks, rubs noted GI: Normal bowel sounds in all 4 quadrants. Demetris-Preston drain, and J tube in place with no drainage or inflammation noted. Extremities: B/L non-pitting edema noted in her LE. No pain on palpation or asymmetrical calves noted. Neuro: Grossly intact Extremities. 1+ pedal edema Psych: Well mannered and cooperative to exam. 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 Patient is s/p emergent laparotomy with right colectomy, partial gastrectomy and J tube placement. Patient has been tolerating the diet. We will escalate as per response Continue with Cholestyramine, lactobacillus acidophilus, and metamucil. 2. ESRD: Continue hemodialysis on regular schedule (Tuesdays, , and Saturdays). Potassium lowering drugs, epo, vitamin D as per nephrology 3. C. Diff colitis: Continue vancomycin 125 mg Q 6H through her NG tube. 4. DM type 2: Blood glucose stable around 150 without medications. Continue to monitor QD. DVT prophylaxis: Continue with enoxaparin sodium 30 mg QD Rectal tube will probably be dced soon Disposition: Unknown at this time VS,Nancie, I+O VS, Fishbone, I+O Laboratory Tests 01/09/19 06:38 Red Blood Count 4.18, Mean Corpuscular Volume 84.7, Mean Corpuscular Hemoglobin 25.6 L, Mean Corpuscular Hemoglobin Concent 30.2 L, Red Cell Distribution Width 22.2 H, Calcium Level 7.8 L Vital Signs Date Time Temp Pulse Resp B/P (MAP) Pulse Ox O2 Delivery O2 Flow Rate FiO2 01/09/19 06:00 98.4 106 20 143/68 (93) 97 01/03/19 06:00 1.0 I&O- Last 24 Hours up to 6 AM0 01/09/19 06:00 Intake Total 1580 ml Output Total 2390 ml Balance -810 ml CHIP JOINER MD Jan 09, 2019 12:34
[2019-01-09] MEDS: PANTOPRAZOLE 20 MG TAB PO SCH (13:46)
[2019-01-09] MEDS ORDERED: METOCLOPRAMIDE HCL LIQUID 10 MG/10 ML UDC PO SCH (18:00)
--- NOTE | 2019-01-09 18:35 | IPN ---
DATE: 01/09/2019 Mrs. Lynn is seen this morning during hemodialysis. She is in good spirits today and reports that she is tolerating her diet very well. She is anticipating that her drain and the gastrostomy (G) tube will be removed today. She is also hoping that her rectal tube will be removed. She continues to have some loose stools but seems to be much improved. She remains on oral vancomycin for Clostridium (C) difficile colitis. PHYSICAL EXAMINATION: Temperature 98.4 degrees Fahrenheit, heart rate 106 per minute and respiratory rate 20 per minute. Blood pressure 143/68 mmHg and oxygen saturation 97% on room air. Head is atraumatic. Neck is supple and without jugular venous distention (JVD) or thyroid enlargement. Heart sounds are regular and tachycardiac. Lungs sound clear to auscultation. Abdomen is soft and bowel sounds are present. Gastrostomy (C) tube is still in place. Surgical incision site is clean with herson intact. Extremities have no cyanosis or clubbing. Neurologically, she is awake, alert and oriented times three. LABORATORY DATA: Today's laboratories show WBC count 15.3, hemoglobin 10.7 and hematocrit 35.4. Platelets 334. Sodium 140, potassium 3.7, CO2 18, BUN 17 and creatinine 1.97. Glucose 118 and calcium 7.8. PROBLEMS: 1. End-stage renal disease. The patient is being dialyzed today and she is tolerating her dialysis treatment very well. We are removing a minimal amount of fluid today due to ongoing diarrhea and risk of hypotension. 2. Protein calorie malnutrition. She has been receiving gastrostomy (G) tube feeds. However, she was also getting diarrhea which is probably contributing to her malnutrition. Her diarrhea seems to be improving now. G-tube feeding has also been stopped and her oral intake is improving. We hope that over the next few weeks her nutrition will improve. 3. Anemia. At this point, anemia is stable and does not need any intervention other than once a week Aranesp which she receives during dialysis and monitoring of her complete blood count (CBC).
[2019-01-09] MEDS: VANCOMYCIN ORAL SOL 250MG/5ML ORAL SYRINGE PO SCH (18:46)
[2019-01-09 22:00] VITALS: BP 134/59
[2019-01-10] MEDS: VANCOMYCIN ORAL SOL 250MG/5ML ORAL SYRINGE PO SCH ×4 (00:14→17:54)
[2019-01-10 06:00] VITALS: BP 140/64
[2019-01-10] MEDS: KCL 20MEQ IN 0.45NS 1000ML 1,000 ML IV SCH (06:57)
[2019-01-10] MEDS: LACTOBACILLUS ACIDOPHILUS CAP (BACID) PO SCH (08:12)
[2019-01-10] MEDS: PANTOPRAZOLE 20 MG TAB PO SCH (08:12)
[2019-01-10] MEDS: METAMUCIL (PSYLLIUM) PACKET PO SCH (08:13)
[2019-01-10] MEDS: CHOLESTYRAMINE 4 GM PWD PKT PO SCH ×4 (08:13→21:42)
[2019-01-10] MEDS: ENOXAPARIN 30 MG/0.3 ML SYR (J1650) SC SCH (08:13)
[2019-01-10 09:34] LABS: HEMATOCRIT 36.8 % (36.0-47.0); HEMOGLOBIN 11.1 g/dl (12.0-15.5); MEAN CORPUSCULAR HEMOGLOBIN 26.1 pg (27.0-33.0); MEAN CORPUSCULAR HGB CONC 30.2 g/dl (32.0-36.5); MEAN CORPUSCULAR VOLUME 86.6 fl (80.0-96.0); PLATELET COUNT, AUTOMATED 320 10^3/uL (150-450); RED BLOOD COUNT 4.25 10^6/uL (4.00-5.40); WHITE BLOOD COUNT 15.7 10^3/uL (4.0-10.0)
--- NOTE | 2019-01-10 11:34 | IPNPDOC ---
Text Note Date of Service The patient was seen on 01/10/19. NOTE Ms. Lynn was seen at bedside today . She denies any current nausea, vomiting, abdominal pain. He states that her diarrhea is also improving . Physical exam: Pt is a pleasant, thin female who is cooperative to exam. AAO 3 Pulmonary: Clear to auscultation B/L, no crackles Cardiovascular: Regular rhythm, no murmurs, knocks, rubs noted GI: Normal bowel sounds in all 4 quadrants. Demetris-Preston drain, and J tube in place with no drainage or inflammation noted. Rectal tube in place Extremities: B/L non-pitting edema noted in her LE. No pain on palpation or asymmetrical calves noted. Neuro: Grossly intact Extremities. 1+ pedal edema Psych: Well mannered and cooperative to exam. 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 Patient is s/p emergent laparotomy with right colectomy, partial gastrectomy and J tube placement. Still having > 100 c out put in 24 hours. Patient has been tolerating the diet. We will escalate as per response. Continue with Cholestyramine, lactobacillus acidophilus, and metamucil. 2. ESRD: Continue hemodialysis on regular schedule (Tuesdays, , and Saturdays). Potassium lowering drugs, epo, vitamin D as per nephrology 3. C. Diff colitis: Continue vancomycin 125 mg Q 6H . 4. DM type 2: Continue sliding scale insulin and adjust insulin according to 24-hour requirement DVT prophylaxis: Continue with enoxaparin sodium 30 mg QD Rectal tube will probably be dced soon Disposition: Unknown at this time VS,Russ, I+O VS, Russ, I+O Laboratory Tests 01/10/19 09:17 Red Blood Count 4.25, Mean Corpuscular Volume 86.6, Mean Corpuscular Hemoglobin 26.1 L, Mean Corpuscular Hemoglobin Concent 30.2 L, Red Cell Distribution Width 23.0 H Vital Signs Date Time Temp Pulse Resp B/P (MAP) Pulse Ox O2 Delivery O2 Flow Rate FiO2 01/10/19 06:00 98.8 98 18 140/64 (89) 98 I&O- Last 24 Hours up to 6 AM 01/10/19 06:00 Intake Total 720 ml Output Total 990 ml Balance -270 ml KICHLOO,CHIP A. MD Jan 10, 2019 11:34
[2019-01-10 12:44] LABS: CALCIUM LEVEL 7.8 MG/DL (8.8-10.2); CREATININE FOR GFR 1.47 MG/DL (0.55-1.30); GLOMERULAR FILTRATION RATE 36.8 (>39)
[2019-01-10 14:00] VITALS: BP 131/55
--- NOTE | 2019-01-10 17:52 | IPN ---
DATE: 01/10/2019 Mrs. Lynn is seen this morning on her bedside. She is feeling about the same. She still has a rectal tube due to Clostridium (C) difficile colitis. She denies any nausea or vomiting and is tolerating her diet. She has no dyspnea or chest pain. PHYSICAL EXAMINATION: Temperature 98.8 degrees Fahrenheit, heart rate 98 per minute, and respiratory rate 18 per minute. Blood pressure 140/64 mm of mercury and oxygen saturation 98% on room air. Head is atraumatic. Neck is supple and without jugular venous distention (JVD) or thyroid enlargement. Heart sounds are regular and somewhat tachycardiac. Lungs clear to auscultation. Abdomen soft and nontender. Demetris-Preston (CHAR[place]OTTE) drain has been removed, and G tube is still in place. Left arm arteriovenous (AV) fistula is patent. Neurologically, she is awake and at her baseline mentation. Today's labs show WBC count 15.7, hemoglobin 11.1, hematocrit 36.8, platelets 320. Sodium was 140 yesterday and potassium was 3.7. She did not have any chemistry done today. PROBLEMS: 1. End-stage renal disease. The patient was dialyzed yesterday, and next dialysis will be scheduled for tomorrow. Her volume status remains well compensated, and there is no emergent need for dialysis today. 2. Anemia. Her anemia is stable and does not need any intervention. 3. Protein calorie malnutrition. The patient has poor nutrition for last several days since she had her colon resection and partial gastric resection. She has now started to eat but still has diarrhea due to C. difficile colitis. Once her diarrhea improves, then hopefully her nutrition will improve. 3. C. difficile colitis. The patient remains on oral vancomycin and seems to have decreased diarrhea stool now. Her metoclopramide has been stopped. She is still on Questran 2 grams four times a day. 4. Generalized weakness and deconditioning. The patient is still very weak and not getting out of bed. She is likely to require rehabilitation once her medical conditions get optimized.
[2019-01-10 21:40] VITALS: BP 150/68
[2019-01-11] MEDS ORDERED: SODIUM CHLORIDE 0.9% INJ 10 ML SYR IV PRN (00:30)
[2019-01-11] MEDS: VANCOMYCIN ORAL SOL 250MG/5ML ORAL SYRINGE PO SCH ×4 (00:39→18:03)
[2019-01-11] MEDS: LACTOBACILLUS ACIDOPHILUS CAP (BACID) PO SCH (05:47)
[2019-01-11] MEDS: METAMUCIL (PSYLLIUM) PACKET PO SCH (05:47)
[2019-01-11] MEDS: CHOLESTYRAMINE 4 GM PWD PKT PO SCH ×4 (05:47→21:19)
[2019-01-11] MEDS: SODIUM CHLORIDE 0.9% INJ 10 ML SYR IV SCH ×2 (05:48→18:03)
[2019-01-11] MEDS: PANTOPRAZOLE 20 MG TAB PO SCH (05:48)
[2019-01-11] MEDS: ENOXAPARIN 30 MG/0.3 ML SYR (J1650) SC SCH (05:49)
[2019-01-11 05:50] VITALS: BP 146/67
[2019-01-11 11:48] LABS: HEMOGLOBIN 11.4 g/dl (12.0-15.5); MEAN CORPUSCULAR HEMOGLOBIN 25.6 pg (27.0-33.0); MEAN CORPUSCULAR VOLUME 85.2 fl (80.0-96.0); PLATELET COUNT, AUTOMATED 408 10^3/uL (150-450); RED BLOOD COUNT 4.46 10^6/uL (4.00-5.40); WHITE BLOOD COUNT 15.1 10^3/uL (4.0-10.0)
[2019-01-11] MEDS ORDERED: HEPARIN 1,000 UNITS/ML 10ML VIAL (FOR RADIOLOGY& DIALYSIS ONLY) IV ONE (12:00)
[2019-01-11] MEDS ORDERED: LIDOCAINE 1% SDV 5 ML VIAL SQ ONE (12:00)
[2019-01-11 12:08] LABS: CALCIUM LEVEL 7.7 MG/DL (8.8-10.2); CREATININE FOR GFR 1.7 MG/DL (0.55-1.30); GLOMERULAR FILTRATION RATE 31.1 (>39)
--- NOTE | 2019-01-11 13:33 | IPNPDOC ---
Text Note Date of Service The patient was seen on 01/11/19. NOTE Ms. Lynn was seen at bedside today . She denies any current nausea, vomiting, abdominal pain. He states that her diarrhea is also improving . Activity was discontinued Physical exam: Pt is a pleasant, thin female who is cooperative to exam. AAO 3 Pulmonary: Clear to auscultation B/L, no crackles Cardiovascular: Regular rhythm, no murmurs, knocks, rubs noted GI: Normal bowel sounds in all 4 quadrants. Demetris-Preston drain has been discontinued, no rebound, no guarding no rigidity, gastrostomy tube in place Extremities: B/L non-pitting edema noted in her LE. No pain on palpation or asymmetrical calves noted. Neuro: Grossly intact Extremities. 1+ pedal edema Psych: Well mannered and cooperative to exam. 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 She is status post emergent laparotomy with right colectomy and partial gastrotomy with PEG tube placement now. All the CHARLOTTE drains have been removed. The patient also was diagnosed with C. difficile for which she is currently on by mouth vancomycin. She completed all other antibiotic course. The patient had a rectal tube in place as well which has been discontinued now. The patient that he has been improving. Patient also has history of ESRD and nephrology has been following for dialysis on Tuesdays, and Saturdays. The patient will have to follow up with oncology after she recovers for possible intervention. The patient currently is being seen by PT, OT as well for possible placement. 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 Patient is s/p emergent laparotomy with right colectomy, partial gastrectomy and PEG tube placement. Surgical herson in place. Patient has been tolerating the diet. We will escalate as per response. 2. ESRD: Continue hemodialysis on regular schedule (Tuesdays, , and Saturdays). Potassium lowering drugs, epo, vitamin D as per nephrology 3. C. Diff colitis: Continue vancomycin 125 mg Q 6H . 4. DM type 2: Continue sliding scale insulin and adjust insulin according to 24- hour requirement DVT prophylaxis: Continue with enoxaparin sodium 30 mg QD Disposition: Unknown at this time. PT, OT and social sciences department chair for possible placement. VS,Fishbone, I+O VS, Fishbone, I+O Laboratory Tests 01/11/19 11:37 Red Blood Count 4.46, Mean Corpuscular Volume 85.2, Mean Corpuscular Hemoglobin 25.6 L, Mean Corpuscular Hemoglobin Concent 30.0 L, Red Cell Distribution Width 23.6 H, Calcium Level 7.7 L Vital Signs Date Time Temp Pulse Resp B/P (MAP) Pulse Ox O2 Delivery O2 Flow Rate FiO2 01/11/19 05:52 97.9 103 97 01/11/19 05:50 18 146/67 (93) I&O- Last 24 Hours up to 6 AM 01/11/19 05:59 Intake Total 1260 ml Output Total 500 ml Balance 760 ml CHIP JOINER MD Jan 11, 2019 13:32
--- NOTE | 2019-01-11 14:37 | IPNPDOC ---
Subjective General Date/Time Seen The patient was seen on 01/11/19 at 14:21. Subject Chief Complaint/History I think the patient is continuing to do well. I discontinued her rectal tube last denies noting that she is only about 500 ML's and the bag was mostly empty by the end of the day. She tells me she is able to feel when she needed to go and did not have any leakage. Her stools are still on the loose side. She denies any chest pains, abdominal pain, nausea, vomiting. Current Medications Current Medications Current Medications Medications (Trade) Dose Ordered Sig/Mg Route PRN Reason Start Time Stop Time Status Last Admin Dose Admin Acetaminophen (Tylenol Tab) 650 mg Q4HP PRN PO MILD PAIN or TEMP > 101 12/30/18 00:45 01/08/19 00:50 Al Hydrox/Mg Hydrox/Simethicone (Mylanta) 30 ml Q6HP PRN PO HEARTBURN 12/30/18 20:15 01/06/19 11:43 DC 01/04/19 21:50 Atorvastatin Calcium (Lipitor) 20 mg DAILY PO 12/30/18 09:00 12/30/18 13:29 DC Carvedilol (COReg) 6.25 mg BID PO 12/29/18 21:00 12/30/18 13:29 DC 12/30/18 02:06 Cholestyramine Resin (Questran) 2 gm BID@1000,2000 PO 01/05/19 10:00 01/06/19 10:37 DC 01/06/19 06:17 Cholestyramine Resin (Questran) 2 gm QID PO 01/06/19 13:00 01/11/19 05:47 Darbepoetin Mp (Aranesp (Dialysis Use)) 200 mcg HD IV 12/31/18 09:45 Dextrose/Sodium Chloride 1,000 ml @ 40 mls/hr Q24H IV 12/31/18 10:00 01/01/19 22:24 DC 01/01/19 05:00 Diatrizoate Meglum/ Diatrizoate Sod (Gastrografin) 10 ml Q30M PO 12/29/18 14:00 12/29/18 14:31 DC 12/29/18 14:33 Enoxaparin Sodium (Lovenox) 30 mg DAILY SC 12/30/18 09:00 01/11/19 05:49 Ertapenem 0.5 gm/ Sodium Chloride 50 ml @ 100 mls/hr Q24H IV 12/30/18 06:00 01/03/19 08:05 DC 01/03/19 04:57 Fentanyl Citrate (Sublimaze) 25 mcg Q5MP PRN IV MODERATE PAIN (PS 4-7) 12/30/18 01:00 12/30/18 01:59 DC Guaifenesin/ Dextromethorphan (Robitussin Dm) 10 ml Q6HP PRN PO sore throat 12/31/18 17:45 12/31/18 17:55 DC Haloperidol (Haldol) 0.5 mg Q6HP PRN IV AGITATION 01/01/19 14:00 01/05/19 10:05 DC 01/02/19 02:53 Heparin Sodium (Heparin (Flush)) 200 units ASDIRECTED PRN IV SEE LABEL COMMENTS 01/11/19 00:30 Heparin Sodium (Heparin (Flush)) 200 units PICC IV 01/11/19 06:00 01/11/19 05:48 Home Med (Med Rec Complete!) ASDIRECTED XX 12/29/18 14:00 12/29/18 16:01 DC Ketorolac Tromethamine (ToRADol) 15 mg Q6HP PRN IV MILD/MODERATE PAIN (PS 1-7) 12/30/18 00:45 01/04/19 00:44 DC 01/01/19 11:02 Lactated Ringer's 1,000 ml @ 100 mls/hr Q10H IV 12/30/18 00:31 12/30/18 13:59 DC 12/30/18 01:40 Lactobacillus Acidophilus (Bacid) 1 ea DAILY PO 01/03/19 09:00 01/06/19 12:16 DC 01/06/19 06:17 Lactobacillus Acidophilus (Bacid) 2 ea DAILY PO 01/07/19 09:00 01/11/19 05:47 Levofloxacin 250 mg/IV Miscellaneous Supplies 50 ml @ 50 mls/hr Q24H IV 01/03/19 08:15 UNV Levofloxacin 500 mg/IV Miscellaneous Supplies 100 ml @ 100 mls/hr Q48H IV 01/05/19 16:00 01/05/19 16:00 DC Lidocaine/ Prilocaine (Emla) 1 dose ASDIRECTED TOP 01/01/19 11:30 01/02/19 06:36 Lorazepam (Ativan) 0.5 mg Q6HP PRN IV ANXIETY 12/30/18 11:15 01/01/19 11:44 DC 01/01/19 11:02 Lorazepam (Ativan) 1 mg Q4HP PRN IV ANXIETY 01/01/19 15:00 01/01/19 22:24 DC 01/01/19 19:09 Metoclopramide HCl (REGLAN INJection) 10 mg Q6HP PRN IV NAUSEA OR VOMITING 12/30/18 01:00 12/30/18 01:59 DC Metoclopramide HCl (Reglan Liquid) 10 mg Q6H PEG 01/05/19 12:00 01/09/19 13:49 DC 01/09/19 13:46 Metoclopramide HCl (Reglan Liquid) 10 mg Q6H PO 01/09/19 18:00 01/09/19 18:00 DC Miscellaneous (Unresolved Clarification Entry) SEE LABEL COMMENTS DAILY XX 01/03/19 09:00 01/03/19 14:05 DC Miscellaneous (Unresolved Clarification Entry) SEE LABEL COMMENTS DAILY XX 01/05/19 09:00 01/05/19 10:05 DC Miscellaneous (Unresolved Clarification Entry) SEE LABEL COMMENTS DAILY XX 01/06/19 09:00 01/06/19 12:31 DC 01/06/19 12:13 Morphine Sulfate (Morphine Sulfate Inj) 4 mg Q2HP PRN IV SEVERE PAIN (PS 8-10) 12/30/18 00:45 01/01/19 13:19 DC 12/31/18 20:20 Non-Formulary Medication ( See Comment Field Below ) CHECK TO SEE IF THE PATIENT... DAILY@1600 XX 12/30/18 16:00 12/30/18 16:00 DC Non-Formulary Medication ( See Comment Field Below ) CHECK TO SEE IF THE PATIENT... DAILY@1600 XX 01/01/19 16:00 01/02/19 10:37 DC Non-Formulary Medication ( See Comment Field Below ) VANCO INTERMIT. DOSING ASDIRECTED XX 12/30/18 14:15 12/31/18 09:38 DC Ondansetron HCl (ZOFRAN INJection) 4 mg Q4HP PRN IV NAUSEA OR VOMITING 12/30/18 01:00 12/30/18 01:59 DC Ondansetron HCl (ZOFRAN INJection) 4 mg Q4HP PRN IV NAUSEA OR VOMITING 01/03/19 20:15 01/05/19 20:28 Ondansetron HCl (ZOFRAN INJection) 4 mg Q6HP PRN IV NAUSEA OR VOMITING 12/30/18 00:45 01/01/19 13:59 DC 12/31/18 07:25 Oxycodone/ Acetaminophen (Percocet 5mg/ 325mg Tablet) 1 tab ASDIRECTED PRN PO MILD/MODERATE PAIN (PS 1-7) 12/30/18 01:00 12/30/18 01:59 DC Oxycodone/ Acetaminophen (Percocet 5mg/ 325mg Tablet) 1 tab Q4HP PRN PO MILD/MODERATE PAIN (PS 1-7) 12/31/18 10:00 01/06/19 11:41 DC Oxycodone/ Acetaminophen (Percocet 5mg/ 325mg Tablet) 1 tab Q4HP PRN PO MILD/MODERATE PAIN (PS 1-7) 01/06/19 12:45 01/11/19 08:20 DC Oxycodone/ Acetaminophen (Percocet 5mg/ 325mg Tablet) 2 tab Q4HP PRN PO SEVERE PAIN (PS 8-10) 12/31/18 10:00 01/06/19 11:41 DC Oxycodone/ Acetaminophen (Percocet 5mg/ 325mg Tablet) 2 tab Q4HP PRN PO SEVERE PAIN (PS 8-10) 01/06/19 12:45 01/11/19 08:20 DC Pantoprazole Sodium (Protonix) 40 mg DAILY IV 12/30/18 09:00 01/08/19 10:33 DC 01/08/19 09:10 Pantoprazole Sodium (Protonix) 40 mg DAILY PO 01/09/19 09:00 01/11/19 05:48 Phenol (Chloraseptic [place]) 5 spray Q2HP PRN MT SORE THROAT 12/31/18 18:00 01/05/19 10:05 DC 01/03/19 00:39 Phenyleph/Shark Oil/Min Oil/Petrol (Preparation H Ointment) apply to hemorroids QIDP PRN UT ITCHING 01/05/19 09:30 Potassium Chloride/Sodium Chloride 1,000 ml @ 40 mls/hr Q24H IV 01/03/19 12:00 01/10/19 07:33 DC 01/10/19 06:57 Psyllium Hydrophilic Mucilloid (Metamucil) 1 pkt DAILY PO 01/09/19 09:00 01/11/19 05:47 Sodium Chloride 1,000 ml @ 75 mls/hr [id number] IV 12/30/18 01:00 12/30/18 01:59 DC Sodium Chloride 1,000 ml @ 100 mls/hr Q10H IV 12/30/18 14:45 UNV Sodium Chloride 1,000 ml @ 125 mls/hr Q8H IV 12/30/18 14:00 12/31/18 08:23 DC 12/31/18 07:25 Sodium Chloride (Saline Lock Flush) 10 ml ASDIRECTED PRN IV SEE LABEL COMMENTS 01/11/19 00:30 Sodium Chloride (Saline Lock Flush) 10 ml PICC IV 01/11/19 06:00 01/11/19 05:48 Vancomycin HCl (First-Vancomycin 50(Firvanq)- 250mg/5ml) 125 mg Q6H NG 01/03/19 00:00 01/09/19 13:50 DC 01/09/19 13:45 Vancomycin HCl (First-Vancomycin 50(Firvanq)- 250mg/5ml) 125 mg Q6H PO 01/09/19 18:00 01/11/19 05:48 Vancomycin HCl 1000 mg/IV Miscellaneous Supplies 1 each/ Dextrose 270 ml @ 270 mls/hr HD IV 12/30/18 11:30 12/30/18 14:00 DC Vancomycin HCl 1000 mg/IV Miscellaneous Supplies 1 each/ Dextrose 270 ml @ 270 mls/hr HD IV 01/01/19 09:45 01/02/19 10:37 DC Allergies Coded Allergies: Penicillins (Verified Allergy, Severe, throat swelling , hives, 12/12/18) morphine (Verified Adverse Reaction, Mild, Confusion, 01/01/19) Objective Physical Examination Examination GENERAL APPEARANCE: Patient seen sitting up on the bed working with physical therapy. She looks comfortable.. SKIN: Warm and moist. LUNGS: Clear to auscultation bilaterally. No wheezing appreciated. HEART: No chest wall abnormalities. Regular rate and rhythm with no murmurs appreciated. ABDOMEN: Abdomen is relatively flat, soft, nondistended. Nontender on palpation. Midline incision with herson that are intact. No erythema, drainage. Jejunostomy feeding tube in place, no drainage. EXTREMITIES: Still somewhat moderate lower extremity edema improved from admission. Vital Signs Vital Signs Date Time Temp Pulse Resp B/P (MAP) Pulse Ox O2 Delivery O2 Flow Rate FiO2 01/11/19 05:52 97.9 103 97 01/11/19 05:50 18 146/67 (93) I&Os I&O- Last 24 Hours up to 6 AM 01/11/19 06:00 Intake Total 1620 ml Output Total 0 ml Balance 1620 ml Laboratory Data Labs 24H Laboratory Tests 2 01/11/19 11:37: Nucleated Red Blood Cells % (auto) 0.0, Anion Gap 11, Glomerular Filtration Rate 31.1L, Blood Urea Nitrogen 13, Creatinine 1.70H, Sodium Level 143, Potassium L evel 4.0, Chloride Level 111H, Carbon Dioxide Level 21, Calcium Level 7.7L CBC/BMP Laboratory Tests 01/11/19 11:37 Red Blood Count 4.46, Mean Corpuscular Volume 85.2, Mean Corpuscular Hemoglobin 25.6 L, Mean Corpuscular Hemoglobin Concent 30.0 L, Red Cell Distribution Width 23.6 H, Calcium Level 7.7 L Microbiology Microbiology 01/02/19 Gastrointestinal Tract Panel (PCR) - Final, Complete Clostridium Difficile A/B 01/02/19 Blood Culture - Final, Complete NO GROWTH AFTER 5 DAYS Impression She is now postop day 13 after extended right colectomy, partial gastrectomy with Sedrick-en-Y gastrojejunostomy, 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 Issues at this point include still somewhat loose output. This is markedly decreased in the last few days especially when the feeding tube was held. I will restart some bolus feeds twice a day just for supplementation as she still has fairly poor oral intake though she is tolerating her diet. We will try and see how much this affects her bowel movements. She still has some persistent leukocytosis though clinically she is not showing any signs of systemic inflammatory response. I will just monitor this for now. She is only on the vancomycin by mouth for the C. difficile colitis. Will stop this at 14 days she is only on day 7. She is on regular dialysis. Today is her regular dialysis today. She will require probably prolonged physical therapy, occupational therapy. Now that the rectal tube is out, PT and OT will work with her Long-term she and her family are looking for possible penitentiary facility placement. Plan / VTE VTE Prophylaxis Ordered?: Yes STANISLAW CAMPOS MD Jan 11, 2019 14:37
[2019-01-11 16:35] VITALS: BP 144/69
[2019-01-11 19:36] VITALS: BP 143/71
[2019-01-12] MEDS: VANCOMYCIN ORAL SOL 250MG/5ML ORAL SYRINGE PO SCH ×4 (00:36→16:33)
[2019-01-12 06:53] LABS: HEMATOCRIT 33.1 % (36.0-47.0); MEAN CORPUSCULAR HEMOGLOBIN 25.4 pg (27.0-33.0); MEAN CORPUSCULAR HGB CONC 30.2 g/dl (32.0-36.5); PLATELET COUNT, AUTOMATED 358 10^3/uL (150-450); RED BLOOD COUNT 3.94 10^6/uL (4.00-5.40); WHITE BLOOD COUNT 9.9 10^3/uL (4.0-10.0)
[2019-01-12 07:07] VITALS: BP 125/55
[2019-01-12] MEDS: SODIUM CHLORIDE 0.9% INJ 10 ML SYR IV SCH (07:07)
[2019-01-12 07:25] LABS: ALBUMIN 1.6 GM/DL (3.2-5.2); BILIRUBIN,TOTAL 0.3 MG/DL (0.2-1.0); CALCIUM LEVEL 7.8 MG/DL (8.8-10.2); CREATININE FOR GFR 1.4 MG/DL (0.55-1.30); GLOMERULAR FILTRATION RATE 38.9 (>39); POTASSIUM SERUM 3.5 MEQ/L (3.5-5.1); PREALBUMIN 9.2 MG/DL (20.0-40.0); TOTAL PROTEIN 4.5 GM/DL (6.4-8.2)
[2019-01-12] MEDS: PANTOPRAZOLE 20 MG TAB PO SCH (09:23)
[2019-01-12] MEDS: CHOLESTYRAMINE 4 GM PWD PKT PO SCH ×4 (09:23→22:35)
[2019-01-12] MEDS: METAMUCIL (PSYLLIUM) PACKET PO SCH (09:23)
[2019-01-12] MEDS: ENOXAPARIN 30 MG/0.3 ML SYR (J1650) SC SCH (09:24)
[2019-01-12] MEDS: LACTOBACILLUS ACIDOPHILUS CAP (BACID) PO SCH (09:24)
--- NOTE | 2019-01-12 10:42 | IPNPDOC ---
Subjective General Date/Time Seen The patient was seen on 01/12/19 at 10:41. 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 Current Medications Current Medications Current Medications Medications (Trade) Dose Ordered Sig/Mg Route PRN Reason Start Time Stop Time Status Last Admin Dose Admin Acetaminophen (Tylenol Tab) 650 mg Q4HP PRN PO MILD PAIN or TEMP > 101 12/30/18 00:45 01/08/19 00:50 Al Hydrox/Mg Hydrox/Simethicone (Mylanta) 30 ml Q6HP PRN PO HEARTBURN 12/30/18 20:15 01/06/19 11:43 DC 01/04/19 21:50 Atorvastatin Calcium (Lipitor) 20 mg DAILY PO 12/30/18 09:00 12/30/18 13:29 DC Carvedilol (COReg) 6.25 mg BID PO 12/29/18 21:00 12/30/18 13:29 DC 12/30/18 02:06 Cholestyramine Resin (Questran) 2 gm BID@1000,2000 PO 01/05/19 10:00 01/06/19 10:37 DC 01/06/19 06:17 Cholestyramine Resin (Questran) 2 gm QID PO 01/06/19 13:00 01/12/19 09:23 Darbepoetin Mp (Aranesp (Dialysis Use)) 200 mcg HD IV 12/31/18 09:45 Dextrose/Sodium Chloride 1,000 ml @ 40 mls/hr Q24H IV 12/31/18 10:00 01/01/19 22:24 DC 01/01/19 05:00 Diatrizoate Meglum/ Diatrizoate Sod (Gastrografin) 10 ml Q30M PO 12/29/18 14:00 12/29/18 14:31 DC 12/29/18 14:33 Enoxaparin Sodium (Lovenox) 30 mg DAILY SC 12/30/18 09:00 01/12/19 09:24 Ertapenem 0.5 gm/ Sodium Chloride 50 ml @ 100 mls/hr Q24H IV 12/30/18 06:00 01/03/19 08:05 DC 01/03/19 04:57 Fentanyl Citrate (Sublimaze) 25 mcg Q5MP PRN IV MODERATE PAIN (PS 4-7) 12/30/18 01:00 12/30/18 01:59 DC Guaifenesin/ Dextromethorphan (Robitussin Dm) 10 ml Q6HP PRN PO sore throat 12/31/18 17:45 12/31/18 17:55 DC Haloperidol (Haldol) 0.5 mg Q6HP PRN IV AGITATION 01/01/19 14:00 01/05/19 10:05 DC 01/02/19 02:53 Heparin Sodium (Heparin (Flush)) 200 units ASDIRECTED PRN IV SEE LABEL COMMENTS 01/11/19 00:30 Heparin Sodium (Heparin (Flush)) 200 units PICC IV 01/11/19 06:00 01/12/19 07:07 Home Med (Med Rec Complete!) ASDIRECTED XX 12/29/18 14:00 12/29/18 16:01 DC Ketorolac Tromethamine (ToRADol) 15 mg Q6HP PRN IV MILD/MODERATE PAIN (PS 1-7) 12/30/18 00:45 01/04/19 00:44 DC 01/01/19 11:02 Lactated Ringer's 1,000 ml @ 100 mls/hr Q10H IV 12/30/18 00:31 12/30/18 13:59 DC 12/30/18 01:40 Lactobacillus Acidophilus (Bacid) 1 ea DAILY PO 01/03/19 09:00 01/06/19 12:16 DC 01/06/19 06:17 Lactobacillus Acidophilus (Bacid) 2 ea DAILY PO 01/07/19 09:00 01/12/19 09:24 Levofloxacin 250 mg/IV Miscellaneous Supplies 50 ml @ 50 mls/hr Q24H IV 01/03/19 08:15 UNV Levofloxacin 500 mg/IV Miscellaneous Supplies 100 ml @ 100 mls/hr Q48H IV 01/05/19 16:00 01/05/19 16:00 DC Lidocaine/ Prilocaine (Emla) 1 dose ASDIRECTED TOP 01/01/19 11:30 01/02/19 06:36 Lorazepam (Ativan) 0.5 mg Q6HP PRN IV ANXIETY 12/30/18 11:15 01/01/19 11:44 DC 01/01/19 11:02 Lorazepam (Ativan) 1 mg Q4HP PRN IV ANXIETY 01/01/19 15:00 01/01/19 22:24 DC 01/01/19 19:09 Metoclopramide HCl (REGLAN INJection) 10 mg Q6HP PRN IV NAUSEA OR VOMITING 12/30/18 01:00 12/30/18 01:59 DC Metoclopramide HCl (Reglan Liquid) 10 mg Q6H PEG 01/05/19 12:00 01/09/19 13:49 DC 01/09/19 13:46 Metoclopramide HCl (Reglan Liquid) 10 mg Q6H PO 01/09/19 18:00 01/09/19 18:00 DC Miscellaneous (Unresolved Clarification Entry) SEE LABEL COMMENTS DAILY XX 01/03/19 09:00 01/03/19 14:05 DC Miscellaneous (Unresolved Clarification Entry) SEE LABEL COMMENTS DAILY XX 01/05/19 09:00 01/05/19 10:05 DC Miscellaneous (Unresolved Clarification Entry) SEE LABEL COMMENTS DAILY XX 01/06/19 09:00 01/06/19 12:31 DC 01/06/19 12:13 Morphine Sulfate (Morphine Sulfate Inj) 4 mg Q2HP PRN IV SEVERE PAIN (PS 8-10) 12/30/18 00:45 01/01/19 13:19 DC 12/31/18 20:20 Non-Formulary Medication ( See Comment Field Below ) CHECK TO SEE IF THE PATIENT... DAILY@1600 XX 12/30/18 16:00 12/30/18 16:00 DC Non-Formulary Medication ( See Comment Field Below ) CHECK TO SEE IF THE PATIENT... DAILY@1600 XX 01/01/19 16:00 01/02/19 10:37 DC Non-Formulary Medication ( See Comment Field Below ) [facility] ASDIRECTED XX 12/30/18 14:15 12/31/18 09:38 DC Ondansetron HCl (ZOFRAN INJection) 4 mg Q4HP PRN IV NAUSEA OR VOMITING 12/30/18 01:00 12/30/18 01:59 DC Ondansetron HCl (ZOFRAN INJection) 4 mg Q4HP PRN IV NAUSEA OR VOMITING 01/03/19 20:15 01/05/19 20:28 Ondansetron HCl (ZOFRAN INJection) 4 mg Q6HP PRN IV NAUSEA OR VOMITING 12/30/18 00:45 01/01/19 13:59 DC 12/31/18 07:25 Oxycodone/ Acetaminophen (Percocet 5mg/ 325mg Tablet) 1 tab ASDIRECTED PRN PO MILD/MODERATE PAIN (PS 1-7) 12/30/18 01:00 12/30/18 01:59 DC Oxycodone/ Acetaminophen (Percocet 5mg/ 325mg Tablet) 1 tab Q4HP PRN PO MILD/MODERATE PAIN (PS 1-7) 12/31/18 10:00 01/06/19 11:41 DC Oxycodone/ Acetaminophen (Percocet 5mg/ 325mg Tablet) 1 tab Q4HP PRN PO MILD/MODERATE PAIN (PS 1-7) 01/06/19 12:45 01/11/19 08:20 DC Oxycodone/ Acetaminophen (Percocet 5mg/ 325mg Tablet) 2 tab Q4HP PRN PO SEVERE PAIN (PS 8-10) 12/31/18 10:00 01/06/19 11:41 DC Oxycodone/ Acetaminophen (Percocet 5mg/ 325mg Tablet) 2 tab Q4HP PRN PO SEVERE PAIN (PS 8-10) 01/06/19 12:45 01/11/19 08:20 DC Pantoprazole Sodium (Protonix) 40 mg DAILY IV 12/30/18 09:00 01/08/19 10:33 DC 01/08/19 09:10 Pantoprazole Sodium (Protonix) 40 mg DAILY PO 01/09/19 09:00 01/12/19 09:23 Phenol (Chloraseptic Marshall) 5 spray Q2HP PRN MT SORE THROAT 12/31/18 18:00 01/05/19 10:05 DC 01/03/19 00:39 Phenyleph/Shark Oil/Min Oil/Petrol (Preparation H Ointment) apply to hemorroids QIDP PRN [place] ITCHING 01/05/19 09:30 Potassium Chloride/Sodium Chloride 1,000 ml @ 40 mls/hr Q24H IV 01/03/19 12:00 01/10/19 07:33 DC 01/10/19 06:57 Psyllium Hydrophilic Mucilloid (Metamucil) 1 pkt DAILY PO 01/09/19 09:00 01/12/19 09:23 Sodium Chloride 1,000 ml @ 75 mls/hr [id number] IV 12/30/18 01:00 12/30/18 01:59 DC Sodium Chloride 1,000 ml @ 100 mls/hr Q10H IV 12/30/18 14:45 UNV Sodium Chloride 1,000 ml @ 125 mls/hr Q8H IV 12/30/18 14:00 12/31/18 08:23 DC 12/31/18 07:25 Sodium Chloride (Saline Lock Flush) 10 ml ASDIRECTED PRN IV SEE LABEL COMMENTS 01/11/19 00:30 Sodium Chloride (Saline Lock Flush) 10 ml PICC IV 01/11/19 06:00 01/12/19 07:07 Vancomycin HCl (First-Vancomycin 50(Firvanq)- 250mg/5ml) 125 mg Q6H NG 01/03/19 00:00 01/09/19 13:50 DC 01/09/19 13:45 Vancomycin HCl (First-Vancomycin 50(Firvanq)- 250mg/5ml) 125 mg Q6H PO 01/09/19 18:00 01/12/19 07:07 Vancomycin HCl 1000 mg/IV Miscellaneous Supplies 1 each/ Dextrose 270 ml @ 270 mls/hr HD IV 12/30/18 11:30 12/30/18 14:00 DC Vancomycin HCl 1000 mg/IV Miscellaneous Supplies 1 each/ Dextrose 270 ml @ 270 mls/hr HD IV 01/01/19 09:45 01/02/19 10:37 DC Allergies Coded Allergies: Penicillins (Verified Allergy, Severe, throat swelling , hives, 12/12/18) morphine (Verified Adverse Reaction, Mild, Confusion, 01/01/19) Objective Physical Examination Examination GENERAL APPEARANCE:[Patient seen, laying in bed, awake, alert, and oriented. Comfortable, in no acute distress]. SKIN: [Warm and moist]. HEENT: [Normocephalic, atraumatic. Ai palpebral conjunctiva, anicteric sclerae. Lips and mucosa appear moist]. NECK: [Supple, no thyromegaly. No obvious jugular venous distention]. LUNGS: [Clear to auscultation bilaterally. No wheezing appreciated]. HEART: [No chest wall abnormalities. Regular rate and rhythm with no murmurs appreciated]. ABDOMEN: Abdomen is , soft, . [No hepatosplenomegaly. No umbilical or groin herniations, nondistended. No noticeable rebound or guarding. No grimacing with palpation. No rebound tenderness. No masses appreciated]. EXTREMITIES: [Extremities have no deformities. No edema identified]. Vital Signs Vital Signs Date Time Temp Pulse Resp B/P (MAP) Pulse Ox O2 Delivery O2 Flow Rate FiO2 01/12/19 07:07 98.6 102 19 125/55 (78) 95 I&Os I&O- Last 24 Hours up to 6 AM 01/12/19 06:00 Intake Total 1320 ml Output Total 1000 ml Balance 320 ml Laboratory Data Labs 24H Laboratory Tests 2 01/11/19 11:37: Nucleated Red Blood Cells % (auto) 0.0, Anion Gap 11, Glomerular Filtration Rate 31.1L, Blood Urea Nitrogen 13, Creatinine 1.70H, Sodium Level 143, Potassium Level 4.0, Chloride Level 111H, Carbon Dioxide Level 21, Calcium Level 7.7L 01/12/19 06:25: Nucleated Red Blood Cells % (auto) 0.0, Anion Gap 7L, Glomerular Filtration Rate 38.9L, Blood Urea Nitrogen 7, Creatinine 1.40H, Sodium Level 141, Potassium Le maude 3.5, Chloride Level 107, Carbon Dioxide Level 27, Calcium Level 7.8L, Aspartate Amino Transf (AST/SGOT) 16, Alanine Aminotransferase (ALT/SGPT) 15, Alkaline Phosphatase 204H, Total Bilirubin 0.3, Total Protein 4.5L, Albumin 1.6L, Albumin/Globulin Ratio 0.55L, Prealbumin 9.2L CBC/BMP Laboratory Tests 01/11/19 11:37 Red Blood Count 4.46, Mean Corpuscular Volume 85.2, Mean Corpuscular Hemoglobin 25.6 L, Mean Corpuscular Hemoglobin Concent 30.0 L, Red Cell Distribution Width 23.6 H, Calcium Level 7.7 L 01/12/19 06:25 Red Blood Count 3.94 L, Mean Corpuscular Volume 84.0, Mean Corpuscular Hemoglobin 25.4 L, Mean Corpuscular Hemoglobin Concent 30.2 L, Red Cell Distribution Width 23.1 H, Calcium Level 7.8 L, Aspartate Amino Transf (AST/SGOT) 16, Alanine Aminotransferase (ALT/SGPT) 15, Alkaline Phosphatase 204 H, Total Bilirubin 0.3, Total Protein 4.5 L, Albumin 1.6 L Microbiology Microbiology 01/02/19 Gastrointestinal Tract Panel (PCR) - Final, Complete Clostridium Difficile A/B 01/02/19 Blood Culture - Final, Complete NO GROWTH AFTER 5 DAYS Impression She is now postop day 14 after extended right colectomy, partial gastrectomy with Sedrick-en-Y gastrojejunostomy, 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 Nutrition parameters low as expected. Albumin only 1.6, prealbumin 9. will increase the tube feeds to TID over the weekend and observe how her bms are, probably can go up to QID if tolerated. Then oral intake ad davey. She still has some persistent leukocytosis though clinically she is not showing any signs of systemic inflammatory response. I will just monitor this for now. She is only on the vancomycin by mouth for the C. difficile colitis. Will stop this at 14 days she is only on day 7. She is on regular dialysis. Today is her regular dialysis today. She will require probably prolonged physical therapy, occupational therapy. Now that the rectal tube is out, PT and OT will work with her Long-term she and her family are looking for possible longterm facility placement. Plan / VTE VTE Prophylaxis Ordered?: Yes STANISLAW CAMPOS MD Jan 12, 2019 10:42
--- NOTE | 2019-01-12 12:03 | IPNPDOC ---
Text Note Date of Service The patient was seen on 01/12/19. NOTE Ms. Lynn was seen at bedside today . She denies any current nausea, vomiting, abdominal pain. He states that her diarrhea is also improving Physical exam: Pt is a pleasant, thin female who is cooperative to exam. AAO 3 Pulmonary: Clear to auscultation B/L, no crackles Cardiovascular: Regular rhythm, no murmurs, knocks, rubs noted GI: Normal bowel sounds in all 4 quadrants. Demetris-Preston drain has been discontinued, no rebound, no guarding no rigidity, gastrostomy tube in place, surgical herson, clean Extremities: B/L non-pitting edema noted in her LE. No pain on palpation or asymmetrical calves noted. Neuro: Grossly intact Extremities. 1+ pedal edema Psych: Well mannered and cooperative to exam. 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 She is status post emergent laparotomy with right colectomy and partial gastrotomy with PEG tube placement now. All the CHARLOTTE drains have been removed. The patient also was diagnosed with C. difficile for which she is currently on by mouth vancomycin. She completed all other antibiotic course. The patient had a rectal tube in place as well which has been discontinued now. The patient that he has been improving. Patient also has history of ESRD and nephrology has been following for dialysis on Tuesdays, and Saturdays. The patient will have to follow up with oncology after she recovers for possible intervention. The patient currently is being seen by PT, OT as well for possible placement. 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 Patient is s/p emergent laparotomy with right colectomy, partial gastrectomy and PEG tube placement. Surgical herson in place. Patient has been tolerating the diet. We will escalate as per response. 2. ESRD: Continue hemodialysis on regular schedule (Tuesdays, , and Saturdays). Potassium lowering drugs, epo, vitamin D as per nephrology 3. C. Diff colitis: Improving. Continue vancomycin 125 mg Q 6H . 4. DM type 2: Continue sliding scale insulin and adjust insulin according to 24- hour requirement DVT prophylaxis: Continue with enoxaparin sodium 30 mg QD Disposition: Unknown at this time. PT, OT and high school social studies teacher for possible placement. VS,Fishbone, I+O VS, Fishbone, I+O Laboratory Tests 01/12/19 06:25 Red Blood Count 3.94 L, Mean Corpuscular Volume 84.0, Mean Corpuscular Hemoglobin 25.4 L, Mean Corpuscular Hemoglobin Concent 30.2 L, Red Cell Distribution Width 23.1 H, Calcium Level 7.8 L, Aspartate Amino Transf (AST/SGOT) 16, Alanine Aminotransferase (ALT/SGPT) 15, Alkaline Phosphatase 204 H, Total Bilirubin 0.3, Total Protein 4.5 L, Albumin 1.6 L Vital Signs Date Time Temp Pulse Resp B/P (MAP) Pulse Ox O2 Delivery O2 Flow Rate FiO2 01/12/19 07:07 98.6 102 19 125/55 (78) 95 I&O- Last 24 Hours up to 6 AM 01/12/19 06:00 Intake Total 1320 ml Output Total 1000 ml Balance 320 ml CHIP JOINER MD Jan 12, 2019 12:03
[2019-01-12 14:00] VITALS: BP 121/55
[2019-01-12 22:00] VITALS: BP 123/52
[2019-01-13] MEDS: VANCOMYCIN ORAL SOL 250MG/5ML ORAL SYRINGE PO SCH ×5 (00:28→17:24)
[2019-01-13] MEDS ORDERED: LIDOCAINE 1% MDV 20ML VIAL IM ONE (01:15)
[2019-01-13 06:00] VITALS: BP 140/67
[2019-01-13] MEDS: PANTOPRAZOLE 20 MG TAB PO SCH (06:44)
[2019-01-13] MEDS: CHOLESTYRAMINE 4 GM PWD PKT PO SCH ×4 (06:45→20:26)
[2019-01-13] MEDS: LACTOBACILLUS ACIDOPHILUS CAP (BACID) PO SCH (06:45)
[2019-01-13] MEDS: METAMUCIL (PSYLLIUM) PACKET PO SCH (06:45)
[2019-01-13 06:46] LABS: HEMOGLOBIN 10.4 g/dl (12.0-15.5); MEAN CORPUSCULAR HEMOGLOBIN 25.9 pg (27.0-33.0); MEAN CORPUSCULAR HGB CONC 28.1 g/dl (32.0-36.5); MEAN CORPUSCULAR VOLUME 92.3 fl (80.0-96.0); PLATELET COUNT, AUTOMATED 330 10^3/uL (150-450); RED BLOOD COUNT 4.01 10^6/uL (4.00-5.40); WHITE BLOOD COUNT 10.1 10^3/uL (4.0-10.0)
[2019-01-13 07:19] LABS: CALCIUM LEVEL 8.1 MG/DL (8.8-10.2); CREATININE FOR GFR 1.64 MG/DL (0.55-1.30); GLOMERULAR FILTRATION RATE 32.4 (>39); POTASSIUM SERUM 3.3 MEQ/L (3.5-5.1)
[2019-01-13] MEDS: ENOXAPARIN 30 MG/0.3 ML SYR (J1650) SC SCH (08:46)
--- NOTE | 2019-01-13 09:08 | IPNPDOC ---
Text Note Date of Service The patient was seen on 01/13/19. NOTE No acute events overnight. She is tolerating the tube feeds and had a few BMs. No problems with nausea, emesis, fevers, or pain. 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 c.diff P) reg diet tube feeds PT OT ambulate plan on placement early next week PO Mayur Thompson DO VS,Fishbone, I+O VS, Fishbone, I+O Laboratory Tests 01/13/19 06:19 Red Blood Count 4.01, Mean Corpuscular Volume 92.3, Mean Corpuscular Hemoglobin 25.9 L, Mean Corpuscular Hemoglobin Concent 28.1 L, Red Cell Distribution Width 23.5 H, Calcium Level 8.1 L Vital Signs Date Time Temp Pulse Resp B/P (MAP) Pulse Ox O2 Delivery O2 Flow Rate FiO2 01/13/19 06:00 98.5 98 18 140/67 (91) 98 I&O- Last 24 Hours up to 6 AM 01/13/19 06:00 Intake Total 1940 ml Output Total 0 ml Balance 1940 ml ZION THOMPSON DO Jan 13, 2019 09:08
[2019-01-13] MEDS ORDERED: HEPARIN 1,000 UNITS/ML 10ML VIAL (FOR RADIOLOGY& DIALYSIS ONLY) IV ONE (09:45)
[2019-01-13] MEDS ORDERED: LIDOCAINE 1% SDV 5 ML VIAL SQ ONE (09:45)
--- NOTE | 2019-01-13 12:59 | IPNPDOC ---
Text Note Date of Service The patient was seen on 01/13/19. NOTE Ms. Lynn was seen at bedside today . She denies any current nausea, vomiting, abdominal pain. He states that her diarrhea is also improving Physical exam: Pt is a pleasant, thin female who is cooperative to exam. AAO 3 Pulmonary: Clear to auscultation B/L, no crackles Cardiovascular: Regular rhythm, no murmurs, knocks, rubs noted GI: Normal bowel sounds in all 4 quadrants. Demetris-Preston drain has been discontinued, no rebound, no guarding no rigidity, gastrostomy tube in place, surgical herson, clean Extremities: B/L non-pitting edema noted in her LE. No pain on palpation or asymmetrical calves noted. Neuro: Grossly intact Extremities. 1+ pedal edema Psych: Well mannered and cooperative to exam. 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 She is status post emergent laparotomy with right colectomy and partial gastrotomy with PEG tube placement now. All the CHARLOTTE drains have been removed. The patient also was diagnosed with C. difficile for which she is currently on by mouth vancomycin. She completed all other antibiotic course. The patient had a rectal tube in place as well which has been discontinued now. The patient that he has been improving. Patient also has history of ESRD and nephrology has been following for dialysis on Tuesdays, and Saturdays. The patient will have to follow up with oncology after she recovers for possible intervention. The patient currently is being seen by PT, OT as well for possible placement. 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 Patient is s/p emergent laparotomy with right colectomy, partial gastrectomy and PEG tube placement. Surgical herson in place. Patient has been tolerating the diet. We will escalate as per response. 2. ESRD: Continue hemodialysis on regular schedule (Tuesdays, , and Saturdays). Potassium lowering drugs, epo, vitamin D as per nephrology 3. C. Diff colitis: Improving. Continue vancomycin 125 mg Q 6H for total of 14 days. 4. DM type 2: Continue sliding scale insulin and adjust insulin according to 24- hour requirement DVT prophylaxis: Continue with enoxaparin sodium 30 mg QD Disposition: Unknown at this time. PT, OT and social sciences department chair for possible placement. VS,Fishbone, I+O VS, Fishbone, I+O Laboratory Tests 01/13/19 06:19 Red Blood Count 4.01, Mean Corpuscular Volume 92.3, Mean Corpuscular Hemoglobin 25.9 L, Mean Corpuscular Hemoglobin Concent 28.1 L, Red Cell Distribution Width 23.5 H, Calcium Level 8.1 L Vital Signs Date Time Temp Pulse Resp B/P (MAP) Pulse Ox O2 Delivery O2 Flow Rate FiO2 01/13/19 06:00 98.5 98 18 140/67 (91) 98 I&O- Last 24 Hours up to 6 AM 01/13/19 06:00 Intake Total 1940 ml Output Total 0 ml Balance 1940 ml CHIP JOINER MD Jan 13, 2019 12:59
--- NOTE | 2019-01-13 14:20 | IPN ---
DATE: 01/13/2019 SUBJECTIVE: The patient was seen and examined at the bedside this morning during hemodialysis procedure. She is tolerating the hemodialysis procedure well. I am seeing her after about a week. She has significantly clinically improved. She is tolerating the oral diet now. She is no longer getting tube feeds via the J-tube some of her surgical herson were removed. Her CHARLOTTE drain has also been removed now. She is afebrile and hemodynamically stable. OBJECTIVE: Vital signs: Temperature is 98.5 degrees Fahrenheit, blood pressure 140/67, pulse is 98, respiratory of 18, saturating 98% on room air. Intake and output: There is no urine output recorded. Weight on the bed scale is 62.5 kg. PHYSICAL EXAMINATION General: The patient is awake, alert, oriented times three, laying in bed, getting hemodialysis done. Head and neck exam: Extraocular muscles intact. Pupils equally round and reactive to light. Mucous membranes are moist. Neck is supple. There is no jugular venous distention (JVD). Cardiovascular: S1, S2. Regular rate. No edema of the bilateral lower extremities. Respiratory: Chest is clear to auscultation bilaterally. Bilateral equal air entry. No rales or rhonchi. Abdomen: Soft, positive bowel sounds. She still has some herson left in the midline surgical incision site. There is a J-tube in the epigastrium, right lower quadrant CHARLOTTE drain is out. Musculoskeletal: No clubbing or cyanosis. Pulses are 2+. Central nervous system (GRADER TENDER): No focal deficit. Power is 5/5 in all extremities. LABORATORY REVIEW: CBC showed WBC 10.1, hemoglobin is 10.4, platelets are 330. BMP showed sodium 139, potassium 3.3, chloride 108, bicarbonate 24, BUN 11, creatinine is 1.64, calcium is 8.1. CURRENT INPATIENT MEDICATIONS: The patient's medications were all reviewed by me. There is no change in the medications today as compared with yesterday. ASSESSMENT/PLAN: 1. End-stage renal disease on hemodialysis. The patient is being dialyzed today according to her Tuesday, Tuesday, Tuesday schedule. Ultrafiltration goal will be around 1 liter as tolerated by blood pressure. 2. Anemia in end-stage renal disease. Hemoglobin level is stable at 10.4. Continue current dose of Aranesp with dialysis. 3. Clostridium (C.) difficile colitis diarrhea. Her diarrhea is getting better. She continues to be on oral vancomycin. 4. Status post right colectomy for cancer of the colon. The patient is clinically improving. She is tolerating the regular diet now. Tube feeds are on hold. Rest of the management is as per surgical team.
[2019-01-13 22:00] VITALS: BP 126/65
[2019-01-14] MEDS: VANCOMYCIN ORAL SOL 250MG/5ML ORAL SYRINGE PO SCH ×4 (00:40→18:10)
[2019-01-14 06:00] VITALS: BP 138/60
[2019-01-14] MEDS: METAMUCIL (PSYLLIUM) PACKET PO SCH (08:26)
[2019-01-14] MEDS: CHOLESTYRAMINE 4 GM PWD PKT PO SCH ×4 (08:26→21:24)
[2019-01-14] MEDS: ENOXAPARIN 30 MG/0.3 ML SYR (J1650) SC SCH (08:26)
[2019-01-14] MEDS: PANTOPRAZOLE 20 MG TAB PO SCH (08:26)
[2019-01-14] MEDS: LACTOBACILLUS ACIDOPHILUS CAP (BACID) PO SCH (08:27)
[2019-01-14 08:36] LABS: HEMATOCRIT 35.7 % (36.0-47.0); HEMOGLOBIN 10.8 g/dl (12.0-15.5); MEAN CORPUSCULAR HEMOGLOBIN 26.7 pg (27.0-33.0); MEAN CORPUSCULAR HGB CONC 30.3 g/dl (32.0-36.5); MEAN CORPUSCULAR VOLUME 88.1 fl (80.0-96.0); PLATELET COUNT, AUTOMATED 304 10^3/uL (150-450); RED BLOOD COUNT 4.05 10^6/uL (4.00-5.40); WHITE BLOOD COUNT 6.5 10^3/uL (4.0-10.0)
[2019-01-14 09:01] LABS: CALCIUM LEVEL 8.2 MG/DL (8.8-10.2); CREATININE FOR GFR 1.45 MG/DL (0.55-1.30); GLOMERULAR FILTRATION RATE 37.4 (>39)
--- NOTE | 2019-01-14 09:20 | IPNPDOC ---
Text Note Date of Service The patient was seen on 01/14/19. NOTE No acute events overnight. She is not tolerating the tube feeds anymore due to nausea, emesis, and diarrhea. However, I switched her to regular meals with ensure TID and she is doing well. No more problems with nausea, emesis, fevers, or pain. 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 c.diff P) reg diet ensure PT OT ambulate plan on placement early next week PO Mayur Thompson DO VS,Fishbone, I+O VS, Fishbone, I+O Laboratory Tests 01/14/19 07:55 Red Blood Count 4.05, Mean Corpuscular Volume 88.1, Mean Corpuscular Hemoglobin 26.7 L, Mean Corpuscular Hemoglobin Concent 30.3 L, Red Cell Distribution Width 23.0 H, Calcium Level 8.2 L Vital Signs Date Time Temp Pulse Resp B/P (MAP) Pulse Ox O2 Delivery O2 Flow Rate FiO2 01/14/19 06:00 98.3 97 18 138/60 (86) 98 I&O- Last 24 Hours up to 6 AM 01/14/19 06:00 Intake Total 618 ml Output Total 1125 ml Balance -507 ml ZION THOMPSON DO Jan 14, 2019 09:20
[2019-01-14] MEDS ORDERED: GLUCAGON FOR INJ 1 MG VIAL (J1610) SC PRN (11:00)
[2019-01-14] MEDS ORDERED: DEXTROSE 50% 50 ML SYRINGE IV PRN (11:00)
[2019-01-14] MEDS ORDERED: GLUCOSE 4 GM CHEW TABLET PO PRN (11:00)
--- NOTE | 2019-01-14 11:26 | IPNPDOC ---
Subjective Date Seen The patient was seen on 01/14/19. Subjective Chief Complaint/HPI Patient is comfortably sitting in bed, offers no new complaints General: Denies: ROS Unobtainable, Chills, Night Sweats, Fatigue, Malaise, Normal Appetite, Other Symptoms Constitutional: Denies: Chills, Fever, Malaise, Night Sweats, Weakness, Fatigue, Weight Loss, Lethargy, Other Skin: Denies: Rash, Lesions, Jaundice, Bruising, Itching, Dry, Breakdown, Nail Changes, Other Pulmonary: Denies: Dyspnea, Cough, Pleuritic Chest Pain, Other Symptoms Cardiovascular: Denies: Chest Pain, Palpitations, Orthopnea, Paroxysmal Noc. Dyspnea, Edema, Lt Headedness, Other Symptoms Gastrointestinal: Denies: Nausea, Vomiting, Abdominal Pain, Diarrhea, Constipation, Melena, Hematochezia, Other Symptoms Musculoskeletal: Denies: Neck Pain, Back Pain, Shoulder Pain, Arm Pain, Hand Pain, Leg Pain, Foot Pain, Joint Pain, Muscle Pain, Spasms, Other Symptoms Neurological: Denies: Weakness, Numbness, Incoordination, Change in speech, Confusion, Seizures, Other Symptoms Objective Physical Examination General Exam: Positive: Alert, Cooperative, No Acute Distress Eye Exam: Negative: Sclera icteric ENT Exam: Positive: Atraumatic, Mucous membr. 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 Patient is s/p emergent laparotomy with right colectomy, partial gastrectomy and PEG tube placement. Surgical herson in place. Advance diet as tolerated (2) Diabetes Status: Chronic Problem Text: Fingerstick blood sugar every before meals and at bedtime Continue coverage and long acting insulin (3) Hypertension Status: Chronic (4) ESRD on hemodialysis Status: Acute Problem Text: Continue hemodialysis on regular schedule (Tuesdays, , and Saturdays). Potassium lowering drugs, epo, vitamin D as per nephrology (5) Colitis Status: Acute Problem Text: C. difficile colitis Responding to by mouth, Vanco At the present meds Plan/VTE VTE Prophylaxis Ordered?: Yes VS, I&O, 24H, Fishbone Vital Signs/I&O Vital Signs Date Time Temp Pulse Resp B/P (MAP) Pulse Ox O2 Delivery O2 Flow Rate FiO2 01/14/19 06:00 98.3 97 18 138/60 (86) 98 I&O- Last 24 Hours up to 6 AM 01/14/19 06:00 Intake Total 618 ml Output Total 1125 ml Balance -507 ml Laboratory Data 24H LABS Laboratory Tests 2 01/13/19 17:39: Bedside Glucose (Misc Panel) 136H 01/14/19 00:19: Bedside Glucose (Misc Panel) 116H 01/14/19 06:03: Bedside Glucose (Misc Panel) 92 01/14/19 07:55: Nucleated Red Blood Cells % (auto) 0.0, Anion Gap 6L, Glomerular Filtration Rate 37.4L, Blood Urea Nitrogen 7, Creatinine 1.45H, Sodium Level 142, Potassium Level 4.0#, Chloride Level 108H, Carbon Dioxide Level 28, Calcium Level 8.2L CBC/BMP Laboratory Tests 01/14/19 07:55 Red Blood Count 4.05, Mean Corpuscular Volume 88.1, Mean Corpuscular Hemoglobin 26.7 L, Mean Corpuscular Hemoglobin Concent 30.3 L, Red Cell Distribution Width 23.0 H, Calcium Level 8.2 L PATRICIA FLORENCE MD Jan 14, 2019 11:26
[2019-01-14] MEDS: HumaLOG INSULIN (NovoLOG) PER UNIT SC SCH ×2 (12:47→17:30)
[2019-01-14 15:16] VITALS: BP 128/60
--- NOTE | 2019-01-14 15:39 | IPN ---
DATE: 01/14/2019 SUBJECTIVE: Patient was seen and examined at the bedside today morning. She is afebrile, hemodynamically stable. She was dialyzed yesterday. She tolerated the hemodialysis procedure well; 1 liter of fluid was removed. OBJECTIVE: VITAL SIGNS: Temperature is 98.3 degrees Fahrenheit, blood pressure 138/60, pulse is 97, respiratory rate of 18, saturating 98% on room air. INTAKE AND OUTPUT: Patient got hemodialysis done yesterday; 1 liter of fluid was removed. Weight in the bed scale is 59.4 kg. PHYSICAL EXAMINATION: GENERAL: Patient is awake, alert, oriented times three, laying in bed in no apparent distress. HEAD AND NECK EXAM: Extraocular muscles intact. Pupils equally round and reactive to light. Mucous membranes are moist. Neck is supple. There is no jugular venous distention (JVD). CARDIOVASCULAR: S1, S2. Regular rate. No edema of the bilateral lower extremities. RESPIRATORY: Chest is clear to auscultation bilaterally. Bilateral equal air entry. No rales or rhonchi. ABDOMEN: Soft. Positive bowel sounds. Midline surgical site herson. Jejunum (J) tube in the epigastrium. MUSCULOSKELETAL: No clubbing or cyanosis. Pulses are 2+. Left arm arteriovenous (AV) fistula with thrill and bruit. CENTRAL NERVOUS SYSTEM (PLASTER MACHINE TENDER): No focal deficit. Power is 5/5 in all extremities. LABORATORY REVIEW: Complete blood count (CBC) showed a WBC 6.5, hemoglobin 10.8, platelets of 394. Basic metabolic panel (BMP) showed sodium 142, potassium is 4, chloride 108, bicarbonate 28, BUN 7, creatinine is 1.45, calcium is 8.2. CURRENT INPATIENT MEDICATIONS: Patient's medications were all reviewed by me. There is no change in the medications today as compared with yesterday apart from insulin sliding scale protocol. ASSESSMENT AND PLAN: 1. End-stage renal disease on hemodialysis. Patient was dialyzed yesterday; 1 liter of fluid was removed. Her regular dialysis days are Tuesday, , Tuesday. Next hemodialysis will be done on Tuesday. 2. Anemia in end-stage renal disease. Hemoglobin is optimal. 3. Clostridium (C) difficile colitis. Diarrhea significantly better. She continues to be on oral vancomycin. 4. Status post right colectomy for CA colon. Clinically, patient is getting better. She is tolerating an oral diet now. 5. Protein calorie malnutrition. Patient has been started on Ensure twice a day with meals by the surgical service.
[2019-01-14] MEDS ORDERED: HumaLOG INSULIN (NovoLOG) PER UNIT SC SCH (21:00)
[2019-01-14 22:00] VITALS: BP 107/54
[2019-01-15] MEDS: VANCOMYCIN ORAL SOL 250MG/5ML ORAL SYRINGE PO SCH ×3 (00:54→12:57)
[2019-01-15 06:00] VITALS: BP 124/58
[2019-01-15 06:46] LABS: BASO # 0.1 10^3/uL (0.0-0.2); BASO % 0.9 % (0.0-1.0); EOS # 0.2 10^3/uL (0.0-0.5); EOS % 2.7 % (0.0-3.0); HEMATOCRIT 35.2 % (36.0-47.0); HEMOGLOBIN 10.6 g/dl (12.0-15.5); LYMPH # 1.7 10^3/uL (1.5-5.0); LYMPH % 26.3 % (24.0-44.0); MEAN CORPUSCULAR HEMOGLOBIN 26.6 pg (27.0-33.0); MEAN CORPUSCULAR HGB CONC 30.1 g/dl (32.0-36.5); MEAN CORPUSCULAR VOLUME 88.2 fl (80.0-96.0); MONO # 0.5 10^3/uL (0.0-0.8); MONO % 7.2 % (0.0-5.0); NEUTROPHILS # 3.9 10^3/uL (1.5-8.5); NEUTROPHILS % 61.6 % (36.0-66.0); PLATELET COUNT, AUTOMATED 308 10^3/uL (150-450); RED BLOOD COUNT 3.99 10^6/uL (4.00-5.40); WHITE BLOOD COUNT 6.4 10^3/uL (4.0-10.0)
[2019-01-15 07:14] LABS: ALBUMIN 1.7 GM/DL (3.2-5.2); BILIRUBIN,TOTAL 0.4 MG/DL (0.2-1.0); CALCIUM LEVEL 7.7 MG/DL (8.8-10.2); CREATININE FOR GFR 1.6 MG/DL (0.55-1.30); GLOMERULAR FILTRATION RATE 33.4 (>39); POTASSIUM SERUM 3.7 MEQ/L (3.5-5.1); TOTAL PROTEIN 4.4 GM/DL (6.4-8.2)
[2019-01-15] MEDS: HumaLOG INSULIN (NovoLOG) PER UNIT SC SCH ×3 (07:30→12:56)
[2019-01-15] MEDS: PANTOPRAZOLE 20 MG TAB PO SCH (09:25)
[2019-01-15] MEDS: ENOXAPARIN 30 MG/0.3 ML SYR (J1650) SC SCH (09:25)
[2019-01-15] MEDS: LACTOBACILLUS ACIDOPHILUS CAP (BACID) PO SCH (09:26)
[2019-01-15] MEDS: CHOLESTYRAMINE 4 GM PWD PKT PO SCH (09:27)
[2019-01-15] MEDS: METAMUCIL (PSYLLIUM) PACKET PO SCH (09:27)
--- NOTE | 2019-01-15 10:43 | IPNPDOC ---
Subjective General Date/Time Seen The patient was seen on 01/15/19 at 10:28. 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 Patient reports she continues to improve. She is working with physical therapy. She reports improvement of her appetite and she is tolerating oral diet with ensure. She was having too much diarrhea with the jejunostomy tube feeding. With regards to the diarrhea, she reports that her stools are getting more formed. Current Medications Current Medications Current Medications Medications (Trade) Dose Ordered Sig/Mg Route PRN Reason Start Time Stop Time Status Last Admin Dose Admin Acetaminophen (Tylenol Tab) 650 mg Q4HP PRN PO MILD PAIN or TEMP > 101 12/30/18 00:45 01/08/19 00:50 Al Hydrox/Mg Hydrox/Simethicone (Mylanta) 30 ml Q6HP PRN PO HEARTBURN 12/30/18 20:15 01/06/19 11:43 DC 01/04/19 21:50 Atorvastatin Calcium (Lipitor) 20 mg DAILY PO 12/30/18 09:00 12/30/18 13:29 DC Carvedilol (COReg) 6.25 mg BID PO 12/29/18 21:00 12/30/18 13:29 DC 12/30/18 02:06 Cholestyramine Resin (Questran) 2 gm BID@1000,2000 PO 01/05/19 10:00 01/06/19 10:37 DC 01/06/19 06:17 Cholestyramine Resin (Questran) 2 gm QID PO 01/06/19 13:00 01/15/19 09:27 Darbepoetin Mp (Aranesp (Dialysis Use)) 200 mcg HD IV 12/31/18 09:45 Dextrose (Dextrose 50%) 25 ml ASDIRECTED PRN IV SEE LABEL COMMENTS 01/14/19 11:00 Dextrose/Sodium Chloride 1,000 ml @ 40 mls/hr Q24H IV 12/31/18 10:00 01/01/19 22:24 DC 01/01/19 05:00 Diatrizoate Meglum/ Diatrizoate Sod (Gastrografin) 10 ml Q30M PO 12/29/18 14:00 12/29/18 14:31 DC 12/29/18 14:33 Enoxaparin Sodium (Lovenox) 30 mg DAILY SC 12/30/18 09:00 01/15/19 09:25 Ertapenem 0.5 gm/ Sodium Chloride 50 ml @ 100 mls/hr Q24H IV 12/30/18 06:00 01/03/19 08:05 DC 01/03/19 04:57 Fentanyl Citrate (Sublimaze) 25 mcg Q5MP PRN IV MODERATE PAIN (PS 4-7) 12/30/18 01:00 12/30/18 01:59 DC Glucagon (Glucagon) 1 mg ASDIRECTED PRN SC SEE LABEL COMMENTS 01/14/19 11:00 Glucose (Glucose) 16 GM ASDIRECTED PRN PO SEE LABEL COMMENTS 01/14/19 11:00 Guaifenesin/ Dextromethorphan (Robitussin Dm) 10 ml Q6HP PRN PO sore throat 12/31/18 17:45 12/31/18 17:55 DC Haloperidol (Haldol) 0.5 mg Q6HP PRN IV AGITATION 01/01/19 14:00 01/05/19 10:05 DC 01/02/19 02:53 Heparin Sodium (Heparin (Flush)) 200 units ASDIRECTED PRN IV SEE LABEL COMMENTS 01/11/19 00:30 01/12/19 13:23 DC Heparin Sodium (Heparin (Flush)) 200 units PICC IV 01/11/19 06:00 01/12/19 13:23 DC 01/12/19 07:07 Home Med (Med Rec Complete!) ASDIRECTED XX 12/29/18 14:00 12/29/18 16:01 DC Insulin Human Lispro (HumaLOG INSULIN) SEE PROTOCOL TABLE AC SC 01/14/19 12:00 01/14/19 12:47 Insulin Human Lispro (HumaLOG INSULIN) SEE PROTOCOL TABLE QHS SC 01/14/19 21:00 Ketorolac Tromethamine (ToRADol) 15 mg Q6HP PRN IV MILD/MODERATE PAIN (PS 1-7) 12/30/18 00:45 01/04/19 00:44 DC 01/01/19 11:02 Lactated Ringer's 1,000 ml @ 100 mls/hr Q10H IV 12/30/18 00:31 12/30/18 13:59 DC 12/30/18 01:40 Lactobacillus Acidophilus (Bacid) 1 ea DAILY PO 01/03/19 09:00 01/06/19 12:16 DC 01/06/19 06:17 Lactobacillus Acidophilus (Bacid) 2 ea DAILY PO 01/07/19 09:00 01/15/19 09:26 Levofloxacin 250 mg/IV Miscellaneous Supplies 50 ml @ 50 mls/hr Q24H IV 01/03/19 08:15 UNV Levofloxacin 500 mg/IV Miscellaneous Supplies 100 ml @ 100 mls/hr Q48H IV 01/05/19 16:00 01/05/19 16:00 DC Lidocaine/ Prilocaine (Emla) 1 dose ASDIRECTED TOP 01/01/19 11:30 01/02/19 06:36 Lorazepam (Ativan) 0.5 mg Q6HP PRN IV ANXIETY 12/30/18 11:15 01/01/19 11:44 DC 01/01/19 11:02 Lorazepam (Ativan) 1 mg Q4HP PRN IV ANXIETY 01/01/19 15:00 01/01/19 22:24 DC 01/01/19 19:09 Metoclopramide HCl (REGLAN INJection) 10 mg Q6HP PRN IV NAUSEA OR VOMITING 12/30/18 01:00 12/30/18 01:59 DC Metoclopramide HCl (Reglan Liquid) 10 mg Q6H PEG 01/05/19 12:00 01/09/19 13:49 DC 01/09/19 13:46 Metoclopramide HCl (Reglan Liquid) 10 mg Q6H PO 01/09/19 18:00 01/09/19 18:00 DC Miscellaneous (Unresolved Clarification Entry) SEE LABEL COMMENTS DAILY XX 01/03/19 09:00 01/03/19 14:05 DC Miscellaneous (Unresolved Clarification Entry) SEE LABEL COMMENTS DAILY XX 01/05/19 09:00 01/05/19 10:05 DC Miscellaneous (Unresolved Clarification Entry) SEE LABEL COMMENTS DAILY XX 01/06/19 09:00 01/06/19 12:31 DC 01/06/19 12:13 Morphine Sulfate (Morphine Sulfate Inj) 4 mg Q2HP PRN IV SEVERE PAIN (PS 8-10) 12/30/18 00:45 01/01/19 13:19 DC 12/31/18 20:20 Non-Formulary Medication ( See Comment Field Below ) CHECK TO SEE IF THE PATIENT... DAILY@1600 XX 12/30/18 16:00 12/30/18 16:00 DC Non-Formulary Medication ( See Comment Field Below ) CHECK TO SEE IF THE PATIENT... DAILY@1600 XX 01/01/19 16:00 01/02/19 10:37 DC Non-Formulary Medication ( See Comment Field Below ) [facility] ASDIRECTED XX 12/30/18 14:15 12/31/18 09:38 DC Ondansetron HCl (ZOFRAN INJection) 4 mg Q4HP PRN IV NAUSEA OR VOMITING 12/30/18 01:00 12/30/18 01:59 DC Ondansetron HCl (ZOFRAN INJection) 4 mg Q4HP PRN IV NAUSEA OR VOMITING 01/03/19 20:15 01/05/19 20:28 Ondansetron HCl (ZOFRAN INJection) 4 mg Q6HP PRN IV NAUSEA OR VOMITING 12/30/18 00:45 01/01/19 13:59 DC 12/31/18 07:25 Oxycodone/ Acetaminophen (Percocet 5mg/ 325mg Tablet) 1 tab ASDIRECTED PRN PO MILD/MODERATE PAIN (PS 1-7) 12/30/18 01:00 12/30/18 01:59 DC Oxycodone/ Acetaminophen (Percocet 5mg/ 325mg Tablet) 1 tab Q4HP PRN PO MILD/MODERATE PAIN (PS 1-7) 12/31/18 10:00 01/06/19 11:41 DC Oxycodone/ Acetaminophen (Percocet 5mg/ 325mg Tablet) 1 tab Q4HP PRN PO MILD/MODERATE PAIN (PS 1-7) 01/06/19 12:45 01/11/19 08:20 DC Oxycodone/ Acetaminophen (Percocet 5mg/ 325mg Tablet) 2 tab Q4HP PRN PO SEVERE PAIN (PS 8-10) 12/31/18 10:00 01/06/19 11:41 DC Oxycodone/ Acetaminophen (Percocet 5mg/ 325mg Tablet) 2 tab Q4HP PRN PO SEVERE PAIN (PS 8-10) 01/06/19 12:45 01/11/19 08:20 DC Pantoprazole Sodium (Protonix) 40 mg DAILY IV 12/30/18 09:00 01/08/19 10:33 DC 01/08/19 09:10 Pantoprazole Sodium (Protonix) 40 mg DAILY PO 01/09/19 09:00 01/15/19 09:25 Phenol (Chloraseptic [place]) 5 spray Q2HP PRN MT SORE THROAT 12/31/18 18:00 01/05/19 10:05 DC 01/03/19 00:39 Phenyleph/Shark Oil/Min Oil/Petrol (Preparation H Ointment) apply to hemorroids QIDP PRN FL ITCHING 01/05/19 09:30 Potassium Chloride/Sodium Chloride 1,000 ml @ 40 mls/hr Q24H IV 01/03/19 12:00 01/10/19 07:33 DC 01/10/19 06:57 Psyllium Hydrophilic Mucilloid (Metamucil) 1 pkt DAILY PO 01/09/19 09:00 01/15/19 09:27 Sodium Chloride 1,000 ml @ 75 mls/hr [id number] IV 12/30/18 01:00 12/30/18 01:59 DC Sodium Chloride 1,000 ml @ 100 mls/hr Q10H IV 12/30/18 14:45 UNV Sodium Chloride 1,000 ml @ 125 mls/hr Q8H IV 12/30/18 14:00 12/31/18 08:23 DC 12/31/18 07:25 Sodium Chloride (Saline Lock Flush) 10 ml ASDIRECTED PRN IV SEE LABEL COMMENTS 01/11/19 00:30 01/12/19 13:23 DC Sodium Chloride (Saline Lock Flush) 10 ml PICC IV 01/11/19 06:00 01/12/19 13:23 DC 01/12/19 07:07 Vancomycin HCl (First-Vancomycin 50(Firvanq)- 250mg/5ml) 125 mg Q6H NG 01/03/19 00:00 01/09/19 13:50 DC 01/09/19 13:45 Vancomycin HCl (First-Vancomycin 50(Firvanq)- 250mg/5ml) 125 mg Q6H PO 01/09/19 18:00 01/15/19 05:24 Vancomycin HCl 1000 mg/IV Miscellaneous Supplies 1 each/ Dextrose 270 ml @ 270 mls/hr HD IV 12/30/18 11:30 12/30/18 14:00 DC Vancomycin HCl 1000 mg/IV Miscellaneous Supplies 1 each/ Dextrose 270 ml @ 270 mls/hr HD IV 01/01/19 09:45 01/02/19 10:37 DC Allergies Coded Allergies: Penicillins (Verified Allergy, Severe, throat swelling , hives, 12/12/18) morphine (Verified Adverse Reaction, Mild, Confusion, 01/01/19) Objective Physical Examination Examination GENERAL APPEARANCE: Looks comfortable. SKIN: Warm and dry. HEENT: Normocephalic, atraumatic. [place] palpebral conjunctiva, anicteric sclerae. Lips and mucosa appear moist. NECK: Supple, no thyromegaly. No obvious jugular venous distention. LUNGS: Clear to auscultation bilaterally. No wheezing appreciated. HEART: No chest wall abnormalities. Regular rate and rhythm with no murmurs appreciated. ABDOMEN: Abdomen is nondistended, soft, and nontender on palpation. Her midline incision is healing appropriately. All herson have been removed. The drain site also has healed. She has a left side jejunostomy feeding tube that is not being used. Drain site is clean and dry.. EXTREMITIES: Extremity swelling has improved markedly from the last few days.. Vital Signs Vital Signs Date Time Temp Pulse Resp B/P (MAP) Pulse Ox O2 Delivery O2 Flow Rate FiO2 01/15/19 06:00 98.4 97 16 124/58 (80) 97 I&Os I&O- Last 24 Hours up to 6 AM 01/15/19 06:00 Intake Total 570 ml Output Total 0 ml Balance 570 ml Laboratory Data Labs 24H Laboratory Tests 2 01/14/19 12:31: Bedside Glucose (Misc Panel) 134H 01/14/19 17:15: Bedside Glucose (Misc Panel) 114H 01/14/19 21:05: Bedside Glucose (Misc Panel) 131H 01/15/19 06:14: Immature Granulocyte % (Auto) 1.3, White Blood Count 6.4, Red Blood Count 3.99L, Hemoglobin 10.6L, Hematocrit 35.2L, Mean Corpuscular Volume 88.2, Mean Corpuscular Hemoglobin 26.6L, Mean Corpuscular Hemoglobin Concent 30.1L, Red Cell Distribution Width 22.8H, Platelet Count 308, Neutrophils (%) (Auto) 61.6, Lymphocytes (%) (Auto) 26.3, Monocytes (%) (Auto) 7.2H, Eosinophils (%) (Auto) 2.7, Basophils (%) (Auto) 0.9, Neutrophils # (Auto) 3.9, Lymphocytes # (Auto) 1.7, Monocytes # (Auto) 0.5, Eosinophils # (Auto) 0.2, Basophils # (Auto) 0.1, Nucleated Red Blood Cells % (auto) 0.0, Anion Gap 6L, Glomerular Filtration Rate 33.4L, Blood Urea Nitrogen 9, Creatinine 1.60H, Sodium Level 142, Potassium Level 3.7, Chloride Level 110H, Carbon Dioxide Level 26, Calcium Level 7.7L, Aspartate Amino Transf (AST/SGOT) 10, Alanine Aminotransferase (ALT/SGPT) 15, Alkaline Phosphatase 159H, Total Bilirubin 0.4, Total Protein 4.4L, Albumin 1.7L, Albumin/Globulin Ratio 0.63L CBC/BMP Laboratory Tests 01/15/19 06:14 Red Blood Count 3.99 L, Mean Corpuscular Volume 88.2, Mean Corpuscular Hemoglobin 26.6 L, Mean Corpuscular Hemoglobin Concent 30.1 L, Red Cell Distribution Width 22.8 H, Neutrophils (%) (Auto) 61.6, Lymphocytes (%) (Auto) 26.3, Monocytes (%) (Auto) 7.2 H, Eosinophils (%) (Auto) 2.7, Basophils (%) (Auto) 0.9, Neutrophils # (Auto) 3.9, Lymphocytes # (Auto) 1.7, Monocytes # (Auto) 0.5, Eosinophils # (Auto) 0.2, Basophils # (Auto) 0.1, Calcium Level 7.7 L, Aspartate Amino Transf (AST/SGOT) 10, Alanine Aminotransferase (ALT/SGPT) 15, Alkaline Phosphatase 159 H, Total Bilirubin 0.4, Total Protein 4.4 L, Albumin 1.7 L Impression She is now postop day 17 after extended right colectomy, partial gastrectomy with Sedrick-en-Y gastrojejunostomy, 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 I have previously discussed the pathology results with her children. This may first time to discuss the final pathology results with her. She is set stage IIIc and typically would need adjuvant chemotherapy as she has a high likelihood of recurrence up to 30% in 5 years. Her son told me that did previously spoken to Dr. Amanda about not having any chemotherapy done. I spoke to her today about this and she seemed to be undecided whether she wants to go through with adjuvant chemotherapy or not so we will arrange for at least oncology visit to discuss this with her and she can make up her mind whether she wants or not to have chemotherapy. She is finishing up a 2 week course of vancomycin for the C. difficile colitis. Clinically she looks improved and she reports that her stools are getting more formed. She is tolerating regular diet with ensure supplementation. The jejunostomy feeding tube is worsening her diet. As this was discontinued. He will be another 2 weeks before we can discontinue the feeding tube. She is on regular dialysis. Today is her regular dialysis today. She will require probably prolonged physical therapy, occupational therapy. Now that the rectal tube is out, PT and OT will work with her Long-term she and her family are looking for possible fpc facility placement. Plan / VTE VTE Prophylaxis Ordered?: Yes STANISLAW CAMPOS MD Jan 15, 2019 10:43
--- NOTE | 2019-01-15 11:40 | IPNPDOC ---
Subjective Date Seen The patient was seen on 01/15/19. Subjective Chief Complaint/HPI Patient is comfortable offers no new complaints in no apparent distress awaiting placement General: Denies: ROS Unobtainable, Chills, Night Sweats, Fatigue, Malaise, Normal Appetite, Other Symptoms Skin: Denies: Rash, Lesions, Jaundice, Bruising, Itching, Dry, Breakdown, Nail Changes, Other Pulmonary: Denies: Dyspnea, Cough, Pleuritic Chest Pain, Other Symptoms Cardiovascular: Denies: Chest Pain, Palpitations, Orthopnea, Paroxysmal Noc. Dyspnea, Edema, Lt Headedness, Other Symptoms Gastrointestinal: Denies: Nausea, Vomiting, Abdominal Pain, Diarrhea, Constipation, Melena, Hematochezia, Other Symptoms Endocrine: Denies: Polydipsia, Polyphagia, Polyuria, Heat Intolerance, Cold Intolerance, Other Endocrine Sx Musculoskeletal: Denies: Neck Pain, Back Pain, Shoulder Pain, Arm Pain, Hand Pain, Leg Pain, Foot Pain, Joint Pain, Muscle Pain, Spasms, Other Symptoms Neurological: Denies: Weakness, Numbness, Incoordination, Change in speech, Confusion, Seizures, Other Symptoms Objective Physical Examination General Exam: Positive: Alert, Cooperative, No Acute Distress Eye Exam: Negative: Sclera icteric ENT Exam: Positive: Atraumatic, Mucous membr. 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 Patient is s/p emergent laparotomy with right colectomy, partial gastrectomy and PEG tube placement. Surgical herson in place. Tolerating diet Awaiting placement Surgical follow-up appreciated (2) Diabetes Status: Chronic Problem Text: Fingerstick blood sugar every before meals and at bedtime Continue coverage and long acting insulin Continue present meds (3) Hypertension Status: Chronic Problem Text: Under well control Continue present meds (4) ESRD on hemodialysis Status: Acute Problem Text: Continue hemodialysis on regular schedule (Tuesdays, , and Saturdays). Potassium lowering drugs, epo, vitamin D as per nephrology (5) Colitis Status: Acute Problem Text: C. difficile colitis Responding to by mouth, Vanco At the present meds Plan/VTE VTE Prophylaxis Ordered?: Yes VS, I&O, 24H, Fishbone Vital Signs/I&O Vital Signs Date Time Temp Pulse Resp B/P (MAP) Pulse Ox O2 Delivery O2 Flow Rate FiO2 01/15/19 06:00 98.4 97 16 124/58 (80) 97 I&O- Last 24 Hours up to 6 AM 01/15/19 06:00 Intake Total 570 ml Output Total 0 ml Balance 570 ml Laboratory Data 24H LABS Laboratory Tests 2 01/14/19 12:31: Bedside Glucose (Misc Panel) 134H 01/14/19 17:15: Bedside Glucose (Misc Panel) 114H 01/14/19 21:05: Bedside Glucose (Misc Panel) 131H 01/15/19 06:14: Immature Granulocyte % (Auto) 1.3, White Blood Count 6.4, Red Blood Count 3.99L, Hemoglobin 10.6L, Hematocrit 35.2L, Mean Corpuscular Volume 88.2, Mean Corpuscular Hemoglobin 26.6L, Mean Corpuscular Hemoglobin Concent 30.1L, Red [place] l Distribution Width 22.8H, Platelet Count 308, Neutrophils (%) (Auto) 61.6, Lymphocytes (%) (Auto) 26.3, Monocytes (%) (Auto) 7.2H, Eosinophils (%) (Auto) 2.7, Basophils (%) (Auto) 0.9, Neutrophils # (Auto) 3.9, Lymphocytes # (Auto) 1.7, Monocytes # (Auto) 0.5, Eosinophils # (Auto) 0.2, Basophils # (Auto) 0.1, Nucleated Red Blood Cells % (auto) 0.0, Anion Gap 6L, Glomerular Filtration Rate 33.4L, Blood Urea Nitrogen 9, Creatinine 1.60H, Sodium Level 142, Potassium Level 3.7, Chloride Level 110H, Carbon Dioxide Level 26, Calcium Level 7.7L, Aspartate Amino Transf (AST/SGOT) 10, Alanine Aminotransferase (ALT/SGPT) 15, Alkaline Phosphatase 159H, Total Bilirubin 0.4, Total Protein 4.4L, Albumin 1.7L, Albumin/Globulin Ratio 0.63L CBC/BMP Laboratory Tests 01/15/19 06:14 Red Blood Count 3.99 L, Mean Corpuscular Volume 88.2, Mean Corpuscular Hemoglobin 26.6 L, Mean Corpuscular Hemoglobin Concent 30.1 L, Red Cell Distribution Width 22.8 H, Neutrophils (%) (Auto) 61.6, Lymphocytes (%) (Auto) 26.3, Monocytes (%) (Auto) 7.2 H, Eosinophils (%) (Auto) 2.7, Basophils (%) (Aut o) 0.9, Neutrophils # (Auto) 3.9, Lymphocytes # (Auto) 1.7, Monocytes # (Auto) 0.5, Eosinophils # (Auto) 0.2, Basophils # (Auto) 0.1, Calcium Level 7.7 L, Aspartate Amino Transf (AST/SGOT) 10, Alanine Aminotransferase (ALT/SGPT) 15, Alkaline Phosphatase 159 H, Total Bilirubin 0.4, Total Protein 4.4 L, Albumin 1.7 L PATRICIA FLORENCE MD Jan 15, 2019 11:40
[2019-01-15] MEDS ORDERED: FIRV50SO PO (12:26)
[2019-01-15] MEDS ORDERED: META1POW PO (12:26)
[2019-01-15] MEDS ORDERED: PREPOI PR (12:26)
[2019-01-15] MEDS ORDERED: PANT20TA2 PO (12:26)
[2019-01-15] MEDS ORDERED: LIDO2.5C15 TOP (12:26)
[2019-01-15] MEDS ORDERED: CHOL4PW PO (12:26)
[2019-01-15] MEDS ORDERED: RISATAB3 PO (12:26)
[2019-01-15] MEDS ORDERED: DARB100SYR IV (12:26)
--- NOTE | 2019-01-15 13:44 | DS.PDOC ---
Discharge Summary General Date of Admission Dec 30, 2018 at 00:31 Date of Discharge 01/15/19 Discharge Summary PROCEDURES PERFORMED DURING STAY: None. ADMITTING DIAGNOSES: 1. Neoplasm of transverse colon, diabetes mellitus, hypertension, C. difficile colitis. end-stage renal disease on hemodialysis. DISCHARGE DIAGNOSES: 1. Neoplasm of transverse colon, hypertension, diabetes mellitus, C. difficile colitis, end-stage renal disease on hemodialysis. COMPLICATIONS/CHIEF COMPLAINT: Neoplasm Of Uncertain Behavior Of Transverse Colon. 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 Splenomegaly and mild ascites also noted. She reported mild weight loss and was found to have leukocytosis 16,000. Pt underwent exploratory laparotomy, right colectomy, and en block gastroectomy. It was noted this morning around 5AM, pt started to have hypotension with MAP 63. Medical team as well as nephrology team was consulted. . HOSPITAL COURSE: 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 Patient is s/p emergent laparotomy with right colectomy, partial gastrectomy and PEG tube placement. Surgical herson in place. Tolerating diet Awaiting placement Surgical follow-up appreciated DM Fingerstick blood sugar every before meals and at bedtime Continue coverage and long acting insulin Continue present meds HTN Under well control Continue present meds ESRD ON HD Continue hemodialysis on regular schedule (Tuesdays, , and Saturdays). Potassium lowering drugs, epo, vitamin D as per nephrology C. difficile colitis Responding to by mouth, Vanco Continue vancomycin for a total 14 days DISCHARGE MEDICATIONS: Please see below. ALLERGIES: Please see below. PHYSICAL EXAMINATION ON DISCHARGE: VITAL SIGNS: Please see below. GENERAL: Within normal limits HEENT: PERRLA. Extraocular muscles intact NECK: Supple CARDIOVASCULAR EXAMINATION: S1, S2, regular RESPIRATORY EXAMINATION: Clear to A&P ABDOMINAL EXAMINATION: Benign EXTREMITIES: No clubbing, cyanosis, edema SKIN: Normal NEUROLOGICAL EXAMINATION: . No focal motor sensory deficit PSYCHIATRIC EXAMINATION: Normal LABORATORY DATA: Please see below. IMAGING: Barium swallow:Impression: No evidence of anastomotic leak at the gastrojejunostomy. Fluoroscopic exposure time is 5.0 minutes. PROGNOSIS: Good ACTIVITY: As tolerated. DIET: As tolerated DISCHARGE PLAN: Discharge to subacute rehabilitation facility DISPOSITION: . Subacute rehabilitation facility DISCHARGE INSTRUCTIONS: 1. As per discharge instructions. ITEMS TO FOLLOWUP ON ON OUTPATIENT: 1. Follow PCP in one week. DISCHARGE CONDITION: Stable. TIME SPENT ON DISCHARGE: 40 minutes. Vital Signs/I&Os Vital Signs Date Time Temp Pulse Resp B/P (MAP) Pulse Ox O2 Delivery O2 Flow Rate FiO2 01/15/19 06:00 98.4 97 16 124/58 (80) 97 I&O- Last 24 Hours up to 6 AM 01/15/19 06:00 Intake Total 570 ml Output Total 0 ml Balance 570 ml Laboratory Data Labs 24H Laboratory Tests 2 01/14/19 17:15: Bedside Glucose (Misc Panel) 114H 01/14/19 21:05: Bedside Glucose (Misc Panel) 131H 01/15/19 06:14: Immature Granulocyte % (Auto) 1.3, White Blood Count 6.4, Red Blood Count 3.99L, Hemoglobin 10.6L, Hematocrit 35.2L, Mean Corpuscular Volume 88.2, Mean Co rpuscular Hemoglobin 26.6L, Mean Corpuscular Hemoglobin Concent 30.1L, Red Cell Distribution Width 22.8H, Platelet Count 308, Neutrophils (%) (Auto) 61.6, Lymphocytes (%) (Auto) 26.3, Monocytes (%) (Auto) 7.2H, Eosinophils (%) (Auto) 2.7, Basophils (%) (Auto) 0.9, Neutrophils # (Auto) 3.9, Lymphocytes # (Auto) 1.7, Monocytes # (Auto) 0.5, Eosinophils # (Auto) 0.2, Basophils # (Auto) 0.1, Nucleated Red Blood Cells % (auto) 0.0, Anion Gap 6L, Glomerular Filtration Rate 33.4L, Blood Urea Nitrogen 9, Creatinine 1.60H, Sodium Level 142, Potassium Level 3.7, Chloride Level 110H, Carbon Dioxide Level 26, Calcium Level 7.7L, Aspartate Amino Transf (AST/SGOT) 10, Alanine Aminotransferase (ALT/SGPT) 15, Alkaline Phosphatase 159H, Total Bilirubin 0.4, Total Protein 4.4L, Albumin 1.7L, Albumin/Globulin Ratio 0.63L 01/15/19 12:25: Bedside Glucose (Misc Panel) 132H CBC/BMP Laboratory Tests 01/15/19 06:14 Red Blood Count 3.99 L, Mean Corpuscular Volume 88.2, Mean Corpuscular Hemoglobin 26.6 L, Mean Corpuscular Hemoglobin Concent 30.1 L, Red Cell Distribution Width 22.8 H, Neutrophils (%) (Auto) 61.6, Lymphocytes (%) (Auto) 26.3, Monocytes (%) (Auto) 7.2 H, Eosinophils (%) (Auto) 2.7, Basophils (%) (Auto) 0.9, Neutrophils # (Auto) 3.9, Lymphocytes # (Auto) 1.7, Monocytes # (Auto) 0.5, Eosinophils # (Auto) 0.2, Basophils # (Auto) 0.1, Calcium Level 7.7 L, Aspartate Amino Transf (AST/SGOT) 10, Alanine Aminotransferase (ALT/SGPT) 15, Alkaline Phosphatase 159 H, Total Bilirubin 0.4, Total Protein 4.4 L, Albumin 1.7 L FSBS Laboratory Tests Test 01/14/19 17:15 01/14/19 21:05 01/15/19 12:25 Range/Units Bedside Glucose (Misc Panel) 114 131 132 83-110 MG/DL Discharge Medications Scheduled Atorvastatin Calcium (Atorvastatin Calcium) 20 Mg Tab, 20 MG PO DAILY, (Reported) Carvedilol (Carvedilol) 6.25 Mg Tab, 6.25 MG PO BID, (Reported) DIALYSIS ON , THRS, SAT. HAD DIALYSIS 12/28 Cholestyramine (Cholestyramine Packet) 4 Gm Powd.pack, 2 GM PO QID Darbepoetin (Aranesp) 100 Mcg/0.5 Ml Syringe, 200 MCG IV HD Ergocalciferol (Vitamin D2) (Vitamin D2) 50,000 Unit Cap, 50,000 UNIT PO 1XWK, (Reported) ON TUESDAY Folic Acid/Vit B Complex and C (Kellee-Leeanne Tablet) 1 Tab Tab, 1 TAB PO DAILY, (Reported) L.acidoph/L.bulg/B.bif/S.therm (Sulma-Bid Caplet) 1 Each Tablet, 2 EA PO DAILY Lidocaine/Prilocaine (Lidocaine-Prilocaine Cream) 2.5%/2.5% Cream..g., 1 APLCT TOP ASDIRECTED, (Reported) APPLY TO PORT 30 MINUTES BEFORE DIALYSIS Lidocaine/Prilocaine (Lidocaine-Prilocaine Cream) 2.5%/2.5% Cream..g., 1 DOSE TOP ASDIRECTED Lorazepam (Lorazepam) 0.5 Mg Tab, 0.5 MG PO DAILY, (Reported) Pantoprazole Sodium (Pantoprazole Sodium) 20 Mg Tablet.dr, 40 MG PO DAILY Psyllium Husk/Aspartame (Metamucil Fiber Singles Packet) 3.4 Gm Powd.pack, 1 PKT PO DAILY Sertraline HCl (Sertraline HCl) 100 Mg Tab, 100 MG PO DAILY, (Reported) Vancomycin HCl (Firvanq) 50 Mg/1 Ml Soln.recon, 125 MG PO Q6H Scheduled PRN Phenyleph/Shark Oil/Mo/Petrol (Preparation H Ointment) 28 Gm Oint.appl, 0 DOSE VT QIDP PRN for ITCHING Allergies Coded Allergies: Penicillins (Verified Allergy, Severe, throat swelling , hives, 12/12/18) morphine (Verified Adverse Reaction, Mild, Confusion, 01/01/19) PATRICIA FLORENCE MD Jan 15, 2019 13:44
--- NOTE | 2019-01-15 14:02 | IPNPDOC ---
Date Seen The patient was seen on 01/15/19. Progress Note NEPHROLOGY SERVICE PROGRESS NOTE SUBJECTIVE: Patient is a 78 YO F with end-stage renal disease on HD (T, , S). The patient was examined today at the bedside. She reports she is feeling well, with no issues working with both physical and occupational therapy. She is not having any shortness of breath or difficulty breathing. She denies any weakness. She was started on Ensure and is tolerating these well. She also denies any abdominal pain relating to her feeding tube placement. She is anxious to leave and is awaiting placement at this time. She is due for dialysis tomorrow. OBJECTIVE PHYSICAL EXAMINATION: VITAL SIGNS: Please see below. GENERAL: laying in bed, appears stated age, calm, cooperative, in no acute distress HEENT: EOMI, moist mucus membranes with normal dentition, neck is supple with no signs of lymphadenopathy or thyromegaly CARDIOVASCULAR: somewhat tachycardic, but regular rate and rhythm with no obvious murmurs/rubs/gallops appreciated RESPIRATORY: clear to auscultation bilaterally with no adventitious breath sounds appreciated ABDOMINAL: J tube in place in the LLQ with no surrounding edema, bandage in RLQ removed showing healing surgical scar. Abdomen in nontender to palpation with no masses or organomegaly, +BS EXTREMITIES: No clubbing/cyanosis/edema appreciated NEUROLOGICAL: CN 2-12 intact without any obvious focal deficits PSYCHOLOGICAL: normal mood/affect, AAOx3 LABORATORY DATA, IMAGING STUDIES, MICROBIOLOGY: Please see below. ASSESSMENT AND PLAN: This is a 78 YO F with ESRD (T, , S), DM2, hypertension and recently diagnosed colon cancer s/p colonic and gastric resection as well as J tube placement for whom dialysis management is currently being done by the nephrology service. The patient has improved s/p surgery and is set for discharg e and placement in the near future. PROBLEMS: 1. ESRD: -Patient will be dialyzed tomorrow 2. Anemia in ESRD. -Stable. Hgb is within acceptable range. 3. Recent history of C. dif colitis. -Patient reports her diarrhea has nearly resolved and she is tolerating a diet now and being supplemented with Ensure milkshakes. Will continue to monitor her progress. 4. Protein calorie malnutrition: -As above, continue Ensure BID for proper nutrition. DISPOSITION: Pending placement VS, I&O, 24H, Fishbone Vital Signs/I&O Vital Signs Date Time Temp Pulse Resp B/P (MAP) Pulse Ox O2 Delivery O2 Flow Rate FiO2 01/15/19 06:00 98.4 97 16 124/58 (80) 97 I&O- Last 24 Hours up to 6 AM 01/15/19 06:00 Intake Total 570 ml Output Total 0 ml Balance 570 ml Laboratory Data 24H LABS Laboratory Tests 2 01/14/19 17:15: Bedside Glucose (Misc Panel) 114H 01/14/19 21:05: Bedside Glucose (Misc Panel) 131H 01/15/19 06:14: Immature Granulocyte % (Auto) 1.3, White Blood Count 6.4, Red Blood Count 3.99L, Hemoglobin 10.6L, Hematocrit 35.2L, Mean Corpuscular Volume 88.2, Mean Corpuscular Hemoglobin 26.6L, Mean Corpuscular Hemoglobin Concent 30.1L, Red Cell Distribution Width 22.8H, Platelet Count 308, Neutrophils (%) (Auto) 61.6, Lymphocytes (%) (Auto) 26.3, Monocytes (%) (Auto) 7.2H, Eosinophils (%) (Auto) 2.7, Basophils (%) (Auto) 0.9, Neutrophils # (Auto) 3.9, Lymphocytes # (Auto) 1.7, Monocytes # (Auto) 0.5, Eosinophils # (Auto) 0.2, Basophils # (Auto) 0.1, Nucleated Red Blood Cells % (auto) 0.0, Anion Gap 6L, Glomerular Filtration Rate 33.4L, Blood Urea Nitrogen 9, Creatinine 1.60H, Sodium Level 142, Potassium Level 3.7, Chloride Level 110H, Carbon Dioxide Level 26, Calcium Level 7.7L, Aspartate Amino Transf (AST/SGOT) 10, Alanine Aminotransferase (ALT/SGPT) 15, Alkaline Phosphatase 159H, Total Bilirubin 0.4, Total Protein 4.4L, Albumin 1.7L, Albumin/Globulin Ratio 0.63L 01/15/19 12:25: Bedside Glucose (Misc Panel) 132H CBC/BMP Laboratory Tests 01/15/19 06:14 Red Blood Count 3.99 L, Mean Corpuscular Volume 88.2, Mean Corpuscular Hemoglobin 26.6 L, Mean Corpuscular Hemoglobin Concent 30.1 L, Red Cell Distribution Width 22.8 H, Neutrophils (%) (Auto) 61.6, Lymphocytes (%) (Auto) 26.3, Monocytes (%) (Auto) 7.2 H, Eosinophils (%) (Auto) 2.7, Basophils (%) (Auto) 0.9, Neutrophils # (Auto) 3.9, Lymphocytes # (Auto) 1.7, Monocytes # (Auto) 0.5, Eosinophils # (Auto) 0.2, Basophils # (Auto) 0.1, Calcium Level 7.7 L, Aspartate Amino Transf (AST/SGOT) 10, Alanine Aminotransferase (ALT/SGPT) 15, Alkaline Phosphatase 159 H, Total Bilirubin 0.4, Total Protein 4.4 L, Albumin 1.7 L GME ATTESTATION GME ATTESTATION My faculty preceptor for this patient encounter was physically present during the encounter and was fully available. All aspects of the patient interview, examination, medical decision making process, and medical care plan development were reviewed and approved by the faculty preceptor. The faculty preceptor is aware and concurs with the plan as stated in the body of this note and will attest to such by his/her cosignature. CITLALLI HARRELL MD Jan 15, 2019 14:02
== END 2019-01-15 14:15 | DRG 326 ==
LOC: EDBD 10:41 → M ED 10:41 → M SDC 10:42 → M ED INP 12-30 00:31 → M ICU 12-30 01:19 → M MS5PR 01-06 05:50
PROVIDERS: ADMIT Surgery; ATTEND Internal Medicine
PROC: 0DTL0ZZ Resection of Transverse Colon, Open Approach (ICD-10-PCS; 2018-12-29)
PROC: 0DHA0UZ Insertion of Feeding Device into Jejunum, Open Approach (ICD-10-PCS; 2018-12-29)
PROC: 0DB60ZZ Excision of Stomach, Open Approach (ICD-10-PCS; principal; 2018-12-29 18:25)
PROC: 5A1D70Z Performance of Urinary Filtration, Intermittent, Less than 6 Hours Per Day (ICD-10-PCS; 2018-12-31)
PROC: 30233N1 Transfusion of Nonautologous Red Blood Cells into Peripheral Vein, Percutaneous Approach (ICD-10-PCS; 2019-01-01)
DX: C18.4 Malignant neoplasm of transverse colon (principal); A41.9 Sepsis, unspecified organism; K63.1 Perforation of intestine (nontraumatic); N18.6 End stage renal disease; G93.41 Metabolic encephalopathy; C78.89 Secondary malignant neoplasm of other digestive organs; D62 Acute posthemorrhagic anemia; E87.2 Acidosis; A04.72 Enterocolitis due to Clostridium difficile, not specified as recurrent; E46 Unspecified protein-calorie malnutrition; I12.0 Hypertensive chronic kidney disease with stage 5 chronic kidney disease or end stage renal disease; N17.9 Acute kidney failure, unspecified; E87.6 Hypokalemia; E11.9 Type 2 diabetes mellitus without complications; Z79.899 Other long term (current) drug therapy; Z88.8 Allergy status to other drugs, medicaments and biological substances; Z88.5 Allergy status to narcotic agent; E83.42 Hypomagnesemia; Z88.0 Allergy status to penicillin; E83.51 Hypocalcemia; D63.1 Anemia in chronic kidney disease

== ENCOUNTER → 2019-01-22 | Outpatient (REF) ==
[~2019-01-22] MED LIST changes: +CHOL4PW PO; +DARB100SYR IV; +FIRV50SO PO; +LIDO2.5C15 TOP; +META1POW PO; +PANT20TA2 PO; +PREPOI PR; +RISATAB3 PO
[2019-01-22 07:36] LABS: HEMATOCRIT 38.6 % (36.0-47.0); HEMOGLOBIN 11.4 g/dl (12.0-15.5); MEAN CORPUSCULAR HEMOGLOBIN 26.3 pg (27.0-33.0); MEAN CORPUSCULAR HGB CONC 29.5 g/dl (32.0-36.5); MEAN CORPUSCULAR VOLUME 89.1 fl (80.0-96.0); PLATELET COUNT, AUTOMATED 293 10^3/uL (150-450); RED BLOOD COUNT 4.33 10^6/uL (4.00-5.40); WHITE BLOOD COUNT 5.4 10^3/uL (4.0-10.0)
[2019-01-22 07:55] LABS: HEMOGLOBIN A1c 4.4 %
[2019-01-22 08:03] LABS: CHOLESTEROL RISK RATIO 2.605 (<5)
== END ==
LOC: SKLAB4 10:38
PROVIDERS: ATTEND Internal Medicine
DX: E78.5 Hyperlipidemia, unspecified (principal); E11.9 Type 2 diabetes mellitus without complications

== ENCOUNTER → 2019-01-29 | Outpatient (REF) ==
[2019-01-29 07:50] LABS: HEMATOCRIT 38.7 % (36.0-47.0); HEMOGLOBIN 11.7 g/dl (12.0-15.5); MEAN CORPUSCULAR HEMOGLOBIN 26.4 pg (27.0-33.0); MEAN CORPUSCULAR HGB CONC 30.2 g/dl (32.0-36.5); MEAN CORPUSCULAR VOLUME 87.2 fl (80.0-96.0); PLATELET COUNT, AUTOMATED 287 10^3/uL (150-450); RED BLOOD COUNT 4.44 10^6/uL (4.00-5.40); WHITE BLOOD COUNT 5.5 10^3/uL (4.0-10.0)
== END ==
LOC: SKLAB4 11:16
PROVIDERS: ATTEND Internal Medicine
DX: D64.9 Anemia, unspecified (principal)

== ENCOUNTER → 2019-02-05 | Outpatient (CLI) | payer MEDICARE ==
[~2019-02-05] MED LIST changes: +ISOVUE-370 76% 100ML VIAL (Q9967) As Ordered ONE; -OMEP40CA2 PO; +OMEP40CA97 PO; -SERT-155 PO; +SERT50TA29 PO
--- NOTE | 2019-02-05 14:27 | REP ---
REASON FOR EXAM: Colon carcinoma. There are no priors for comparison. CONTRAST: 100 mL Isovue 370. In the subcutaneous tissue anterior to the sternum, there is an oval-shaped 3.4 x 2.3 x 3.3 cm sized mass which has water or near water density Hounsfield unit readings. There is no sridhar mediastinal or hilar adenopathy. There are no pleural or pericardial effusions. The images upper abdomen show splenomegaly. This does not appear to be significantly changed compared to the CT examination of the abdomen obtained 12/29/2018 but a noncontrast enhanced examination was done then. Bone window technique throughout the exam, shows the osseous structures to be within normal limits. Evaluation of the lung salazar shows numerable scattered 2 and 3 mm sized nodules with the dominant finding being in the right lower lobe in a regular nodule measuring 6 mm. IMPRESSION: 1. There is a subcutaneous anterior chest mass as described above. This needs to be correlated clinically. 2. The dominant parenchymal finding is a 6 mm sized irregular nodule in the right lower lobe. Neoplasm cannot be ruled out. According to the revised Fleischner Society criteria, followup is recommended in 3 months with consideration made for PET/CT at this time. 3. Other lung field findings as described above. Electronically Signed by Travis Gaspar DO 02/05/2019 04:43 P
== END ==
LOC: M RAD 13:00
PROVIDERS: ATTEND Nurse Practitioner Family
DX: C18.9 Malignant neoplasm of colon, unspecified (principal); R91.1 Solitary pulmonary nodule
CPT/HCPCS: 71260; Q9967

== ENCOUNTER → 2019-02-05 | Outpatient (REF) ==
[~2019-02-05] MED LIST changes: -ISOVUE-370 76% 100ML VIAL (Q9967) As Ordered ONE
[2019-02-05 07:41] LABS: HEMATOCRIT 39.2 % (36.0-47.0); MEAN CORPUSCULAR HEMOGLOBIN 26.5 pg (27.0-33.0); MEAN CORPUSCULAR HGB CONC 30.6 g/dl (32.0-36.5); MEAN CORPUSCULAR VOLUME 86.7 fl (80.0-96.0); PLATELET COUNT, AUTOMATED 313 10^3/uL (150-450); RED BLOOD COUNT 4.52 10^6/uL (4.00-5.40); WHITE BLOOD COUNT 8.2 10^3/uL (4.0-10.0)
== END ==
LOC: SKLAB4 11:14
PROVIDERS: ATTEND Internal Medicine
DX: N18.9 Chronic kidney disease, unspecified (principal)

== ENCOUNTER 2019-02-07 10:19 | Day surgery (SDC) | payer MEDICARE ==
[~2019-02-07 10:19] MED LIST changes: +LIDOCAINE 2% INJ 100 MG/5 ML SDV (FOR ANES.) As Ordered ONE; +PROPOFOL 200 MG/20 ML VIAL As Ordered ONE
[2019-02-07] MEDS: NS 1,000 ML IV SCH ×2 (10:45→10:53)
[2019-02-07 13:20] VITALS: BP 129/61
[2019-03-02] MEDS ORDERED: BACITAB PO (10:03)
--- NOTE | 2019-03-13 16:14 | ROOPDOC ---
[facility] Report Of Operation Report of Operation DATE OF PROCEDURE: 02/07/19 PREPROCEDURE DIAGNOSES: Malfunctioning jejunostomy feeding tube. POSTPROCEDURE DIAGNOSES: Same. PROCEDURE: Removal of malfunctioning jejunostomy feeding tube under anesthesia. SURGEON: Douglas Gutierrez MD BASKETBALL PLAYER: ANESTHESIA: Monitored anesthesia care. ESTIMATED BLOOD LOSS: Approximately 5 mL. COMPLICATIONS: None. . PROCEDURE NOTE: Patient has a surgically placed jejunostomy feeding tube following a right colectomy with partial gastrectomy for colon cancer invading to the stomach. She is able to tolerate oral feedings now and is normal longer using her jejunostomy feeding tube. She is having leakage from the jejunostomy tube causing skin irritation. I tried to remove the feeding tube in my clinic yesterday by deflating the balloon but somehow it feels stuck just underneath the skin and the patient is uncomfortable thus I brought her to the outpatient procedure today for removal under anesthesia. After adequate sedation was started I tugged on the feeding tube and this still has some resistance. I used a hemostat to open up the skin opening and was able to remove the jejunostomy feeding tube without much resistance. The balloon seems to have not fully deflated and got underneath the skin. There is a small amount of bleeding which stopped on its own with pressure around the exit site. The exit site was then covered with dry gauze. Patient tolerated procedure well. DESCRIPTION OF PROCEDURE: . DOUGLAS GUTIERREZ MD Mar 13, 2019 16:14
== END 2019-02-07 13:23 | disposition home or self-care (01) ==
LOC: M OPP 10:19
PROVIDERS: ATTEND Surgery
DX: K94.23 Gastrostomy malfunction (principal); Z48.03 Encounter for change or removal of drains; Z79.899 Other long term (current) drug therapy; Z88.0 Allergy status to penicillin

== ENCOUNTER → 2019-03-02 | Outpatient (CLI) | payer MEDICARE ==
[~2019-03-02] MED LIST changes: +BACITAB PO; +HEPARIN 1,000 UNITS/ML 10ML VIAL (FOR RADIOLOGY& DIALYSIS ONLY) As Ordered ONE; +ISOVUE-300 61% 50ML VIAL (Q9967) As Ordered ONE; +LIDOCAINE 1% MDV 20ML VIAL As Ordered ONE; -LIDOCAINE 2% INJ 100 MG/5 ML SDV (FOR ANES.) As Ordered ONE; +MIDAZOLAM INJ 2 MG/2 ML VIAL (J2250) As Ordered ONE; -PROPOFOL 200 MG/20 ML VIAL As Ordered ONE; +fentaNYL 100 MCG/2 ML INJECTION (J3010) As Ordered ONE
--- NOTE | 2019-03-02 10:57 | ROOPDOC ---
[facility] Report Of Operation Report of Operation DATE OF PROCEDURE: 03/02/19 PREPROCEDURE DIAGNOSES: End-stage renal disease with poorly functioning AV fistula, difficulty with cannulation, and high venous pressures. POSTPROCEDURE DIAGNOSES: Same. PROCEDURE: 1. Ultrasound-guided access left brachiocephalic AV fistula 2. Fistulogram and central venogram 3. Angioplasty cephalic vein across into subclavian vein 7 x 200 [place] balloon 4. Completion venogram SURGEON: Lupe Thomson MD ANESTHESIA: Local anesthesia 3 mL lidocaine. Moderate intravenous conscious sedation was administered by Dr. Thomson. The patient was independently monitored by registered nurse assigned to the Department of radiology using automated blood pressure, EKG, pulse oximetry. The detailed sedation record is primarily [facility] the hospital information system. The following is the brief sedation record: Start time 10:24, stop time 10:50, Versed 1 mg IV, fentanyl 50 g IV. INDICATION FOR PROCEDURE: Ms. Lynn is a very pleasant 78-year-old patient with end-stage renal disease currently dialyzing with left upper extremity bra chiocephalic AV fistula that has had difficulty with cannulation, high venous pressures, and concern for restenosis of her cephalic vein outflow. Risks benefits and alternatives to a fistulogram and potential intervention were explained to the patient. She is agreeable to proceed. Informed consent was obtained. INTERPRETATION: 1. The AV anastomosis is widely patent and there is a segment of cephalic vein that is mildly aneurysmal in the areas of frequent access. The cephalic vein proximal to this is heavily stenotic, with only about 5% patent lumen along the entire length to the junction with the subclavian vein. The main outflow is through a large branch proximal to the AV anastomosis which provides outflow through the basilic vein. 2. After angioplasty entire length of cephalic vein across into the subclavian vein with a 7 x 200 [place] balloon, there was a dramatic improvement in thrill and a dramatic improvement inflow with 1 area of focal residual stenosis 10 cm proximal to the AV anastomosis. A second three-minute angioplasty was performed across this area, and following this there was widely patent flow throughout the cephalic vein into the central system with no extravasation noted. All pulsatility had resolved and there was an excellent thrill. REPORT OF OPERATION: The patient was brought to the angiographic suite in stable condition. Her left upper extremity was prepped and draped in a sterile fashion. A timeout was performed. Local anesthesia was a weigher bulker to the skin and subcutaneous tissue over the cephalic vein near the AV anastomosis. A microneedle was used to access the vein under ultrasound guidance. A wire was passed through this access under fluoroscopic guidance. Following this, the needle was removed and a micro-sheath was placed. Glidewire was advanced into the central system under fluoroscopic guidance and a 6 [place] sheath was placed over the wire using a Seldinger technique. The sheath was flushed with saline. Sedation was administered without complication. Fistulogram and central venogram were performed. Please see findings in the interpretation above. 7 x 200 [place] balloon was advanced across the areas of stenosis in the cephalic vein and three-minute inflations were performed first at high atmospheres to release stenoses and then a left at 2 lizbeth for the duration of the 3 minutes. Following this there is a dramatic improvement inflow with no extravasation, but there was one focal residual stenosis fairly distal on the arm near the AV anastomosis. A second angioplasty with a 7 x 200 balloon was performed at high atmospheres which release the stenosis and then it was maintained for 3 minutes at 2 lizbeth. Following this there was widely patent flow through the cephalic vein to the central system. No significant residual stenosis was noted and no extravasation was noted. There is excellent thrill and all pulsatility had resolved from the fistula. This concluded her procedure. Local anesthesia was administered around the sheath and Prolene suture was placed in a [id number] and secured with Steri-Strips pressure was held for 5 minutes for good hemostasis and the patient was taken to recovery in stable condition. There were no competitions and the patient tolerated the procedure well. ESTIMATED BLOOD LOSS: Approximately 5 mL. COMPLICATIONS: None. PLAN: It is okay for the patient to use her fistula for dialysis. We like to see her back in 1-2 months to check her fistula and see if she will need additional intervention to maintain patency. LUPE THOMSON MD Mar 02, 2019 10:57
[2019-03-02 11:25] VITALS: BP 144/72
== END ==
LOC: M IRPRO 09:31
PROVIDERS: ATTEND Surgery Vascular Surgery
DX: T82.898A Other specified complication of vascular prosthetic devices, implants and grafts, initial encounter (principal); N18.6 End stage renal disease; X58.XXXA Exposure to other specified factors, initial encounter; Y93.9 Activity, unspecified; Y92.9 Unspecified place or not applicable; Y99.9 Unspecified external cause status
CPT/HCPCS: 36902; C1725; C1769; C1894; J2250; J3010; Q9967

== ENCOUNTER → 2019-03-05 | Outpatient (CLI) | payer MEDICARE ==
[~2019-03-05] MED LIST changes: +LIDOCAINE W/EPINEPHRINE 1% 20ML VIAL As Ordered ONE; +ceFAZolin 1GM INJ (J0690 PER 500MG) As Ordered ONE
--- NOTE | 2019-03-05 11:42 | ROOPDOC ---
[facility] Report Of Operation Report of Operation DATE OF PROCEDURE: 03/05/19 PREPROCEDURE DIAGNOSES: End-stage renal disease on hemodialysis with thrombosed left upper extremity brachiocephalic AV fistula. POSTPROCEDURE DIAGNOSES: Same. PROCEDURE: 1. Ultrasound-guided access right internal jugular vein 2. Placement of a 23 cm tunneled right IJ PermCath SURGEON: Lupe Thomson MD ANESTHESIA: Local anesthesia 20 mL lidocaine. Monitored intravenous conscious sedation was supervised by Dr. Thomson. The patient was independently monitored by registered nurse assigned to the Department of radiology using automated blood pressure symmetry. The detailed sedation record is permanently [facility] the hospital information system. The following is the brief sedation record: Start time 11:10, stop time 11:32, Versed 1 mg IV, fentanyl 50 g IV. INDICATION FOR PROCEDURE: Ms. Lynn is a very pleasant 78-year-old patient whom we saw for a fistulogram on Tuesday. She had almost no flow through her entire cephalic vein from the aneurysmal portions of her fistula near the AV anastomosis all the way to the shoulder. We were able to open this up with a 7 x 200 [place] balloon along the length of the vessel with good flow and an excellent thrill at discharge postprocedure. Unfortunately, the next day and dialysis, the nurses noted that her vein was thrombosed. Today we bring her in for PermCath placement so she is able to get dialysis. We will try to salvage her AV fistula at a later date with a possible declot procedure, but her vein is so small and fragile, I'm not sure we will be able to get it opening keep it open. We certainly will try. The patient may need a new AV access. We will obtain a vein mapping of her declot procedure is not successful. In the interim, she can dialyze through this PermCath. Risks benefits and alternatives were explained to a PermCath placement she is agreeable to proceed. Informed consent was obtained. INTERPRETATION: The right IJ PermCath is in good position with no kinks in the catheter. The tip is freely mobile and the right atrium. There is no pneumothorax. It is okay to use the catheter for dialysis. REPORT OF OPERATION: The patient was brought to the angiographic suite in stable condition in her right neck and chest were prepped and draped in a sterile fashion. A timeout was performed. Local anesthesia was ministers the skin and subcutaneous tissue over the right neck and a microneedle was used to access the right internal jugular vein under ultrasound guidance. A wire was passed through this access into the central system under fluoroscopic guidance. A small incision was made at the neck with the skin knife and a micro-sheath was placed over the wire using a Seldinger technique. Through this access, a J-wire was advanced into the central system under fluoroscopic guidance. We then performed 2 serial dilations over the wire using a Seldinger technique and a peel-away sheath was then placed over the wire. The inner cannula and wire were removed. We injected local anesthesia on the right chest just distal to the clavicle and up over the clavicle towards her jugular access site. A small incision was made in the right chest and a 23 cm PermCath was tunneled from the right chest to the jugular access site. Once the cuff was in the subcutaneous tissue, we advanced the tips through the peel-away sheath into the central system and removed the sh eath. Both ports haven back and flushed easily. There were no kinks in the catheter on imaging. The tip was freely mobile and the right atrium. There is no pneumothorax. Each port was heparin locked and appropriate caps were placed. The catheter was secured to the chest wall which to Prolene sutures and the exit site on the right chest was closed with 2 Prolene sutures. The jugular access site was closely deep and superficial Monocryl sutures and Dermabond. Sterile dressings were applied. The patient was taken back to recovery in stable condition. ESTIMATED BLOOD LOSS: Approximately 6 mL. COMPLICATIONS: None. PLAN: It is okay to use the PermCath for dialysis. We will attempt to schedule the patient for declot procedure this week when time is permitting. If we are unsuccessful with salvaging the access, we will obtain a vein mapping and plan a new AV access. The patient has a very diminutive fragile vein, it is unclear if we will be able to salvage it but we will certainly try. She has been extensively counseled and is agreeable to this plan. Okay to resume all home medications. LUPE THOMSON MD Mar 05, 2019 11:42
[2019-03-05 11:45] VITALS: BP 167/77
== END ==
LOC: M IRPRO 08:22
PROVIDERS: ATTEND Surgery Vascular Surgery
DX: T82.868A Thrombosis due to vascular prosthetic devices, implants and grafts, initial encounter (principal); N18.6 End stage renal disease; X58.XXXA Exposure to other specified factors, initial encounter; Y93.9 Activity, unspecified; Y92.9 Unspecified place or not applicable; Y99.9 Unspecified external cause status; Z99.2 Dependence on renal dialysis
CPT/HCPCS: 36558; 77001; 99152; 99153; C1750; C1894; J0690; J2250; J3010

== ENCOUNTER → 2019-03-09 | Outpatient (CLI) | payer MEDICARE ==
[~2019-03-09] MED LIST changes: +ALTEPLASE 2 MG/2 ML VIAL (J2997 PER 1MG) As Ordered ONE; -LIDOCAINE W/EPINEPHRINE 1% 20ML VIAL As Ordered ONE; -ceFAZolin 1GM INJ (J0690 PER 500MG) As Ordered ONE
[2019-03-09 18:30] VITALS: BP 137/63
--- NOTE | 2019-03-09 19:55 | ROOPDOC ---
[facility] Report Of Operation Report of Operation DATE OF PROCEDURE: 03/09/19 PREPROCEDURE DIAGNOSES: End-stage renal disease with acute thrombosis right upper extremity brachiocephalic AV fistula POSTPROCEDURE DIAGNOSES: Same PROCEDURE: 1. Ultrasound-guided access antegrade and retrograde left upper extremity cephalic vein 2. Left upper extremity fistula and central venogram 3. Declot left cephalic vein with 16 mg TPA and 5 x 40 Fincastle balloon 4. Angioplasty left cephalic vein with 7 x 100 Fincastle balloon and 8 x 200 Fincastle balloon 5. Angioplasty proximal cephalic vein between fistula aneurysms with 5 x 40 Fincastle balloon SURGEON: Lupe Thomson MD ANESTHESIA: Local anesthesia 8 mL lidocaine. Monitored intravenous conscious sedation was administered by Dr. Thomson. The patient was independently monitored by registered nurse and son to the Department of radiology using automated blood pressure, EKG, pulse oximetry. The detailed sedation record is permanently housed in this hospital information system. The following is a brief sedation record: Start time 15:29, stop time 17:05, Versed 2 mg IV, fentanyl 100 g IV, heparin 5000 units IV, tPA 16 mg IV. INDICATION FOR PROCEDURE: Ms. Lynn is a very pleasant 78-year-old patient with end-stage renal disease currently dialyzing Tuesday who came in a week ago on Tuesday for a fistulogram. The patient had been having poor flows at dialysis, increased bleeding, and very difficult access. We found that the patient had limited outflow for her fistula near the AV anastomosis through a large forearm cephalic vein branch. Other than that, she had about a 1 mm cephalic vein patent through the upper arm to the cephalic subclavian junction. We were able to open up the cephalic vein in the upper arm with a 7 mm balloon and the patient had an excellent thrill through the fistula postprocedure. How ever, she had a lot of bleeding after the procedure from her access site, and pressure was held for almost 30 minutes. The following day, our nephrology team informed us that the patient had a thrombosed fistula. I am wondering if possibly the fact that we had to hold pressure for so long could've contributed to her thrombosis the following day. It is unclear. It also could've been secondary to the fact that this cephalic vein throughout the upper arm was so diminutive in size prior to the procedure. Nevertheless, we placed a PermCath so the patient can continue dialysis on Tuesday, and subsequently re-bring her back today to attempt a declot procedure of her left upper extremity. I talked to her before the procedure to let her know that I could not guarantee we would be successful since her vein was so small before our angioplasty week ago, and I was not sure I could salvage her fistula. However I definitely think it is worth trying as I imagine she does not have a lot of options for a new autologous fistula. Risks benefits and alternatives to a fistulogram and attempted declot procedure of her left brachiocephalic fistula were explained to the patient she was agreeable to proceed. Informed consent was obtained. INTERPRETATION: 1. Thrombosis of cephalic vein fistula from just proximal to the aneurysmal segments near the AV anastomosis up to the subclavian vein, but patency of the aneurysmal segments near the AV anastomosis and the arterial system, as well as the large forearm vein branch that has been the main outflow of the fistula for several months. 2. Successful declot cephalic vein after TPA and angioplasty. 3. Stenosis cephalic vein between the aneurysmal segments proximal to the AV anastomosis. 4. Extravasation from aneurysm proximal to AV anastomosis after attempted to cross into the arterial system with Glidewire, resolution of extravasation after holding pressure for 20 minutes. Procedure aborted after extravasation. REPORT OF OPERATION: Patient was brought the angiographic suite in stable condition and placed supine on the fluoroscopic table. Her left upper extremity was prepped and draped in a sterile fashion. A timeout was performed. Local anesthesia was administered to the skin and subcutaneous tissue over the brachial cephalic vein fistula near the AV anastomosis microneedle was used to access the vein under ultrasound guidance. A wire was passed through this access carefully under fluoroscopic guidance, and this took a bit of effort due to thrombosis. Once we navigated safely through the vein, we placed a micro-sheath and advanced a Glidewire under fluoroscopic guidance into the central system. Following this, we placed a 6 Egyptian sheath and the sheath was gently flushed with saline. 5000 units of heparin was given and allowed to circulate. Over the wire we advanced a Gleich cath into the central system. Sedation was administered through this is a patent central veins without complication. Next, we use the Gleich cath to administer TPA along the length of the thrombosed cephalic vein. The Gleich cath was retracted through the vein slowly while injecting TPA and spinning the catheter to help penetrate the clot within the vein. Following this Glidewire was readvanced into the central system and a 5 x 40 Fincastle balloon was gently hand inflated and push from the sheath origin to the central system to remove residual thrombus. We did this several times, and following this fistulogram showed there is still some residual clot, but a marked improvement. We then angioplasty but this 7 x 100 balloon along the length the vein, with some improvement again however still needed additional angioplasty with an 8 x 200 balloon. Three-minute inflations were performed with both balloons along the length of the vessel to improve outflow. Next, we administered local anesthesia over the cephalic vein in the upper arm and access the vein in a retrograde fashion towards the AV anastomosis with a microneedle. A wire was passed through this access and the needle was removed and a 6 Egyptian sheath was placed and flushed with saline. We then attempted to advance a Glidewire into the arterial system through the AV anastomosis. This proved very challenging as the wire continually coiled within the aneurysmal segments. Eventually we were able to traverse the first aneurysm and upon trying to traverse the second aneurysm near the AV anastomosis, we had a lot of trouble with the wire continually coiling within the aneurysm. Eventually, the wire did past, but I did not feel it was in the arterial lumen and contrast injection confirmed extravasation. The procedure was stopped pressure was held for 20 minutes and extravasation resolved. During the time I was holding pressure, I did decide that the safest thing to do was abort the procedure. Local anesthesia was injected around the antegrade sheath near the AV anastomosis and a Prolene suture was placed in a [id number] fashion in the sheath was removed. Pressure was held here as well as in the area of extravasation. Following holding pressure, we did have resolution of the extravasation from the aneurysm site, but there was still extravasation from the sheath site on completion venogram through the retrograde upper arm sheath if we were not active holding pressure. Therefore an additional 10 minutes of pressure was held at the sheath site for good hemostasis. We also placed local anesthesia around the retrograde upper arm sheath site and a [id number] suture was placed. Pressure was held at this site as well for 20 minutes for good hemostasis. Eventually, we had good hemostasis on the entire arm. Sterile dressings were applied. When I went to sit the patient up to help her transfer to her stretcher, I noted she had some oozing from her PermCath site. This is likely from all of the heparin and TPA administration during the declot procedure. She did not have any bleeding on arrival today or during the procedure earlier. Pressure was held on the right neck at the jugular access site and over the catheter for 30 minutes, ChloraPrep was used to clean the area, and his new sterile dressing was applied. The patient was then taken recovery in stable condition. We watched her for an hour to make sure she did not have any additional bleeding from her left arm or from her PermCath site. She did very well postprocedure. ESTIMATED BLOOD LOSS: Approximately 15 mL. COMPLICATIONS: Extravasation of contrast from the aneurysmal segment of cephalic vein near the AV anastomosis, resulting in our need to abort the procedure in order to hold pressure over the fistula and stop the small amount of bleeding noted on imaging. PLAN: We will bring the patient back on Tuesday to check her left upper extremity make sure she is doing okay after attempted declot procedure today. We will schedule her for a vein mapping to plan for a new AV access. I had a long talk with the patient and her sons postprocedure and they are agreeable to this plan. She continue to use her PermCath for dialysis at this point. LUPE THOMSON MD Mar 09, 2019 19:55
== END ==
LOC: M IRPRO 14:01
PROVIDERS: ATTEND Surgery Vascular Surgery
DX: N18.6 End stage renal disease (principal); T82.868A Thrombosis due to vascular prosthetic devices, implants and grafts, initial encounter; I87.1 Compression of vein; X58.XXXA Exposure to other specified factors, initial encounter; Y93.9 Activity, unspecified; Y92.9 Unspecified place or not applicable; Y99.9 Unspecified external cause status
CPT/HCPCS: 36904; 36907; 99152; 99153; C1725; C1769; C1887; C1894; J2250; J2997; J3010; Q9967

== ENCOUNTER 2019-03-13 20:41 | Inpatient (IN) | payer MEDICARE ==
[~2019-03-13] VITALS: Ht 149.9 cm; Wt 60.2 kg
[~2019-03-13 20:41] MED LIST changes: -ALTEPLASE 2 MG/2 ML VIAL (J2997 PER 1MG) As Ordered ONE; -HEPARIN 1,000 UNITS/ML 10ML VIAL (FOR RADIOLOGY& DIALYSIS ONLY) As Ordered ONE; -ISOVUE-300 61% 50ML VIAL (Q9967) As Ordered ONE; -LIDOCAINE 1% MDV 20ML VIAL As Ordered ONE; -MIDAZOLAM INJ 2 MG/2 ML VIAL (J2250) As Ordered ONE; -fentaNYL 100 MCG/2 ML INJECTION (J3010) As Ordered ONE
[2019-03-13] MEDS ORDERED: NS 1,000 ML IV SCH ×2 (21:15→23:30)
[2019-03-13] MEDS ORDERED: IMIPENEM/CILASTATIN 500 MG in D5W MINI-BAG PLUS 100 ML IV ONE (21:15)
[2019-03-13] MEDS ORDERED: NS 1,000 ML IV ONE (21:15)
[2019-03-13] MEDS ORDERED: ACETAMINOPHEN 325 MG TAB PO ONE (21:30)
[2019-03-13] MEDS ORDERED: PREP1CRE TOP (21:43)
[2019-03-13] MEDS ORDERED: BACITAB PO (21:43)
[2019-03-13] MEDS ORDERED: QUES4POW PO (21:43)
[2019-03-13] MEDS ORDERED: ACET-908 PO (21:43)
[2019-03-13] MEDS ORDERED: ENSU1LIQ36 PO (21:43)
[2019-03-13] MEDS ORDERED: PANT40TA3 PO (21:43)
[2019-03-13] MEDS ORDERED: LORA0.5T11 PO (21:45)
[2019-03-13] MEDS ORDERED: MOM30SS PO (21:45)
[2019-03-13 21:50] LABS: HEMATOCRIT 37.8 % (36.0-47.0); HEMOGLOBIN 11.4 g/dl (12.0-15.5); MEAN CORPUSCULAR HEMOGLOBIN 27.3 pg (27.0-33.0); MEAN CORPUSCULAR HGB CONC 30.2 g/dl (32.0-36.5); MEAN CORPUSCULAR VOLUME 90.6 fl (80.0-96.0); PLATELET COUNT, AUTOMATED 244 10^3/uL (150-450); RED BLOOD COUNT 4.17 10^6/uL (4.00-5.40); WHITE BLOOD COUNT 6.9 10^3/uL (4.0-10.0)
[2019-03-13] MEDS: NS 1,000 ML IV ONE ×2 (22:00→23:59)
[2019-03-13 22:07] LABS: INFLUENZA A AMPLIFICATION NEGATIVE (NEGATIVE); INFLUENZA B AMPLIFICATION NEGATIVE (NEGATIVE)
[2019-03-13 22:14] LABS: ALBUMIN 3.1 GM/DL (3.2-5.2); BILIRUBIN,DIRECT 0.2 MG/DL (0.0-0.2); BILIRUBIN,TOTAL 0.7 MG/DL (0.2-1.0); CALCIUM LEVEL 8.3 MG/DL (8.8-10.2); CREATININE FOR GFR 2.5 MG/DL (0.55-1.30); GLOMERULAR FILTRATION RATE 19.9 (>39); POTASSIUM SERUM 4.1 MEQ/L (3.5-5.1); TOTAL PROTEIN 6.2 GM/DL (6.4-8.2)
[2019-03-13 22:33] LABS: ATYPICAL LYMPH 1 % (0-5); LYMPHOCYTES 9 % (16-44); METAMYELOCYTES 1 % (0-0); NEUTROPHILS 83 % (28-66)
[2019-03-13 22:35] LABS: ANISOCYTOSIS 1+; HYPOCHROMASIA 1+; PLATELET ESTIMATE NORMAL (NORMAL)
[2019-03-13 22:36] LABS: TOXIC VACUOLATION 1+
[2019-03-13] MEDS ORDERED: MEROPENEM INJ 1 GM in IV 1 EA IV SCH (23:00)
[2019-03-13] MEDS ORDERED: ACETAMINOPHEN TAB 650MG DOSE (2X325MG) PO PRN (23:15)
[2019-03-13] MEDS ORDERED: EMLA CREAM 5GM (LIDOCAINE/PRILOCAINE) TOP SCH (23:15)
[2019-03-13] MEDS ORDERED: VANCOMYCIN INTERMITTENT/PULSE DOSING BY CLINICAL PHARMACIST PER DOSING PROTOCOL XX SCH (23:15)
[2019-03-13] MEDS ORDERED: MOM 30ML SUSPENSION UDC PO PRN (23:15)
[2019-03-13] MEDS ORDERED: HYDROCORTISONE 1% CREAM 30 GM TOP PRN (23:15)
[2019-03-13] MEDS ORDERED: GLUCOSE 4 GM CHEW TABLET PO PRN ×2 (23:30→23:45)
[2019-03-13] MEDS ORDERED: GLUCAGON FOR INJ 1 MG VIAL (J1610) SC PRN (23:30)
[2019-03-13] MEDS ORDERED: DEXTROSE 50% 50 ML SYRINGE IV PRN ×2 (23:30→23:45)
--- NOTE | 2019-03-13 23:33 | HPEPDOC ---
General Date of Admission 03/13/19 Date of Service: Mar 13, 2019 Chief Complaint The patient is a 78-year-old female admitted with a reason for visit of Vomiting. Source: Patient Exam Limitations: No limitations Timing/Duration: 4-6 hours Severity: Moderate Associated Symptoms: Loss of appetite, Nausea, Vomiting History of Present Illness Patient is 78 years old female with past mental history of end-stage renal diseases on dialysis, colon cancer, diabetes type 2 not on the insulin, who [facility] the [facility] presented hospital with fever associated with nausea, diarrhea and vomiting. Patient stated that she developed her symptoms around 5 PM after lunch. She stated that she ate potato, salad, meat and after that she developed vomiting with fever and chills. The patient noticed that she had 3-4 episodes of diarrhea. Of note patient had C. difficile infection in the past. In emergency room patient was found to have fever of 102, lactic acid of 6.2, transaminitis, no leukocytosis, chest x-ray did not reveal any acute infiltrate. EKG showed sinus tachycardia. Patient denies any headache, skin rash, palpitations, shortness of breath, dysuria. Of note, from recent previous hospitalization she was C. difficile positive on 01/02/2019. Blood cultures no growth times three. Abscess culture from her gastrointestinal wound grew out Escherichia (E.) coli and proteus mirabilis and group B streptococcus. Anaerobic cultures were positive for bacteroides fragilis Home Medications Scheduled Atorvastatin Calcium (Atorvastatin Calcium) 20 Mg Tab, 20 MG PO QHS, (Reported) Carvedilol (Carvedilol) 6.25 Mg Tab, 6.25 MG PO 4XWK, (Reported) B.I.D ON TUE, MON, WED, TUE Cholestyramine (with Sugar) (Questran Packet) 4 Gm Powd.pack, 2 GM PO QID, (Reported) 0600, 1000, 1400, 1800 Ergocalciferol (Vitamin D2) (Vitamin D2) 50,000 Unit Cap, 50,000 UNIT PO 1XWK, (Reported) ON TUESDAY Folic Acid/Vit B Complex and C (Kellee-Leeanne Tablet) 1 Tab Tab, 1 TAB PO DAILY, (Reported) L.acidoph/L.bulg/B.bif/S.therm (Bacid Caplet) 1 Each Tablet, 2 TAB PO DAILY, (Reported) Lactose-Reduced Food (Ensure Enlive) 237 Ml Liquid, 120 ML PO BID, (Reported) Lidocaine/Prilocaine (Lidocaine-Prilocaine Cream) 2.5%/2.5% Cream..g., 1 APLCT TOP ASDIRECTED, (Reported) APPLY TO PORT 30 MINUTES BEFORE DIALYSIS Lorazepam (Lorazepam) 0.5 Mg Tablet, 0.5 MG PO DAILY, (Reported) Pantoprazole Sodium (Pantoprazole Sodium) 40 Mg Tablet.dr, 40 MG PO DAILY, (R eported) Sertraline HCl (Sertraline HCl) 100 Mg Tab, 100 MG PO DAILY, (Reported) Scheduled PRN Acetaminophen (Acetaminophen) 325 Mg Tablet, 650 MG PO Q4H PRN for PAIN, (Reported) Hydrocortisone (Preparation H) 26 Gm Cream..g., 1 APPLIC TOP QID PRN for DISCOMFORT, (Reported) Milk Of Magnesia (Milk of Magnesia) 2,400 Mg/10 Ml Oral.susp, 10 ML PO DAILY PRN for CONSTIPATION, (Reported) Allergies Coded Allergies: Penicillins (Verified Allergy, Severe, throat swelling , hives, 12/12/18) morphine (Verified Adverse Reaction, Mild, Confusion, 01/01/19) Past Medical History Medical History 1. Transverse colon cancer with gastric invasion. Status post exploratory laparotomy, right colectomy. Clostridium (C) difficile colitis. 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 Lymph nodes negative. End-stage renal disease. Hemodialysis dependent. Anemia. Hypertension. Type 2 diabetes mellitus. Surgical History She has had bilateral cataract surgery, AV fistula in the left arm, protein-caloric malnutrition, bowel resection due to colon cancer Family History Father from heart attack Social History * Smoker: former Smoker Alcohol: Denies Drugs: denies A-FIB/CHADSVASC A-FIB History Current/History of A-Fib/PAF?: No Current PO Anticoag Therapy: No Review of Systems Constitutional: Reports: Chills, Fever, Fatigue Eyes: Denies: Pain, Vision change ENT: Denies: Head Aches Skin: Denies: Rash Pulmonary: Denies: Dyspnea, Cough Cardiovascular: Denies: Chest Pain, Palpitations Gastrointestinal: Reports: Nausea, Vomiting, Diarrhea Genitourinary: Denies: Dysuria Hematologic: Denies: Bruising Endocrine: Denies: Polydipsia, Polyphagia Musculoskeletal: Denies: Back Pain, Shoulder Pain Neurological: Denies: Weakness, Numbness Psych: Reports: Mood Normal Physical Examination General Exam: Positive: Alert, Cooperative, No Acute Distress Eye Exam: Positive: PERRLA ENT Exam: Positive: Atraumatic Neck Exam: Positive: Supple; Negative: JVD Chest Exam: Positive: Clear to auscultation Heart Exam: Positive: Tachycardic Telemetry: Positive: Sinus Abdomen Exam: Positive: BS Hyperactive, Soft; Negative: Tenderness Extremity Exam: Negative: Clubbing, Cyanosis Skin Exam: Positive: Nl turgor and temperature Neuro Exam: Positive: Normal Gait, Strength at 5/5 X4 ext, Cranial Nerves 3-12 NL Psych Exam: Positive: Mental status NL Vital Signs Vital Signs Date Time Temp Pulse Resp B/P (MAP) Pulse Ox O2 Delivery O2 Flow Rate FiO2 03/13/19 22:45 100.9 106 22 149/65 (93) 98 03/13/19 21:05 Nasal Cannula 2.0 Laboratory Data Labs 24H Laboratory Tests 2 03/13/19 21:14: Bedside Glucose (Misc Panel) 150H 03/13/19 21:20: Urine Color DK YELLOW, Urine Appearance TURBIDH, Urine pH 5.0, Urine Specific Cypress 1.018, Urine Protein 2+H, Urine Glucose (UA) NEGATIVE, Urine Ketones NEGATIVE, Urine Blood 2+H, Urine Nitrite NEGATIVE, Urine Bilirubin NEGATIVE, Urine Urobilinogen 0.2, Urine Leukocyte Esterase 2+H, Urine WBC (Auto) TNTCH, Urine RBC (Auto) 48H, Urine Hyaline Casts (Auto) 0, Urine Bacteria (Auto) 1+H, Urine Squamous Epithelial Cells 4, Urine Transitional Epithelial Cells 2, Urine Mucus (Auto) SMALL, Urine Sperm (Auto) , POC Glucose (Misc Panel) 176H, POC Sodium (Misc Panel) 137, POC Potassium (Misc Panel) 3.9, POC Chloride (Misc Panel) 100, POC Total CO2 (Misc Panel) 24.0, POC Blood Urea Nitrogen (Misc Panel 53H, POC Ionized Calcium (Misc Panel) 4.4L, POC Creatinine (Misc Panel) 2.6H, POC Hematocrit (Misc Panel) 34.0L, Influenza Type A (RT-PCR) NEGATIVE, Influenza Type B (RT-PCR) NEGATIVE 11/26/19 21:21: Nucleated Red Blood Cells % (auto) 0.0, Neutrophils 83H, Band Neutrophils 6, Lymphocytes (Manual) 9L, Metamyelocytes 1H, Atypical Lymphocytes 1, Hypochromasia 1+, Anisocytosis 1+, Toxic Vacuolation 1+, Platelet Estimate NORMAL, Anion Gap 14, Glomerular Filtration Rate 19.9L, Lactic Acid Level 6.2*H, Calcium Level 8.3L, Total Bilirubin 0.7, Direct Bilirubin 0.2, Aspartate Amino Transf (AST/SGOT) 207H, Alanine Aminotransferase (ALT/SGPT) 110H, Alkaline Phosphatase 250H, Total Protein 6.2L, Albumin 3.1L, Albumin/Globulin Ratio 1.00, Lipase 259 CBC/BMP Laboratory Tests 03/13/19 21:21 Microbiology Microbiology 03/13/19 Urine Culture, Received Pending 03/13/19 Blood Culture, Received Pending 03/13/19 Blood Culture, Received Pending Assessment/Plan Patient is 78 years old female with past mental history of end-stage renal diseases on dialysis, colon cancer, diabetes type 2 not on the insulin, who [facility] the [facility] presented hospital with fever associated with nausea, diarrhea and vomiting. Patient stated that she developed her symptoms around 5 PM after lunch. She stated that she ate potato, salad, meat and after that she developed vomiting with fever and chills. The patient noticed that she had 3-4 episodes of diarrhea. Of note patient had C. difficile infection in the past. Problems (1) Sepsis Status: Acute Problem Text: Patient febrile, tachycardic with elevated lactic acidosis Unclear source of infection. Right AV fistula on the exam is not infected. Chest x-ray negative for acute cardiopulmonary diseases. Abdomen soft nontender, nondistended. Differential diagnosis includes food poisoning with infection with preformed toxin Staphylococcus aureus, bacillus cereus versus other b acterial infections. Patient is immunocompromised due to history of end-stage renal diseases, diabetes, recent colon resection with bacteremia. We will check stool for C. difficile IV meropenem, IV Vanco Gentle IV fluid given history of end-stage renal diseases. MRSA screen I will start Vanco by mouth for C. difficile prophylaxis Blood culture, urine culture (2) Diabetes Status: Chronic Problem Text: Diabetes diet Insulin sliding scale (3) ESRD on hemodialysis Status: Acute Problem Text: Dialysis tomorrow Plan / VTE VTE Prophylaxis Ordered?: Yes ROBBIN FLORES DO Mar 13, 2019 23:33
--- NOTE | 2019-03-13 23:59 | PHACANCOPD ---
PHARMACY VANCOMYCIN DOSING Pt Demographics Demographics Patient Age:78 , Weight:55.300 , Gender: female Adjusted Body Weight Date: 03/13/19, Adjusted Body Weight: Kg Events Past 24 Hours Events Past 24 Hours: NO: Dialysis, Diuretic Therapy, Change in CrCl, Fever, Elevation in WBC, Pending Diagnostics, Pending Procedures, Other Vancomycin Vancomycin indication: SEPSIS Vancomycin Target Ranges: 15-20 mcg/ml Vancomycin Load Y/N: No Load Dose Date Time Vancomycin Load Dose: Date: Time: Vancomycin Dose Date: 03/13/19. Current Vancomycin Dose: [1G IN ED 03/14/19 @00:00] Intermittent Dosing?: Yes Labs Labs Item Value Date Time White Blood Count 6.9 10^3/uL 03/13/192120 Creatinine 2.50 MG/DL H 03/13/192120 Micro Microbiology 03/13/19 Urine Culture, Received Pending 03/13/19 Blood Culture, Received Pending 03/13/19 Blood Culture, Received Pending Creatinine Clearance Date:03/13/19. Creatinine Clearance: [16.6ML/MIN]. Pending Labs 03/14/19 AM TROUGH Assessment and Plan Maintaining Current Dose?: Yes Reason for dose change: No Dose Change Pharmacist Note Pharmacist Note Date: 03/13/19. Pharmacist note:Pt is a 78 year old female being treated for sepsis goal trough 15-20mcg/ml. The patient was last treated with vancomycin here at [facility] in December 2018. The patient will receive 1g of vancomycin iv 03/14/19 @00:00 and be dosed intermittently pending dialysis schedule. A vancomycin level is scheduled 03/14/19 am. We will continue to monitor and adjust the dose as needed. KAUSHIK HER PHARMACY Mar 13, 2019 23:59
[2019-03-14] VITALS (75 sets, daily range): BP systolic 53–140; BP diastolic 30–76
[2019-03-14] MEDS ORDERED: VANCOMYCIN HCL 1,000 MG, VIAL MATE ADAPTER 1 EACH in D5W 250 ML IV ONE ×3
[2019-03-14] MEDS: HEPARIN SOD (PORCINE) 5000 UNITS/ML VIAL SQ SCH ×2 (01:17→09:00)
[2019-03-14] MEDS: VANCOMYCIN ORAL SOL 250MG/5ML ORAL SYRINGE PO SCH ×3 (01:44→11:13)
[2019-03-14] MEDS ORDERED: NS 500 ML IV ONE (04:45)
[2019-03-14 04:52] LABS: HEMATOCRIT 29.8 % (36.0-47.0); MEAN CORPUSCULAR HEMOGLOBIN 27.9 pg (27.0-33.0); MEAN CORPUSCULAR HGB CONC 30.5 g/dl (32.0-36.5); MEAN CORPUSCULAR VOLUME 91.4 fl (80.0-96.0); RED BLOOD COUNT 3.26 10^6/uL (4.00-5.40); WHITE BLOOD COUNT 15.2 10^3/uL (4.0-10.0)
[2019-03-14 04:54] LABS: HEMOGLOBIN 9.1 g/dl (12.0-15.5); PLATELET COUNT, AUTOMATED 124 10^3/uL (150-450)
[2019-03-14 05:22] LABS: CREATININE FOR GFR 2.65 MG/DL (0.55-1.30); GLOMERULAR FILTRATION RATE 18.6 (>39); POTASSIUM SERUM 3.6 MEQ/L (3.5-5.1); VANCOMYCIN RANDOM 18.4 UG/ML
[2019-03-14] MEDS ORDERED: VANCOMYCIN HCL 1,000 MG, VIAL MATE ADAPTER 1 EACH in D5W 250 ML IV SCH (05:45)
[2019-03-14] MEDS ORDERED: MAGNESIUM SULFATE 1 GM/100 ML D5W BAG (10MG/ML) (J3475) As Ordered ONE (05:46)
[2019-03-14] MEDS ORDERED: NOREPINEPHRINE BITARTRATE 8 MG in D5W 500 ML IV SCH (05:46)
[2019-03-14] MEDS: HumaLOG INSULIN (NovoLOG) PER UNIT SC SCH ×2 (06:00→12:00)
[2019-03-14] MEDS ORDERED: CHOLESTYRAMINE 4 GM PWD PKT PO SCH (06:00)
--- NOTE | 2019-03-14 06:14 | PHACANCOPD ---
PHARMACY VANCOMYCIN DOSING Pt Demographics Demographics Patient Age:78 , Weight:60.200 , Gender: female Adjusted Body Weight Date: 03/13/19, Adjusted Body Weight: [60] Kg(ACTUAL WT) Vancomycin Vancomycin indication: SEPSIS Vancomycin Target Ranges: 15-20 mcg/ml Vancomycin Load Y/N: No Load Dose Date Time Vancomycin Load Dose: Date: Time: Vancomycin Dose Date: 03/13/19. Current Vancomycin Dose: [1G IN ED 03/14/19 @00:00] Intermittent Dosing?: Yes Labs Micro Microbiology 03/13/19 Urine Culture, Received Pending 03/13/19 Blood Culture, Received Pending 03/13/19 Blood Culture, Received Pending Creatinine Clearance Date:03/13/19. Creatinine Clearance: [16.6ML/MIN]. Pending Labs 03/14/19 AM TROUGH Assessment and Plan Maintaining Current Dose?: Yes Reason for dose change: No Dose Change Pharmacist Note Pharmacist Note Date: 03/14/19. Pharmacist note:Vancomycin random this morning= 18.4. Dialysis scheduled for today(usual schedule= ,,)SCR=2. 65,CRCL=17.1(calculated),allergies:penicillin -severe,.Will continue with Vancomycin dosing at 1 gram following dialysis-will continue to follow Date: 03/13/19. Pharmacist note:Pt is a 78 year old female being treated for sepsis goal trough 15-20mcg/ml. The patient was last treated with vancomycin here at [facility] in December 2018. The patient will receive 1g of vancomycin iv 03/14/19 @00:00 and be dosed intermittently pending dialysis schedule. A vancomycin level is scheduled 03/14/19 am. We will continue to monitor and adjust the dose as needed. ESSIE BAXTER PHARMACY Mar 14, 2019 06:14
[2019-03-14] MEDS ORDERED: NOREPINEPHRINE 4 MG/4 ML AMP As Ordered ONE ×2 (06:27→07:28)
[2019-03-14 06:28] LABS: ABG BASE EXCESS -8.6 (-2.0-2.0); ABG HCO3 15.6 MEQ/L (22.0-26.0); ABG O2 SATURATION 95.7 % (95.0-99.0); ABG PARTIAL PRESSURE O2 83.2 mmHg (75.0-100.0); ABG STANDARD HCO3 17.4 MEQ/L (22.0-26.0); ABG TOTAL CO2 16.5 MEQ/L (23.0-31.0); ABG pH (ARTERIAL) 7.364 UNITS (7.350-7.450)
--- NOTE | 2019-03-14 06:28 | REPVR ---
PROCEDURE INFORMATION: Exam: CT Head Without Contrast Exam date and time: 03/14/2019 5:55 AM Age: 78 years old Clinical history: Altered mental status/memory loss; Additional info: AMS, fevers TECHNIQUE: Imaging protocol: Computed tomography of the head without contrast. Radiation optimization: All CT scans at this facility use at least one of these dose optimization techniques: automated exposure control; mA and/or kV adjustment per patient size (includes targeted exams where dose is matched to clinical indication); or iterative reconstruction. COMPARISON: No relevant prior studies available. FINDINGS: Brain: There is mild patchy low attenuation of deep white matter with areas of old subcortical white matter infarct or gliosis. There is slight prominence of the peripheral sulci. Small area of old posterior left cerebellar infarct. Ventricles: There is slight prominence of the central ventricular system. Bones/joints: Unremarkable. No acute fracture. Sinuses: Ethmoid and sphenoid sinus mucosal thickening. Mastoid air cells: Visualized mastoid air cells are well aerated. Auditory system: Debris in the external auditory canals, left greater than right. Soft tissues: Unremarkable. IMPRESSION: 1. 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 2. Minimal atrophy. 3. Ethmoid and sphenoid sinus disease. 4. Otherwise negative noncontrast head CT. Electronically signed by: Herbert Alicia On 03/14/2019 06:28:33 AM
[2019-03-14] MEDS ORDERED: NOREPINEPHRINE BITARTRATE IV SCH (06:30)
[2019-03-14] MEDS ORDERED: D5W IV SCH (06:30)
--- NOTE | 2019-03-14 06:37 | REPVR ---
PROCEDURE INFORMATION: Exam: CT Abdomen And Pelvis Without Contrast Exam date and time: 03/14/2019 5:55 AM Age: 78 years old Clinical history: Fever; Additional info: AMS, fevers TECHNIQUE: Imaging protocol: Computed tomography of the abdomen and pelvis without contrast. Radiation optimization: All CT scans at this facility use at least one of these dose optimization techniques: automated exposure control; mA and/or kV adjustment per patient size (includes targeted exams where dose is matched to clinical indication); or iterative reconstruction. COMPARISON: CT ABD/PEL W/PO CONTRAST ONLY 12/29/2018 3:14 PM FINDINGS: Tubes, catheters and devices: Probable dialysis catheter extending through the right atrium and just into the inferior vena cava. Lungs: Minimal bilateral lower lobe fibro-atelectatic change and question of minimal infiltrates. Liver: The liver at mid clavicular line measures 15.9 cm. Gallbladder and bile ducts: Normal. No calcified stones. No ductal dilation. Pancreas: Normal. No ductal dilation. Spleen: The spleen measures 16.2 cm. Adrenals: Normal. No mass. Kidneys and ureters: Nonobstructing bilateral renal calculi. Bilateral renal atrophy. Stomach and bowel: Status post gastric anastomosis and anastomotic suture lines about the duodenal sweep and pyloric region. There is colonic diverticulosis without evidence of diverticulitis. Right colectomy with ileocolic anastomosis at the level of the mid transverse colon. Mild wall thickening of the left colon. Appendix: No evidence of appendicitis. Intraperitoneal space: Unremarkable. No free air. No significant fluid collection. Retroperitoneal space: Slight subcutaneous edema and generalized induration of the mesentery and retroperitoneum suggesting generalized anasarca. Vasculature: There is mild calcification of the abdominal aorta with extension into the iliac arteries. Lymph nodes: Unremarkable. No enlarged lymph nodes. Bladder: Unremarkable as visualized. Reproductive: Lippes loop IUD in the uterus. Bones/joints: Unremarkable. No acute fracture. Soft tissues: Unremarkable. IMPRESSION: 1. Probable dialysis catheter extending through the right atrium and just into the inferior vena cava. 2. Minimal bilateral lower lobe fibro-atelectatic change and question of minimal infiltrates. 3. Small nonobstructing bilateral renal calculi with mild bilateral renal atrophy. 4. Status post right colectomy and prior surgery involving the stomach and proximal bowel or duodenum. 5. Colonic diverticulosis without diverticulitis. 6. Question of mild nonspecific left colitis. 7. Mild splenomegaly. Electronically signed by: Herbert Alicia On 03/14/2019 06:36:42 AM
[2019-03-14] MEDS: MAG SULF 1GM/100ML (MAG RUN) 1 GM in IV 1 EA IV SCH ×2 (06:40→08:34)
--- NOTE | 2019-03-14 06:40 | REPVR ---
PROCEDURE INFORMATION: Exam: CT Chest Without Contrast Exam date and time: 03/14/2019 5:55 AM Age: 78 years old Clinical history: Fever; Additional info: AMS, fevers TECHNIQUE: Imaging protocol: Computed tomography of the chest without contrast. Radiation optimization: All CT scans at this facility use at least one of these dose optimization techniques: automated exposure control; mA and/or kV adjustment per patient size (includes targeted exams where dose is matched to clinical indication); or iterative reconstruction. COMPARISON: CT Chest with contrast 02/05/2019 1:19 PM FINDINGS: Tubes, catheters and devices: Right internal jugular dialysis catheter extending through the right atrium and just into the inferior vena cava. Lungs: Minimal bilateral lower lobe fibro-atelectatic change and question of minimal infiltrates. Pleural space: Unremarkable. No pneumothorax. No pleural effusion. Heart: Unremarkable. No cardiomegaly. No pericardial effusion. Aorta: The ascending thoracic aorta measures 30 mm. Lymph nodes: Unremarkable. No enlarged lymph nodes. Spleen: Splenomegaly. Bones/joints: Unremarkable. No acute fracture. Soft tissues: Subcutaneous nodule anterior to the right first costochondral junction measuring 4.3 x 2.6 x 3.3 cm which may reflect a sebaceous cyst. IMPRESSION: 1. Minimal bilateral lower lobe fibro-atelectatic change and question of minimal infiltrates. 2. Right internal jugular dialysis catheter extending through the right atrium and just into the inferior vena cava. 3. Subcutaneous nodule in the upper right chest to the right of midline measuring 4.3 x 2.6 x 3.3 cm which may reflect a sebaceous cyst. 4. Otherwise negative CT chest. Electronically signed by: Herbert Alicia On 03/14/2019 06:40:25 AM
[2019-03-14] MEDS ORDERED: LIDOCAINE 1% MDV 20ML VIAL As Ordered ONE (07:19)
[2019-03-14] MEDS ORDERED: HumaLOG INSULIN (NovoLOG) PER UNIT SC SCH ×2 (07:30)
--- NOTE | 2019-03-14 07:32 | REP ---
Clinical: Fever . Comparison: 12/30/2018 . Findings: The mediastinum and cardiac silhouette are stable and within normal limits for portable technique. Double-lumen dialysis catheter with tip in the right atrium. The lung salazar are clear without acute consolidation, effusion, or pneumothorax. Skeletal structures are intact. Old healed left shoulder fracture noted. Impression: No acute cardiopulmonary process appreciated. Electronically Signed by Edilberto Talamantes MD 03/14/2019 07:24 A
--- NOTE | 2019-03-14 07:52 | IPNPDOC ---
Text Note Date of Service The patient was seen on 03/14/19. NOTE Procedure note INDICATION: Septic shock PROCEDURE PEN AND PENCIL REPAIRER: Dr Wander Preston CONSENT: Consent was obtained from pt's son prior to the procedure. Indications, risks, and benefits were explained at length. PROCEDURE SUMMARY: The [facility] Central Line Insertion Practices form was completed by an independent observer Rachid Gutierrez starting with the first handwash prior to starting sterile technique. A time out was performed. My hands were washed immediately prior to the procedure. I wore a surgical cap, mask with protective eyewear, full gown and sterile gloves throughout the procedure. The patient was placed in Trendelenburg position. RIGHT chest region was prepped using chlorhexidine scrub and draped in sterile fashion using a full drape and sterile probe cover employed. The medial and lateral heads of the sternocleidomastoid muscle were identified as was the carotid pulse. The Internal Jugular vein was identified using the ultrasound. Anesthesia was achieved over the vein using 1% lidocaine. Using real-time out of plane guidance, the introducer needle was inserted into the Internal Jugular vein under direct ultrasound visualization. Venous blood was withdrawn. The syringe was removed and a guidewire was advanced into the introducer needle. The guidewire was visualized in the Internal Jugular Vein by ultrasound. A small incision was made at the skin surface with a scalpel and the introducer needle was exchanged for a dilator over the guidewire. After appropriate dilation was obtained, the dilator was exchanged over the wire for a central venous catheter. The wire was removed and the catheter was sutured in place. A sterile sorbaview shield was placed over the catheter at the insertion site. The patient tolerated the procedure without any hemodynamic compromise. At time of procedure completion, all ports aspirated and flushed properly. Post- procedure chest x-ray is pending at this time. Estimated blood loss is 5 cc. VS,Fishbone, I+O VS, Fishbone, I+O Laboratory Tests 03/13/19 21:21 03/14/19 04:45 Vital Signs Date Time Temp Pulse Resp B/P (MAP) Pulse Ox O2 Delivery O2 Flow Rate FiO2 03/14/19 06:51 98.1 99 20 76/47 (57) 97 03/14/19 06:46 Room Air 03/14/19 06:41 0.0 I&O- Last 24 Hours up to 6 AM 03/14/19 06:00 Intake Total 740 ml Balance 740 ml ROBBIN FLORES DO Mar 14, 2019 07:52
[2019-03-14] MEDS ORDERED: NOREPINEPHRINE BITARTRATE 16 MG in D5W 484 ML IV SCH ×3 (08:00→13:52)
[2019-03-14] MEDS ORDERED: LIDOCAINE 1% MDV 20ML VIAL SC ONE (08:00)
--- NOTE | 2019-03-14 08:00 | REP ---
Clinical: Central line placement . Comparison: 03/13/2019 . Findings: The mediastinum and cardiac silhouette are stable and within normal limits for portable technique. Double-lumen dialysis catheter with tip in the right atrium. The lung salazar are clear without acute consolidation, effusion, or pneumothorax. Skeletal structures are intact. Impression: No acute cardiopulmonary process appreciated. Electronically Signed by Edilberto Talamantes MD 03/14/2019 07:51 A
[2019-03-14] MEDS ORDERED: EPINEPHrine HCL INJ 1 MG in D5W 240 ML IV SCH (08:15)
[2019-03-14] MEDS ORDERED: EPINEPHrine INJ 1 MG/ML 1ML AMP As Ordered ONE (08:15)
[2019-03-14] MEDS ORDERED: VASOPRESSIN INJ 20 UNITS/ML VIAL As Ordered ONE (08:16)
[2019-03-14 08:31] LABS: C REACTIVE PROTEIN QUANTITATIV 5.16 MG/DL (0.00-0.30)
--- NOTE | 2019-03-14 08:58 | ECGEPIP ---
[facility] - ED Test Date: 2019-03-13 Pat Name: SAILAJA MATA Department: Room: [place] [address] Gender: Female Structural Designer: JEFF : 1940 Requested By: LARA MEADE Order Number: [id number] Reading MD: Alexsander Amaya Measurements Intervals [place] Rate: 131 P: 80 SC: 126 QRS: -15 QRSD: 65 T: 63 QT: 318 QTc: 469 Interpretive Statements SINUS TACHYCARDIA LOW QRS VOLTAGE IN EXTREMITY LEADS MINIMAL ST DEPRESSION RATE CHANGE COMPARED TO 12/29/18 Electronically Signed on 03-14-2019 8:57:42 EST by Alexsander Amaya
[2019-03-14] MEDS ORDERED: PANTOPRAZOLE 40MG INJ (PROTONIX) (C9113) IV SCH (09:00)
[2019-03-14] MEDS ORDERED: SERTRALINE 100 MG TAB PO SCH (09:00)
[2019-03-14] MEDS ORDERED: LACTOBACILLUS ACIDOPHILUS CAP (BACID) PO SCH (09:00)
[2019-03-14] MEDS ORDERED: PANTOPRAZOLE 40MG TAB (PROTONIX) PO SCH (09:00)
[2019-03-14] MEDS ORDERED: VASOPRESSIN INJ 20 UNITS in NS 499 ML IV SCH ×2 (09:00→17:01)
[2019-03-14] MEDS ORDERED: LORazepam 0.5 MG TAB PO SCH (09:00)
[2019-03-14] MEDS ORDERED: MEROPENEM INJ 500 MG in IV 1 EA IV SCH (09:00)
[2019-03-14] MEDS ORDERED: CARVedilol 6.25 MG TAB PO SCH (09:00)
[2019-03-14] MEDS ORDERED: KETOROLAC 30 MG/ML VIAL (J1885) IV PRN (09:00)
[2019-03-14 09:59] LABS: HEPATITIS A ANTIBODY IGM NEGATIVE (NEGATIVE); HEPATITIS B CORE ANTIBODY IGM NEGATIVE (NEGATIVE); HEPATITIS B SURFACE ANTIGEN NEGATIVE (NEGATIVE); HEPATITIS C VIRUS ABY INDEX 0.1 INDEX (<0.8)
[2019-03-14] MEDS ORDERED: MAG SULF 1GM/100ML (MAG RUN) 1 GM in IV 1 EA IV SCH (10:00)
[2019-03-14 10:22] LABS: HEMATOCRIT 31.2 % (36.0-47.0); HEMOGLOBIN 9.7 g/dl (12.0-15.5); MEAN CORPUSCULAR HEMOGLOBIN 27.6 pg (27.0-33.0); MEAN CORPUSCULAR HGB CONC 31.1 g/dl (32.0-36.5); MEAN CORPUSCULAR VOLUME 88.9 fl (80.0-96.0); PLATELET COUNT, AUTOMATED 215 10^3/uL (150-450); RED BLOOD COUNT 3.51 10^6/uL (4.00-5.40)
[2019-03-14 10:29] LABS: INR 1.46; PROTHROMBIN TIME 17.4 SECONDS (11.8-14.0)
[2019-03-14 10:30] LABS: PARTIAL THROMBOPLASTIN TIME 45.5 SECONDS (25.0-38.4)
[2019-03-14 10:31] LABS: WHITE BLOOD COUNT 51.7 10^3/uL (4.0-10.0)
[2019-03-14 10:40] LABS: MAGNESIUM LEVEL 2.3 MG/DL (1.8-2.4)
[2019-03-14 11:37] LABS: ALBUMIN 2.6 GM/DL (3.2-5.2); CALCIUM LEVEL 7.1 MG/DL (8.8-10.2); CREATININE FOR GFR 2.87 MG/DL (0.55-1.30); PHOSPHORUS LEVEL 3.6 MG/DL (2.5-4.9); POTASSIUM SERUM 3.7 MEQ/L (3.5-5.1)
[2019-03-14 11:46] LABS: ANISOCYTOSIS 2+; LYMPHOCYTES 2 % (16-44); MONOCYTES 2 % (0-5); NEUTROPHILS 94 % (28-66); OVALOCYTES 1+; PLATELET ESTIMATE NORMAL (NORMAL)
[2019-03-14 12:14] LABS: ERYTHROCYTE SEDIMENTATION RATE 28 mm/hr (0-30)
[2019-03-14] MEDS ORDERED: HEPARIN 1,000 UNITS/ML 10ML VIAL (FOR RADIOLOGY& DIALYSIS ONLY) IV PRN (12:15)
[2019-03-14] MEDS ORDERED: SODIUM CHLORIDE 0.9% INJ 10 ML SYR IV PRN (12:15)
[2019-03-14] MEDS ORDERED: LIDOCAINE 5% (LIDODERM) PATCH TD ONE (12:15)
[2019-03-14] MEDS ORDERED: LIDOCAINE 5% (LIDODERM) PATCH As Ordered ONE (12:17)
[2019-03-14] MEDS: ONDANSETRON 4MG/2ML VIAL (J2405) IV PRN ×2 (12:31→22:08)
--- NOTE | 2019-03-14 12:37 | CR ---
DATE OF CONSULTATION: 03/14/2019 REQUESTING PHYSICIAN: Dr. Cook CONSULTING PHYSICIAN: Dr. Street REASON FOR CONSULTATION Management of end-stage renal disease, hemodialysis and metabolic acidosis. CHIEF COMPLAINT: The patient presented to the hospital yesterday with the nausea, vomiting and decreased appetite. HISTORY OF PRESENT ILLNESS: Carolina Lynn is a 78-year-old female with past medical history of end-stage renal disease on hemodialysis q. Tuesday, and Tuesday, because of the holiday, today is a regular day of dialysis, diabetes mellitus type 2 insulin dependent, history of cancer of the colon with invasion into the stomach. She recently had emergent surgery done for perforated cancer of the colon on December 29, 2018 because an extensive surgery including right colectomy with en bloc hemigastrectomy, Sedrick-en-Y gastrojejunostomy, ileotransverse colon anastomosis and feeding jejunostomy. Surprisingly, the patient recovered well after the surgery. She started eating and she was discharged 2 weeks later on January 15, 2019. The patient followed up with Hematology/Oncology and as reported by the patient she was told that she is not a candidate for chemotherapy. She had a malfunctioning left upper arm AV fistula and she had angioplasty and ballooning of the left arm AV fistula on March 09, 2019 and it was unsuccessful. She currently has a tunneled hemodialysis catheter in the right IJ, which is used for dialysis. The patient had extravasation during the procedure, which was stopped after holding pressure for 20 minutes. The patient was feeling okay after the procedure. However, yesterday she presented to the hospital with fever, nausea, vomiting and diarrhea and the symptoms started after she ate her lunch. She also has history of Clostridium (C.) difficile infection after the previous surgery antibiotics. In the emergency room, the patient was found to be febrile with a maximum temperature (t-max) of 102 degrees Fahrenheit, she had lactic acidosis, leukocytosis. She was initially in progressive care unit (PCU). She decompensated over there and she was ultimately transferred to the intensive care unit (ICU). Overnight, she got a central line placement in the right IJ. She was started on Levophed and later on vasopressin for severe septic shock and hypotension. Nephrology service was called for further help in the management of this patient today morning because of her history of renal failure. I saw and evaluated the patient today morning at the bedside. Her son was also present at the bedside and primary public relations professional, Dr. Cook, was also talking to the patient. The patient absolutely does not want any surgical procedure done if she needs any, she just wants for medical management and she is agreeable to continuing the hemodialysis or CVVHD. Despite being very sick and requiring two pressors, the patient has good mentation and she was able to make medical decisions. PAST MEDICAL HISTORY: Past medical history of end-stage renal disease on hemodialysis, history of anemia secondary to end-stage renal disease, hypertension, history of cancer of the colon status post right hemicolectomy and partial gastric resection, hyperlipidemia. PAST SURGICAL HISTORY: Status post angiogram of the left upper arm AV fistula on March 09, 2019, status post right hemicolectomy and partial gastric resection in December 2018, status post right IJ tunneled hemodialysis catheter, bilateral cataract surgeries in the past and history of feeding jejunostomy placement during the surgery, which was later on removed. ALLERGIES: He is allergic to PENICILLIN and MORPHINE. FAMILY HISTORY: No significant family history of end-stage renal disease requiring hemodialysis. SOCIAL HISTORY: She denies any smoking, illicit drug abuse or alcohol abuse. REVIEW OF SYSTEMS: Constitutional: The patient reports feeling weak and tired. Eyes: She denies any blurry vision, double vision. ENT: She denies any dysphagia, odynophagia, ear discharge. Cardiovascular: She denies any chest pain or palpitation. Respiratory: She denies any shortness of breath. Gastrointestinal: She reports abdominal pain, nausea and diarrhea. Genitourinary: She denies any dysuria, hematuria. Musculoskeletal: She reports muscle weakness. Skin: She denies any skin rashes or ulcers. Endocrine: She denies any history of hyperthyroidism or hypothyroidism. She is a known diabetic. Hematology/Oncology: She denies any easy bleeding or bruising. She does report history of cancer of the colon. Psychiatric: She denies any depression or anxiety. All other review of systems is negative. PHYSICAL EXAMINATION: General: The patient is awake, alert, oriented times three, laying in bed. Vital signs: Temperature is 100.3 degrees Fahrenheit, blood pressure 90/54, pulse is 151, respiratory of 22, saturating 96% on room air. Intake and output: Urine output recorded is 22 mL since overnight. Head and neck exam: Extraocular muscles intact. Pupils equally round and reactive to light. Mucous membranes are slightly dry. Neck is supple. She has a right IJ triple lumen catheter and right IJ tunneled hemodialysis catheter as well. Cardiovascular: S1, S2, tachycardia. Trace edema of the bilateral lower extremities. Respiratory: Chest is clear to auscultation bilaterally. Bilateral equal air entry. No rales or rhonchi. Abdomen: Soft, very diminished bowel sounds and moderate amount of tenderness in the right lower quadrant. Musculoskeletal: No clubbing or cyanosis. Pulses are 2+. Central nervous system (ENVIRONMENTAL ENGINEER SCIENTIST): No focal deficit. Power is 5/5 in all extremities and the patient is able to communicate at this time even though she is very sick. LABORATORY REVIEW: CBC showed WBC of 51.7, hemoglobin 9.7, platelets are 115, INR is 1.4. Urinalysis showed it was turbid with 2+ protein, too numerous to count WBCs. ABG done today morning showed pH of 7.3, pCO2 of 28, pO2 of 53, bicarbonate is 15.6. BMP showed sodium 137, potassium 3.7, chloride 106, bicarbonate 17, BUN 42, creatinine is 2.8, glucose is 227, lactic acid is 6.2, calcium 7.1, phosphorus 3.6, magnesium 2.3, albumin is 2.6. Random vancomycin level today is 18.4. Microbiology: Urine cultures and blood cultures are pending. IMAGING STUDIES: Chest x-ray was done this morning which showed no acute pathology. CT scan of the abdomen and pelvis without contrast showed small, nonobstructing bilateral renal calculi, status post right colectomy and prior surgery involving the stomach and proximal bowel or jejunum, colonic diverticulosis without diverticulitis and mild splenomegaly. CURRENT INPATIENT MEDICATIONS: The patient's medications include: - IV Levophed infusion - Primaxin 500 mg IV times one dose - She is getting IV magnesium runs every hour - She was given normal saline 2.5 liters bolus overnight - She is getting NS 80 mL an hour - She is also on vasopressin at 0.04 units - She was given vancomycin 1 gram IV overnight - She is on Tylenol as needed - Lipitor has been STOPPED - Coreg has been STOPPED - She is on cholestyramine 2 grams p.o. four times a day - She is on heparin subcutaneous - insulin sliding scale - Ativan is on HOLD - She is on Protonix 40 mg IV daily - She is on vancomycin 125 mg by mouth every six hours ASSESSMENT: 78-year-old female with history of end-stage renal disease on hemodialysis, recent history of Clostridium (C.) difficile colitis, status post cancer of the colon resection 2 months ago admitted this time with septic shock. PLAN: 1. Septic shock. The source of infection most likely is either abdomen or left upper arm AV fistula. Fistula does not look tender. She has history of C diff colitis as well. She is getting broad-spectrum IV antibiotics, including vancomycin and meropenem. She is also on oral vancomycin for history of C diff. The patient can also get vancomycin retention enema. Continue the pressors. The patient has been adequately volume resuscitated. 2. End-stage renal disease, hemodialysis dependent. Today's the patient's regular day of dialysis and she is in septic shock and she has worsening metabolic acidosis, trying to compensate with hyperventilation. The patient is going to be started on CVVHDF. No fluid removal will be done. Electrolytes will be repeated according to CVVHDF protocol. 3. Anemia in end-stage renal disease, hemoglobin is 9.7, which is optimal. Transfuse as needed for hemoglobin 8 or below. 4. Diabetes mellitus type 2. The patient is only getting insulin sliding scale since she is nothing by mouth at this time. 5. History of cancer of the colon. Status post resection. The patient has moderate amount of tenderness in the abdomen. She either has perforation in the abdomen or she has C diff colitis. Okay to continue oral vancomycin. Once she is hemodynamically more stable, she can get CT scan with oral and IV contrast. 6. History of hypertension, Coreg is being stopped at this time because of shock. Thank you for involving me in the care of this patient. I shall be happy to follow the patient along with you tomorrow morning. Total critical care time spent in the management of this patient this morning in the intensive care unit (ICU) was 1 hour and 15 minutes, which does not include any procedures.
[2019-03-14] MEDS ORDERED: fentaNYL 100 MCG/2 ML INJECTION (J3010) IV PRN (14:15)
[2019-03-14] MEDS ORDERED: ACETAMINOPHEN TAB 650MG DOSE (2X325MG) PO PRN (14:15)
[2019-03-14] MEDS ORDERED: METOCLOPRAMIDE INJ 10MG/2ML VIAL (J2765) IV PRN (14:15)
[2019-03-14] MEDS ORDERED: PERCOCET 5MG/325MG TAB PO PRN (14:15)
[2019-03-14] MEDS: LORazepam 2 MG/ML VIAL (J2060) IV PRN ×2 (14:34→17:18)
--- NOTE | 2019-03-14 15:03 | CR ---
DATE OF CONSULTATION: 03/14/2019 REQUESTING PHYSICIAN: Dr. Stone REASON FOR CONSULTATION: Septic shock. HISTORY OF PRESENT ILLNESS: Ms. Lynn is a 78-year-old female with history of end-stage renal disease (ESRD), on hemodialysis, insulin-dependent diabetes, history of colon cancer with invasion into the stomach with an emergent surgery for a perforation in December, where she had extensive surgery, including a right colectomy with hemigastrectomy, a Sedrick-en-Y gastrojejunostomy, and an ileotransverse colon anastomosis and feeding jejunostomy. The patient also had a recent procedure last week with malfunctioning of her left upper arm arteriovenous (AV) fistula, where she had angioplasty and ballooning. This procedure was unsuccessful, and she had placement of a tunneled hemodialysis catheter in her right subclavian. The patient presented yesterday, however, complaining of nausea, vomiting as well as fever and some diarrhea. She does have a history of Clostridium (C) difficile in the past when she was treated previously with antibiotics after her surgery. The patient was noted on admission to be febrile with a lactic acidosis and leukocytosis. Her blood pressure was initially stable, and she was admitted to the progressive care unit (PCU). Overnight, however, she was noted to have episodes of hypotension, which was treated with normal saline boluses of 3 liters with no response. She was therefore transferred to the intensive care unit (ICU) for further management. The patient had a right internal jugular (IJ) triple lumen placed for initiation of vasopressors. She was initially started on Levophed, however continued to be hypotensive and required the addition of vasopressin. The patient continues to report some nausea and vomiting but denies any significant abdominal pain. She does have some pain in her back, which she is complaining of. She denies any chest pain. No shortness of breath. No coughing. She is in some discomfort and distress. Patient was seen earlier and documentation was done later in the day PAST MEDICAL AND SURGICAL HISTORY: 1. ESRD, on hemodialysis. 2. Anemia secondary end-stage renal disease. 3. Hypertension. 4. History of the colon cancer status post right hemicolectomy and partial gastric resection. 5. Hyperlipidemia. 6. Left upper arm AV fistula status post angiogram and failed dilation. 7. Right subclavian tunneled hemodialysis catheter. 8. Cataract surgeries. 9. History of feeding jejunostomy tube, which was later removed. 10. C. difficile colitis.. HOME MEDICATIONS: Atorvastatin carvedilol, cholestyramine vitamin D, folic acid, vitamin B complex, Bacid, Ensure lidocaine cream, lorazepam, pantoprazole, sertraline. ALLERGIES: PENICILLIN and MORPHINE. FAMILY HISTORY: Noncontributory. SOCIAL HISTORY: No history of smoking or alcohol use. PHYSICAL EXAMINATION: Maximal temperature was 102.7, current temperature was 98.1, pulse 99, respirations 20. Blood pressure initially was 76/47, and oxygen saturation was 97% on room air. GENERAL: The patient is lying in bed. Appears to be in some discomfort and is moaning. She is awake and alert and able to answer questions accordingly. HEENT: Normocephalic, atraumatic. Mucous membranes are slightly dry. Pupils are equal, round, reactive to light. NECK: Supple. There is a right IJ triple-lumen catheter in place and a right subclavian tunneled hemodialysis catheter. CARDIOVASCULAR: She is tachycardic. Normal S1, S2. Unable to appreciate any murmurs. There is a ganglion cyst noted at the top of her sternum, which is apparently chronic. RESPIRATORY: Lungs are clear to auscultation bilaterally. No wheezing, rales, or rhonchi noted. On her right breast there is a bandage, and underneath the bandage there is a lobulated skin lesion, which appears somewhat friable with some white discoloration and erythema and also some drainage. There does appear to be some malodorous drainage from this small skin lesion. Diminished breath sounds with some mild tenderness in the right lower quadrant. LOWER EXTREMITIES: There is trace edema in the bilateral lower extremities. Left arm AV fistula with some swelling and ecchymosis noted as well as tenderness. There is a mild palpable thrill. LABORATORY DATA: WBC was 15.2, repeat was 51.7, hemoglobin is 9.7, platelets are 115. Chemistry: Sodium is 137, potassium is 3.7, chloride is 106, bicarbonate is 17, BUN 42, creatinine is 2.8, glucose is 227, lactic acid was 6.2, repeat is still 6.2. Magnesium was 1.0, repeat was 2.3. ABG: A pH 7.3, pCO2 of 28, pO2 of 53. Microbiology: Urine cultures and blood cultures are pending. IMAGING STUDIES: CT chest showed mild bilateral lower lobe atelectasis with no significant infiltrates. There was a right internal jugular dialysis catheter, which is extending through the right atrium just into the inferior vena cava. There is a subcutaneous nodule on the upper right chest to the right of midline, measuring 4.3 x 2[address] abdomen and pelvis: Small, nonobstructing bilateral renal calculi with mild bilateral renal atrophy. Status post right colectomy and prior surgery involving the stomach and proximal bowel and duodenum. There is colonic diverticulosis without diverticulitis. There is possible mild left colitis. Mild splenomegaly. ASSESSMENT AND PLAN: Ms. Lynn is a 78-year-old female with a past medical history of end-stage renal disease (ESRD), on hemodialysis, hypertension, history of colon cancer status post right hemicolectomy and partial gastric resection, previous history of Clostridium (C) difficile colitis, who presents with complaints of nausea, vomiting, diarrhea, and fever. The patient was febrile on admission with leukocytosis. She was started on broad-spectrum antibiotics as well as vancomycin for her history of C. difficile. Initially, her blood pressures were stable; however, overnight the patient became more hypotensive and was given multiple boluses of IV fluids, but her blood pressure did not respond, and she was admitted to the intensive care unit (ICU) and started on vasopressor support via a right internal jugular (IJ) catheter which was placed in the ICU. The right IJ triple was placed in the ICU put by Dr. Stone under my supervision. The patient was started on Levophed but continued to be hypotensive and required vasopressin for additional blood pressure support. The patient with septic shock, most likely with an abdominal source, possibly C. difficile given her history. She also had recent revision of her left upper arm AV fistula, and there is a possible source of infection there given the edema and tenderness. Patient is also at risk for bacteremia, and with her history and catheter placement, there is some risk for endocarditis as well. The patient was started on broad-spectrum antibiotics with IV vancomycin and meropenem as well as with oral vancomycin for her history of C. difficile. Patient was also to be started on vancomycin retention enema due to some concern that she was not absorbing the oral vancomycin, especially as she has continued to have episodes of nausea and vomiting. She was initially ordered for echocardiogram as part of her infectious disease workup with followup of her blood and urine cultures. Given her hypotension and now with persistent lactic acidosis and minimal bowel sounds, there was concern for a possible ischemic bowel contributing to her persistent lactic acidosis and leukocytosis. Some of the lactic acidosis may also be in the setting of her end-stage renal disease. The patient was initially planned for continuous veno-venous hemodialysis (CVVHD) given her hypotension; however after discussion with the patient and her family, the patient has decided against aggressive medical management, including antibiotics and pressor support. Patient has therefore elected to make herself comfort measures only with the agreement of her family, including her sons, her daughter, and her sister. The patient is now comfort measures only. Will discontinue pressors. Will discontinue her rectal temperature probe and her Michel catheter and will discontinue lab draws. Will discontinue all medications besides those necessary for comfort, including medications for anxiety, for pain, and for nausea and vomiting. CODE STATUS: DO NOT RESUSCITATE/DO NOT INTUBATE. Total critical care time spent, not including any procedures: Approximately 2 hours and 20 minutes. Please do not hesitate to call if any further questions or concerns MTDD
[2019-03-14] MEDS ORDERED: **VANCO AFTER HD** MISC XX SCH (16:00)
[2019-03-14] MEDS: MORPHINE 2 MG/ML 1ML VIAL (J2270) IV PRN ×3 (16:10→18:52)
[2019-03-14] MEDS: MORPHINE SULF IN 0.9% NACL 100 MG in IV 1 EA IV SCH ×2 (19:55)
--- NOTE | 2019-03-14 20:16 | IPNPDOC ---
Date Seen The patient was seen on 03/14/19. Progress Note 03/14/2019 Patient admitted last night to the ICU with septic shock, central line placed, was maxed out on 2 vasopressors (Levophed and vasopressin), based on prolonged hypotension there is also suspicion that patient may have ischemic bowel. Patient was presented with the option of surgical evaluation and possible exploratory laparotomy with bowel resection, she adamantly refuses any surgical intervention. She was also offered medical management with continued vasopressors, antibiotics, hemodialysis, and additional supportive therapy. Patient was initially agreeable, but after contemplating and discussing with her 2 sons. She elected to stop all treatment and be comfortable. Patient and sons agreeable, MOLST form signed and patient's status changed to comfort measures only. Patient transferred out of the ICU, morphine drip ordered for comfort. Ativan when necessary for comfort as well VS, I&O, 24H, Fishbone Vital Signs/I&O Vital Signs Date Time Temp Pulse Resp B/P (MAP) Pulse Ox O2 Delivery O2 Flow Rate FiO2 03/14/19 14:00 97.9 54 140/76 (97) 97 03/14/19 12:00 1.0 03/14/19 10:35 22 Room Air I&O- Last 24 Hours up to 6 AM 03/14/19 06:00 Intake Total 740 ml Balance 740 ml Laboratory Data 24H LABS Laboratory Tests 2 03/13/19 21:14: Bedside Glucose (Misc Panel) 150H 03/13/19 21:20: Urine Color DK YELLOW, Urine Appearance TURBIDH, Urine pH 5.0, Urine Specific [place] 1.018, Urine Protein 2+H, Urine Glucose (UA) NEGATIVE, Urine Ketones NEGATIVE, Urine Blood 2+H, Urine Nitrite NEGATIVE, Urine Bilirubin NEGATIVE, Urine Urobilinogen 0.2, Urine Leukocyte Esterase 2+H, Urine WBC (Auto) TNTCH, Urine RBC (Auto) 48H, Urine Hyaline Casts (Auto) 0, Urine Bacteria (Auto) 1+H, Urine Squamous Epithelial Cells 4, Urine Transitional Epithelial Cells 2, Urine Mucus (Auto) SMALL, Urine Sperm (Auto) , POC Glucose (Misc Panel) 176H, POC Sodium (Misc Panel) 137, POC Potassium (Misc Panel) 3.9, POC Chloride (Misc Panel) 100, POC Total CO2 (Misc Panel) 24.0, POC Blood Urea Nitrogen (Misc Panel 53H, POC Ionized Calcium (Misc Panel) 4.4L, POC Creatinine (Misc Panel) 2.6H, POC Hematocrit (Misc Panel) 34.0L, Influenza Type A (RT-PCR) NEGATIVE, Influenza Type B (RT-PCR) NEGATIVE 03/13/19 21:21: Nucleated Red Blood Cells % (auto) 0.0, Neutrophils 83H, Band Neutrophils 6, Lymphocytes (Manual) 9L, Metamyelocytes 1H, Atypical Lymphocytes 1, Hypochromasia 1+, Anisocytosis 1+, Toxic Vacuolation 1+, Platelet Estimate NORMAL, Anion Gap 14, Glomerular Filtration Rate 19.9L, Lactic Acid Level 6.2*H, Calcium Level 8.3L, Total Bilirubin 0.7, Direct Bilirubin 0.2, Aspartate Amino Transf (AST/SGOT) 207H, Alanine Aminotransferase (ALT/SGPT) 110H, Alkaline Phosphatase 250H, Total Protein 6.2L, Albumin 3.1L, Albumin/Globulin Ratio 1.00, Lipase 259 03/14/19 04:45: Nucleated Red Blood Cells % (auto) 0.0, Anion Gap 12, Glomerular Filtration Rate 18.6L, Lactic Acid Level 6.2*H, Calcium Level 7.0#L, Magnesium Level 1.0L, C- Reactive Protein, Quantitative 5.16H, Random Vancomycin Level 18.4, Hepatitis A IgM Antibody NEGATIVE, Hepatitis B Surface Antigen NEGATIVE, Hepatitis B Core IgM Antibody NEGATIVE, Hepatitis C Antibody Index 0.1 03/14/19 05:31: Bedside Glucose (Misc Panel) 131H 03/14/19 06:17: Bedside Glucose (Misc Panel) 143H 03/14/19 06:23: Blood Gas Bicarbonate Standard 17.4L, Arterial Blood pH 7.364, Arterial Blood Partial Pressure CO2 28.0L, Arterial Blood Partial Pressure O2 83.2, Arterial Blood Total CO2 16.5L, Arterial Blood HCO3 15.6L, Arterial Blood Base Excess -8. 6L, Arterial Blood Oxygen Saturation 95.7 03/14/19 10:00: Neutrophils # (Auto) , Nucleated Red Blood Cells % (auto) 0.0, Neutrophils 94H, Band Neutrophils 2, Lymphocytes (Manual) 2L, Monocytes (Manual) 2, Anisocytosis 2+, Ovalocytes 1+, Platelet Estimate NORMAL, Erythrocyte Sedimentation Rate 28, Prothrombin Time 17.4H, Prothromb Time International Ratio 1.46, Activated Parti al Thromboplast Time 45.5H, Anion Gap 14, Glomerular Filtration Rate 17.0L, Lactic Acid Followup at 4 Hours 6.2*H, Calcium Level 7.1L, Phosphorus Level 3.6, Magnesium Level 2.3, Albumin 2.6L CBC/BMP Laboratory Tests 03/13/19 21:21 03/14/19 04:45 03/14/19 10:00 Microbiology Microbiology 03/14/19 Blood Culture, Received Pending 03/13/19 Urine Culture, Received Pending 03/13/19 Blood Culture, Received Pending 03/13/19 Blood Culture, Received Pending GHAZAL COBURN MD Mar 14, 2019 20:16
[2019-03-14] MEDS ORDERED: ATORVASTATIN 20 MG TAB PO SCH (21:00)
[2019-03-14] MEDS ORDERED: **NOTE PATIENT COMMENT** MISC XX ONE (21:00)
[2019-03-14] MEDS ORDERED: HYOSCYAMINE SULFATE 0.125 MG SUBL TABLET PO PRN (22:45)
[2019-03-14] MEDS ORDERED: FLEET ENEMA PR PRN (22:45)
[2019-03-14] MEDS: SCOPOLAMINE 1MG TRANSDERMAL PATCH TOP PRN (23:13)
[2019-03-15] MEDS ORDERED: NOREPINEPHRINE BITARTRATE 16 MG in D5W 484 ML IV SCH (08:00)
[2019-03-15] MEDS: MORPHINE SULF IN 0.9% NACL 100 MG in IV 1 EA IV SCH ×2 (20:02)
--- NOTE | 2019-03-16 08:45 | IPN ---
DATE: 03/15/2019 SUBJECTIVE: The patient has been transferred out of intensive care unit (ICU) today. She was seen at [address]. Her sons are also present at the bedside. Last 24-hour events were noted. The patient wanted to keep herself comfortable only. She did not want any more medical intervention or hemodialysis, and she was not interested in any surgical intervention. No continuous veno-venous hemodiafiltration (CVVHDF) was started yesterday. The patient was made comfort measures only, and she is currently on morphine drip and Ativan as needed for anxiety. All the rest of therapeutic medications are on hold. The patient is sleeping comfortably at this time. She was not examined. There are no more lab works done and no vital signs are being done because she is comfort measures only. Nephrology service is going to sign off at this moment. This was a courtesy visit, and the patient will not be charged for this service.
[2019-03-16] MEDS ORDERED: ACETAMINOPHEN 650 MG SUPP PR PRN (10:15)
[2019-03-16] MEDS: MORPHINE SULF IN 0.9% NACL 100 MG in IV 1 EA IV SCH ×2 (21:10)
[2019-03-16] MEDS ORDERED: LORazepam 2 MG/ML VIAL (J2060) As Ordered ONE (22:26)
[2019-03-16] MEDS: LORazepam 2 MG/ML VIAL (J2060) IV PRN (22:34)
[2019-03-17] MEDS: LORazepam 2 MG/ML VIAL (J2060) IV PRN (09:53)
[2019-03-17] MEDS: MORPHINE SULF IN 0.9% NACL 100 MG in IV 1 EA IV SCH ×2 (22:34)
[2019-03-18] MEDS: SCOPOLAMINE 1MG TRANSDERMAL PATCH TOP PRN (00:02)
[2019-03-18] MEDS ORDERED: VITAMIN D 50,000 UNITS CAPSULE (ERGOCALCIFEROL 1.25MG) PO SCH (09:00)
[2019-03-18] MEDS: MORPHINE SULF IN 0.9% NACL 100 MG in IV 1 EA IV SCH ×2 (21:00)
[2019-03-19] MEDS: MORPHINE SULF IN 0.9% NACL 100 MG in IV 1 EA IV SCH ×4 (08:41→15:36)
[2019-03-19] MEDS: LORazepam 2 MG/ML VIAL (J2060) IV PRN (18:21)
[2019-03-20] MEDS: LORazepam 2 MG/ML VIAL (J2060) IV PRN (08:28)
--- NOTE | 2019-03-20 17:38 | DS.PDOC ---
Discharge Summary General Date of Admission Mar 13, 2019 at 22:54 Date of Discharge 03/20/2019 Attending Physician: GHAZAL COBURN MD Discharge Summary PROCEDURES PERFORMED DURING STAY: None. ADMITTING DIAGNOSES: 1. Septic shock. DISCHARGE DIAGNOSES: 1. Septic shock, possible acute ischemic bowel, UTI. COMPLICATIONS/CHIEF COMPLAINT: Esrd On Hemodialysis, Sepsis, Uti. HISTORY OF PRESENT ILLNESS: 78-year-old female with an extensive medical history was admitted for septic shock, possible GI/ etiology. Patient was initially admitted to the floor with sepsis and unknown etiology, became severely hypotensive overnight, central line was placed and patient required 2 vasopressors to maintain adequate blood pressure. There were multiple discussions throughout the day with patient and her sons regarding goals of care, patient changed her mind multiple times regarding medical management versus comfort measures only. She was notified that due to prolonged hypotension and given her history/current presentation it is possible that she has ischemic bowel and may require exploratory laparotomy. Patient adamantly refused a surgical consult. She initially agreed to complete medical management including hemodialysis, but a few hours later she changed her mind and decided to stop all treatments and change her status to comfort measures only. MOLST form signed and patient transferred to [facility]. Patient received morphine drip for comfort measures. She at 9 AM on 03/20/2019. I did not pronounce the patient's HOSPITAL COURSE: As above. DISPOSITION: 20 . TIME SPENT ON DISCHARGE: Greater than 20 minutes. Vital Signs/I&Os Vital Signs Date Time Temp Pulse Resp B/P (MAP) Pulse Ox O2 Delivery O2 Flow Rate FiO2 03/14/19 14:00 97.9 54 140/76 (97) 97 03/14/19 12:00 1.0 03/14/19 10:35 22 Room Air I&O- Last 24 Hours up to 6 AM 03/20/19 06:00 Intake Total 0 ml Balance 0 ml Microbiology Microbiology 03/14/19 Blood Culture - Final, Complete NO GROWTH AFTER 5 DAYS 03/13/19 Urine Culture - Final, Complete Escherichia Coli 03/13/19 Blood Culture - Final, Complete NO GROWTH AFTER 5 DAYS 03/13/19 Blood Culture - Final, Complete NO GROWTH AFTER 5 DAYS Discharge Medications Scheduled Atorvastatin Calcium (Atorvastatin Calcium) 20 Mg Tab, 20 MG PO QHS, (Reported) Carvedilol (Carvedilol) 6.25 Mg Tab, 6.25 MG PO 4XWK, (Reported) B.I.D ON TUE, MON, WED, FRI Cholestyramine (with Sugar) (Questran Packet) 4 Gm Powd.pack, 2 GM PO QID, (Reported) 0600, 1000, 1400, 1800 Ergocalciferol (Vitamin D2) (Vitamin D2) 50,000 Unit Cap, 50,000 UNIT PO 1XWK, (Reported) ON TUESDAY Folic Acid/Vit B Complex and C (Kellee-Leeanne Tablet) 1 Tab Tab, 1 TAB PO DAILY, (Reported) L.acidoph/L.bulg/B.bif/S.therm (Bacid Caplet) 1 Each Tablet, 2 TAB PO DAILY, (Reported) Lactose-Reduced Food (Ensure Enlive) 237 Ml Liquid, 120 ML PO BID, (Reported) Lidocaine/Prilocaine (Lidocaine-Prilocaine Cream) 2.5%/2.5% Cream..g., 1 APLCT TOP ASDIRECTED, (Reported) APPLY TO PORT 30 MINUTES BEFORE DIALYSIS Lorazepam (Lorazepam) 0.5 Mg Tablet, 0.5 MG PO DAILY, (Reported) Pantoprazole Sodium (Pantoprazole Sodium) 40 Mg Tablet.dr, 40 MG PO DAILY, (Reported) Sertraline HCl (Sertraline HCl) 100 Mg Tab, 100 MG PO DAILY, (Reported) Scheduled PRN Acetaminophen (Acetaminophen) 325 Mg Tablet, 650 MG PO Q4H PRN for PAIN, (Reported) Hydrocortisone (Preparation H) 26 Gm Cream..g., 1 APPLIC TOP QID PRN for DISCOMFORT, (Reported) Milk Of Magnesia (Milk of Magnesia) 2,400 Mg/10 Ml Oral.susp, 10 ML PO DAILY PRN for CONSTIPATION, (Reported) Allergies Coded Allergies: Penicillins (Verified Allergy, Severe, throat swelling , hives, 12/12/18) morphine (Verified Adverse Reaction, Mild, Confusion, 01/01/19) GHAZAL COBURN MD Mar 20, 2019 17:38
== END 2019-03-20 09:00 | disposition expired | DRG 871 ==
LOC: M ED 20:41 → M ED INP 22:54 → M PCU 03-14 00:56 → M ICU 03-14 06:08 → M MS5PR 03-14 15:50
PROVIDERS: ADMIT Internal Medicine; ATTEND Internal Medicine
PROC: 02H633Z Insertion of Infusion Device into Right Atrium, Percutaneous Approach (ICD-10-PCS; principal; 2019-03-14)
DX: A41.9 Sepsis, unspecified organism (principal); N18.6 End stage renal disease; R65.21 Severe sepsis with septic shock; K55.059 Acute (reversible) ischemia of intestine, part and extent unspecified; A04.71 Enterocolitis due to Clostridium difficile, recurrent; N39.0 Urinary tract infection, site not specified; E87.2 Acidosis; I12.0 Hypertensive chronic kidney disease with stage 5 chronic kidney disease or end stage renal disease; E11.9 Type 2 diabetes mellitus without complications; Z79.899 Other long term (current) drug therapy; Z88.0 Allergy status to penicillin; Z88.5 Allergy status to narcotic agent; Z85.038 Personal history of other malignant neoplasm of large intestine; D63.1 Anemia in chronic kidney disease; E78.5 Hyperlipidemia, unspecified; Z66 Do not resuscitate; Z51.5 Encounter for palliative care; B96.29 Other Escherichia coli [E. coli] as the cause of diseases classified elsewhere